=== PATIENT | female | born 1970 | race Caucasian/White ===

== ENCOUNTER 2016-08-30 08:30 | Inpatient (IN) | payer OTHER ==
[~2016-08-30] VITALS: Ht 157.5 cm; Wt 48.4 kg
[~2016-08-30 08:30] MED LIST: PRED10TA PO
[2016-08-30] MEDS ORDERED: SODIUM CHLORIDE 0.9% 1000ML 1,000 ML IV STA (08:51)
[2016-08-30] MEDS ORDERED: KETOROLAC TROMETHAMINE 30 MG/ML VIAL IV STA (08:55)
[2016-08-30] MEDS ORDERED: METOCLOPRAMIDE HCL INJ 5 MG/ML 2 ML VIAL IV STA (08:55)
--- NOTE | 2016-08-30 08:56 | EMERGENCY ROOM VISIT NOTE ---
History Report prepared by Pancho: Brain Rizzo Under the Supervision of: Dr. Wilber Russo M.D. First contact with patient: 08:34 Chief Complaint: SYNCOPE (NEAR SYNCOPE) Stated Complaint: NEAR SYNCOPE History of Present Illness The patient is a 46 year old female who presents to the Emergency Room via ALS with complaints of persistent near syncopal episodes beginning one and a half weeks prior to arrival. She associates weakness, abdominal cramping, and resolved chest tightness with today's symptoms. The patient states she was discharged a week and a half ago after being admitted for three weeks for her Crohn's Disease. She notes she has been experiencing her weakness and near syncopal episodes since she was discharged. The patient states she needs assistance walking around. She denies shortness of breath and does not have any other medical concerns at this time. Source of History: patient Onset: week and a half [employer] Position: other (global) Quality: other (near syncopal) Timing: other (persistent) Associated Symptoms: + chest pain (resolved chest tightness), + weakness, No SOB Note: Associated symptoms: abdominal cramping. Review of Systems See HPI for pertinent positives & negatives. A total of 10 systems reviewed and were otherwise negative. Past Medical & Surgical Medical Problems: (1) Bulging disc (2) Crohn's disease (3) Exacerbation of Crohn's disease (4) Fibromyalgia (5) Neuropathy (6) Pneumonia Surgical Problems: (1) S/P cholecystectomy Family History Patient reports no known family medical history. Social History Smoking Status: Current Every Day Smoker Alcohol Use: none Marital Status: single Housing Status: lives alone Occupation Status: unemployed Current/Historical Medications Scheduled Prednisone Tab (Prednisone), 10 MG PO UD Allergies Coded Allergies: Cephalexin (Unverified Allergy, Intermediate, rash, 08/30/16) Lorazepam (Unverified Allergy, Intermediate, tongue swelling, 08/30/16) Sulfa Antibiotics (Unverified Allergy, Intermediate, rash/hives, 08/30/16) Penicillins (Verified Allergy, Unknown, Unknown, 08/30/16) Reported by PT Physical Exam Vital Signs Date Time Temp Pulse Resp B/P Pulse Ox O2 Delivery O2 Flow Rate FiO2 08/30/16 14:15 116 27 120/80 99 Room Air 08/30/16 12:39 112 08/30/16 12:15 120 16 108/70 97 Room Air 08/30/16 10:22 114 20 107/77 97 Room Air 08/30/16 09:10 137 129/93 144 135/92 161 121/96 08/30/16 08:50 150 08/30/16 08:37 98 Room Air 08/30/16 08:37 37.4 147 20 123/85 96 Room Air 08/30/16 07:30 Room Air Physical Exam GENERAL: Patient is a cachectic in appearance. HEAD: Normocephalic atraumatic EYES: Ocular movements intact pupils equal and react to light OROPHARYNX mucous membranes are moist no exudates present no erythema or edema present NECK: Supple no nuchal rigidity CHEST: Good equal expansion LUNGS: Clear and equal to auscultation CARDIAC: Normal S1 and S2 ABDOMEN: Soft nontender no guarding BACK: No CVA tenderness EXTREMITIES: No pain upon palpation normal muscle strength in all groups no clubbing cyanosis or edema NEURO: Patient is following commands is answering questions appropriately. Alert and oriented x3 Cranial Nerves 2-12 grossly intact Medical Decision & Procedures ER Provider Diagnostic Interpretation: X-ray results as stated below per interpretation by me and the radiologist: ABDOMEN 2VIEW W/PA CHEST RTN CLINICAL HISTORY: Generalized abdominal pain and syncope COMPARISON STUDY: 08/20/2016 FINDINGS: The cardiac and mediastinal contours remain stable. There are left lower lobe airspace opacities. Clinical correlation in regards to a pneumonia is recommended. No free air is visualized. Supine and decubitus views the abdomen reveal surgical clips within the right upper quadrant consistent with a prior cholecystectomy. There are scattered air-fluid levels. There are no transition zones indicate bowel obstruction. Left mid abdominal small bowel loops are at the upper limits of normal diameter measuring 27 mm. IMPRESSION: 1. Nonspecific bowel gas pattern with scattered air-fluid levels. No conventional radiographic evidence of bowel obstruction or free air 2. Left lower lobe airspace opacities. Clinical correlation in regards to a pneumonia is recommended Electronically signed by: Skyler Partida M.D. 08/30/2016 9:47 AM Laboratory Results Test 08/30/16 08:58 08/30/16 09:16 Bedside Glucose 77 mg/dl (70-90) Immature Granulocyte % (Auto) 0.4 % White Blood Count 2.78 K/uL (4.8-10.8) Red Blood Count 3.37 M/uL (4.2-5.4) Hemoglobin 9.0 g/dL (12.0-16.0) Hematocrit 28.2 % (37-47) Mean Corpuscular Volume 83.7 fL (80-100) Mean Corpuscular Hemoglobin 26.7 pg (25-34) Mean Corpuscular Hemoglobin Concent 31.9 g/dl (32-36) Platelet Count 368 K/uL (130-400) Mean Platelet Volume 9.5 fL (7.4-10.4) Neutrophils (%) (Auto) 78.3 % Lymphocytes (%) (Auto) 10.1 % Monocytes (%) (Auto) 7.9 % Eosinophils (%) (Auto) 2.9 % Basophils (%) (Auto) 0.4 % Neutrophils # (Auto) 2.18 K/uL (1.4-6.5) Lymphocytes # (Auto) 0.28 K/uL (1.2-3.4) Monocytes # (Auto) 0.22 K/uL (0.11-0.59) Eosinophils # (Auto) 0.08 K/uL (0-0.5) Basophils # (Auto) 0.01 K/uL (0-0.2) Immature Granulocyte # (Auto) 0.01 K/uL (0.00-0.02) Neutrophils % (Manual) 73.1 % Lymphocytes % (Manual) 10.4 % Monocytes % (Manual) 8.7 % Eosinophils % (Manual) 6.1 % Myelocytes % 1.7 % Neutrophils # (Manual) 2.03 K/uL (1.4-6.5) Total Absolute Neutrophils 2.03 K/uL (1.4-6.5) Lymphocytes # (Manual) 0.29 K/uL (1.2-3.4) Total Absolute Lymphocytes 0.29 K/uL (1.2-3.4) Monocytes # (Manual) 0.24 K/uL (0.11-0.59) Eosinophils # (Manual) 0.17 K/uL (0-0.5) Myelocytes # 0.05 K/uL (0-0) Polychromasia 1+ Hypochromasia PRESENT Est Creatinine Clear Calc Drug Dose 72.7 ml/min Total Bilirubin 0.2 mg/dl (0.2-1) Direct Bilirubin < 0.1 mg/dl (0-0.2) Aspartate Amino Transf (AST/SGOT) 9 U/L (15-37) Alanine Aminotransferase (ALT/SGPT) 21 U/L (12-78) Alkaline Phosphatase 72 U/L (45-117) Total Creatine Kinase 8 U/L (26-192) Creatine Kinase MB 0.5 ng/ml (0.5-3.6) Creatine Kinase MB Ratio 6.3 (0-3.0) Total Protein 6.4 gm/dl (6.4-8.2) Thyroid Stimulating Hormone (TSH) 1.960 uIu/ml (0.300-4.500) Labs reviewed by ED physician. Medications Administered Medications (Trade) Dose Ordered Sig/Rashard Route Start Time Stop Time Status Last Admin Dose Admin Sodium Chloride (Nss 1000ml) 1,000 ml @ 999 mls/hr Q1H1M STAT IV 08/30/16 08:51 08/30/16 09:51 DC 08/30/16 09:15 999 MLS/HR Ketorolac Tromethamine (Toradol Inj) 30 mg NOW STAT IV 08/30/16 08:55 08/30/16 08:57 DC 08/30/16 09:45 30 MG Metoclopramide HCl 10 mg 10 mg NOW STAT IV 08/30/16 08:55 08/30/16 08:57 DC 08/30/16 09:45 10 MG Aztreonam 2000 mg/ Dextrose 110 ml @ 100 mls/hr NOW STAT IV 08/30/16 11:15 08/30/16 12:20 DC 08/30/16 11:45 100 MLS/HR Levofloxacin 750 mg/Prmx 150 ml @ 100 mls/hr NOW ONCE IV 08/30/16 12:00 08/30/16 13:29 DC 08/30/16 11:46 100 MLS/HR Tobramycin Sulfate/Dextrose (Nebcin Inj/D5 100ml) 107.7 ml @ 100 mls/hr TODAY@1200 IV 08/30/16 12:00 08/30/16 14:00 DC 08/30/16 13:08 100 MLS/HR Ondansetron HCl (Zofran Inj) 4 mg Q6H PRN IV 08/30/16 12:30 09/29/16 12:29 08/30/16 23:41 4 MG Zolpidem Tartrate (Ambien Tab) 5 mg HS PRN PO 08/30/16 12:30 09/29/16 12:29 08/30/16 23:41 5 MG Hydromorphone HCl (Dilaudid Inj) 0.5 mg Q4 PRN IV 08/30/16 12:30 09/13/16 12:29 08/30/16 23:41 0.5 MG ECG Indication: syncope Rate (beats per minute): 136 Rhythm: sinus tachycardia Findings: no acute ischemic change, no ectopy ED Course 0847: Past medical records reviewed. The patient was evaluated in room A4B. A complete history and physical examination was performed. 0821: Ordered Sodium Chloride 1,000 ml @ 999 mls/hr IV. 0855: Ordered Reglan Inj 10 mg IV, Toradol Inj 30 mg IV. 1115: Ordered Aztreonam 2,000 mg/Dextrose 110 ml @ 100 mls/hr IV. 1133: I spoke to PETRA Arambula (Hospitalist) about the patient's case, and he will follow the patient for further evaluation. 1200: Ordered Tobramycin Sulfate 308 mg/Dextrose 107.7 ml @ 100 mls/hr IV, Levofloxacin 750 mg/Prmx 150 ml @ 100 mls/hr IV. Medical Decision Differential diagnosis: Etiologies such as vasovagal event, infection, hypoglycemia, electrolyte abnormalities, cardiac sources, intracerebral event, toxicologic, neurologic, as well as others were entertained. This is a 46-year-old female who presents emergency department complaining of syncopal episodes at home. Due to her Crohn's disease. In addition upon arrival to the emergency department she is hypotensive and tachycardic. She does appear to have a pneumonia on her chest x-ray and has a depression in her white blood count. Based on these findings felt prudent to pancultured the patient start antibiotics. Due to her being allergic to penicillin she was started on Levaquin Ольга in am and tobramycin. I did discuss the case with the hospitalist service who agreed to admit the patient. IV was established, the patient given normal saline bolus, Toradol. The patient is on the no narcotics treatment plan. Consults Time Called: 1130 Consulting Physician: PETRA Arambula (Hospitalist) Returned Call: 1133 I spoke to PETRA Arambula (Hospitalist) about the patient's case, and he will follow the patient for further evaluation. Impression Primary Impression: Pneumonia Scribe Attestation The scribe's documentation has been prepared under my direction and personally reviewed by me in its entirety. I confirm that the note above accurately reflects all work, treatment, procedures, and medical decision making performed by me. Departure Information Dispostion Being Evaluated By Hospitalist (PETRA Arambula (Hospitalist)) Sixto Guillermo M.D. (PCP)
[2016-08-30 09:38] LABS: BASO % 0.4 %; BASO ABS # 0.01 K/uL (0-0.2); EOS % 2.9 %; HEMATOCRIT 28.2 % (37-47); IG% 0.4 %; LYMPH % 10.1 %; LYMPH ABS # 0.28 K/uL (1.2-3.4); MEAN CELL VOLUME 83.7 fL (80-100); MEAN CORPUSCULAR HEMOGLOBIN 26.7 pg (25-34); MEAN CORPUSCULAR HGB CONC 31.9 g/dl (32-36); MEAN PLATELET VOLUME 9.5 fL (7.4-10.4); MONO % 7.9 %; NEUT % 78.3 %; PLATELET COUNT 368 K/uL (130-400); RED BLOOD COUNT 3.37 M/uL (4.2-5.4); WHITE BLOOD COUNT 2.78 K/uL (4.8-10.8)
--- NOTE | 2016-08-30 09:48 | DIAGNOSTIC IMAGING REPORT ---
ABDOMEN 2VIEW W/PA CHEST RTN CLINICAL HISTORY: Generalized abdominal pain and syncope COMPARISON STUDY: 08/20/2016 FINDINGS: The cardiac and mediastinal contours remain stable. There are left lower lobe airspace opacities. Clinical correlation in regards to a pneumonia is recommended. No free air is visualized. Supine and decubitus views the abdomen reveal surgical clips within the right upper quadrant consistent with a prior cholecystectomy. There are scattered air-fluid levels. There are no transition zones indicate bowel obstruction. Left mid abdominal small bowel loops are at the upper limits of normal diameter measuring 27 mm. IMPRESSION: 1. Nonspecific bowel gas pattern with scattered air-fluid levels. No conventional radiographic evidence of bowel obstruction or free air 2. Left lower lobe airspace opacities. Clinical correlation in regards to a pneumonia is recommended Electronically signed by: Skyler Partida M.D. 08/30/2016 9:47 AM
[2016-08-30 09:52] LABS: BLOOD UREA NITROGEN 16 mg/dl (7-18); CREATININE 0.65 mg/dl (0.60-1.20); GLUCOSE 73 mg/dl (70-99)
[2016-08-30 09:53] LABS: ALT/SGPT 21 U/L (12-78); BUN/CREATININE RATIO 24.2 (10-20); CALCIUM 8.3 mg/dl (8.5-10.1); CARBON DIOXIDE 22 mmol/L (21-32); CHLORIDE 107 mmol/L (98-107); MAGNESIUM 1.7 mg/dl (1.8-2.4); POTASSIUM 3.4 mmol/L (3.5-5.1); SODIUM 138 mmol/L (136-145)
[2016-08-30 10:03] LABS: ALKALINE PHOSPHATASE 72 U/L (45-117); AST/SGOT 9 U/L (15-37); CKMB/CK RATIO 6.3 (0-3.0)
[2016-08-30 10:12] LABS: COMPLETE YES; HYPOCHROMIA PRESENT; POLYCHROMASIA 1+
[2016-08-30] MEDS ORDERED: AZTREONAM IV 2,000 MG in DEXTROSE 5% 100ML 100 ML IV STA (11:15)
[2016-08-30] MEDS ORDERED: LEVAQUIN 500MG / 100ML D5W IV STA (11:15)
[2016-08-30] MEDS ORDERED: DEXTROSE 5% IV STA (11:20)
[2016-08-30] MEDS ORDERED: TOBRAMYCIN SULF IV STA (11:20)
[2016-08-30] MEDS ORDERED: TOBRAMYCIN SULF IV SCH (12:00)
[2016-08-30] MEDS ORDERED: DEXTROSE 5% IV SCH (12:00)
[2016-08-30] MEDS ORDERED: LEVOFLOXACIN 750MG / D5W IV ONE (12:00)
[2016-08-30] MEDS ORDERED: VANCOMYCIN INJ 1,000 MG in SODIUM CHLORIDE 0.9% 250ML 250 ML IV STA (12:24)
[2016-08-30] MEDS ORDERED: OPTIRAY 320 IV PRN (13:00)
--- NOTE | 2016-08-30 13:04 | HISTORY & PHYSICAL EXAMINATION ---
DATE OF ADMISSION: 08/30/2016 ADDENDUM TO HISTORY AND PHYSICAL Regarding the patient's Crohn's disease flare, we are going to put her on an IV steroid that she was on prednisone taper dose as an outpatient, and also will get a GI consultation, will get stool for C. diff. Next, regarding the neutropenia, a neutrophil count is in a good range. She does not need to be isolated. If it becomes low, we may consider giving a dose of the Neupogen or Granix. Regarding the smoking, Risks of the smoking and explained to her, expressed understanding. She is going to require some nicotine. We are going to put her on a 7 mg nicotine patch. MTDD
[2016-08-30] MEDS ORDERED: VANCOMYCIN CONSULT ACTIVE PRN (13:15)
[2016-08-30] MEDS ORDERED: AZTREONAM CONSULT ACTIVE PRN ×2 (13:15)
--- NOTE | 2016-08-30 14:11 | HISTORY & PHYSICAL EXAMINATION ---
DATE OF ADMISSION: 08/30/2016 ADDENDUM The EKG reviewed with the ER physician, which he says he already seen it. He did not think this was ST elevation, especially patient having no chest pain, no shortness of breath and normal cardiac enzyme. Will repeat the enzymes and will monitor the patient. If anything happens will intervene accordingly and will address it with cardiology.
[2016-08-30] MEDS: HYDROmorphone INJ 1 MG/ML SYR IV PRN ×3 (15:10→23:41)
--- NOTE | 2016-08-30 15:36 | HISTORY & PHYSICAL EXAMINATION ---
DATE OF ADMISSION: 08/30/2016 CHIEF COMPLAINT: Abdominal pain and weakness and coughing with fever, having some episodes of syncope. HISTORY OF PRESENT ILLNESS: This is a pleasant 46-year-old female currently awake, alert, oriented and having some baseline psychiatric issue and chronic Crohn's disease was in the hospital recently discharged with Crohn's flareup while in the hospital for a long period. According to the patient whose case was addressed with the ER physician Dr. Russo the patient had been passing out a few times over the last week and discharged from the hospital having some weaknesses, diarrhea recurrent which is because of the Crohn's disease, some abdominal pain, some coughing producing some whitish phlegm, having some fever and chills but never checked a temperature. Not able to eat or drink anything and looks weak, lethargic, lousy and denies any nausea, any bleeding issues and having some mild chest pain earlier today on the left side. Workup in the Emergency Room showed nonspecific air pattern in the bowel as well as left lower infiltration. She was neutropenic while neutrophil count is in a good range. Awake, alert, able to provide information by herself. PAST MEDICAL HISTORY: 1. Crohn's disease and multiple flareup. 2. Noncompliance. 3. Recent DVT at PICC line site. On discharge they opted not to treat it because of noncompliance issue. 4. Chronic constipation alternating with diarrhea. 5. Excoriation of the perianal skin. 6. Chronic abdominal pain. 7. Chronic back pain. 8. History of osteoporosis and peripheral neuropathy. 9. Status post cholecystectomy. MEDICATIONS ON ADMISSION: Other than the recent taper of the steroid she is not on any medication but she was started on Entyvio by Dr. Mcfarlane. She said she just got a dose last week and she is supposed to get second dose in 2 weeks. ALLERGIES: SHE IS ALLERGIC TO CEPHALEXIN, LORAZEPAM, PENICILLIN AND SULFA DRUGS. SOCIAL HISTORY: Smokes 5-6 cigarettes a day. No alcohol and denies any drugs. FAMILY HISTORY: She does not know much about her family history. REVIEW OF SYSTEMS: From 12 point review in history and physical all the findings appreciated. PHYSICAL EXAMINATION: VITAL SIGNS: Temperature 37.4, pulse 147, improved to 114, now like 116. Blood pressure 123/85. O2 sat as 96% on room air. GENERAL: Awake, alert, oriented. Looks weak, lethargic. HEAD, EYES, EARS, NOSE, AND THROAT: Normocephalic. Dry lips and tongue. No discharge. SKIN: Mucous membranes warm, dry. Skin dry mucous membranes. NECK: Supple. No JVD. No bruits or goiter. CHEST: Symmetrical expansion. Port in the right side of the chest. No skin abnormality. LUNGS: With air entry bilaterally. No rales or rhonchi. No crackles or wheezes. HEART: S1, S2. rapid and regular. No added sounds appreciated. ABDOMEN: Soft, mild generalized tenderness. No guarding, no rigidity. No organomegaly. Bowel sounds positive. EXTREMITIES: No pitting edema. Good peripheral pulses. Good range of motion. Good range of motion of the joint. No tenderness of any joint or muscle. BACK: No costovertebral angle tenderness. No lower back erythema or ulceration. PELVIC: Deferred. RECTAL: Deferred. NEUROLOGICALLY: Awake, alert, oriented. Motor and sensory grossly intact. LABORATORY DATA: White cell count 2.78, hemoglobin 9, hematocrit 28.2, platelet count 368, sodium 138, potassium 3.4, chloride 107, BUN 16, creatinine 0.625, magnesium 1.7. AST 9, ALT 21, CK-MB 6.3, troponin less than 0.015. Albumin 2.4, TSH 1.96. Chest and abdominal x-ray basically showed nonspecific bowel gas pattern, scattered air fluid level, no convincing radiographic evidence of bowel obstruction or free air. Left lower lobe air space opacity could be related to pneumonia. EKG showed sinus tachycardia rate 136, QRS 68, QTC [address] T-wave changes. There are some ST elevations anterolateral leads, could be a related to tachycardia as she has no no chest pain or shortness of breath and cardiac enzymes negative. When compared with prior EKG this finding is new finding. IMPRESSION: A 46-year-old female presented with some dizziness, mild chest pain, worse with coughing and left lower quadrant infiltration, diarrhea with Crohn's disease flareup. 1. Recurrent syncope, possibly secondary to dehydration, pneumonia and doubt cardiac causes but need to rule out pulmonary embolism in light of recent DVT in the PICC line site. 2. Left lower lobe pneumonia. 3. Crohn's disease flareup. 4. Abdominal pain and diarrhea secondary to the Crohn's disease flare up. 5. Neutropenia. 6. Chronic immunosuppression. 7. Need to rule out pulmonary embolism. 8. Chronic anemia, mild possible secondary to chronic disease 9. Mild hypokalemia and hypomagnesia. 9. Doubt sepsis. PLAN: The patient is going to be admitted as an inpatient as she has multiple comorbidities and presentation though otherwise showing risks of progression of the symptoms with high morbidity and mortality and cardiopulmonary compromises. First the patient is going to get some antibiotic, Levaquin and tobramycin and aztreonam. We are going to put the patient on Vanc and Azactam consider this as hospital acquired pneumonia as she is allergic to penicillin and cephalosporins. Give some IV fluids, add some potassium to it and replace magnesium, get blood culture and check C. diff again. Get CTA of the chest to rule out pulmonary embolism and evaluate infiltration. Will address with cardiology if enzymes is becomes positive as doubted STEMI, regarding the EKG change which I doubt it to be ST elevation myocardial infraction as has normal enzyme and no chest pain currently. Put her on some nausea medication, she asked for some sleeping aide and I will put her on some pain medication. Further workup pending any progression or finding during hospitalization. CODE STATUS FULL CODE. DVT prophylaxis. Will put her on heparin twice a day. Prognosis is poor. All discussed with the patient in detail and she expressed understanding. Time spent is 45 minutes. SHERRELLD
[2016-08-30] MEDS ORDERED: VANCOMYCIN 1GM/270ML NSS IV ONE (16:00)
[2016-08-30 16:45] VITALS: BP 111/72; PULSE 116; TEMP 37; O2SAT 97
--- NOTE | 2016-08-30 16:51 | Pharmacy Progress Note ---
Pharmacy Antibiotic Consult Date of Service: Aug 30, 2016. Pharmacy Dosing Scope Pharmacy is consulted to initiate vancomycin and azactam IV dosing therapy, order appropriate labs and adjust drug dose/frequency. Subjective The patient is a 46 year old female admitted on . Objective Height (Feet): 5 Height (Inches): 2.00 Weight (Kilograms): 43.500 Lab Results (24hrs): Laboratory Tests Test 08/30/16 09:16 BUN/Creatinine Ratio 24.2 Blood Urea Nitrogen 16 mg/dl Creatinine 0.65 mg/dl White Blood Count 2.78 K/uL Red Blood Count 3.37 M/uL Hemoglobin 9.0 g/dL Hematocrit 28.2 % Mean Corpuscular Volume 83.7 fL Mean Corpuscular Hemoglobin 26.7 pg Mean Corpuscular Hemoglobin Concent 31.9 g/dl Platelet Count 368 K/uL Mean Platelet Volume 9.5 fL Neutrophils (%) (Auto) 78.3 % Lymphocytes (%) (Auto) 10.1 % Monocytes (%) (Auto) 7.9 % Eosinophils (%) (Auto) 2.9 % Basophils (%) (Auto) 0.4 % Neutrophils # (Auto) 2.18 K/uL Lymphocytes # (Auto) 0.28 K/uL Monocytes # (Auto) 0.22 K/uL Eosinophils # (Auto) 0.08 K/uL Basophils # (Auto) 0.01 K/uL Micro Results: Item Value Date Time Blood Culture Received 08/30/16 1613 Blood Pending Blood Culture Received 08/30/16 1610 Blood Pending Assessment & Plan Patient started on vancomycin and azactam (PCN/cephalosporin allergy noted) for possible hospital acquired pneumonia. Patient received one time dose of tobramycin and levaquin in the ED. BC x 2 are ordered and are pending. Vancomycin: * LD: 1000 mg (~23 mg/kg) iv x 1 given in ED * Will start a MD of 700 mg (~16 mg/kg) iv q 8 hrs to achieve an estimated trough ~15-20 mcg/ml (goal for PNA) * regimen based upon previous PK data from 08/11 (patient had been on 650 mg iv q 8 hrs and it produced trough ~15 mcg/ml) * patient with similar CrCl from previous admission; CrCl ~75 ml/min * Will obtain a trough prior to the 08/31 0000 dose to ensure therapeutic Azactam: * Patient received 2 gm iv x 1 ; will start MD of 2 gm iv q 8 hrs (appropriate for PNA / >30 CrCl - no adjustment necessary) Pharmacy will continue to follow and will adjust dose/frequency as necessary. Thank you
[2016-08-30] MEDS: ONDANSETRON INJ 2 MG/ML 2 ML VIAL IV PRN ×2 (17:27→23:41)
[2016-08-30 17:30] VITALS: O2SAT 97; Ht 157.5 cm; Wt 48.4 kg
[2016-08-30] MEDS ORDERED: VANCOMYCIN INJ 1,000 MG in SODIUM CHLORIDE 0.9% 250ML 250 ML IV SCH (17:30)
[2016-08-30] MEDS: NSS + 20MEQ KCL 1000ML 1,000 ML IV SCH (18:23)
[2016-08-30] MEDS: HYDROCORTISONE IV 50 MG in SYRINGE 0 ML IV SCH ×2 (18:28→23:42)
[2016-08-30 19:29] VITALS: BP 130/84; PULSE 134; TEMP 37.6; O2SAT 97
[2016-08-30] MEDS ORDERED: MAGNESIUM SULFATE 1GM / D5W 1 GM in PREMIXED IN D5W 100 ML IV ONE (20:00)
[2016-08-30] MEDS ORDERED: POTASSIUM CHLORIDE 10 MEQ TABCR PO STA (20:10)
[2016-08-30] MEDS: AZTREONAM IV 2,000 MG in DEXTROSE 5% 100ML 100 ML IV SCH (20:43)
[2016-08-30] MEDS: HEPARIN SOD 5000 UNIT/0.5 ML CARP SQ SCH (20:53)
[2016-08-30] MEDS: VANCOMYCIN INJ 700 MG in SODIUM CHLORIDE 0.9% 250ML 250 ML IV SCH (23:40)
[2016-08-30] MEDS: ZOLPIDEM TARTRATE 5 MG TAB PO PRN (23:41)
[2016-08-30 23:45] VITALS: BP 125/84; PULSE 104; TEMP 36.9; O2SAT 97
[2016-08-31] VITALS (8 sets, daily range): BP systolic 106–128; BP diastolic 67–85; PULSE 100–119; TEMP 36.5–37.6; O2SAT 96–98
[2016-08-31 00:37] LABS: MANUAL MICROSCOPIC REQUIRED? NO; REVIEW REQ? NO; URINE APPEARANCE CLEAR (CLEAR); URINE BILIRUBIN NEG (NEG); URINE COLOR YELLOW; URINE EPITHELIAL CELL AUTO >30 /lpf (0-5); URINE NITRITE NEG (NEG); URINE SPECIFIC GRAVITY 1.002 (1.000-1.030); UROBILINOGEN NEG (NEG)
[2016-08-31] MEDS: NSS + 20MEQ KCL 1000ML 1,000 ML IV SCH ×3 (03:00→16:49)
[2016-08-31] MEDS: AZTREONAM IV 2,000 MG in DEXTROSE 5% 100ML 100 ML IV SCH ×3 (04:23→21:57)
[2016-08-31] MEDS: HYDROCORTISONE IV 50 MG in SYRINGE 0 ML IV SCH ×4 (05:39→23:29)
[2016-08-31 06:53] LABS: HEMATOCRIT 24.6 % (37-47); MEAN CELL VOLUME 82.3 fL (80-100); MEAN CORPUSCULAR HEMOGLOBIN 26.8 pg (25-34); MEAN CORPUSCULAR HGB CONC 32.5 g/dl (32-36); PLATELET COUNT 321 K/uL (130-400); RED BLOOD COUNT 2.99 M/uL (4.2-5.4); WHITE BLOOD COUNT 2.34 K/uL (4.8-10.8)
[2016-08-31 07:13] LABS: ANISOCYTOSIS PRESENT; COMPLETE YES; DOHLE BODIES 1+; EOS % 0.4 %; GIANT PLATELETS 1+; IG% 1.3 %; LYMPH % 15.4 %; LYMPH ABS # 0.36 K/uL (1.2-3.4); MONO % 3.8 %; NEUT % 79.1 %; TOXIC GRANULATION 1+
[2016-08-31 07:21] LABS: BUN/CREATININE RATIO 17.6 (10-20); CALCIUM 8.2 mg/dl (8.5-10.1); CREATININE 0.45 mg/dl (0.60-1.20); PHOSPHORUS 2.7 mg/dl (2.5-4.9); POTASSIUM 3.9 mmol/L (3.5-5.1)
[2016-08-31] MEDS: ONDANSETRON INJ 2 MG/ML 2 ML VIAL IV PRN ×2 (07:42→16:54)
[2016-08-31] MEDS: HYDROmorphone INJ 1 MG/ML SYR IV PRN ×4 (07:42→22:01)
[2016-08-31] MEDS: VANCOMYCIN INJ 700 MG in SODIUM CHLORIDE 0.9% 250ML 250 ML IV SCH ×3 (07:46→23:58)
[2016-08-31] MEDS: HEPARIN SOD 5000 UNIT/0.5 ML CARP SQ SCH (07:51)
[2016-08-31] MEDS: NICOTINE 7 MG/24 HR TDSY TD SCH (10:11)
[2016-08-31] MEDS: CLONAZEPAM 0.5 MG TAB PO PRN ×2 (10:15→23:04)
--- NOTE | 2016-08-31 12:27 | Progress Note ---
Subjective Date of Service: Aug 31, 2016. Subjective Pt evaluation today including: conversation w/ patient Pain: moderate abd pain, imporves w pain meds PO Intake: better Voiding: no voiding problems seen and examined awake and alert a,febrile, no Cp or SOB, still has abd pain pain improves w pain meds, no more nausea and still has loose stool, no fever or chill, CTA chest is not done. still has coughing and phlegm but better than yesterday asks for Clonazepam which she suppose to be on it as O but has no refill and no PMD, Review of Systems Constitutional: No chills, No fatigue, No fever, No problem reported, No see HPI, No sweats, No weakness, No weight loss Eyes: No diplopia, No discharge, No eye pain, No problem reported, No redness, No see HPI, No worsening of vision ENT: No dental problems, No hearing loss, No nasal symptoms, No problem reported, No see HPI, No sore throat, No tinnitus, No trouble swallowing, No unusual epistaxis Respiratory: No cough, No dyspnea at rest, No dyspnea on exertion, No hemoptysis, No problem reported, No see HPI, No shortness of breath, No sputum, No wheezing Cardiac: No PND, No chest pain, No claudication, No edema, No orthopnea, No palpitations, No problem reported, No see HPI Abdomen: + diarrhea, + pain Musculoskeletal: No calf pain, No joint pain, No muscle pain, No problem reported, No see HPI, No swelling Female : No abnormal vaginal bleeding, No dysuria, No hematuria, No incontinence, No problem reported, No see HPI, No urinary frequency, No vaginal discharge Neurologic: No balance problems, No memory loss, No numbness/tingling, No paralysis, No problem reported, No see HPI, No vertigo, No weakness Medications Current Inpatient Medications Medications (Trade) Dose Ordered Sig/Rashard Route Start Time Stop Time Status Last Admin Dose Admin Heparin Sodium (Porcine) 5000 unit 5,000 unit Q12 SQ 08/30/16 21:00 09/29/16 20:59 08/31/16 07:51 5,000 UNIT Potassium Chloride/Sodium Chloride (Nss + 20meq KCl 1000ml) 1,000 ml @ 125 mls/hr Q8H IV 08/30/16 17:30 09/29/16 12:23 08/31/16 07:46 125 MLS/HR Acetaminophen (Tylenol Tab) 650 mg Q4H PRN PO 08/30/16 12:30 09/29/16 12:29 Ondansetron HCl 4 mg 4 mg Q6H PRN IV 08/30/16 12:30 09/29/16 12:29 08/31/16 07:42 4 MG Aztreonam 2000 mg/ Dextrose 110 ml @ 100 mls/hr Q8H IV 08/30/16 20:00 09/09/16 11:59 08/31/16 11:53 100 MLS/HR Hydrocortisone Sodium Succinate/ Syringe (Solu-Cortef IV/ Syringe) 1 ml @ 4 mls/min Q6H IV 08/30/16 18:00 09/29/16 17:59 08/31/16 11:53 4 MLS/MIN Zolpidem Tartrate (Ambien Tab) 5 mg HS PRN PO 08/30/16 12:30 09/29/16 12:29 08/30/16 23:41 5 MG Hydromorphone HCl (Dilaudid Inj) 0.5 mg Q4 PRN IV 08/30/16 12:30 09/13/16 12:29 08/31/16 12:01 0.5 MG Ioversol (Optiray 320) 95 ml UD PRN IV 08/30/16 13:00 09/03/16 12:59 Vancomycin HCl (Consult) 1 ea UD PRN N/A 08/30/16 13:15 09/29/16 13:14 Aztreonam 1 ea 1 ea UD PRN N/A 08/30/16 13:15 09/29/16 13:14 Vancomycin HCl/ Sodium Chloride (Vancomycin Inj/ Nss 250ml) 264 ml @ 125 mls/hr Q8H IV 08/31/16 00:00 09/10/16 00:00 08/31/16 07:46 125 MLS/HR Nicotine (Nicoderm Cq 7 Mg Patch) 1 patch QAM TD 08/31/16 09:00 09/30/16 08:59 08/31/16 10:11 1 PATCH Miscellaneous (Remove Nicoderm Patch) 1 ea HS N/A 08/31/16 21:00 09/30/16 20:59 Clonazepam (Klonopin Tab) 0.5 mg BID PRN PO 08/31/16 09:00 09/30/16 08:59 08/31/16 10:15 0.5 MG Objective Vital Signs Date Time Temp Pulse Resp B/P Pulse Ox O2 Delivery O2 Flow Rate FiO2 08/31/16 08:13 36.8 104 18 128/67 98 08/31/16 04:23 36.9 100 18 122/85 98 Room Air 08/31/16 04:00 Room Air 08/31/16 00:00 Room Air 08/30/16 23:45 36.9 104 18 125/84 97 Room Air 08/30/16 19:30 Room Air 08/30/16 19:29 37.6 134 18 130/84 97 Room Air 08/30/16 17:30 97 Room Air 08/30/16 16:45 37.0 116 16 111/72 97 Room Air 08/30/16 16:15 143 27 111/80 96 08/30/16 14:15 116 27 120/80 99 Room Air 08/30/16 12:39 112 08/30/16 12:15 120 16 108/70 97 Room Air 08/30/16 10:22 114 20 107/77 97 Room Air 08/30/16 09:10 137 129/93 144 135/92 161 121/96 08/30/16 08:50 150 08/30/16 08:37 98 Room Air 08/30/16 08:37 37.4 147 20 123/85 96 Room Air Physical Exam General Appearance: WD/WN Eyes: normal inspection ENT: normal ENT inspection Neck: supple, no adenopathy, thyroid normal Respiratory/Chest: chest non-tender, lungs clear, normal breath sounds, no respiratory distress Cardiovascular: regular rate, rhythm, no edema, no gallop, no JVD Abdomen: normal bowel sounds, non tender, soft, no organomegaly Extremities: normal range of motion, non-tender, normal inspection, no pedal edema Neurologic/Psychiatric: no motor/sensory deficits Laboratory Results Last 24 Hours Test 08/30/16 08:58 08/30/16 09:16 08/30/16 16:10 08/30/16 23:15 Bedside Glucose 77 mg/dl White Blood Count 2.78 K/uL Red Blood Count 3.37 M/uL Hemoglobin 9.0 g/dL Hematocrit 28.2 % Mean Corpuscular Volume 83.7 fL Mean Corpuscular Hemoglobin 26.7 pg Mean Corpuscular Hemoglobin Concent 31.9 g/dl Platelet Count 368 K/uL Mean Platelet Volume 9.5 fL Neutrophils (%) (Auto) 78.3 % Lymphocytes (%) (Auto) 10.1 % Monocytes (%) (Auto) 7.9 % Eosinophils (%) (Auto) 2.9 % Basophils (%) (Auto) 0.4 % Neutrophils # (Auto) 2.18 K/uL Lymphocytes # (Auto) 0.28 K/uL Monocytes # (Auto) 0.22 K/uL Eosinophils # (Auto) 0.08 K/uL Basophils # (Auto) 0.01 K/uL RDW Standard Deviation 78.7 fL RDW Coefficient of Variation 26.4 % Immature Granulocyte % (Auto) 0.4 % Immature Granulocyte # (Auto) 0.01 K/uL Neutrophils % (Manual) 73.1 % Lymphocytes % (Manual) 10.4 % Monocytes % (Manual) 8.7 % Eosinophils % (Manual) 6.1 % Myelocytes % 1.7 % Neutrophils # (Manual) 2.03 K/uL Total Absolute Neutrophils 2.03 K/uL Lymphocytes # (Manual) 0.29 K/uL Total Absolute Lymphocytes 0.29 K/uL Monocytes # (Manual) 0.24 K/uL Eosinophils # (Manual) 0.17 K/uL Myelocytes # 0.05 K/uL Polychromasia 1+ Hypochromasia PRESENT Sodium Level 138 mmol/L Potassium Level 3.4 mmol/L Chloride Level 107 mmol/L Carbon Dioxide Level 22 mmol/L Anion Gap 9.0 mmol/L Blood Urea Nitrogen 16 mg/dl Creatinine 0.65 mg/dl Est Creatinine Clear Calc Drug Dose 72.7 ml/min Estimated GFR () 121.7 Estimated GFR (Non- 105.0 BUN/Creatinine Ratio 24.2 Random Glucose 73 mg/dl Calcium Level 8.3 mg/dl Magnesium Level 1.7 mg/dl Total Bilirubin 0.2 mg/dl Direct Bilirubin < 0.1 mg/dl Aspartate Amino Transf (AST/SGOT) 9 U/L Alanine Aminotransferase (ALT/SGPT) 21 U/L Alkaline Phosphatase 72 U/L Total Creatine Kinase 8 U/L Creatine Kinase MB 0.5 ng/ml Creatine Kinase MB Ratio 6.3 Troponin I < 0.015 ng/ml < 0.015 ng/ml < 0.015 ng/ml Total Protein 6.4 gm/dl Albumin 2.4 gm/dl Thyroid Stimulating Hormone (TSH) 1.960 uIu/ml Test 08/31/16 00:20 08/31/16 06:37 Urine Color YELLOW Urine Appearance CLEAR Urine pH 5.0 Urine Specific Louann 1.002 Urine Protein NEG Urine Glucose (UA) NEG Urine Ketones NEG Urine Occult Blood 2+ Urine Nitrite NEG Urine Bilirubin NEG Urine Urobilinogen NEG Urine Leukocyte Esterase MODERATE Urine WBC (Auto) 5-10 /hpf Urine RBC (Auto) 10-30 /hpf Urine Hyaline Casts (Auto) 1-5 /lpf Urine Epithelial Cells (Auto) >30 /lpf Urine Bacteria (Auto) NEG White Blood Count 2.34 K/uL Red Blood Count 2.99 M/uL Hemoglobin 8.0 g/dL Hematocrit 24.6 % Mean Corpuscular Volume 82.3 fL Mean Corpuscular Hemoglobin 26.8 pg Mean Corpuscular Hemoglobin Concent 32.5 g/dl Platelet Count 321 K/uL Mean Platelet Volume 9.0 fL Neutrophils (%) (Auto) 79.1 % Lymphocytes (%) (Auto) 15.4 % Monocytes (%) (Auto) 3.8 % Eosinophils (%) (Auto) 0.4 % Basophils (%) (Auto) 0.0 % Neutrophils # (Auto) 1.85 K/uL Lymphocytes # (Auto) 0.36 K/uL Monocytes # (Auto) 0.09 K/uL Eosinophils # (Auto) 0.01 K/uL Basophils # (Auto) 0.00 K/uL RDW Standard Deviation 77.6 fL RDW Coefficient of Variation 26.1 % Immature Granulocyte % (Auto) 1.3 % Immature Granulocyte # (Auto) 0.03 K/uL Toxic Granulation 1+ Dohle Bodies 1+ Giant Platelets 1+ Anisocytosis PRESENT Sodium Level 138 mmol/L Potassium Level 3.9 mmol/L Chloride Level 107 mmol/L Carbon Dioxide Level 21 mmol/L Anion Gap 10.0 mmol/L Blood Urea Nitrogen 8 mg/dl Creatinine 0.45 mg/dl Est Creatinine Clear Calc Drug Dose 139.4 ml/min Estimated GFR () 137.3 Estimated GFR (Non- 118.5 BUN/Creatinine Ratio 17.6 Random Glucose 97 mg/dl Calcium Level 8.2 mg/dl Phosphorus Level 2.7 mg/dl Magnesium Level 2.0 mg/dl Albumin 2.0 gm/dl Assessment and Plan #Crohn's disease and multiple flare up. IV steroid GI consult IV fluid pain meds Sepsis: Neutropenia, tachycardia and weakness, from infectious and noninfectious causes #LLL pneumonia w poss been hospital acquires as she was in hospital for long period bet July and August Abx CT chest stil pending Bd culture spending #Neutroprnia poss sec to recently receiving Entyvia monitor CBC , no needs for isolation as neutrophil is 1.8 Anemia , poss chronic and now worse because of Entyvia and hemodilution, monitor Hold of Hep Sq #needs to R/O PE w recent DVt in [facility], been tachycardiac and CP CTA still pending #Recent DVT at PICC line site. On discharge they opted not to be treat because of Compliance issues #Noncompliance. #Questionable H/o substance abuse 3psych disorders ?? #Chronic constipation alternating with diarrhea. # H/O Excoriation of the perianal skin. #Chronic abdominal pain. #Chronic back pain. #History of osteoporosis and peripheral neuropathy. #Status post cholecystectomy. Plan IV Abx CTA chest IVF pain Meds add Clonazepam recheck CBC DC hep and SCD and anam for DVT prophylaxis advised about compliance and follow up need PMD as OP Dw SS and the nurse Continued [facility] stay due to: abnormal vital signs, multiple IV medications needed, other Discharge planning: home
--- NOTE | 2016-08-31 12:36 | GASTROINTESTINAL CONSULTATION ---
DATE OF CONSULTATION: 08/31/2016 REASON FOR EVALUATION: Colonic Crohn disease. HISTORY OF PRESENT ILLNESS: The patient is a 46-year-old with colonic Crohn disease, recently hospitalized with a flare up of her disease. The patient has had difficulty with compliance in the past and was diagnosed by psychiatric evaluation during her last hospitalization with an obsessive compulsive personality disorder, somatization and another personality disorder that made it very difficult for her to comply with medications. The patient was on TPN and IV steroids for her Crohn disease. We finally got vedolizumab approved for her, but before we were able to infuse it, she signed out of the hospital AMA. She was able to get the medication as an outpatient on August 24. She is due for another infusion a week from today. She is taking a tapering course of p.o. steroids as an outpatient, was supposed to taper down to 10 mg a day which would be 2 days from now. When she came back in the hospital with weakness, she was found to have a left lower lobe infiltrate and was placed on IV steroids and Dilaudid as well as antibiotics. PAST MEDICAL HISTORY: Remarkable for Crohn disease. She had a DVT and the PICC line that was in place for TPN. She has osteoporosis. She has had a cholecystectomy. She has personality disorder. ALLERGIES: CEPHALEXIN, LORAZEPAM, PENICILLIN, SULFA. SOCIAL HISTORY: The patient continues to smoke 5-6 cigarettes a day and was placed on nicotine patches during her hospitalization. REVIEW OF SYSTEMS: Positive for weakness and alternating diarrhea and constipation. PHYSICAL EXAMINATION: GENERAL: The patient appears in no acute distress. VITAL SIGNS: Normal. HEENT: She has some facial fullness from the steroids. ABDOMEN: Soft. There is some cholecystectomy scars. No masses appreciated. IMPRESSION: The patient has colonic Crohn disease. At this point, I would put her back on 20 mg of prednisone a day orally and stop the IV steroids and I would probably also avoid giving her any form of opiate pain medication as this was a very big problem during her last hospitalization and the reason for her signing out against medical advice. She will be due for her next vedolizumab infusion in 1 week and this can be given in the hospital if she is still here but also she already has previous arrangements to get it as an outpatient if she is discharged.
[2016-08-31] MEDS ORDERED: OPTIRAY 320 IV PRN (14:00)
--- NOTE | 2016-08-31 14:23 | DIAGNOSTIC IMAGING REPORT ---
CHEST CTA for PULMONARY ARTERIES CT DOSE: 188.97 mGy.cm HISTORY: Atypical chest pain. Tachycardia. TECHNIQUE: Multiaxial CT images of the chest were performed following the intravenous administration of contrast to evaluate the pulmonary arteries. Maximal intensity projection images were also obtained. COMPARISON STUDY: Chest CTA 05/17/2016. FINDINGS: Mild anterior wedging within the T11 vertebral body consistent with old compression deformity. This remains unchanged. No pneumothorax. Small amount of mucoid material within the left lower lobe segmental bronchi. Stable 3 mm nodule within the left lung apex on image 263. There is left lower lobe dense consolidation. Additional patchy airspace opacity seen within the bases of the right lower lobe, right middle lobe, and lingula. Stable 6 nodule within the right lower lobe on image 95. Mild narrowing at the origin of the left subclavian artery, unchanged. Normal caliber thoracic aorta with no evidence for dissection. No pleural or pericardial effusions. No filling defects within the pulmonary arteries to suggest pulmonary embolus. No mediastinal or hilar lymphadenopathy. The visualized liver and spleen are unremarkable. Right subclavian Port-A-Cath terminates in the SVC. IMPRESSION: 1. Bibasilar airspace opacities most pronounced within the left lower lobe. This likely represents a pneumonia. Recommend follow-up to resolution. 2. No evidence for pulmonary embolus. 3. Stable 6 mm nodule within the right lower lobe. Continued follow-up is recommended. Please refer to below summary of Fleischner criteria recommendations for follow-up of incidental CT nodules (Madison Wyatt, Guidelines for management of small pulmonary nodules detected on CT scans: A statement from the Fleischner Society, Radiology 237: [id number].) Low Risk Patient: Minimal or no smoking or other known risk factors for malignancy <=4 mm: No follow-up needed. >4-6 mm: Initial follow-up CT at 12 months; if unchanged, no further follow-up. >6-8 mm: Initial follow-up CT at 6-12 months then at 18-24 months if no change. >8 mm: Follow-up CT at \R\3, 9, 24 months, or PET and/or biopsy. High Risk Patient: History of smoking or other known risk factors <=4 mm: Follow-up at 12 months; if unchanged, no further follow-up. >4-6 mm: Initial follow-up CT at 6-12 months then at 18-24 months if no change. >6-8 mm: Initial follow-up CT at 3-6 months then at 9-12 and 24 months if no change. >8 mm: Same as low risk patient. Note: Nodule size measured as average of length and width. Ground glass or partly solid nodules may require longer follow-up to exclude indolent adenocarcinoma. Electronically signed by: Jared Carlton M.D. 08/31/2016 2:21 PM
[2016-08-31] MEDS: ALUMINUM/MAGNESIUM SUSP 18 ML, LIDOCAINE HCL 2% VISCOUS SOLN 6 ML, BARCODE IDENTIFIER 1 EA PO SCH ×4 (20:00→20:30)
[2016-08-31] MEDS ORDERED: NURSING VERBAL MED ORDER ONE (20:00)
[2016-08-31] MEDS: ZOLPIDEM TARTRATE 5 MG TAB PO PRN (23:29)
[2016-09-01 00:05] VITALS: BP 113/78; PULSE 106; TEMP 36.8; O2SAT 96
[2016-09-01 00:25] VITALS: O2SAT 98
[2016-09-01] MEDS: NSS + 20MEQ KCL 1000ML 1,000 ML IV SCH ×3 (01:38→17:17)
[2016-09-01] MEDS: ONDANSETRON INJ 2 MG/ML 2 ML VIAL IV PRN ×3 (03:34→19:15)
[2016-09-01] MEDS: HYDROmorphone INJ 1 MG/ML SYR IV PRN ×2 (03:34→08:07)
[2016-09-01] MEDS: AZTREONAM IV 2,000 MG in DEXTROSE 5% 100ML 100 ML IV SCH ×3 (03:34→20:15)
[2016-09-01] MEDS: HYDROCORTISONE IV 50 MG in SYRINGE 0 ML IV SCH (06:41)
[2016-09-01] MEDS ORDERED: VANCOMYCIN TROUGH SCH (07:30)
[2016-09-01] MEDS: CLONAZEPAM 0.5 MG TAB PO PRN ×2 (07:49→16:39)
[2016-09-01] MEDS: NICOTINE 7 MG/24 HR TDSY TD SCH (07:50)
[2016-09-01 07:58] VITALS: BP 134/82; PULSE 96; TEMP 36.6; O2SAT 96
[2016-09-01] MEDS ORDERED: ALTEPLASE, RECOMBINANT 1 MG/ML 2 ML VIAL IV ONE (08:00)
[2016-09-01] MEDS ORDERED: KETOROLAC TROMETHAMINE 30 MG/ML VIAL IV STA (10:39)
[2016-09-01] MEDS: VANCOMYCIN INJ 700 MG in SODIUM CHLORIDE 0.9% 250ML 250 ML IV SCH ×2 (11:02→19:15)
[2016-09-01 11:33] LABS: HEMATOCRIT 25.3 % (37-47); IG% 3.7 %; LYMPH % 13.2 %; LYMPH ABS # 0.32 K/uL (1.2-3.4); MEAN CELL VOLUME 82.1 fL (80-100); MEAN CORPUSCULAR HEMOGLOBIN 26.6 pg (25-34); MEAN CORPUSCULAR HGB CONC 32.4 g/dl (32-36); MONO % 10.7 %; NEUT % 72.4 %; PLATELET COUNT 424 K/uL (130-400); RED BLOOD COUNT 3.08 M/uL (4.2-5.4); WHITE BLOOD COUNT 2.42 K/uL (4.8-10.8)
[2016-09-01 12:04] LABS: CREATININE 0.49 mg/dl (0.60-1.20)
[2016-09-01 12:31] LABS: ANISOCYTOSIS PRESENT; COMPLETE YES; LARGE PLATELETS 1+; POLYCHROMASIA 1+
[2016-09-01] MEDS: BOOST VANILLA PO SCH ×4 (13:21→17:16)
--- NOTE | 2016-09-01 14:02 | Pharmacy Progress Note ---
Pharmacy Progress Note Pharmacy is consulted to dose vancomycin and aztreonam IV, Today is day 3 of IV antibiotics here. Patient's A-port was clogged and treated with Cathflo. Vancomycin doses and trough retimed. Trough is now ordered for 09/02/16 before 1100 dose. Thank you for engaging the clinical pharmacy consult service in the care of this patient. Please let us know if we can be of further assistance.
[2016-09-01 14:03] VITALS: BP 121/86; PULSE 124; O2SAT 100
[2016-09-01 16:30] VITALS: O2SAT 100
--- NOTE | 2016-09-01 16:35 | PROGRESS NOTE ---
DATE: 09/01/2016 The patient continues to complain of significant abdominal pain and requesting q. 4 hour pain medications which were stopped. She is currently back on oral prednisone and is getting antibiotics for her left lower lobe pneumonia. She had a CT of the chest today which confirmed infiltration in the lower lobe lung, left greater than right, consistent with pneumonia. She continues to be incontinent of stool. VITAL SIGNS: Blood pressure is 121/86, pulse 124, temperature is 36.6. ABDOMEN: Slightly distended and tender throughout. I was unable to palpate enough to determine if there are any masses. IMPRESSION: The patient has colonic Crohn's disease. She got a dose of vedolizumab on 08/24/2016. Her next dose will be in 2 weeks from that time. In the meantime, she continues on oral prednisone 20 mg a day for her Crohn's disease. her personality continues to interfere with her care. She is continuing to request narcotic pain medication. She is continuing on IV antibiotics for her pneumonia and neonatal social worker is working on finding placement for her in a halfway after discharge for continued care.
[2016-09-01] MEDS: KETOROLAC TROMETHAMINE 15 MG/ML VIAL IV PRN ×2 (16:39→22:45)
[2016-09-01] MEDS: ZOLPIDEM TARTRATE 5 MG TAB PO PRN (22:45)
[2016-09-02] MEDS: NSS + 20MEQ KCL 1000ML 1,000 ML IV SCH ×3 (01:29→17:30)
[2016-09-02] MEDS: ONDANSETRON INJ 2 MG/ML 2 ML VIAL IV PRN ×4 (01:29→22:55)
[2016-09-02] MEDS: AZTREONAM IV 2,000 MG in DEXTROSE 5% 100ML 100 ML IV SCH ×3 (04:00→21:34)
[2016-09-02] MEDS: VANCOMYCIN INJ 700 MG in SODIUM CHLORIDE 0.9% 250ML 250 ML IV SCH ×3 (04:00→19:35)
[2016-09-02] MEDS: ACETAMINOPHEN 325 MG TAB PO PRN ×2 (04:48→10:41)
[2016-09-02] MEDS: CLONAZEPAM 0.5 MG TAB PO PRN ×2 (05:07→18:01)
[2016-09-02] MEDS: KETOROLAC TROMETHAMINE 15 MG/ML VIAL IV PRN ×3 (05:08→18:01)
[2016-09-02 06:19] LABS: HEMATOCRIT 25.5 % (37-47); MEAN CELL VOLUME 84.4 fL (80-100); MEAN CORPUSCULAR HEMOGLOBIN 26.5 pg (25-34); MEAN CORPUSCULAR HGB CONC 31.4 g/dl (32-36); MEAN PLATELET VOLUME 8.9 fL (7.4-10.4); PLATELET COUNT 513 K/uL (130-400); RED BLOOD COUNT 3.02 M/uL (4.2-5.4); WHITE BLOOD COUNT 3.72 K/uL (4.8-10.8)
[2016-09-02 06:53] LABS: BLOOD UREA NITROGEN 7 mg/dl (7-18); BUN/CREATININE RATIO 12.9 (10-20); CALCIUM 7.4 mg/dl (8.5-10.1); CARBON DIOXIDE 24 mmol/L (21-32); CHLORIDE 107 mmol/L (98-107); CREATININE 0.52 mg/dl (0.60-1.20); GLUCOSE 68 mg/dl (70-99); POTASSIUM 4.1 mmol/L (3.5-5.1); SODIUM 140 mmol/L (136-145)
[2016-09-02 06:59] LABS: C-REACTIVE PROTEIN 7.43 mg/dl (0-0.29)
--- NOTE | 2016-09-02 07:13 | Progress Note ---
Subjective Date of Service: Sep 01, 2016. Subjective Pt evaluation today including: conversation w/ patient, chart review, review of studies, review of inpatient medication list Pain: still has abdoinal and generalized bodyache pain ?? Voiding: no voiding problems Review of Systems Constitutional: + weakness Eyes: No diplopia, No discharge, No eye pain, No problem reported, No redness, No see HPI, No worsening of vision ENT: No dental problems, No hearing loss, No nasal symptoms, No problem reported, No see HPI, No sore throat, No tinnitus, No trouble swallowing, No unusual epistaxis Respiratory: + cough, + sputum Cardiac: No PND, No chest pain, No claudication, No edema, No orthopnea, No palpitations, No problem reported, No see HPI Abdomen: + diarrhea, + pain Musculoskeletal: + joint pain, + muscle pain Neurologic: No balance problems, No memory loss, No numbness/tingling, No paralysis, No problem reported, No see HPI, No vertigo, No weakness Medications Current Inpatient Medications Medications (Trade) Dose Ordered Sig/Rashard Route Start Time Stop Time Status Last Admin Dose Admin Potassium Chloride/Sodium Chloride (Nss + 20meq KCl 1000ml) 1,000 ml @ 125 mls/hr Q8H IV 08/30/16 17:30 09/29/16 12:23 09/01/16 07:50 125 MLS/HR Acetaminophen (Tylenol Tab) 650 mg Q4H PRN PO 08/30/16 12:30 09/29/16 12:29 Ondansetron HCl 4 mg 4 mg Q6H PRN IV 08/30/16 12:30 09/29/16 12:29 09/01/16 03:34 4 MG Aztreonam 2000 mg/ Dextrose 110 ml @ 100 mls/hr Q8H IV 08/30/16 20:00 09/09/16 11:59 09/01/16 03:34 100 MLS/HR Hydrocortisone Sodium Succinate/ Syringe (Solu-Cortef IV/ Syringe) 1 ml @ 4 mls/min Q6H IV 08/30/16 18:00 09/29/16 17:59 09/01/16 06:41 4 MLS/MIN Zolpidem Tartrate (Ambien Tab) 5 mg HS PRN PO 08/30/16 12:30 09/29/16 12:29 08/31/16 23:29 5 MG Hydromorphone HCl (Dilaudid Inj) 0.5 mg Q4 PRN IV 08/30/16 12:30 09/13/16 12:29 09/01/16 08:07 0.5 MG Ioversol (Optiray 320) 95 ml UD PRN IV 08/30/16 13:00 09/03/16 12:59 Vancomycin HCl (Consult) 1 ea UD PRN N/A 08/30/16 13:15 09/29/16 13:14 Aztreonam 1 ea 1 ea UD PRN N/A 08/30/16 13:15 09/29/16 13:14 Vancomycin HCl/ Sodium Chloride (Vancomycin Inj/ Nss 250ml) 264 ml @ 125 mls/hr Q8H IV 08/31/16 00:00 09/10/16 00:00 08/31/16 23:58 125 MLS/HR Nicotine (Nicoderm Cq 7 Mg Patch) 1 patch QAM TD 08/31/16 09:00 09/30/16 08:59 09/01/16 07:50 1 PATCH Miscellaneous (Remove Nicoderm Patch) 1 ea HS N/A 08/31/16 21:00 09/30/16 20:59 08/31/16 20:32 1 EA Clonazepam (Klonopin Tab) 0.5 mg BID PRN PO 08/31/16 09:00 09/30/16 08:59 09/01/16 07:49 0.5 MG Ioversol (Optiray 320) 125 ml UD PRN IV 08/31/16 14:00 09/04/16 13:59 Objective Vital Signs Date Time Temp Pulse Resp B/P Pulse Ox O2 Delivery O2 Flow Rate FiO2 09/01/16 07:58 36.6 96 20 134/82 96 Room Air 09/01/16 00:25 98 Room Air 09/01/16 00:05 36.8 106 16 113/78 96 Room Air 08/31/16 20:55 98 Room Air 08/31/16 19:14 37.6 119 18 119/79 97 Room Air 08/31/16 17:26 Nasal Cannula 08/31/16 16:00 96 Room Air 08/31/16 15:30 36.5 115 20 106/75 96 Room Air 08/31/16 12:00 Room Air 08/31/16 11:25 36.6 101 18 123/85 96 Room Air Physical Exam General Appearance: WD/WN, no apparent distress, + obese Comments: did not do the exam as she was not allowing and disruptive and arguing and unpleasant Laboratory Results Last 24 Hours Test 09/01/16 04:44 09/01/16 07:30 Assessment and Plan Very unpleasant and disruptive and argumentative and has plenty of unreasonable excuses #Crohn's disease and multiple flare up. IV steroid change to p as per GI in am GI consult IV fluid pain meds, Dc Dilaudid and start on Toradol and get pain MA Sepsis: Neutropenia, tachycardia and weakness, from infectious and noninfectious causes #LLL pneumonia w poss been hospital acquires as she was in hospital for long period bet July and August Abx, she dsoe not want to be changed to po claiming because of her crohn`s dis may give her more pain and may not absorb it well ?? CT chest showed infiltration Bd culture spending #Neutroprnia poss sec to recently receiving Entyvia monitor CBC , no needs for isolation as neutrophil is 1.8 Anemia , poss chronic and now worse because of Entyvia and hemodilution, monitor Hold of Hep Sq #No pE #6 mm Pulmonary nodule #generalized body ache while sitting comfortably in bed start Toradol and get pain MX #Recent DVT at PICC line site. On discharge they opted not to be treat because of Compliance issues #Noncompliance. #Questionable H/o substance abuse 3psych disorders ?? #Chronic constipation alternating with diarrhea. # H/O Excoriation of the perianal skin. #Chronic abdominal pain. #Chronic back pain. #History of osteoporosis and peripheral neuropathy. #Status post cholecystectomy. Plan Gi input appreciated DC IV hydrocortisone and star on po prednisone IV Abx Dc narcotics as per GI recommendation and start Toradol and get pain MX repeat CT chest in 6-12 month to follow on nodule cathflo to open her port IVF ptot asks for Boost which is added add Clonazepam recheck CBC hep and SCD and anam for DVT prophylaxis she dose not want to be discharged any time soon need PMD as OP Dw the nurse Continued [facility] stay due to: abnormal vital signs, multiple IV medications needed, other Discharge planning: home
[2016-09-02 07:40] LABS: ANISOCYTOSIS PRESENT; BASO % 0.5 %; BASO ABS # 0.02 K/uL (0-0.2); COMPLETE YES; EOS % 2.2 %; IG% 7.3 %; LYMPH % 13.2 %; LYMPH ABS # 0.49 K/uL (1.2-3.4); MONO % 8.3 %; NEUT % 68.5 %; POLYCHROMASIA 1+
[2016-09-02] MEDS: BOOST VANILLA PO SCH ×6 (07:49→18:01)
[2016-09-02] MEDS: NICOTINE 7 MG/24 HR TDSY TD SCH (07:50)
[2016-09-02 08:11] VITALS: BP 125/88; PULSE 121; TEMP 36.7; O2SAT 95
--- NOTE | 2016-09-02 09:20 | PROGRESS NOTE ---
DATE: 09/02/2016 SUBJECTIVE: The patient continues to complain of chest and abdominal pain. Objectively Her vital signs are normal except her pulse, which is 120. She continues to have 5-6 loose stools a day. Laboratory shows a low vitamin D level at 16.4 with normal being between 30 and 100, C-reactive protein is elevated at 7.43. Iron is low at less than 5. Her albumin was 2, last checked. These show very poor nutritional status and the patient has been started on Boost 3 times a day and appears to be eating adequately. I plan on checking a tissue transglutaminase to make sure that she is absorbing nutrients properly and does not have celiac disease. Her small bowel is not affected by the Crohn's disease so she is able to absorb nutrients properly. I will also start her on vitamin D at 2000 units a day. She has gotten 1 dose of vedolizumab on August 24 and the next dose will be due 2 weeks from then. She continues on 20 mg of oral prednisone a day for her colonic Crohn's disease. I told her that Crohn's disease is not treated with pain medications, it is treated with medications or surgery and if she has unrelenting pain and that is not managed with medical therapy, then surgery is the only other option. She is not willing to accept surgery as a treatment option at this point. IMPRESSION: The patient has Crohn's colitis, malnutrition, left lower lobe pneumonia and personality disorders including paranoid, obsessive compulsive somatization, all of these factors make it difficult to take care of the patient. Hopefully she will be able to get better in the next several days so that she can be on oral medications and be transferred to an ongoing care facility.
[2016-09-02 10:00] VITALS: O2SAT 95
[2016-09-02] MEDS ORDERED: NURSING VERBAL MED ORDER ONE (10:15)
[2016-09-02] MEDS: ERGOCALCIFEROL 50,000 INTER.UNIT CAP PO SCH (10:15)
[2016-09-02] MEDS ORDERED: VANCOMYCIN TROUGH SCH (10:30)
[2016-09-02 10:33] VITALS: BP 117/78; PULSE 118
[2016-09-02 10:46] VITALS: BP 104/71; PULSE 108
[2016-09-02] MEDS ORDERED: IRON SUCROSE INJ 100 MG in SODIUM CHLORIDE 0.9% 100ML 100 ML IV SCH (11:00)
--- NOTE | 2016-09-02 12:09 | Pharmacy Progress Note ---
Pharmacy Antibiotic Prog Note Date of Service: Sep 02, 2016. Subjective: The patient is currently receiving Vancomycin 700 mg IV every 8 hours. The patient is currently on day # 4 of IV therapy. Objective: Height (Feet): 5 Height (Inches): 2.00 Weight (Kilograms): 48.400 Levels: Item Value Date Time Vancomycin Level Trough 16.4 mcg/ml 09/02/16 1028 Lab Results (24hrs): Laboratory Tests Test 09/02/16 05:40 BUN/Creatinine Ratio 12.9 Blood Urea Nitrogen 7 mg/dl Creatinine 0.52 mg/dl White Blood Count 3.72 K/uL Red Blood Count 3.02 M/uL Hemoglobin 8.0 g/dL Hematocrit 25.5 % Mean Corpuscular Volume 84.4 fL Mean Corpuscular Hemoglobin 26.5 pg Mean Corpuscular Hemoglobin Concent 31.4 g/dl Platelet Count 513 K/uL Mean Platelet Volume 8.9 fL Neutrophils (%) (Auto) 68.5 % Lymphocytes (%) (Auto) 13.2 % Monocytes (%) (Auto) 8.3 % Eosinophils (%) (Auto) 2.2 % Basophils (%) (Auto) 0.5 % Neutrophils # (Auto) 2.55 K/uL Lymphocytes # (Auto) 0.49 K/uL Monocytes # (Auto) 0.31 K/uL Eosinophils # (Auto) 0.08 K/uL Basophils # (Auto) 0.02 K/uL Micro Results: Item Value Date Time C.difficile Toxin B Gene (PCR) - Final Complete 08/31/16 0122 Stool No C. difficile toxin B gene detected MRSA DNA Surveillance Screen - Final Complete 08/31/16 0000 Nasal Specimen Positive for MRSA by DNA Probe Blood Culture - Preliminary Resulted 08/30/16 1613 Blood NO GROWTH TO DATE. Blood Culture - Preliminary Resulted 08/30/16 1610 Blood NO GROWTH TO DATE. Recent Pertinent Medications: Item Value Date Time Aztreonam 2000 mg/ 110 ml @ 100 mls/hr 08/30/16 2000 Dextrose Q8H/IV 09/02/16 0400 Assessment & Plan: ASSESSMENT: * 46 yo F well-known to pharmacy kinetic service from previous admissions * Pt being treated for healthcare-associated pneumonia with Vancomycin and Azactam IV * Vancomycin was initiated a dose that was proven to be therapeutic last admission and azactam is at target dose due to excellent renal function * Of note, per MD progress note, patient does not want changed to oral antibiotics as she is concerned about her chrons/absorption issues PLAN: * Vancomycin level is therapeutic. * Continue Vancomycin 700 mg IV every 8 hours. * Goal trough level estimate: between 15 - 20 mcg/mL. * A follow up trough level has been ordered for: prior to the 1100 dose. Pharmacy will continue to follow and will adjust dose/frequency as necessary. Thank you
[2016-09-02] MEDS: EUCERIN CR 120 GM JAR EXT SCH ×2 (13:47→20:41)
[2016-09-02 14:58] VITALS: BP 108/75; TEMP 36.3; O2SAT 96
--- NOTE | 2016-09-02 18:43 | Progress Note ---
Subjective Date of Service: Sep 02, 2016. Subjective Pt evaluation today including: conversation w/ patient, physical exam, chart review, lab review, review of inpatient medication list sleeping comfortably on my arrival. arouses to moderately loud voice. appears in no pain and no respiratory distress. breathing improving. notes cough persists and breathing doesn't really feel at baseline yet. asks about increasing clonazepam to TID "that's what they've done at other hospitals" and notes that she would like pain meds and nausea meds interval s tightened. Review of Systems ros otherwise negative except for as above Objective Vital Signs Date Time Temp Pulse Resp B/P Pulse Ox O2 Delivery O2 Flow Rate FiO2 09/02/16 16:45 Room Air 09/02/16 14:58 36.3 18 108/75 96 Room Air 09/02/16 10:46 108 104/71 09/02/16 10:33 118 117/78 09/02/16 10:00 95 Room Air 09/02/16 08:11 36.7 121 16 125/88 95 Room Air 09/02/16 00:00 Room Air Physical Exam General Appearance: no apparent distress Eyes: EOMI ENT: hearing grossly normal Neck: trachea midline Respiratory/Chest: no respiratory distress, no accessory muscle use, + decreased breath sounds (no focal findings) Cardiovascular: regular rate, rhythm (sl tachycardia) Extremities: normal range of motion Neurologic/Psychiatric: cottage master II-XII nml as tested, alert Skin: normal color, warm/dry Laboratory Results Last 24 Hours Test 09/02/16 05:40 09/02/16 05:57 09/02/16 10:28 White Blood Count 3.72 K/uL Red Blood Count 3.02 M/uL Hemoglobin 8.0 g/dL Hematocrit 25.5 % Mean Corpuscular Volume 84.4 fL Mean Corpuscular Hemoglobin 26.5 pg Mean Corpuscular Hemoglobin Concent 31.4 g/dl Platelet Count 513 K/uL Mean Platelet Volume 8.9 fL Neutrophils (%) (Auto) 68.5 % Lymphocytes (%) (Auto) 13.2 % Monocytes (%) (Auto) 8.3 % Eosinophils (%) (Auto) 2.2 % Basophils (%) (Auto) 0.5 % Neutrophils # (Auto) 2.55 K/uL Lymphocytes # (Auto) 0.49 K/uL Monocytes # (Auto) 0.31 K/uL Eosinophils # (Auto) 0.08 K/uL Basophils # (Auto) 0.02 K/uL RDW Standard Deviation 79.6 fL RDW Coefficient of Variation 26.2 % Immature Granulocyte % (Auto) 7.3 % Immature Granulocyte # (Auto) 0.27 K/uL Nucleated RBC Absolute Count (auto) 0.13 K/uL Nucleated Red Blood Cells % 3.6 % Polychromasia 1+ Anisocytosis PRESENT Sodium Level 140 mmol/L Potassium Level 4.1 mmol/L Chloride Level 107 mmol/L Carbon Dioxide Level 24 mmol/L Anion Gap 9.0 mmol/L Blood Urea Nitrogen 7 mg/dl Creatinine 0.52 mg/dl Est Creatinine Clear Calc Drug Dose 101.1 ml/min Estimated GFR () 130.9 Estimated GFR (Non- 113.0 BUN/Creatinine Ratio 12.9 Random Glucose 68 mg/dl Calcium Level 7.4 mg/dl Iron Level < 5 mcg/dl Transferrin 119 mg/dl Transferrin % Saturation % C-Reactive Protein 7.43 mg/dl 25-Hydroxy Vitamin D Total 16.4 ng/ml Ferritin 152.7 ng/ml Vancomycin Level Trough 16.4 mcg/ml Assessment and Plan Sepsis: -due to pneumonia - improving. HR still up some - but otherwise appearing improving. will increase IVFs LLL pneumonia -have to treat as hospital acquired due to recent prolonged stay and immunosuppressed -continue vanco and azactam -clinically appears to be improving crohn's -overall seems stable at this time - ongoing management per GI neutropenia -improved. Anemia -no signs of blood loss - see below under DVT otherwise UE DVT -was not anticoagulated previously due to enormous concern on compliance issues , currently concern on crohn's and risk for GI bleeding (has not had any, however) -- was on heparin SQ proph dosing, this was held when Hgb showed trend down - no overt bleeding, however, so will resume at least DVT proph dosing and then escalate as possible; follow Hgb closely vitamin D deficiency -replace iron deficiency -replace DVT proph -heparin SQ - see above otherwise 6 mm Pulmonary nodule -outpt f/u concern on substance abuse -nearly every provider caring for her has noted issues that have made it more difficult to care for her -currently no clear indications for increasing clonazepam. on toradol and zofran both q6; sx appear overall reasonably controlled
[2016-09-02] MEDS ORDERED: CALCIUM CARBONATE 500 MG CHEWABLE PO SCH (20:00)
[2016-09-02] MEDS: CALCIUM CARBONATE 500 MG CHEWABLE PO SCH (20:40)
[2016-09-02] MEDS: HEPARIN SOD 5000 UNIT/0.5 ML CARP SQ SCH (21:32)
[2016-09-02 22:59] VITALS: BP 130/86; PULSE 96; TEMP 36.8; O2SAT 99
[2016-09-03] MEDS: NSS + 20MEQ KCL 1000ML 1,000 ML IV SCH ×4 (00:52→20:21)
[2016-09-03] MEDS: KETOROLAC TROMETHAMINE 15 MG/ML VIAL IV PRN ×4 (00:53→19:50)
[2016-09-03] MEDS: ZOLPIDEM TARTRATE 5 MG TAB PO PRN ×2 (00:53→23:37)
[2016-09-03] MEDS: VANCOMYCIN INJ 700 MG in SODIUM CHLORIDE 0.9% 250ML 250 ML IV SCH ×3 (03:50→18:15)
[2016-09-03] MEDS: AZTREONAM IV 2,000 MG in DEXTROSE 5% 100ML 100 ML IV SCH ×3 (04:05→20:42)
[2016-09-03 05:29] LABS: HEMATOCRIT 25.5 % (37-47); MEAN CELL VOLUME 84.2 fL (80-100); MEAN CORPUSCULAR HEMOGLOBIN 26.7 pg (25-34); MEAN CORPUSCULAR HGB CONC 31.8 g/dl (32-36); MEAN PLATELET VOLUME 8.8 fL (7.4-10.4); PLATELET COUNT 541 K/uL (130-400); RED BLOOD COUNT 3.03 M/uL (4.2-5.4); WHITE BLOOD COUNT 3.64 K/uL (4.8-10.8)
[2016-09-03 06:03] LABS: BUN/CREATININE RATIO 18.3 (10-20); CALCIUM 7.6 mg/dl (8.5-10.1); CREATININE 0.43 mg/dl (0.60-1.20); POTASSIUM 4.1 mmol/L (3.5-5.1)
[2016-09-03 06:12] LABS: ANISOCYTOSIS PRESENT; COMPLETE YES; DOHLE BODIES 1+; EOSINOPHIL % 2.6 %; LYMPH ABS # 0.35 K/uL (1.2-3.4); LYMPHOCYTE % 9.6 %; META ABS # 0.16 K/uL (0-0); METAMYELOCYTE % 4.3 %; MYELOCYTE % 3.5 %; NEUTROPHILS % 76.5 %; POLYCHROMASIA 1+
[2016-09-03] MEDS: ONDANSETRON INJ 2 MG/ML 2 ML VIAL IV PRN ×3 (06:18→19:50)
[2016-09-03] MEDS: ACETAMINOPHEN 325 MG TAB PO PRN (06:35)
[2016-09-03 07:04] VITALS: BP 130/84; PULSE 100; TEMP 37.3; O2SAT 97
[2016-09-03] MEDS: BOOST VANILLA PO SCH ×6 (07:21→16:02)
[2016-09-03] MEDS: EUCERIN CR 120 GM JAR EXT SCH ×2 (07:24→20:42)
[2016-09-03] MEDS: CALCIUM CARBONATE 500 MG CHEWABLE PO SCH ×2 (07:25→20:47)
[2016-09-03] MEDS: CHOLECALCIFEROL 1000 INTER.UNIT TAB PO SCH (07:26)
[2016-09-03] MEDS: NICOTINE 7 MG/24 HR TDSY TD SCH (07:27)
[2016-09-03] MEDS: CLONAZEPAM 0.5 MG TAB PO PRN ×2 (07:30→21:23)
[2016-09-03] MEDS ORDERED: CHOLECALCIFEROL 1000 INTER.UNIT TAB PO SCH (08:00)
[2016-09-03] MEDS: HEPARIN SOD 5000 UNIT/0.5 ML CARP SQ SCH ×2 (10:51→20:49)
--- NOTE | 2016-09-03 12:12 | PROGRESS NOTE ---
DATE: 09/03/2016 The patient has no overt signs of bleeding and her hemoglobin and hematocrit are stable. Vital signs are stable. She has been restarted on subQ heparin for DVT prophylaxis. I agree with this, as patients with active inflammatory bowel disease are hypercoagulable and more susceptible to clotting. I ordered tests for celiac disease yesterday and they are pending at this time, just to make sure that she is absorbing her oral medications appropriately. She continues on IV antibiotics for her pneumonia. IMPRESSION: The patient has got colonic Crohn's disease, on vedolizumab and oral prednisone at 20 mg a day. Her next vedolizumab dose is due 2 weeks from August 24. She is on deep venous thrombosis prophylaxis and vitamin D replacement. She is also malnourished and is getting Boost supplements. Will continue to follow the patient during her hospital stay.
[2016-09-03 12:41] VITALS: O2SAT 97
[2016-09-03 16:00] VITALS: O2SAT 95
[2016-09-03 16:03] VITALS: BP 112/78; PULSE 100; TEMP 36.6; O2SAT 97
--- NOTE | 2016-09-03 19:56 | Family Medicine Progress Note ---
Progress Note Date of Service Sep 03, 2016. Subjective Pt evaluation today including: conversation w/ patient, physical exam, chart review, lab review, review of studies, review of inpatient medication list Pain: diffuse pain, attributed to fibromyalgia PO Intake: Adequate Patient was extremely agitated, argumentative, and complained about her ongoing care. She barely allowed me to speak without interruption. She demanded increase in pain medication at specific dosing regimens and reported "pain all over" in addition to" fecal incontinence" of which there is no documented history . Patient passed stool in the bedpan. Stool was soft per nurse. 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) Medications Current Inpatient Medications Medications (Trade) Dose Ordered Sig/Rashard Route Start Time Stop Time Status Last Admin Dose Admin Potassium Chloride/Sodium Chloride (Nss + 20meq KCl 1000ml) 1,000 ml @ 150 mls/hr Q6H40M IV 08/30/16 17:30 09/30/16 17:29 09/03/16 16:01 150 MLS/HR Acetaminophen (Tylenol Tab) 650 mg Q4H PRN PO 08/30/16 12:30 09/29/16 12:29 09/03/16 06:35 650 MG Ondansetron HCl 4 mg 4 mg Q6H PRN IV 08/30/16 12:30 09/29/16 12:29 09/03/16 13:30 4 MG Aztreonam/Dextrose (Azactam IV/D5 100ml) 110 ml @ 100 mls/hr Q8H IV 08/30/16 20:00 09/09/16 11:59 09/03/16 13:29 100 MLS/HR Zolpidem Tartrate (Ambien Tab) 5 mg HS PRN PO 08/30/16 12:30 09/29/16 12:29 09/03/16 00:53 5 MG Vancomycin HCl (Consult) 1 ea UD PRN N/A 08/30/16 13:15 09/29/16 13:14 Aztreonam (Consult) 1 ea UD PRN N/A 08/30/16 13:15 09/29/16 13:14 Nicotine (Nicoderm Cq 7 Mg Patch) 1 patch QAM TD 08/31/16 09:00 09/30/16 08:59 09/03/16 07:27 1 PATCH Miscellaneous (Remove Nicoderm Patch) 1 ea HS N/A 08/31/16 21:00 09/30/16 20:59 09/02/16 20:41 1 EA Clonazepam (Klonopin Tab) 0.5 mg BID PRN PO 08/31/16 09:00 09/30/16 08:59 09/03/16 07:30 0.5 MG Ioversol (Optiray 320) 125 ml UD PRN IV 08/31/16 14:00 09/04/16 13:59 Ketorolac Tromethamine (Toradol Inj) 15 mg Q6H PRN IV 09/01/16 10:45 09/06/16 10:44 09/03/16 13:30 15 MG Prednisone (PredniSONE TAB) 20 mg DAILY PO 09/02/16 08:00 10/02/16 07:59 09/03/16 07:26 20 MG Enteral Nutritional Formula 1 can 1 can TIDM PO 09/01/16 12:00 10/01/16 11:59 09/03/16 16:02 1 CAN Vancomycin HCl/ Sodium Chloride (Vancomycin Inj/ Nss 250ml) 264 ml @ 125 mls/hr Q8H IV 09/01/16 19:00 09/10/16 00:00 09/03/16 18:15 125 MLS/HR Cholecalciferol (Vitamin D Tab) 2,000 inter.unit DAILY PO 09/03/16 08:00 10/03/16 07:59 09/03/16 07:26 2,000 INTER.UNIT Ergocalciferol (Vitamin D Cap) 50,000 interunit Sa@0900 PO 09/02/16 10:00 10/02/16 09:59 09/02/16 10:15 50,000 INTERUNIT Calcium Carbonate (Tums Chew Tab) 500 mg BID PO 09/02/16 20:00 10/02/16 19:59 09/03/16 07:25 500 MG Multi-Ingredient Ointment (Eucerin Unscented Cr) 1 appln BID EXT 09/02/16 13:30 10/02/16 13:29 09/03/16 07:24 1 APPLN Heparin Sodium (Porcine) (Heparin Sq 5000 Unit/0.5ml) 5,000 unit Q12 SQ 09/02/16 21:00 10/02/16 20:59 09/03/16 10:51 5,000 UNIT Amitriptyline HCl (Elavil Tab) 40 mg PM PO 09/03/16 20:00 10/03/16 19:59 Objective Physical Exam General Appearance: WD/WN, + mild distress Eyes: normal inspection, PERRL Respiratory/Chest: lungs clear, normal breath sounds, + pertinent finding ( reported tenderness on palpation) Cardiovascular: regular rate, rhythm, no murmur Abdomen: normal bowel sounds, soft, no organomegaly, + tenderness (no rebound, rigidity, sx's of peritonitis ) Extremities: no pedal edema, no calf tenderness Neurologic/Psychiatric: alert, + pertinent finding (agitated, argumenative, tangential ) Skin: normal color, warm/dry Laboratory Results Results Past 24 Hours Test 09/03/16 05:05 Range/Units White Blood Count 3.64 4.8-10.8 K/uL Red Blood Count 3.03 4.2-5.4 M/uL Hemoglobin 8.1 12.0-16.0 g/dL Hematocrit 25.5 37-47 % Mean Corpuscular Volume 84.2 80-100 fL Mean Corpuscular Hemoglobin 26.7 25-34 pg Mean Corpuscular Hemoglobin Concent 31.8 32-36 g/dl Platelet Count 541 130-400 K/uL Mean Platelet Volume 8.8 7.4-10.4 fL RDW Standard Deviation 79.5 36.4-46.3 fL RDW Coefficient of Variation 26.0 11.5-14.5 % Nucleated RBC Absolute Count (auto) 0.13 0-0 K/uL Neutrophils % (Manual) 76.5 % Lymphocytes % (Manual) 9.6 % Monocytes % (Manual) 3.5 % Eosinophils % (Manual) 2.6 % Metamyelocytes % 4.3 % Myelocytes % 3.5 % Nucleated Red Blood Cells % 3.6 % Neutrophils # (Manual) 2.78 1.4-6.5 K/uL Total Absolute Neutrophils 2.78 1.4-6.5 K/uL Lymphocytes # (Manual) 0.35 1.2-3.4 K/uL Total Absolute Lymphocytes 0.35 1.2-3.4 K/uL Monocytes # (Manual) 0.13 0.11-0.59 K/uL Eosinophils # (Manual) 0.09 0-0.5 K/uL Metamyelocytes # 0.16 0-0 K/uL Myelocytes # 0.13 0-0 K/uL Dohle Bodies 1+ Polychromasia 1+ Anisocytosis PRESENT Sodium Level 141 136-145 mmol/L Potassium Level 4.1 3.5-5.1 mmol/L Chloride Level 108 98-107 mmol/L Carbon Dioxide Level 27 21-32 mmol/L Anion Gap 6.0 3-11 mmol/L Blood Urea Nitrogen 8 7-18 mg/dl Creatinine 0.43 0.60-1.20 mg/dl Est Creatinine Clear Calc Drug Dose 122.3 ml/min Estimated GFR () 139.4 Estimated GFR (Non- 120.3 BUN/Creatinine Ratio 18.3 10-20 Random Glucose 67 70-99 mg/dl Calcium Level 7.6 8.5-10.1 mg/dl Assessment and Plan Sepsis: due to LLL penumonia -improved clinically -Continue IVFs -continue vanco and azactam crohn's disease -management per GI - reports fecal incontinence, but no record of this Hypoglycemia -ordered Blood glucose at bedside, F/U Fibromyalgia -reports diffuse pain attributes to fibromyalgia - Started Amitriptyline 40 mg daily neutropenia -improved. Anemia -stable, 8.1 <--8.0 -Continue Iron repletion vitamin D deficiency -replace iron deficiency -replace Hx of UE DVT/ DVT proph -heparin SQ - see above otherwise 6 mm Pulmonary nodule -outpt f/u Resident Physician Supervision Note: I was present with PGY1 Dr. Kwaku Kerr during the history and exam. I discussed the case with the resident and agree with the findings and plan as documented in the note. Any exceptions or clarifications are listed here: none. During my visit with the patient she asked numerous questions regarding her care. She questioned the management of her anemia and wanted to know the "the plan for her." She complained of diffuse body-wide pain. She confirmed the previous dx of fibromyalgia and began to quiz me on the medications available for fibromyalgia. When asked if she has ever taken elavil she stated yes and reports taking 40mg daily in the past. Staff confirm she is continent of stool but it is liquid in nature. VSS, mildly tachy gen - NAD, a/o x 3 mouth - MMM, no thrush neck - no JVD heart - tachy, s1, s2 lungs - CTA b/l chest - reproducible chest wall tenderness with simply placing my stethoscope on her chest abd - soft, she reports diffuse tenderness with minimal palpation, no HSM, no masses, BS+ ext - no edema labs - wbc 3.6 hb 8.1 platelets 541 glucose 67 A/P: 1. sepsis 2nd to LLL pneumonia - improved. day #5/ of vanco/aztreonam. 2. crohn's disease, severe - defer management to Dr. Mcfarlane. She is due for vedolizumab ~ 09/07/16. 3. anemia - due to iron def - agree with intermittent IV iron replacement. received such yesterday. b12/folate in the recent past were normal. no indication for PRBCs at this time. 4. tachycardia - may be due to resolving sepsis. Follow carefully. recent TSH normal 5. leukopenia - 2nd to vedolizumab? repeat CBC in am. ANC is normal fortunately. 6. thrombocytosis - likely reactive from #1 and #2 and even iron def can contribute to this. 7. 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 8. fibromyalgia - replace vitamin D. CPK and TSH most recently normal. Start elavil. Repeat EKG in 1-2 days to ensure QTc is stable. 9. hypoglycemia - BSGs ac/hs. Is on steroids so cortisol testing would not be helpful. Documented By: Anil Newman MD Continued [facility] stay due to: inadequate oral pain control Discharge planning: home Resident Tracking Resident Involvement: Resident Care Provided Care Provided: Adult Hospital Medicine
[2016-09-03] MEDS: AMITRIPTYLINE HCL 10 MG TAB PO SCH (21:23)
[2016-09-03 23:17] VITALS: BP 131/91; PULSE 106; TEMP 36.6; O2SAT 100
[2016-09-04] MEDS: NSS + 20MEQ KCL 1000ML 1,000 ML IV SCH ×4 (01:41→23:34)
[2016-09-04] MEDS: VANCOMYCIN INJ 700 MG in SODIUM CHLORIDE 0.9% 250ML 250 ML IV SCH ×3 (03:06→18:42)
[2016-09-04] MEDS: AZTREONAM IV 2,000 MG in DEXTROSE 5% 100ML 100 ML IV SCH ×3 (05:02→20:11)
[2016-09-04] MEDS: ONDANSETRON INJ 2 MG/ML 2 ML VIAL IV PRN ×3 (05:06→20:11)
[2016-09-04 05:56] LABS: HEMATOCRIT 26.2 % (37-47); MEAN CELL VOLUME 85.1 fL (80-100); MEAN CORPUSCULAR HEMOGLOBIN 26.9 pg (25-34); MEAN CORPUSCULAR HGB CONC 31.7 g/dl (32-36); MEAN PLATELET VOLUME 8.8 fL (7.4-10.4); PLATELET COUNT 649 K/uL (130-400); RED BLOOD COUNT 3.08 M/uL (4.2-5.4); WHITE BLOOD COUNT 4.48 K/uL (4.8-10.8)
[2016-09-04 06:29] LABS: CREATININE 0.51 mg/dl (0.60-1.20)
[2016-09-04] MEDS: KETOROLAC TROMETHAMINE 15 MG/ML VIAL IV PRN ×3 (06:48→20:11)
[2016-09-04 07:04] VITALS: BP 132/88; PULSE 106; TEMP 36.9; O2SAT 97
[2016-09-04] MEDS: BOOST VANILLA PO SCH ×6 (08:20→16:50)
[2016-09-04] MEDS: EUCERIN CR 120 GM JAR EXT SCH ×2 (08:20→20:12)
[2016-09-04] MEDS: CHOLECALCIFEROL 1000 INTER.UNIT TAB PO SCH (08:20)
[2016-09-04] MEDS: CALCIUM CARBONATE 500 MG CHEWABLE PO SCH ×2 (08:20→20:12)
[2016-09-04] MEDS: NICOTINE 7 MG/24 HR TDSY TD SCH (08:20)
[2016-09-04] MEDS: CLONAZEPAM 0.5 MG TAB PO PRN ×2 (08:23→21:42)
[2016-09-04] MEDS: HEPARIN SOD 5000 UNIT/0.5 ML CARP SQ SCH ×2 (08:28→20:14)
[2016-09-04] MEDS: CEROVITE ADV FORMULA TAB PO SCH (08:47)
--- NOTE | 2016-09-04 13:40 | CONSULTATION REPORT ---
DATE OF CONSULTATION: 09/04/2016 CHIEF COMPLAINT: Chronic abdominal pain and diffuse myalgias/arthralgias. HISTORY OF PRESENT ILLNESS: Ms. Palacios is a 46-year-old white female who was recently admitted with complaints of abdominal pain, weakness, syncopal episodes, and diffuse myalgic/arthralgic pain complaints. The patient was seen by pain service during recent admission for abdominal pain complaints. The patient has chronic difficulties with abdominal pain secondary to her Crohn's disease. She also has chronic complaints of arthralgic/myalgic type complaints secondary to fibromyalgia. The patient has a longstanding history of mental health disorder and history of medical noncompliance. She continues to request opiate therapy upon this admission for her generalized pain complaints. The patient is complaining of diffuse arthralgic and myalgic type pain complaints as well as abdominal pain which she reports is generalized, described as aching in characteristic. She feels that her pain levels are inhibiting her from symptomatically improving. She reports prior utilization of opioids with efficacy. She is currently utilizing Toradol 15 mg q. 6 hours, which she feels is moderately efficacious at diminishing her pain for short duration only. The patient denies a localized pain complaint or radicular pattern to her symptomatic pain. The patient continues to request narcotic therapy throughout today's visit. PAST MEDICAL HISTORY: 1. Crohn's disease. 2. Medical noncompliance. 3. Osteoporosis. 4. Peripheral neuropathy. 5. Fibromyalgia. 6. Mental health disorder. 7. Anemia. 8. Malnutrition. 9. Status post cholecystectomy. 10. Recent DVT at PICC line site. PAST SURGICAL HISTORY: 1. Cholecystectomy. 2. Multiple colonoscopies. 3. Upper endoscopy procedures. FAMILY HISTORY: Unremarkable. SOCIAL HISTORY: The patient continues to smoke 5-6 cigarettes per day. She is single, living alone. She has a daughter who lives locally. The patient is unemployed. She denies alcohol or illicit drug use. ALLERGIES: 1. CEPHALEXIN. 2. LORAZEPAM. 3. PENICILLIN. 4. SULFA ANTIBIOTICS. MEDICATIONS AND ALLERGIES: Reviewed in EMR -- refer to current listing. REVIEW OF SYSTEMS: The patient denies complaints related to cardiac, pulmonary, GI, , endocrine, neurologic, hepatic, renal, ENT, dermatologic, musculoskeletal other than described above in the HPI. PHYSICAL EXAMINATION: VITAL SIGNS: Temperature 36.9 degrees Celsius, pulse 106, respirations 18, BP 132/88, pulse of oximetry 97 on room air. GENERAL: Ms. Palacios was sleeping upon entering the room. She was easily arousable. Speech and thought process was appropriate. Cognition appears to be intact without deficits. MUSCULOSKELETAL: Diffuse myofascial tenderness to palpation which is nonfocal. She is tender at greater than 11/18 sites identified by ACR relating to fibromyalgia. No evidence of synovitis affecting the peripheral joints. ABDOMEN: Soft and nondistended. She has generalized tenderness to palpation without rebound or guarding. Bowel sounds are active. LOWER EXTREMITIES: Strength 5/5 and equal. Compression stockings in place. No evidence of dysesthesias or paresthesias present. NEUROLOGIC: Cranial nerves grossly intact. Ambulatory function was not witnessed. ASSESSMENT: 1. Chronic abdominal pain with history of Crohn's colitis. 2. Diffuse myofascial pain syndrome/fibromyalgia. 3. History of medical noncompliance. 4. Mental health disorder. TREATMENT AND RECOMMENDATIONS: 1. Continue with Toradol 15 mg q. 6 hours on a p.r.n. basis for p.r.n. breakthrough pain. 2. Consider addition of tramadol 50 mg q. 6 hours for pain not well controlled with Toradol. We would not recommend further escalation of opioid utilization. There are no current [id number] interactions as she is not currently using psychotropic medications regarding utilization of tramadol which would be appropriate for utilization with her fibromyalgia complaints. 3. Continue with adjuvant medications such as amitriptyline which was initiated 40 mg at bedtime. Thank you for allowing us to participate in the care of Ms. Palacios. JANIS
[2016-09-04 15:40] VITALS: BP 95/65; PULSE 127; TEMP 36.8; O2SAT 97
--- NOTE | 2016-09-04 18:22 | Family Medicine Progress Note ---
Progress Note Date of Service Sep 04, 2016. Subjective Pt evaluation today including: conversation w/ patient, physical exam, chart review, lab review The patient was seen and examined at bedside. No acute overnight events. Patient is resting comfortably in bed. Denies having any energy. Pt has difficulty eating because she feels her stomach is not ready for it. She complains of being very hungry. Constitutional: No chills, No fever Respiratory: No cough, No shortness of breath, No sputum, No wheezing Cardiovascular: No chest pain Abdomen: No diarrhea, No nausea, No pain, No vomiting Objective Physical Exam General Appearance: WD/WN, no apparent distress Neck: supple Respiratory/Chest: chest non-tender, lungs clear, normal breath sounds, no respiratory distress Cardiovascular: regular rate, rhythm, no edema, no gallop, no JVD, no murmur Abdomen: normal bowel sounds, non tender, soft, no organomegaly Extremities: normal range of motion, non-tender, normal inspection, no pedal edema, no calf tenderness Neurologic/Psychiatric: alert, normal mood/affect, oriented x 3 Assessment and Plan 46F with a PMHx of Crohn's disease and Fibromyalgia is presenting with dizziness and chest pain. Imagine (X-Ray and CTA) revealed a left lower lobe pneumonia. She was started on Vancomycin and Azactam for suspicion of hospital acquired pneumonia. GI is on board regarding the patient's Crohn's disease, pt is receiving Prednisone. Labs were significant for iron deficiency anemia. Pt is still complaining of diffuse lethargy. Will continue to keep monitoring hemoglobin. Sepsis 2/2 [facility] - Pt is still complaining of lethargy, no SOB or chest pain. -Continue IVFs -continue vanco and azactam Day #6/7 Crohn's disease - Defer management to Dr. Mcfarlane. - reports fecal incontinence, but no record of this. - c/w Prednisone 20mg. - Vedolizumab on Sep 07 Tachycardia - May be due to resolving sepsis, TSH WNL, monitor closely. - May also be withdrawal induced. Fibromyalgia - Reports diffuse pain attributes to fibromyalgia - Started Amitriptyline 40 mg QPM - Repeat EKG on Sunday. - Toradol 15mg Q6H PRN. Neutropenia - Improving 4.5<--3 Iron deficiency Anemia -stable, 8.3<--8.1 <--8.0 -s/p 100mg Iron sucrose on 09/02/16. - f/u Hemoglobin Vitamin D deficiency - Vitamin D 200IU daily. Sleep Ambien 5mg QHS 6 mm Pulmonary nodule -outpt f/u Dispo - Full Code - Pt accepted into [facility], awaiting placement. - DVT Proph: HepSQ Resident Physician Supervision Note: I interviewed and examined the patient. Discussed with the resident and agree with findings and plan as documented in the note. Any exceptions or clarifications are listed here: Upon my exam, the patient was sitting up in bed and eating liquid diet. She appeared in no acute distress. I reviewed her lab results of the day and reviewed the GI consultation. After several minutes, she began to cry due to "intense pain" she was having. I reviewed with her the recommendations of the pain denial management representative. Discussed increasing her diet as tolerated. PLAN 1) chest x-ray (PA/L); clinically, her pneumonia is improved. 2) Slowly advance diet. Will allow her to pick from tray and keep liquid tray as back up. Documented By: Roderick Heaton Documented By: Roderick Heaton Resident Involvement: Resident Care Provided Care Provided: Adult Hospital Medicine
[2016-09-04] MEDS: AMITRIPTYLINE HCL 10 MG TAB PO SCH (20:12)
[2016-09-04 20:30] VITALS: O2SAT 97
[2016-09-04] MEDS: ZOLPIDEM TARTRATE 5 MG TAB PO PRN (23:35)
[2016-09-05] VITALS: BP 127/85; PULSE 91; TEMP 36.6; O2SAT 99
[2016-09-05 00:46] VITALS: O2SAT 97
[2016-09-05] MEDS: VANCOMYCIN INJ 700 MG in SODIUM CHLORIDE 0.9% 250ML 250 ML IV SCH ×3 (02:48→18:36)
[2016-09-05] MEDS: NSS + 20MEQ KCL 1000ML 1,000 ML IV SCH ×3 (05:09→18:36)
[2016-09-05] MEDS: AZTREONAM IV 2,000 MG in DEXTROSE 5% 100ML 100 ML IV SCH ×3 (05:09→21:39)
[2016-09-05 05:52] LABS: HEMATOCRIT 28.3 % (37-47); MEAN CELL VOLUME 84.7 fL (80-100); MEAN CORPUSCULAR HEMOGLOBIN 26.9 pg (25-34); MEAN CORPUSCULAR HGB CONC 31.8 g/dl (32-36); MEAN PLATELET VOLUME 8.8 fL (7.4-10.4); PLATELET COUNT 709 K/uL (130-400); RED BLOOD COUNT 3.34 M/uL (4.2-5.4); WHITE BLOOD COUNT 5.92 K/uL (4.8-10.8)
[2016-09-05] MEDS: BOOST VANILLA PO SCH ×6 (07:38→16:32)
[2016-09-05] MEDS: EUCERIN CR 120 GM JAR EXT SCH ×2 (07:38→21:39)
[2016-09-05] MEDS: CHOLECALCIFEROL 1000 INTER.UNIT TAB PO SCH (07:39)
[2016-09-05] MEDS: KETOROLAC TROMETHAMINE 15 MG/ML VIAL IV PRN ×3 (07:39→21:40)
[2016-09-05] MEDS: NICOTINE 7 MG/24 HR TDSY TD SCH (07:39)
[2016-09-05] MEDS: ONDANSETRON INJ 2 MG/ML 2 ML VIAL IV PRN ×3 (07:39→21:40)
[2016-09-05] MEDS: CALCIUM CARBONATE 500 MG CHEWABLE PO SCH ×2 (07:39→21:41)
[2016-09-05] MEDS: HEPARIN SOD 5000 UNIT/0.5 ML CARP SQ SCH ×2 (07:41→21:00)
[2016-09-05] MEDS: CEROVITE ADV FORMULA TAB PO SCH (07:48)
[2016-09-05 08:57] VITALS: BP 113/78; PULSE 96; TEMP 36.6; O2SAT 95
[2016-09-05] MEDS: CLONAZEPAM 0.5 MG TAB PO PRN ×2 (10:22→21:40)
--- NOTE | 2016-09-05 14:14 | Family Medicine Progress Note ---
Progress Note Date of Service Sep 05, 2016. Subjective Pt evaluation today including: conversation w/ patient, physical exam, chart review, lab review The patient was seen and examined at bedside. No acute overnight events. Patient is resting comfortably in bed. Pt reports increased energy from previous day. Pt provided hospital records from [place] with the intent of showing a medication regimen that worked for the patient. Pt states that her pain is not well controlled. Pt was not able to localize the pain, stated that the pain was diffuse, and is located more in the abdomen. Pt states that she is incontinent of stool but not urine. Constitutional: No chills, No fever Respiratory: No cough, No sputum Abdomen: + pain Musculoskeletal: + muscle pain Objective Physical Exam General Appearance: WD/WN, + thin Respiratory/Chest: chest non-tender, lungs clear, normal breath sounds, no respiratory distress, no accessory muscle use, + pertinent finding (Pt has a port on her chest. ) Cardiovascular: regular rate, rhythm, no edema, no gallop, no JVD, no murmur Abdomen: normal bowel sounds, soft, + pertinent finding (Pt reports diffuse abdominal tenderness on deep palpation. ) Extremities: non-tender Skin: normal color, warm/dry Assessment and Plan 46F with a PMHx of Crohn's disease and Fibromyalgia is presenting with dizziness and chest pain. [facility] (X-Ray and CTA) revealed a left lower lobe pneumonia. She was started on Vancomycin and Azactam for suspicion of hospital acquired pneumonia. GI is on board regarding the patient's Crohn's disease, pt is receiving Prednisone. Labs were significant for iron deficiency anemia. Pt is still complaining of diffuse lethargy. Will continue to keep monitoring hemoglobin. Pt has multiple BM per day. Sepsis 2/2 LLL penumonia - Pt has improved clinically, no respiratory complaints, pt continued to have a high pulse. Abx course is completed today. - Continue IVF: (potassium chloride in sodium chloride @ 150mls/hr) Tachycardia - May be due to resolving sepsis, TSH WNL, monitor closely. - May also be withdrawal induced. - EKG today showed resolution of ST segment elevation in anterior leads. Crohn's Flare - Pt is having multiple BM per day and c/o abdominal pain. Ranging from 5-10. - Gi (Dr. Mcfarlane is on board) - c/w Prednisone 20mg daily. - Vedolizumab on Sep 07, [facility] (ext [id number]) may want to bump up administration this visit. - Advance to gluten free low lactose diet. Iron deficiency Anemia - Pt is feeling better clinically. -stable, 9.0<--8.3<--8.1 <--8.0 -s/p 100mg Iron sucrose on 09/02/16. - f/u Hemoglobin Fibromyalgia - Reports diffuse pain attributes to fibromyalgia. - Started Amitriptyline 40 mg QPM - Repeat EKG on Sunday. - Toradol 15mg Q6H PRN. Neutropenia - Improving 5.9<--4.5<--3 Vitamin D deficiency - Vitamin D 200IU daily. Sleep - Ambien 5mg QHS 6 mm Pulmonary nodule - Outpatient follow up. Dispo - Full Code - Pt accepted into [facility], awaiting medical clearance. - DVT Proph: HepSQ Resident Physician Supervision Note: I interviewed and examined the patient. Discussed with the resident and agree with findings and plan as documented in the note. Any exceptions or clarifications are listed here: Documented By: Roderick Heaton Resident Involvement: Resident Care Provided Care Provided: Adult Hospital Medicine
[2016-09-05 15:19] VITALS: BP 100/69; PULSE 127; TEMP 36.6; O2SAT 96
--- NOTE | 2016-09-05 17:19 | GASTROENTEROLOGY PROGRESS NOTE ---
DATE: 09/05/2016 The patient was readmitted. The patient is known to me from prior lengthy hospitalization with history of Crohn disease and recent dose of vedolizumab at the end of August. The patient was admitted on August 30 for probable left lower lobe pneumonia and begun on antibiotic therapy. On August 31, C. diff was negative. Nasal swab is positive for MRSA but blood cultures on August 30 x2 were no growth. Imaging suggested bibasilar airspace opacities within the left lower lobe, suggesting pneumonia. A stable 6 mm nodule in the right lobe was also noted. LABORATORY STUDIES: Today show white count 5.9, hemoglobin 9, platelets 709,000, MCV of 79 which is stable. Serum chemistry: Glucose 150, celiac panel is pending. MEDICATIONS AND ALLERGIES: Were reviewed and reconciled, as was her allergy list. THE LATTER INCLUDES CEPHALEXIN, PENICILLIN, SULFA ANTIBIOTICS AND LORAZEPAM. She is currently on IV vanco and IV aztreonam. Other medications include multivitamins, amitriptyline, heparin 5000 q. 12, vitamin D. She is currently on prednisone 20 mg daily, enteral feedings, Toradol, Klonopin, and Ambien. REVIEW OF SYSTEMS: Otherwise noncontributory based on 14-point exam except for mentioned above. Regarding her GI and stool output, she believes that the vedolizumab after the first dose may have diminished her stool output slightly although at times she still remains incontinent. She continues with her lower and mid abdominal pain. PHYSICAL EXAMINATION: VITAL SIGNS: Afebrile at 36.6, pulse 127, blood pressure 100/69, respiration rate 19, room air 96%. GENERAL: The patient is awake, alert and oriented although slightly lethargic. HEART: Normal S1, S2. LUNGS: Clear to auscultation without rales, rhonchi or wheezes. There is poor effort on inspiration. ABDOMEN: Soft, mildly tender in the periumbilical region. There are no abdominal masses, evidence of rebound or guarding or ascites. EXTREMITIES: Without edema. RECTAL: Exam is deferred. The patient is tentatively scheduled to receive her second induction dose of vedolizumab on September 07. She is currently also taking prednisone in a tapering fashion and is on 20 mg daily. The tentative plan at this time is to repeat her second dose of vedolizumab on , September 07 unless there are concerns from an infectious etiology regarding her pneumonia or other source that would delay its use. We will ask the primary care team to discuss any concerns with me regarding the second dose of vedolizumab for this . Hopefully, this can be kept on a reasonable schedule in order to facilitate the induction protocol and subsequent maintenance dosing. All questions answered.
[2016-09-05] MEDS: AMITRIPTYLINE HCL 10 MG TAB PO SCH (21:41)
--- NOTE | 2016-09-05 22:00 | DIAGNOSTIC IMAGING REPORT ---
CHEST 2 VIEWS ROUTINE CLINICAL HISTORY: Pneumonia. COMPARISON STUDY: Chest CT August 31, 2016. FINDINGS: A right subclavian [id number] remains in place. Cardiac size is normal. There is no evidence for pulmonary edema. No pneumothorax or pleural effusion is identified. Left lower lobe consolidation persists. There is mild right lower lung opacity is well. There is no evidence of pulmonary edema. IMPRESSION: Persistent bilateral lower lobe consolidation, left greater than right. This is either stable or slightly improved since exam of August 31, 2016 and is suggestive of bilateral pneumonia. Continued radiographic follow-up to ensure resolution is recommended. Electronically signed by: Mychal Massey M.D. 09/05/2016 9:58 PM
[2016-09-05 23:14] VITALS: O2SAT 97
[2016-09-05] MEDS: ZOLPIDEM TARTRATE 5 MG TAB PO PRN (23:52)
[2016-09-06 00:21] VITALS: BP 100/70; PULSE 112; TEMP 36.4; O2SAT 98
[2016-09-06] MEDS: NSS + 20MEQ KCL 1000ML 1,000 ML IV SCH ×4 (01:26→20:55)
[2016-09-06 06:02] LABS: HEMATOCRIT 28.4 % (37-47); MEAN CELL VOLUME 84.3 fL (80-100); MEAN CORPUSCULAR HEMOGLOBIN 26.7 pg (25-34); MEAN CORPUSCULAR HGB CONC 31.7 g/dl (32-36); MEAN PLATELET VOLUME 8.7 fL (7.4-10.4); PLATELET COUNT 713 K/uL (130-400); RED BLOOD COUNT 3.37 M/uL (4.2-5.4); WHITE BLOOD COUNT 6.28 K/uL (4.8-10.8)
[2016-09-06] MEDS: ONDANSETRON INJ 2 MG/ML 2 ML VIAL IV PRN ×3 (06:02→20:55)
[2016-09-06] MEDS: KETOROLAC TROMETHAMINE 15 MG/ML VIAL IV PRN ×3 (06:02→20:54)
[2016-09-06 06:33] LABS: CREATININE 0.59 mg/dl (0.60-1.20)
[2016-09-06] MEDS: BOOST VANILLA PO SCH ×6 (07:16→18:03)
[2016-09-06] MEDS: EUCERIN CR 120 GM JAR EXT SCH ×2 (07:17→20:44)
[2016-09-06] MEDS: NICOTINE 7 MG/24 HR TDSY TD SCH (07:17)
[2016-09-06] MEDS: CHOLECALCIFEROL 1000 INTER.UNIT TAB PO SCH (07:17)
[2016-09-06] MEDS: CALCIUM CARBONATE 500 MG CHEWABLE PO SCH ×2 (07:17→20:56)
[2016-09-06] MEDS: CEROVITE ADV FORMULA TAB PO SCH (07:18)
[2016-09-06] MEDS: HEPARIN SOD 5000 UNIT/0.5 ML CARP SQ SCH ×2 (07:19→20:46)
[2016-09-06 08:08] VITALS: BP 105/68; PULSE 112; TEMP 36.6; O2SAT 98
--- NOTE | 2016-09-06 09:18 | Family Medicine Progress Note ---
Progress Note Date of Service Sep 06, 2016. Subjective Pt evaluation today including: conversation w/ patient, physical exam, chart review, lab review The patient was seen and examined at bedside. No acute overnight events. Patient is resting comfortably in bed. Diet was progressed to full and patient is very happy about this. Patient was adamant that she not be put on a gluten free diet. Patient reports continued loose stools and diffuse body pain centralized in the abdomen. Patient expressed concern that her clonazepam isn't TID, it's only BID. Patient was also interested in knowing what her electrolytes are because she was on TPN in the past. Pt reports same energy level as yesterday. Pt is also saying that she is getting Restless Leg Syndrome. Pt stated that she forgot to tell her doctors about her oral thrush, but she feels that her throat is improving now. Constitutional: No chills, No fever, No sweats, No weight loss Respiratory: No cough, No shortness of breath, No sputum, No wheezing Cardiovascular: No chest pain Abdomen: + diarrhea, + pain, No nausea, No vomiting Objective Physical Exam General Appearance: WD/WN, no apparent distress Eyes: normal inspection ENT: pharynx normal, + pertinent finding (No evidence of oral thrush. ) Respiratory/Chest: chest non-tender, lungs clear, normal breath sounds, no respiratory distress Cardiovascular: regular rate, rhythm, no edema, no gallop, no JVD, no murmur Abdomen: soft, + pertinent finding (soft abdomen, bowel sounds WNL, tender to light palpation in all quadrants. ) Extremities: normal range of motion, non-tender, normal inspection Neurologic/Psychiatric: alert, normal mood/affect, oriented x 3 Assessment and Plan 46F with a PMHx of Crohn's disease and Fibromyalgia is presenting with dizziness and chest pain. [facility] (X-Ray and CTA) revealed a left lower lobe pneumonia. She completed a 7 day course of Vancomycin and Azactam for suspicion of hospital acquired pneumonia. GI is on board regarding the patient' s Crohn's disease, pt is receiving Prednisone. Labs were significant for iron deficiency anemia, pt received an IV drip of Iron Sucrose on 09/02/16. Will continue to keep monitoring hemoglobin and electrolytes. Pt has multiple loose BM per day. Diet was progressed on 09/06/15 to full regular with low lactose. Patient denies any respiratory complaints, repeat chest X-ray showed a consistent LLL infiltrate. Sepsis 2/2 LLL penumonia - Pt has improved clinically, no respiratory complaints, pt continued to have a high pulse. Abx course is completed 09/05/16.. - Continue IVF: (potassium chloride in sodium chloride @ 150mls/hr). - Chest X-ray 09/05/16 showed: Persistent bilateral lower lobe consolidation, left greater than right. This is either stable or slightly improved since exam of August 31, 2016 and is suggestive of bilateral pneumonia. Continued radiographic follow-up to ensure resolution is recommended. - Will repeat Chest X-ray in a few days. Tachycardia - May be due to resolving sepsis, TSH WNL, monitor closely. - May also be withdrawal induced. - EKG yesterday showed resolution of ST segment elevation in anterior leads. - f/u BMP and Mg today. Crohn's Flare - Pt is having multiple 5-15 loose BM per day and c/o abdominal pain. - GI (Dr. Mcfarlane is on board) - c/w Prednisone 20mg daily. - Vedolizumab on Sep 07, [facility] (ext [id number]) may want to bump up administration this visit. - Advance to regular low lactose diet. PT adamantly declined gluten free trial. - Continue to monitor. Iron deficiency Anemia - Pt is feeling better clinically. -stable, 9.0<--9.0<--8.3<--8.1 <--8.0 -s/p 100mg Iron sucrose on 09/02/16. - f/u Hemoglobin, consider repeat Iron Administration. Fibromyalgia - Reports diffuse pain attributes to fibromyalgia. - c/w Amitriptyline 40 mg QPM - c/w Toradol 15mg Q6H PRN. Neutropenia - Improving 5.9<--4.5<--3 Anxiety: changed clonazepam to 0.5 TID. Vitamin D deficiency - Vitamin D 2000 IU daily. Sleep - Ambien 5mg QHS 6 mm Pulmonary nodule - Outpatient follow up. Dispo - Full Code - Pt accepted into [facility], awaiting medical clearance. - DVT Proph: HepSQ Resident Physician Supervision Note: I was present with the resident during the history and exam. I discussed the case with the resident and agree with the findings and plan as documented in the note. Any exceptions or clarifications are listed here: Clinically, her pneumonia is improved. She is afebrile, her lungs sounds are improved, and she does not have a cough. X-ray results are noted; radiologic clearing often lags behind clinical improvement in pneumonia. With regards to her vedolizumab, it is a risk-benefit discussion. Anything that made improve her colitis will improve her quality of life and improve her overall health. Given that she is clinically improved, afebrile, and has completed 7 days of appropriate antibiotics for her pneumonia, I think it is reasonable to precede tomorrow as planned by GI. Since she will be inpatient, she will be easy to follow and monitor for infection. Her follow up as an outpatient is clearly unpredictable, so I would suggest that administration tomorrow as an inpatient would be safer than delaying and administering as an outpatient at a later date. Documented By: Roderick Heaton Resident Involvement: Resident Care Provided Care Provided: Adult Hospital Medicine
[2016-09-06] MEDS: CLONAZEPAM 0.5 MG TAB PO PRN ×2 (10:00→20:55)
[2016-09-06 11:46] LABS: CALCIUM 8.2 mg/dl (8.5-10.1); CREATININE 0.75 mg/dl (0.60-1.20); POTASSIUM 4.8 mmol/L (3.5-5.1)
[2016-09-06 15:56] VITALS: BP 102/70; PULSE 111; TEMP 36.8; O2SAT 97
--- NOTE | 2016-09-06 18:52 | GASTROENTEROLOGY PROGRESS NOTE ---
DATE: 09/06/2016 The patient continues to do about the same. The patient describes that she had an x-ray today that showed no change in her pneumonia and that a second course of antibiotics were to be started. I did speak with the house staff regarding the patient and the last x-ray was from yesterday, which showed bilateral pneumonias that are no change or perhaps slightly less than earlier x-rays from this admission. In addition, there were no plans to retrial another course of antibiotics. MEDICATIONS AND ALLERGIES: Her medications were reviewed and reconciled, as was the allergy list. PHYSICAL EXAMINATION: Today, VITAL SIGNS: The patient is afebrile at 36.8 and has been so for the last 24 hours. Blood pressure 102/70, room air is 97% and respirations 16. LUNGS: Decreased breath sounds at the bases, likely due to poor effort. HEART: Normal S1, S2. ABDOMEN: Soft, mildly distended without rebound or guarding. There is mild tenderness in a pattern similar to previous abdominal exams. EXTREMITIES: Without edema. 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 LABORATORY DATA: I reviewed her laboratory studies, which included magnesium of 2.0, calcium 8.2. Electrolytes from today: Potassium 4.8. BUN and creatinine are 8 and 0.75. White count is 6.2 today, up from 5.92 yesterday. Hemoglobin is stable at 9.0. The patient reports she received IV iron today. IMPRESSION: 1. Crohn disease with tentative administration of second induction dose for tomorrow. However, in the setting of this acute pneumonia, I believe it is prudent to hold at 1-2 days and reconsider administration on Sunday, September 08. If there is any evidence of worsening pneumonia, fevers, chills, then this may have to be delayed. It is reasonable to reduce the prednisone to 15 mg daily. 2. Regarding nutrition, calorie counts may be helpful and the patient's diet has been advanced to a regular diet today, up from full liquids. Recent magnesium was normal, would consider phosphate level in addition to monitoring magnesium. All questions answered to the patient.
[2016-09-06] MEDS: AMITRIPTYLINE HCL 10 MG TAB PO SCH (20:45)
[2016-09-06 22:37] LABS: GLIADIN DEAMIDATED IgA AB 4 UNITS (<20); GLIADIN DEAMIDATED IgG AB 2 UNITS (<20); RETICULIN IgA AB Negative (Negative)
[2016-09-06] MEDS: ZOLPIDEM TARTRATE 5 MG TAB PO PRN (23:34)
[2016-09-07 00:49] VITALS: BP 121/80; PULSE 110; TEMP 36.7; O2SAT 98
[2016-09-07] MEDS: KETOROLAC TROMETHAMINE 15 MG/ML VIAL IV PRN ×2 (02:46→09:35)
[2016-09-07] MEDS: ONDANSETRON INJ 2 MG/ML 2 ML VIAL IV PRN ×4 (02:46→23:49)
[2016-09-07] MEDS: NSS + 20MEQ KCL 1000ML 1,000 ML IV SCH ×4 (03:10→23:50)
[2016-09-07 07:38] VITALS: BP 131/89; PULSE 114; TEMP 36.7; O2SAT 97
[2016-09-07] MEDS: EUCERIN CR 120 GM JAR EXT SCH ×2 (08:00→21:04)
[2016-09-07 08:33] LABS: MEAN CELL VOLUME 84.6 fL (80-100); MEAN CORPUSCULAR HEMOGLOBIN 26.6 pg (25-34); MEAN CORPUSCULAR HGB CONC 31.4 g/dl (32-36); MEAN PLATELET VOLUME 8.8 fL (7.4-10.4); PLATELET COUNT 718 K/uL (130-400); RED BLOOD COUNT 3.31 M/uL (4.2-5.4); WHITE BLOOD COUNT 10.08 K/uL (4.8-10.8)
[2016-09-07] MEDS: BOOST VANILLA PO SCH ×6 (08:34→17:07)
[2016-09-07] MEDS: HEPARIN SOD 5000 UNIT/0.5 ML CARP SQ SCH ×2 (08:34→21:13)
[2016-09-07] MEDS: CLONAZEPAM 0.5 MG TAB PO PRN ×2 (08:34→17:08)
[2016-09-07] MEDS: CEROVITE ADV FORMULA TAB PO SCH (08:40)
[2016-09-07 09:05] LABS: BUN/CREATININE RATIO 25.1 (10-20); CREATININE 0.65 mg/dl (0.60-1.20); POTASSIUM 5.1 mmol/L (3.5-5.1)
[2016-09-07 09:06] LABS: PHOSPHORUS 3.1 mg/dl (2.5-4.9)
[2016-09-07] MEDS: NICOTINE 7 MG/24 HR TDSY TD SCH (09:34)
[2016-09-07] MEDS: CHOLECALCIFEROL 1000 INTER.UNIT TAB PO SCH (09:34)
[2016-09-07] MEDS: CALCIUM CARBONATE 500 MG CHEWABLE PO SCH ×2 (09:34→21:05)
[2016-09-07] MEDS ORDERED: NON-FORMULARY MEDICATION SCH (13:45)
--- NOTE | 2016-09-07 14:23 | Family Medicine Progress Note ---
Progress Note Date of Service Sep 07, 2016. Subjective Pt evaluation today including: conversation w/ patient, physical exam, chart review, lab review The patient was seen and examined at bedside. No acute overnight events. Patient is still complaining of diffuse body pain, she is upset that her Toradol was changed from Q4 to Q6. Patient is currently not receiving any pain medications today. Patient is unhappy that she is still feeling weakness. When entering the room the patient was eating breakfast. Plan of care was described to the patient and all questions were answered. Constitutional: No chills, No fever Respiratory: No cough, No shortness of breath, No sputum, No wheezing Cardiovascular: No chest pain, No edema Abdomen: No nausea, No pain Musculoskeletal: No joint pain Psychiatric: No depression symptoms Objective Physical Exam General Appearance: WD/WN, no apparent distress, + thin, + pertinent finding ( patient face appears more round than previous, no edema) Respiratory/Chest: chest non-tender, lungs clear, normal breath sounds, no respiratory distress, + pertinent finding (asking patient to sit forward and take a deep breath produced fatigue) Cardiovascular: regular rate, rhythm, no edema, no gallop, no JVD, no murmur Abdomen: normal bowel sounds, non tender, soft, + pertinent finding (tender to slight palpation) Extremities: normal range of motion, non-tender, normal inspection, no pedal edema Neurologic/Psychiatric: alert, normal mood/affect, oriented x 3 Assessment and Plan 46F with a PMHx of Crohn's disease and Fibromyalgia is presenting with dizziness and chest pain. [facility] (X-Ray and CTA) revealed a left lower lobe pneumonia. She completed a 7 day course of Vancomycin and Azactam for suspicion of hospital acquired pneumonia. GI is on board regarding the patient' s Crohn's disease, pt is receiving Prednisone. Patient continues to have >8+ loose stools per day. Labs were significant for iron deficiency anemia, pt received an IV drip of Iron Sucrose on 09/02/16. Diet was progressed on 09/06/15 to full regular with low lactose. Patient denies any respiratory complaints, repeat chest X-ray showed a consistent LLL infiltrate. Pt is complaining of continued weakness and remains tachycardic. On 09/07/15 Hematology/Oncology was consulted regarding patients continue fatigue, iron deficiency anemia and thrombocytosis. Tachycardia 2/2 Iron Deficiency Anemia vs Chronic Pain Syndrome vs Substance Induced Withdrawal - Tachycardia unlikely due to sepsis from pneumonia, TSH WNL, monitor closely. - EKG on Sunday showed resolution of ST segment elevation in anterior leads. - Electrolytes are WNL. - Chest X-ray 09/05/16 showed: Persistent bilateral lower lobe consolidation, left greater than right. This is either stable or slightly improved since exam of August 31, 2016 and is suggestive of bilateral pneumonia. Continued radiographic follow-up to ensure resolution is recommended. - Will repeat Chest X-ray in a few days. - f/u CBC & BMP tomorrow. Crohn's Flare - Pt is having multiple 5-15 loose BM per day and c/o abdominal pain. - GI is on board. (Dr. Garcia) - Prednisone was decreased to 15mg daily due to patient's Cushingoid appearance. - Vedolizumab scheduled for tomorrow September 08. - Advance to regular low lactose diet. PT adamantly declined gluten free trial. - Continue to monitor. Iron deficiency Anemia - Pt is feeling better clinically, still tachycardic. -stable, 8.8<--9.0<--9.0<--8.3<--8.1 <--8.0 -s/p 100mg Iron sucrose on 09/02/16. - Hematology/Onc. was consulted in light of patients thrombocytosis, continued anemia and concurrent Vedolizumab administration. Of note patient also has an incidental 6mm pulmonary nodule. Fibromyalgia - Reports diffuse pain, worst in the abdomen, unable to localize. - c/w Amitriptyline 40 mg QPM - Considering non opioid alternatives. No specific source of infection was identified or specific source of pain. Poor PO Intake - Caloric monitoring with meals. Pt appears to be eating most of her meals. - c/w IVF: (potassium chloride in sodium chloride @ 150mls/hr). Anxiety: c/w clonazepam to 0.5 TID. Vitamin D deficiency - Vitamin D 2000 IU daily. Sleep - Ambien 5mg QHS 6 mm Pulmonary nodule - Outpatient follow up. Dispo - Full Code - Pt accepted into [facility], awaiting medical clearance. - DVT Proph: HepSQ Resident Physician Supervision Note: I was present with the resident physician during the history and exam. I discussed the case with the resident and agree with the findings and plan as documented in the note. Any exceptions or clarifications are listed here: Consistent with previous exams, the patient complain of weakness and has declined PT. She told us that she was too weak to lift her arms, although she quickly grabbed her cell phone when it rang during the exam. Agree with hematology consultation for assistance in addressing her iron-def Anemia and thrombocytosis. Continued Toradol not recommended due to renal concerns; agree with oral tramadol. I do not feel that narcotic medications are indicated, consistent with the opinion of previous providers at this facility. Documented By: Roderick Heaton Resident Involvement: Resident Care Provided Care Provided: Adult Hospital Medicine
--- NOTE | 2016-09-07 15:22 | Oncology Consultation ---
Oncology/Heme Consultation Date of Consultation: Sep 07, 2016. Attending Physician: Roderick Heaton D.O. Reason for Consultation: We are asked to comment about her mild thrombocytosis as well as an anemia History of Present Illness Ms Palacios is a 46-year-old female that has a history of Crohn's. Her comorbid conditions are well outlined in the history and physical. She is admitted now with abdominal pain and further treatment of Crohn's. She doesn't mid to seeing blood in her stool. She also states that she's had some low-grade fevers. She is also being treated for pulmonary infiltrates consistent with a pneumonia. She complains of fatigue. She has rather exquisite abdominal discomfort Past Medical/Surgical History Crohn's disease Thrombocytosis Microcytic anemia Family History Patient reports no known family medical history. History of leukemia in the family Social History Smoking Status: Current Every Day Smoker Marital Status: single Housing Status: lives alone Occupation Status: unemployed Allergies Coded Allergies: Cephalexin (Unverified Allergy, Intermediate, rash, 08/30/16) Lorazepam (Unverified Allergy, Intermediate, tongue swelling, 08/30/16) Sulfa Antibiotics (Unverified Allergy, Intermediate, rash/hives, 08/30/16) Penicillins (Verified Allergy, Unknown, Unknown, 08/30/16) Reported by PT Home Medications Scheduled Prednisone Tab (Prednisone), 10 MG PO UD Current Inpatient Medications Current Inpatient Medications Medications (Trade) Dose Ordered Sig/Rashard Route Start Time Stop Time Status Last Admin Dose Admin Potassium Chloride/Sodium Chloride (Nss + 20meq KCl 1000ml) 1,000 ml @ 150 mls/hr Q6H40M IV 08/30/16 17:30 09/30/16 17:29 09/07/16 10:09 150 MLS/HR Acetaminophen (Tylenol Tab) 650 mg Q4H PRN PO 08/30/16 12:30 09/29/16 12:29 09/03/16 06:35 650 MG Ondansetron HCl (Zofran Inj) 4 mg Q6H PRN IV 08/30/16 12:30 09/29/16 12:29 09/07/16 09:35 4 MG Zolpidem Tartrate (Ambien Tab) 5 mg HS PRN PO 08/30/16 12:30 1/27/17 12:29 09/06/16 23:34 5 MG Nicotine (Nicoderm Cq 7 Mg Patch) 1 patch QAM TD 08/31/16 09:00 09/30/16 08:59 09/07/16 09:34 1 PATCH Miscellaneous (Remove Nicoderm Patch) 1 ea HS N/A 08/31/16 21:00 09/30/16 20:59 09/07/16 00:09 1 EA Enteral Nutritional Formula (Boost) 1 can TIDM PO 09/01/16 12:00 10/01/16 11:59 09/07/16 12:32 1 CAN Cholecalciferol (Vitamin D Tab) 2,000 inter.unit DAILY PO 09/03/16 08:00 10/03/16 07:59 09/07/16 09:34 2,000 INTER.UNIT Ergocalciferol (Vitamin D Cap) 50,000 interunit Sa@0900 PO 09/02/16 10:00 10/02/16 09:59 09/02/16 10:15 50,000 INTERUNIT Calcium Carbonate (Tums Chew Tab) 500 mg BID PO 09/02/16 20:00 10/02/16 19:59 09/07/16 09:34 500 MG Multi-Ingredient Ointment (Eucerin Unscented Cr) 1 appln BID EXT 09/02/16 13:30 10/02/16 13:29 09/07/16 08:00 1 APPLN Heparin Sodium (Porcine) (Heparin Sq 5000 Unit/0.5ml) 5,000 unit Q12 SQ 09/02/16 21:00 10/02/16 20:59 09/07/16 08:34 5,000 UNIT Amitriptyline HCl (Elavil Tab) 40 mg PM PO 09/03/16 20:00 10/03/16 19:59 09/06/16 20:45 40 MG Multivitamins/ Minerals (Multivitamin W/ Minerals Tab) 1 tab QAM PO 09/04/16 08:00 10/04/16 07:59 Clonazepam (Klonopin Tab) 0.5 mg TID PRN PO 09/06/16 14:00 10/06/16 13:59 09/07/16 08:34 0.5 MG Prednisone (PredniSONE TAB) 15 mg DAILY PO 09/07/16 08:00 10/07/16 07:59 09/07/16 08:35 15 MG Non-Formulary Medication 1 ea UD N/A 09/08/16 13:45 10/08/16 13:44 UNV Review of Systems She is a rather difficult historian. He complains primarily of fatigue. Constitutional: Negative for weight loss although apparently there has been some weight loss recently, she comments about having some fevers in the recent past Cardiovascular: Negative for chest pain, palpitations, dizziness, diaphoresis. She does review with me though that she's had some chest pain before causes unclear Respiratory: Negative for new shortness of breath,hemoptysis, or purulent cough Gastrointestinal: Negative for diarrhea, no definite nausea or vomiting. She has seen blood in her stool recently Integumentary (skin): Negative for rash or jaundice discoloration Neurological: Negative for weakness, seizure activity, headache, or dizziness Lymphatic/Hematologic: Negative for petechiae, bleeding or new adenopathy Musculoskeletal: Negative for new joint or back pain Allergic/Immunologic: Negative for unusual rash or pruritis. Physical Exam Date Time Temp Pulse Resp B/P Pulse Ox O2 Delivery O2 Flow Rate FiO2 09/07/16 07:45 Room Air 09/07/16 07:38 36.7 114 18 131/89 97 Room Air 09/07/16 01:22 Room Air 09/07/16 00:49 36.7 110 18 121/80 98 Room Air 09/06/16 15:56 36.8 111 16 102/70 97 Room Air 09/06/16 15:54 Room Air Constitutional: vitals are stable. Thin slightly pale-appearing female Eyes: Eyes are RL EOMI without conjuctival erythema or icterus. ENT: External examination was negative for masses. Neck: Negative for masses or palpable thyromegaly Respiratory: Lung sounds were generally clear bilaterally Cardiovascular: Heart was RRR without significant murmur, gallops aoe rubs Gastrointestinal: No palpable hepatic or splenomegaly. The abdomen was tender to touch. Bowel sounds were normal a slightly increased throughout Lymphatic system: there was no palpable peripheral lymphadenopathy Musculoskeletal System: The musculoskeletal system seemed concordant with age. Skin: The skin was negative for jaundice. No petechiae Neurologic exam: The exam was negative for any focal findings. Deep tendon reflexes were equal and symmetrical. Psychiatric exam: Was essentially negative with normal mood and effect. Breast exam: Not done Extremities: Negative for edema erythema Laboratory Results Last 24 Hours Test 09/06/16 16:25 09/06/16 20:06 09/07/16 07:44 09/07/16 07:51 Bedside Glucose 101 mg/dl 103 mg/dl 79 mg/dl White Blood Count 10.08 K/uL Red Blood Count 3.31 M/uL Hemoglobin 8.8 g/dL Hematocrit 28.0 % Mean Corpuscular Volume 84.6 fL Mean Corpuscular Hemoglobin 26.6 pg Mean Corpuscular Hemoglobin Concent 31.4 g/dl RDW Standard Deviation 77.5 fL RDW Coefficient of Variation 25.5 % Platelet Count 718 K/uL Mean Platelet Volume 8.8 fL Nucleated RBC Absolute Count (auto) 0.06 K/uL Nucleated Red Blood Cells % 0.6 % Sodium Level 138 mmol/L Potassium Level 5.1 mmol/L Chloride Level 105 mmol/L Carbon Dioxide Level 25 mmol/L Anion Gap 8.0 mmol/L Blood Urea Nitrogen 16 mg/dl Creatinine 0.65 mg/dl Est Creatinine Clear Calc Drug Dose 80.9 ml/min Estimated GFR () 121.7 Estimated GFR (Non- 105.0 BUN/Creatinine Ratio 25.1 Random Glucose 65 mg/dl Calcium Level 8.0 mg/dl Phosphorus Level 3.1 mg/dl Test 09/07/16 11:17 Bedside Glucose 99 mg/dl Assessment & Plan The thrombocytosis does appear reactive. It might be related to an underlying mild iron deficient state. We will ask for AZALIA-2 mutation analysis but again I suspect that this is a reactive thrombocytosis and by itself does not need any sort of therapeutic intervention. I should note that a relatively recent CT scan of the abdomen and pelvis was negative for splenomegaly. The anemia has worsened over the past few months. The MCV was low however is now normal. I would like to ask for a total serum iron TIBC and a serum ferritin before beginning IV iron or deeming her to be iron deficient. If in fact the profile is consistent with an iron deficient state rather than anemia chronic disease and we will begin daily iron infusions while she is here and continue those as an outpatient. Thank you
[2016-09-07 16:12] VITALS: BP 122/87; PULSE 127; TEMP 36.8; O2SAT 98
[2016-09-07] MEDS ORDERED: TRAMADOL HCL 50 MG TAB PO PRN (16:30)
[2016-09-07] MEDS ORDERED: NURSING VERBAL MED ORDER ONE (18:15)
[2016-09-07] MEDS: AMITRIPTYLINE HCL 10 MG TAB PO SCH (21:05)
[2016-09-07] MEDS: ZOLPIDEM TARTRATE 5 MG TAB PO PRN (23:49)
[2016-09-08] VITALS (7 sets, daily range): BP systolic 100–131; BP diastolic 70–94; PULSE 82–147; TEMP 36.8–37.2; O2SAT 96–98
[2016-09-08] MEDS: CLONAZEPAM 0.5 MG TAB PO PRN ×4 (01:23→21:27)
[2016-09-08] MEDS ORDERED: DiphenhydrAMINE HCL 50 MG/ML VIAL IV SCH (06:00)
[2016-09-08] MEDS ORDERED: ACETAMINOPHEN 325 MG TAB PO SCH (06:00)
[2016-09-08] MEDS ORDERED: METHYLPREDNISOLONE 20 MG in SYRINGE 0 ML IV SCH (06:00)
[2016-09-08] MEDS ORDERED: NON-FORMULARY MEDICATION SCH (06:00)
[2016-09-08] MEDS ORDERED: VEDOLIZUMAB IV SCH (06:00)
[2016-09-08] MEDS ORDERED: NSS IV SCH (06:00)
[2016-09-08] MEDS: NSS + 20MEQ KCL 1000ML 1,000 ML IV SCH ×2 (06:38→13:46)
--- NOTE | 2016-09-08 07:01 | GASTROENTEROLOGY PROGRESS NOTE ---
DATE: 09/07/2016 SUBJECTIVE: The patient continues to be same clinically. The patient is supine in bed. She is lethargic but answers questions appropriately and is oriented to place, person and time. LABORATORY STUDIES: From today show white count of 10.0, hemoglobin is 8.8 which is slightly lower than yesterday with an MCV of 85, the RDW is elevated. Platelet counts are thrombocytotic at 718. Sed rate remains elevated at 71. The patient did have celiac markers performed on September 02 and all of these were negative. Glucose of 114. Her iron is 21, but her total iron binding capacity is 142 with ferritin of 137 and this may reflect anemia of chronic disease. She has completed her course of antibiotics. OBJECTIVE: VITAL SIGNS: The patient is afebrile at 36.8, blood pressure 122/87, room air 98%, and respirations 18. LUNGS: Diminished breath sounds bilaterally due to poor effort. HEART: Normal S1, S2. ABDOMEN: Tender in the periumbilical region. There is no significant distention or rebound. EXTREMITIES: Without edema. LABORATORY STUDIES: Show phosphorus level today of 3.1. IMPRESSION: Crohn's disease. The patient is scheduled for her second dose of vedolizumab. However, given the recent pneumonia, I believe it is prudent to provide several days in order to help improve her pneumonia clinically with tentative plan to give her the second induction dose of vedolizumab next . Regarding her nutrition, I would consider calorie counts for the next 3 days and see if she is taking an adequate amount of oral nutrition. If she is significantly under calorie, then consideration for total parenteral nutrition. The patient's hematology workup is in progress. Based on the iron panel recently, this appears to be at least a component of chronic disease. Celiac disease does not appear to be a factor in her anemia or symptoms. I would continue on prednisone 15 mg daily and follow magnesium, calcium, and phosphate in addition to standard electrolytes for nutrition purposes. We will continue to follow with you. All questions answered for patient. Consider chest x-ray during the weekend to see if there is an interval resolution would be helpful. All questions answered for the patient. MTDD
[2016-09-08] MEDS: ONDANSETRON INJ 2 MG/ML 2 ML VIAL IV PRN ×3 (08:41→23:10)
[2016-09-08] MEDS: BOOST VANILLA PO SCH ×6 (08:41→16:41)
[2016-09-08] MEDS: CALCIUM CARBONATE 500 MG CHEWABLE PO SCH ×2 (08:43→21:18)
[2016-09-08] MEDS: CHOLECALCIFEROL 1000 INTER.UNIT TAB PO SCH (08:43)
--- NOTE | 2016-09-08 08:43 | Hematology/Oncology Prog Note ---
Hematology/Onc Progress Note Date of Service Sep 08, 2016. Diagnoses Crohn's disease Anemia Thrombocytosis Medications Medications Administered Medications (Trade) Dose Ordered Sig/Rashard Route Start Time Stop Time Status Last Admin Dose Admin Sodium Chloride (Nss 1000ml) 1,000 ml @ 999 mls/hr Q1H1M STAT IV 08/30/16 08:51 08/30/16 09:51 DC 08/30/16 09:15 999 MLS/HR Ketorolac Tromethamine (Toradol Inj) 30 mg NOW STAT IV 08/30/16 08:55 08/30/16 08:57 DC 08/30/16 09:45 30 MG Metoclopramide HCl 10 mg 10 mg NOW STAT IV 08/30/16 08:55 08/30/16 08:57 DC 08/30/16 09:45 10 MG Aztreonam 2000 mg/ Dextrose 110 ml @ 100 mls/hr NOW STAT IV 08/30/16 11:15 08/30/16 12:20 DC 08/30/16 11:45 100 MLS/HR Levofloxacin 750 mg/Prmx 150 ml @ 100 mls/hr NOW ONCE IV 08/30/16 12:00 08/30/16 13:29 DC 08/30/16 11:46 100 MLS/HR Tobramycin Sulfate/Dextrose (Nebcin Inj/D5 100ml) 107.7 ml @ 100 mls/hr TODAY@1200 IV 08/30/16 12:00 08/30/16 14:00 DC 08/30/16 13:08 100 MLS/HR Heparin Sodium (Porcine) 5000 unit 5,000 unit Q12 SQ 08/30/16 21:00 08/31/16 12:15 DC 08/31/16 07:51 5,000 UNIT Potassium Chloride/Sodium Chloride (Nss + 20meq KCl 1000ml) 1,000 ml @ 150 mls/hr Q6H40M IV 08/30/16 17:30 09/30/16 17:29 09/08/16 06:38 150 MLS/HR Acetaminophen (Tylenol Tab) 650 mg Q4H PRN PO 08/30/16 12:30 09/29/16 12:29 09/03/16 06:35 650 MG Ondansetron HCl 4 mg 4 mg Q6H PRN IV 08/30/16 12:30 09/29/16 12:29 1/17 23:49 4 MG Aztreonam 2000 mg/ Dextrose 110 ml @ 100 mls/hr Q8H IV 08/30/16 20:00 09/05/16 23:59 DC 09/05/16 21:39 100 MLS/HR Hydrocortisone Sodium Succinate/ Syringe (Solu-Cortef IV/ Syringe) 1 ml @ 4 mls/min Q6H IV 08/30/16 18:00 09/01/16 10:47 DC 09/01/16 06:41 4 MLS/MIN Zolpidem Tartrate (Ambien Tab) 5 mg HS PRN PO 08/30/16 12:30 09/29/16 12:29 09/07/16 23:49 5 MG Hydromorphone HCl 0.5 mg 0.5 mg Q4 PRN IV 08/30/16 12:30 09/01/16 10:47 DC 09/01/16 08:07 0.5 MG Vancomycin HCl 1000 mg/Sodium Chloride 270 ml @ 125 mls/hr TODAY@1730 IV 08/30/16 17:30 08/30/16 19:40 DC 08/30/16 17:32 125 MLS/HR Vancomycin HCl 700 mg/Sodium Chloride 264 ml @ 125 mls/hr Q8H IV 08/31/16 00:00 09/01/16 13:54 DC 09/01/16 11:02 125 MLS/HR Magnesium Sulfate/ Prmx (Magnesium Sulfate/Premixed D5W) 100 ml @ 100 mls/hr NOW ONCE IV 08/30/16 20:00 08/30/16 20:59 DC 08/30/16 20:43 100 MLS/HR Nicotine (Nicoderm Cq 7 Mg Patch) 1 patch QAM TD 08/31/16 09:00 09/30/16 08:59 09/07/16 09:34 1 PATCH Miscellaneous (Remove Nicoderm Patch) 1 ea HS N/A 08/31/16 21:00 09/30/16 20:59 09/07/16 21:16 1 EA Clonazepam (Klonopin Tab) 0.5 mg BID PRN PO 08/31/16 09:00 09/06/16 11:29 DC 09/06/16 10:00 0.5 MG Alteplase, Recombinant (Activase Cathflo) 2 mg ONE ONCE IV 09/01/16 08:00 09/01/16 08:02 DC 09/01/16 09:15 2 MG Ketorolac Tromethamine (Toradol Inj) 30 mg NOW STAT IV 09/01/16 10:39 09/01/16 11:09 DC 09/01/16 11:27 30 MG Ketorolac Tromethamine (Toradol Inj) 15 mg Q6H PRN IV 09/01/16 10:45 09/06/16 10:44 DC 09/06/16 06:02 15 MG Prednisone (PredniSONE TAB) 20 mg DAILY PO 09/02/16 08:00 09/06/16 17:09 DC 09/06/16 07:17 20 MG Enteral Nutritional Formula 1 can 1 can TIDM PO 09/01/16 12:00 10/01/16 11:59 09/07/16 17:07 1 CAN Vancomycin HCl/ Sodium Chloride (Vancomycin Inj/ Nss 250ml) 264 ml @ 125 mls/hr Q8H IV 09/01/16 19:00 09/05/16 23:59 DC 09/05/16 18:36 125 MLS/HR Cholecalciferol 2000 inter.unit 2,000 inter.unit DAILY PO 09/03/16 08:00 10/03/16 07:59 09/07/16 09:34 2,000 INTER.UNIT Iron Sucrose/ Sodium Chloride (Venofer Inj/Nss 100ml) 105 ml @ 420 mls/hr TODAY@1100 IV 09/02/16 11:00 09/02/16 11:14 DC 09/02/16 10:16 420 MLS/HR Ergocalciferol (Vitamin D Cap) 50,000 interunit Sa@0900 PO 09/02/16 10:00 10/02/16 09:59 09/02/16 10:15 50,000 INTERUNIT Calcium Carbonate (Tums Chew Tab) 500 mg BID PO 09/02/16 20:00 10/02/16 19:59 09/07/16 21:05 500 MG Multi-Ingredient Ointment (Eucerin Unscented Cr) 1 appln BID EXT 09/02/16 13:30 10/02/16 13:29 09/07/16 21:04 1 APPLN Heparin Sodium (Porcine) (Heparin Sq 5000 Unit/0.5ml) 5,000 unit Q12 SQ 09/02/16 21:00 10/02/16 20:59 09/07/16 21:13 5,000 UNIT Amitriptyline HCl (Elavil Tab) 40 mg PM PO 09/03/16 20:00 10/03/16 19:59 09/07/16 21:05 40 MG Clonazepam (Klonopin Tab) 0.5 mg TID PRN PO 09/06/16 14:00 10/06/16 13:59 09/08/16 01:23 0.5 MG Ketorolac Tromethamine (Toradol Inj) 15 mg Q6H PRN IV 09/06/16 12:15 09/07/16 12:14 DC 09/07/16 09:35 15 MG Prednisone (PredniSONE TAB) 15 mg DAILY PO 09/07/16 08:00 10/07/16 07:59 09/07/16 08:35 15 MG Tramadol HCl (Ultram Tab) 25 mg Q4H PRN PO 09/07/16 16:30 10/07/16 16:29 09/07/16 17:52 25 MG Subjective She continues to have abdominal pain. Review of Systems: Constitutional: Negative for night sweats, or fever Eyes: Negative for event change of vision ENT: Negative for epistaxis, nasal discharge, sore throat, or deafness Cardiovascular: Negative for chest pain, palpitations, dizziness, diaphoresis Respiratory: Negative for new shortness of breath,hemoptysis, or purulent cough Gastrointestinal: As before she has rather diffuse abdominal discomfort Integumentary (skin): Negative for rash or jaundice discoloration Genitourinary: Negative for urinary frequency, hematuria, or dysuria Neurological: Negative for weakness, seizure activity, headache, or dizziness Lymphatic/Hematologic: Negative for petechiae, bleeding or new adenopathy Musculoskeletal: Negative for new joint or back pain Allergic/Immunologic: Negative for unusual rash or pruritis. Vital Signs Vital Signs Past 12 Hours Date Time Temp Pulse Resp B/P Pulse Ox O2 Delivery O2 Flow Rate FiO2 09/08/16 08:16 36.9 131 18 114/81 98 Room Air 09/08/16 00:37 37.2 82 20 131/94 97 Room Air 09/08/16 00:00 Room Air Physical Exam Constitutional: vitals are stable. Eyes: Eyes are RL EOMI without conjuctival erythema or icterus. ENT: External examination was negative for masses. Neck: Negative for masses or palpable thyromegaly Respiratory: Lung sounds were generally clear bilaterally Cardiovascular: Heart was RRR without significant murmur, gallops aoe rubs Gastrointestinal: Bowel sounds were intermittently high-pitched. The abdomen demonstrates tenderness with mild palpation Lymphatic system: there was no palpable peripheral lymphadenopathy Musculoskeletal System: The musculoskeletal system seemed concordant with age. Skin: The skin was negative for jaundice. She is pale Neurologic exam: The exam was negative for any focal findings. Deep tendon reflexes were equal and symmetrical. Psychiatric exam: Was essentially negative with normal mood and effect. Breast exam: Not done Extremities: Negative for edema erythema Laboratory Last 24 Hours Test 09/07/16 11:17 09/07/16 15:50 09/07/16 16:25 09/07/16 20:46 Bedside Glucose 99 mg/dl 114 mg/dl 103 mg/dl Erythrocyte Sedimentation Rate 71 mm/hr Iron Level 21 mcg/dl Total Iron Binding Capacity 142 mcg/dl Ferritin 137.0 ng/ml Lactate Dehydrogenase 123 U/L Test 09/08/16 04:44 09/08/16 08:02 Bedside Glucose 86 mg/dl Assessment & Plan Clinical history and exam is the same as last evening. In reviewing her CBC, the current MCV is indeed normal., Ferritin is 135. Total serum iron and TIBC are both low consistent with an iron reutilization defect ( anemia chronic disease). Sedimentation rate is 71. I don't believe that parenteral iron will help her hemoglobin concentration. Short of doing a bone marrow biopsy we will never be exactly sure of her iron stores but I believe again that infusing iron will not stimulate red cell production unless underlying inflammation is able to be treated. The noninvasive numbers would suggest that she has not iron depleted. Along with that the thrombocytosis would be in keeping with being reactive again secondary to underlying inflammation. Would recommend red cell transfusions as needed. For now we will follow at a distance (watching her CBC with you).
[2016-09-08] MEDS: EUCERIN CR 120 GM JAR EXT SCH ×2 (08:44→21:17)
[2016-09-08] MEDS: NICOTINE 7 MG/24 HR TDSY TD SCH (08:44)
[2016-09-08 08:54] LABS: HEMATOCRIT 28.1 % (37-47); MEAN CELL VOLUME 84.1 fL (80-100); MEAN CORPUSCULAR HEMOGLOBIN 26.9 pg (25-34); MEAN PLATELET VOLUME 8.7 fL (7.4-10.4); PLATELET COUNT 695 K/uL (130-400); RED BLOOD COUNT 3.34 M/uL (4.2-5.4); WHITE BLOOD COUNT 14.45 K/uL (4.8-10.8)
[2016-09-08] MEDS: CEROVITE ADV FORMULA TAB PO SCH (09:06)
[2016-09-08] MEDS: HEPARIN SOD 5000 UNIT/0.5 ML CARP SQ SCH ×3 (09:13→21:25)
[2016-09-08 09:18] LABS: BUN/CREATININE RATIO 25.1 (10-20); CALCIUM 8.2 mg/dl (8.5-10.1); CREATININE 0.7 mg/dl (0.60-1.20); POTASSIUM 5.1 mmol/L (3.5-5.1)
--- NOTE | 2016-09-08 09:28 | Family Medicine Progress Note ---
Progress Note Date of Service Sep 08, 2016. Subjective Pt evaluation today including: conversation w/ patient, physical exam, chart review, lab review The patient was seen and examined at bedside. No acute overnight events. Patient is resting comfortably in bed , sitting up. Pt was brought breakfast while I was in the room. Pt's only complaint is that the Tramadol isn't doing anything for her pain and she expressed a concern that other hospitals have treated her with opioid medication. She was not explicit in requesting opioids , however, no matter the topic of conversation the dialogue returned to a reference to increasing her pain medication. Pt's pain was described as from "skin to skin" while patient made a reference of circling her finger. Plan of care was described to the patient and all questions were answered. Constitutional: No chills, No fever Eyes: No worsening of vision Cardiovascular: No chest pain, No edema Female : No dysuria Psychiatric: No depression symptoms Skin: No rash Objective Physical Exam General Appearance: WD/WN, no apparent distress, + thin, + pertinent finding ( Possible cushingoid appearance, slight improvement from yesterday. ) Respiratory/Chest: chest non-tender, lungs clear, normal breath sounds, no respiratory distress Cardiovascular: no edema, no gallop, no JVD, no murmur, + tachycardia Abdomen: soft, + distended, + pertinent finding (No gaurding, no rebound, pt reports pain with auscultation but no gaurding or facial changes when palpating the abdomen. Similar report on deep palpation. Pt has active bowel sounds. ) Extremities: non-tender, normal inspection, + pertinent finding (ROM is unable to assess because patient states she cannot move her extremities due to pain. ) Neurologic/Psychiatric: alert, normal mood/affect, oriented x 3 Assessment and Plan 46F with a PMHx of Crohn's disease and Fibromyalgia is presenting with dizziness and chest pain. Imagine (X-Ray and CTA) revealed a left lower lobe pneumonia. She completed a 7 day course of Vancomycin and Azactam for suspicion of hospital acquired pneumonia. GI is on board regarding the patient' s Crohn's disease, pt is receiving Prednisone. Patient continues to have >8+ loose stools per day. Labs were significant for iron deficiency anemia, pt received an IV drip of Iron Sucrose on 09/02/16. Diet was progressed on 09/06/15 to full regular with low lactose. Patient denies any respiratory complaints, repeat chest X-ray showed a consistent LLL infiltrate. Pt is complaining of continued weakness and remains tachycardic. Hematology/Oncology believe the anemia is due to chronic disease. Pain is now being controlled with Tramadol ( Toradol 6 day course was completed on Sunday), pt is still complaining of diffuse pain incongruent with physical exam. 1. Tachycardia 2/2 Anemia of Chronic Disease vs Chronic Pain Syndrome vs Substance Induced Withdrawal - Pt for the first time during the hospital course had a normal heart rate. - EKG on Sunday showed resolution of ST segment elevation in anterior leads. - Electrolytes are WNL. - Chest X-ray 09/05/16 showed: Persistent bilateral lower lobe consolidation, left greater than right. - WBC spike today, repeat Chest X-ray showed improved in R lobe disease, no change in left lobe disease. Consider repeat X-ray next Sunday. - Heme/ Onc - iron levels WNL, likely anemia of chronic disease, no interventions at this point. - Continue to monitor CBC & BMP tomorrow, MG and Phosphorous. Replete Magnesium as necessary. 2. Crohn's Flare - Pt is having multiple 5-15 loose BM per day and c/o abdominal pain. Physical exam shows no guarding or rebound tenderness to light and deep palpation, no changes in facial expression with any abdominal exam maneuver. Patient's has more of a Cushingoid appearance at present. Will continue Prednisone Taper, 10mg /day over the weekend. - GI is on board. Holding on Vedolizumab until next Sep. - Advance to regular low lactose diet. Calorie count ordered (09/08/16). - Continue to monitor. 3. Anemia of Chronic disease - Hemoglobin is stable, 8.8<--9.0<--9.0<--8.3<--8.1 <--8.0 - Hematology/Onc. thrombocytosis is likely reactive to Crohns, no need for iron transfusion at this point. 4. Fibromyalgia and Diffuse Pain - No evidence of Serotonin Syndrome clinically. - c/w Amitriptyline 40 mg QPM - c/w Tramadol 25mg Q4 - understand the risks of Serotonin Syndrome. - Pain Management on board - do not believe the patient is a candidate for opioids. I concur with this assessment. 5. Poor PO Intake - Caloric count ordered, there is a concern pt isn't eating her meals. - Potassium today was 5.1, halved the IVF (KCL in NaCl) to 75mls/hr from 150mls/ hr today (Sunday). 6. Anxiety: c/w clonazepam to 0.5 TID. 7. Vitamin D deficiency - Vitamin D 2000 IU daily. 8. Sleep - Ambien 5mg QHS 9. Six mm Pulmonary nodule - Outpatient follow up. 10. Dispo - Full Code - Pt accepted into [facility], awaiting medical clearance. - DVT Proph: HepSQ TID (due to prolonged immobility). Resident Physician Supervision Note: I was present with the resident during the history and exam. I discussed the case with the resident and agree with the findings and plan as documented in the note. Any exceptions or clarifications are listed here: Upon my examination today, the patient is lying supine in bed. She continues to complain of constant pain. However, when asked to be more specific with regards to her pain, she just states that it's "all over." She states that she is too weak to participate in physical therapy. She has declined physical therapy. Input from gastroenterology and hematology reviewed and appreciated. Chest x-ray is consistent with a resolving pneumonia. Clinically she is afebrile she's not been coughing. Would not expect full clearing of the chest x -ray for another 2-4 weeks. Agree with calorie counts. The patient was advised the calorie counting which is beginning today. Reviewed with her her lab results from today including the improved iron and ferritin and the recommendation from hematology to hold off on additional iron supplementation at this point. The patient states that she cannot take in oral vitamin (it is too painful); will look to supplement intravenously. Documented By: Roderick Heaton Resident Involvement: Resident Care Provided Care Provided: Adult Hospital Medicine
--- NOTE | 2016-09-08 09:43 | DIAGNOSTIC IMAGING REPORT ---
CHEST ONE VIEW PORTABLE HISTORY: resolution of LLL pneumonia,monitoring, WBC spike COMPARISON: Chest 09/05/2016. FINDINGS: No pleural effusions. No pneumothorax. The heart is normal in size. Prior cholecystectomy. Right subclavian Port-A-Cath terminates in the SVC. The right base airspace opacity has improved. Left retrocardiac/lower lobe airspace opacity remains unchanged. IMPRESSION: 1. No change in the left retrocardiac/lower lobe airspace opacity which likely represents a pneumonia. Recommend follow-up to resolution. 2. Right basilar airspace opacity has improved. Electronically signed by: Jared Carlton M.D. 09/08/2016 9:41 AM Dictated Date/Time: 09/08/2016 9:39 AM
--- NOTE | 2016-09-08 15:40 | PROGRESS NOTE ---
DATE: 09/08/2016 The patient is still feeling weak. P.o. intake is marginal. OBJECTIVE: VITAL SIGNS: Normal except for a little bit of mild tachycardia. LABORATORY: Shows a white count of 14.45, hemoglobin 9, platelets 695,000. Her chest x-ray today shows some persistence in the left lower lobe infiltrate; the right lower lobe infiltrate is resolved. She is going to be getting calorie counts over the weekend to assess her calorie and nutritional intake as her nutritional parameters continue to remain poor. Her prednisone has been decreased to 15 mg a day and her vedolizumab dose that was due on her on 09/07/2016 was postponed until the due to her persistent pneumonia. IMPRESSION: The patient has Crohn's disease. The skin breakdown over her sacrum has healed over. Ensure prednisone is tapered somewhat and her second vedolizumab induction dose has been held for a week due to her pneumonia. She will be getting calorie counts over the weekend determination will be made whether or not she needs to be on TPN based on that. Dr. Barcenas will be covering over the weekend.
[2016-09-08] MEDS: AMITRIPTYLINE HCL 10 MG TAB PO SCH (21:18)
[2016-09-08] MEDS: TRAMADOL HCL 50 MG TAB PO PRN (21:27)
[2016-09-08] MEDS: ZOLPIDEM TARTRATE 5 MG TAB PO PRN (23:50)
[2016-09-09] VITALS: O2SAT 96
[2016-09-09] MEDS: NSS + 20MEQ KCL 1000ML 1,000 ML IV SCH ×3 (03:08→22:24)
[2016-09-09] MEDS: TRAMADOL HCL 50 MG TAB PO PRN ×3 (03:27→16:39)
[2016-09-09 03:43] VITALS: PULSE 118
[2016-09-09 06:04] LABS: HEMATOCRIT 29.4 % (37-47); MEAN CELL VOLUME 84.2 fL (80-100); MEAN CORPUSCULAR HEMOGLOBIN 26.9 pg (25-34); MEAN PLATELET VOLUME 8.9 fL (7.4-10.4); PLATELET COUNT 726 K/uL (130-400); RED BLOOD COUNT 3.49 M/uL (4.2-5.4); WHITE BLOOD COUNT 11.59 K/uL (4.8-10.8)
[2016-09-09 06:37] LABS: CREATININE 0.67 mg/dl (0.60-1.20)
[2016-09-09 06:38] LABS: BUN/CREATININE RATIO 33.1 (10-20); CALCIUM 8.8 mg/dl (8.5-10.1); MAGNESIUM 1.8 mg/dl (1.8-2.4); POTASSIUM 4.8 mmol/L (3.5-5.1)
[2016-09-09 07:24] VITALS: BP 90/63; PULSE 134; TEMP 36.8; O2SAT 95
[2016-09-09 08:00] VITALS: O2SAT 95
[2016-09-09] MEDS: ERGOCALCIFEROL 50,000 INTER.UNIT CAP PO SCH (09:55)
[2016-09-09] MEDS: CEROVITE ADV FORMULA TAB PO SCH (09:56)
[2016-09-09] MEDS: ONDANSETRON INJ 2 MG/ML 2 ML VIAL IV PRN ×2 (10:08→16:54)
[2016-09-09] MEDS: HEPARIN SOD 5000 UNIT/0.5 ML CARP SQ SCH ×3 (10:11→21:01)
[2016-09-09] MEDS: EUCERIN CR 120 GM JAR EXT SCH ×2 (10:12→21:01)
[2016-09-09] MEDS: CHOLECALCIFEROL 1000 INTER.UNIT TAB PO SCH (10:12)
[2016-09-09] MEDS: BOOST VANILLA PO SCH ×8 (10:12→16:24)
[2016-09-09] MEDS: CALCIUM CARBONATE 500 MG CHEWABLE PO SCH ×2 (10:12→21:01)
[2016-09-09] MEDS: NICOTINE 7 MG/24 HR TDSY TD SCH (10:14)
--- NOTE | 2016-09-09 11:55 | Family Medicine Progress Note ---
Progress Note Date of Service Sep 09, 2016. Subjective Pt evaluation today including: conversation w/ patient, physical exam, chart review, lab review, review of inpatient medication list PO Intake: good Patient is lying in bed and appears comfortable. No acute events overnight. Is still incontinent and having several episodes of diarrhea while in bed. Is peeing regularly. Abdominal pain is the same as yesterday. Patient is tachycardic today with HR of 134 and hypotensive at 90/63. Will repeat vitals at lunch and contemplate fluid resuscitation with NSS. Contemplate tapering steroid dose today as patient has cushingoid appearance. Constitutional: No chills, No fever, No sweats Cardiovascular: No chest pain, No edema, No palpitations Abdomen: + diarrhea, + pain, No constipation, No nausea, No vomiting Musculoskeletal: + joint pain, + muscle pain, No swelling Female : No dysuria, No hematuria, No urinary frequency Objective Physical Exam Notes: General Appearance: WD/WN, no apparent distress, + thin, + pertinent finding ( Possible cushingoid appearance) Cardiovascular: no edema, no gallop, no JVD, no murmur, + tachycardia Abdomen: soft, + distended, + pertinent finding (No gaurding, no rebound, pt reports pain with auscultation but no gaurding or facial changes when palpating the abdomen. Similar report on deep palpation. Pt has active bowel sounds. ) Extremities: non-tender, normal inspection, + pertinent finding (ROM is unable to assess because patient states she cannot move her extremities due to pain. ) Neurologic/Psychiatric: alert, normal mood/affect, oriented x 3 Assessment and Plan 46F with a PMHx of Crohn's disease and Fibromyalgia treated for HAP. Patient has continued to have loose bowel movements and had remained tachycardic while in the hospital. Crohns flare - 5-15 loose bm/day - prednisone PO (consider taper today) - Vedolizumab after patient asymptomatic and pneumonia fully resolved - followed by [facility] - calorie count with possible TPN if unable to keep up oral intake Tachycardia - remained tachy at 134 - afebrile and asymptomatic - possible continued pneumonia Anemia - Stable at 9.4 - Anemia of chronic disease Pneumonia - resolved - asymptomatic - no longer on AB - repeat CXR in 10 days Fibromyalgia - amitrytyline - tramadol Anxiety - clonazepam Vit D deficiency - vit D Insomnia - Ambien Six mm pulm nodule - outpatient follow up Dispo - full code - [facility] - DVT Hep SQ Resident Physician Supervision Note: I was present with Dr. Leslie during the history and exam. I discussed the case with the resident and agree with the findings and plan as documented in the note. Any exceptions or clarifications are listed here: The patient is awake alert and oriented. She complains of pain "all over." She remains tachycardic. In review of her vital signs, her heart rate for the most part since admission has been between 100 and 120. Her heart is of regular rate and rhythm. Her mucous membranes do appear a little dry today and her BUN/creatinine ratio is slightly greater than 20-1. Agree with increasing her fluids from 75 mL's per hour to 150 ML's per hour. She had some difficulty with urination. We'll check bladder scan. Check urine culture. Documented By: Roderick Heaton Continued [facility] stay due to: ambulation difficulties, multiple IV medications needed
[2016-09-09 15:07] VITALS: BP 91/60; PULSE 146; TEMP 37.7; O2SAT 93
[2016-09-09] MEDS: [UNRECOGNIZED DRUG - OTHER] IV SCH (15:07)
[2016-09-09] MEDS: MULTI VITAMIN INFUSION IV SCH (15:07)
[2016-09-09] MEDS: POTASSIUM CHLORIDE IV SCH (15:07)
[2016-09-09] MEDS: CLONAZEPAM 0.5 MG TAB PO PRN (16:53)
[2016-09-09] MEDS: AMITRIPTYLINE HCL 10 MG TAB PO SCH (20:00)
[2016-09-09 20:14] VITALS: BP 97/64; PULSE 140; TEMP 37.1; O2SAT 96
[2016-09-10] VITALS: O2SAT 95
[2016-09-10 00:08] VITALS: BP 93/63; PULSE 128; TEMP 36.8; O2SAT 97
[2016-09-10] MEDS: ONDANSETRON INJ 2 MG/ML 2 ML VIAL IV PRN ×4 (00:41→20:46)
[2016-09-10] MEDS: TRAMADOL HCL 50 MG TAB PO PRN ×4 (00:41→20:48)
[2016-09-10] MEDS: ZOLPIDEM TARTRATE 5 MG TAB PO PRN (00:41)
[2016-09-10] MEDS: NSS + 20MEQ KCL 1000ML 1,000 ML IV SCH ×3 (05:07→18:44)
[2016-09-10 06:58] LABS: HEMATOCRIT 25.5 % (37-47); MEAN CELL VOLUME 84.7 fL (80-100); MEAN CORPUSCULAR HEMOGLOBIN 27.2 pg (25-34); MEAN CORPUSCULAR HGB CONC 32.2 g/dl (32-36); MEAN PLATELET VOLUME 8.7 fL (7.4-10.4); PLATELET COUNT 628 K/uL (130-400); RED BLOOD COUNT 3.01 M/uL (4.2-5.4); WHITE BLOOD COUNT 10.31 K/uL (4.8-10.8)
[2016-09-10 07:05] VITALS: BP 99/68; PULSE 110; TEMP 36.7; O2SAT 97
[2016-09-10 07:17] LABS: BUN/CREATININE RATIO 40.8 (10-20); CALCIUM 8.4 mg/dl (8.5-10.1); CREATININE 0.49 mg/dl (0.60-1.20); MAGNESIUM 1.9 mg/dl (1.8-2.4); POTASSIUM 4.5 mmol/L (3.5-5.1)
[2016-09-10] MEDS: CEROVITE ADV FORMULA TAB PO SCH (07:20)
[2016-09-10] MEDS: EUCERIN CR 120 GM JAR EXT SCH ×2 (07:20→20:00)
[2016-09-10] MEDS: CALCIUM CARBONATE 500 MG CHEWABLE PO SCH ×2 (07:21→20:00)
[2016-09-10] MEDS: HEPARIN SOD 5000 UNIT/0.5 ML CARP SQ SCH ×3 (07:36→20:00)
[2016-09-10] MEDS: CLONAZEPAM 0.5 MG TAB PO PRN ×3 (07:37→20:47)
[2016-09-10] MEDS: NICOTINE 7 MG/24 HR TDSY TD SCH (07:38)
[2016-09-10] MEDS: BOOST VANILLA PO SCH ×6 (07:39→17:00)
[2016-09-10] MEDS: CHOLECALCIFEROL 1000 INTER.UNIT TAB PO SCH (07:39)
[2016-09-10] MEDS ORDERED: INFLUENZA VIRUS QUAD VACCINE 0.5 ML SYR IM. ONE (08:15)
[2016-09-10] MEDS ORDERED: INFLUENZA ADMINISTRATION CHARGE ONE (08:15)
--- NOTE | 2016-09-10 09:00 | Family Medicine Progress Note ---
Progress Note Date of Service Sep 10, 2016. Subjective Pt evaluation today including: conversation w/ patient, physical exam, chart review, conversation w/ direct sales consultant, review of inpatient medication list Pain: still complaining of diffuse abdominal pain PO Intake: good Voiding: diana catheter in place Patient lying comfortably in bed and in no acute distress. Denies any events overnight. Still complaining of diffuse abdominal pain. Asking for more pain meds. I told her I can't give her any at the moment as I just met her. She was amenable to this. She had a diana catheter placed yesterday as she was found to be retaining fluid. She has had two bowel movements this am. She is eating well. Blood pressure and HR improved after increasing IV fluids. Patient still has raised BUN/creatinine ratio. Will contemplate increasing IV fluids again now that she has diana catheter in place. Constitutional: + fatigue, No chills, No fever, No sweats Respiratory: No cough, No shortness of breath, No sputum Cardiovascular: No chest pain, No edema, No palpitations Abdomen: + diarrhea, + nausea, + pain, No constipation, No vomiting Objective Physical Exam Notes: General Appearance: WD/WN, no apparent distress, + thin, + pertinent finding ( Possible cushingoid appearance) Cardiovascular: no edema, no gallop, no JVD, no murmur, + tachycardia Abdomen: soft, + distended, + pertinent finding (No gaurding, no rebound, pt reports pain with auscultation but no gaurding or facial changes when palpating the abdomen. Similar report on deep palpation. Pt has active bowel sounds. ) Extremities: non-tender, normal inspection, + pertinent finding (ROM is unable to assess because patient states she cannot move her extremities due to pain. ) Neurologic/Psychiatric: alert, normal mood/affect, oriented x 3 Assessment and Plan 46F with a PMHx of Crohn's disease and Fibromyalgia treated for HAP. Patient has continued to have loose bowel movements and had remained tachycardic while in the hospital. Crohns flare - #of bm decreasing day by day (7 bm yesterday) - prednisone PO, currently 10mg PO - Vedolizumab administration after urine culture returns negative - followed by [facility] - calorie count with possible TPN if unable to keep up oral intake Tachycardia - tachy decreased to 110 and blood pressure improved after starting IV fluids - Increased Iv fluids to 150ml/L with banana bag added - afebrile and asymptomatic Anemia - Stable at 8.2 - Anemia of chronic disease - Followed by Dr. Pickard Pneumonia - resolved - repeat CXR in 6 weeks Fibromyalgia - amitrytyline - tramadol Anxiety - clonazepam Vit D deficiency - vit D Insomnia - Ambien Six mm pulm nodule - outpatient follow up [facility] Resident Physician Supervision Note: I was present with Dr. Leslie during the history and exam. I discussed the case with the resident and agree with the findings and plan as documented in the note. Any exceptions or clarifications are listed here: Upon my visit, the patient is sleeping but awakens to voice. Despite sleeping, she complains of pain "all over." Patient also notes difficulty with tolerating foods and again is interested in TPN. She is currently on a calorie count; she has consumed between 80 and 100% of most items in her breakfast tray and on her lunch tray. Yesterday the patient noted difficulty with urination. A bladder scan return 800 mL. As such a Diana catheter was inserted. A culture was taken after the initial insertion; there is pinpoint growth today awaiting reintubation. Upon examination today, the Diana is draining a clear to light yellow urine. The patient is not coughing. She is not appear short of breath. She is afebrile. Her lung sounds are clear. I would not anticipate complete clearing on her chest x-ray for another 2-4 weeks. She is mildly tachycardic, and I recall her being tachycardic on prior hospitalizations as well. Agree with increased IV fluids, as she may have a deficit despite adequate oral hydration due to her ongoing loose stools. We'll continue to monitor hemoglobin. Hematology input appreciated. Overall, there is slow improvement in her condition. Disposition to the [facility] pending medical appropriateness and bed availability. Documented By: Roderick Heaton Continued [facility] stay due to: voiding difficulties, multiple IV medications needed, home environment unsafe for pt
--- NOTE | 2016-09-10 09:11 | Hematology/Oncology Prog Note ---
Hematology/Onc Progress Note Date of Service Sep 10, 2016. Diagnoses Crohn's disease Anemia Thrombocytosis Medications Medications Administered Medications (Trade) Dose Ordered Sig/Rashard Route Start Time Stop Time Status Last Admin Dose Admin Sodium Chloride (Nss 1000ml) 1,000 ml @ 999 mls/hr Q1H1M STAT IV 08/30/16 08:51 08/30/16 09:51 DC 08/30/16 09:15 999 MLS/HR Ketorolac Tromethamine (Toradol Inj) 30 mg NOW STAT IV 08/30/16 08:55 08/30/16 08:57 DC 08/30/16 09:45 30 MG Metoclopramide HCl 10 mg 10 mg NOW STAT IV 08/30/16 08:55 08/30/16 08:57 DC 08/30/16 09:45 10 MG Aztreonam 2000 mg/ Dextrose 110 ml @ 100 mls/hr NOW STAT IV 08/30/16 11:15 08/30/16 12:20 DC 08/30/16 11:45 100 MLS/HR Levofloxacin 750 mg/Prmx 150 ml @ 100 mls/hr NOW ONCE IV 08/30/16 12:00 08/30/16 13:29 DC 08/30/16 11:46 100 MLS/HR Tobramycin Sulfate/Dextrose (Nebcin Inj/D5 100ml) 107.7 ml @ 100 mls/hr TODAY@1200 IV 08/30/16 12:00 08/30/16 14:00 DC 08/30/16 13:08 100 MLS/HR Heparin Sodium (Porcine) 5000 unit 5,000 unit Q12 SQ 08/30/16 21:00 08/31/16 12:15 DC 08/31/16 07:51 5,000 UNIT Potassium Chloride/Sodium Chloride (Nss + 20meq KCl 1000ml) 1,000 ml @ 150 mls/hr Q6H40M IV 08/30/16 17:30 09/30/16 17:29 09/10/16 05:07 150 MLS/HR Acetaminophen (Tylenol Tab) 650 mg Q4H PRN PO 08/30/16 12:30 09/29/16 12:29 09/03/16 06:35 650 MG Ondansetron HCl 4 mg 4 mg Q6H PRN IV 08/30/16 12:30 09/29/16 12:29 09/10/16 07:37 4 MG Aztreonam 2000 mg/ Dextrose 110 ml @ 100 mls/hr Q8H IV 08/30/16 20:00 09/05/16 23:59 DC 09/05/16 21:39 100 MLS/HR Hydrocortisone Sodium Succinate/ Syringe (Solu-Cortef IV/ Syringe) 1 ml @ 4 mls/min Q6H IV 08/30/16 18:00 09/01/16 10:47 DC 09/01/16 06:41 4 MLS/MIN Zolpidem Tartrate (Ambien Tab) 5 mg HS PRN PO 08/30/16 12:30 09/29/16 12:29 09/10/16 00:41 5 MG Hydromorphone HCl 0.5 mg 0.5 mg Q4 PRN IV 08/30/16 12:30 09/01/16 10:47 DC 09/01/16 08:07 0.5 MG Vancomycin HCl 1000 mg/Sodium Chloride 270 ml @ 125 mls/hr TODAY@1730 IV 08/30/16 17:30 08/30/16 19:40 DC 08/30/16 17:32 125 MLS/HR Vancomycin HCl 700 mg/Sodium Chloride 264 ml @ 125 mls/hr Q8H IV 08/31/16 00:00 09/01/16 13:54 DC 09/01/16 11:02 125 MLS/HR Magnesium Sulfate/ Prmx (Magnesium Sulfate/Premixed D5W) 100 ml @ 100 mls/hr NOW ONCE IV 08/30/16 20:00 08/30/16 20:59 DC 08/30/16 20:43 100 MLS/HR Nicotine (Nicoderm Cq 7 Mg Patch) 1 patch QAM TD 08/31/16 09:00 09/30/16 08:59 09/10/16 07:38 1 PATCH Miscellaneous (Remove Nicoderm Patch) 1 ea HS N/A 08/31/16 21:00 09/30/16 20:59 09/09/16 22:24 1 EA Clonazepam (Klonopin Tab) 0.5 mg BID PRN PO 08/31/16 09:00 09/06/16 11:29 DC 09/06/16 10:00 0.5 MG Alteplase, Recombinant (Activase Cathflo) 2 mg ONE ONCE IV 09/01/16 08:00 09/01/16 08:02 DC 09/01/16 09:15 2 MG Ketorolac Tromethamine (Toradol Inj) 30 mg NOW STAT IV 09/01/16 10:39 09/01/16 11:09 DC 09/01/16 11:27 30 MG Ketorolac Tromethamine (Toradol Inj) 15 mg Q6H PRN IV 09/01/16 10:45 09/06/16 10:44 DC 09/06/16 06:02 15 MG Prednisone (PredniSONE TAB) 20 mg DAILY PO 09/02/16 08:00 09/06/16 17:09 DC 09/06/16 07:17 20 MG Enteral Nutritional Formula 1 can 1 can TIDM PO 09/01/16 12:00 10/01/16 11:59 09/10/16 07:39 1 CAN Vancomycin HCl/ Sodium Chloride (Vancomycin Inj/ Nss 250ml) 264 ml @ 125 mls/hr Q8H IV 09/01/16 19:00 09/05/16 23:59 DC 09/05/16 18:36 125 MLS/HR Cholecalciferol 2000 inter.unit 2,000 inter.unit DAILY PO 09/03/16 08:00 10/03/16 07:59 09/10/16 07:39 2,000 INTER.UNIT Iron Sucrose/ Sodium Chloride (Venofer Inj/Nss 100ml) 105 ml @ 420 mls/hr TODAY@1100 IV 09/02/16 11:00 09/02/16 11:14 DC 09/02/16 10:16 420 MLS/HR Ergocalciferol (Vitamin D Cap) 50,000 interunit Sa@0900 PO 09/02/16 10:00 10/02/16 09:59 09/09/16 09:55 50,000 INTERUNIT Calcium Carbonate (Tums Chew Tab) 500 mg BID PO 09/02/16 20:00 10/02/16 19:59 09/10/16 07:21 500 MG Multi-Ingredient Ointment (Eucerin Unscented Cr) 1 appln BID EXT 09/02/16 13:30 10/02/16 13:29 09/10/16 07:20 1 APPLN Heparin Sodium (Porcine) (Heparin Sq 5000 Unit/0.5ml) 5,000 unit Q12 SQ 09/02/16 21:00 09/08/16 09:24 DC 09/08/16 09:13 5,000 UNIT Amitriptyline HCl (Elavil Tab) 40 mg PM PO 09/03/16 20:00 10/03/16 19:59 09/09/16 20:00 40 MG Multivitamins/ Minerals (Multivitamin W/ Minerals Tab) 1 tab QAM PO 09/04/16 08:00 10/04/16 07:59 09/09/16 09:56 1 TAB Clonazepam (Klonopin Tab) 0.5 mg TID PRN PO 09/06/16 14:00 10/06/16 13:59 09/10/16 07:37 0.5 MG Ketorolac Tromethamine (Toradol Inj) 15 mg Q6H PRN IV 09/06/16 12:15 09/07/16 12:14 DC 09/07/16 09:35 15 MG Prednisone (PredniSONE TAB) 15 mg DAILY PO 09/07/16 08:00 09/08/16 09:19 DC 09/08/16 08:43 15 MG Tramadol HCl (Ultram Tab) 25 mg Q4H PRN PO 09/07/16 16:30 09/09/16 08:30 DC 09/07/16 17:52 25 MG Prednisone (PredniSONE TAB) 10 mg DAILY PO 09/09/16 08:00 10/09/16 07:59 09/10/16 07:20 10 MG Heparin Sodium (Porcine) (Heparin Sq 5000 Unit/0.5ml) 5,000 unit TID SQ 09/08/16 14:00 10/08/16 13:59 09/10/16 07:36 5,000 UNIT Tramadol HCl 50 mg 50 mg Q6 PRN PO 09/09/16 00:00 10/09/16 00:00 09/10/16 07:37 50 MG Potassium Chloride/ Multivitamins/ Sodium Chloride (KCl Inj/Mvi Infusion Inj/Nss 1000ml) 1,020 ml @ 150 mls/hr DAILY@0900 IV 09/09/16 15:00 10/09/16 14:59 09/09/16 15:07 150 MLS/HR Subjective She continues to have abdominal pain. She is not aware of any overt bleeding. Review of Systems: Constitutional: Negative for night sweats, or fever Eyes: Negative for event change of vision ENT: Negative for epistaxis, nasal discharge, sore throat, or deafness Cardiovascular: Negative for chest pain, palpitations, dizziness, diaphoresis Respiratory: Negative for new shortness of breath,hemoptysis, or purulent cough Gastrointestinal: Continues to have abdominal pain as before Integumentary (skin): Negative for rash or jaundice discoloration Neurological: Negative for weakness, seizure activity, headache, or dizziness Lymphatic/Hematologic: Negative for petechiae, bleeding or new adenopathy Musculoskeletal: Negative for new joint or back pain Allergic/Immunologic: Negative for unusual rash or pruritis. Vital Signs Vital Signs Past 12 Hours Date Time Temp Pulse Resp B/P Pulse Ox O2 Delivery O2 Flow Rate FiO2 09/10/16 08:00 Room Air 09/10/16 07:05 36.7 110 22 99/68 97 Room Air 09/10/16 00:08 36.8 128 24 93/63 97 Room Air 09/10/16 00:00 95 Room Air Physical Exam Constitutional: vitals are stable. Eyes: Eyes are RL EOMI without conjuctival erythema or icterus. ENT: External examination was negative for masses. Neck: Negative for masses or palpable thyromegaly Respiratory: Lung sounds were generally clear bilaterally Cardiovascular: Heart was RRR without significant murmur, gallops or rubs Gastrointestinal: No definite organomegaly. Bowel sounds remained normal to slightly high-pitched the abdomen is generally tender as before. Lymphatic system: there was no palpable peripheral lymphadenopathy Musculoskeletal System: The musculoskeletal system seemed concordant with age. Skin: The skin was negative for jaundice. Neurologic exam: The exam was negative for any focal findings. Deep tendon reflexes were equal and symmetrical. Psychiatric exam: Was essentially negative with normal mood and effect. Breast exam: Not done Extremities: Negative for edema erythema Laboratory Last 24 Hours Test 09/09/16 11:29 09/09/16 16:29 09/09/16 18:39 09/09/16 20:04 Bedside Glucose 86 mg/dl 116 mg/dl 123 mg/dl Vitamin B12 Level 588 pg/mL Test 09/10/16 06:00 09/10/16 07:30 White Blood Count 10.31 K/uL Red Blood Count 3.01 M/uL Hemoglobin 8.2 g/dL Hematocrit 25.5 % Mean Corpuscular Volume 84.7 fL Mean Corpuscular Hemoglobin 27.2 pg Mean Corpuscular Hemoglobin Concent 32.2 g/dl RDW Standard Deviation 78.5 fL RDW Coefficient of Variation 26.0 % Platelet Count 628 K/uL Mean Platelet Volume 8.7 fL Nucleated RBC Absolute Count (auto) 0.09 K/uL Nucleated Red Blood Cells % 0.8 % Erythrocyte Sedimentation Rate 57 mm/hr Sodium Level 136 mmol/L Potassium Level 4.5 mmol/L Chloride Level 103 mmol/L Carbon Dioxide Level 24 mmol/L Anion Gap 9.0 mmol/L Blood Urea Nitrogen 20 mg/dl Creatinine 0.49 mg/dl Est Creatinine Clear Calc Drug Dose 107.3 ml/min Estimated GFR () 133.5 Estimated GFR (Non- 115.2 BUN/Creatinine Ratio 40.8 Random Glucose 69 mg/dl Calcium Level 8.4 mg/dl Phosphorus Level 4.0 mg/dl Magnesium Level 1.9 mg/dl Bedside Glucose 89 mg/dl Assessment & Plan Thrombocytosis is reactive more than likely no intervention necessary Anemia appears to be more of anemia chronic disease and would transfuse when necessary. I believe at this juncture we can sign off as a service. Please don't hesitate to reconsult if necessary.
[2016-09-10] MEDS: POTASSIUM CHLORIDE IV SCH (12:00)
[2016-09-10] MEDS: MULTI VITAMIN INFUSION IV SCH (12:00)
[2016-09-10] MEDS: [UNRECOGNIZED DRUG - OTHER] IV SCH (12:00)
[2016-09-10 15:05] VITALS: BP 94/62; PULSE 121; TEMP 36.9; O2SAT 97
--- NOTE | 2016-09-10 15:44 | GASTROENTEROLOGY PROGRESS NOTE ---
DATE: 09/10/2016 Chart reviewed and patient examined in bed. The patient doing about the same with continued abdominal pain that is diffuse and chronic by nature. She did experience some nausea last evening and received Zofran. She is also receiving IV fluids and multivitamins. The patient has not had any vomiting. She continues to be incontinent of stool and urine although denies any bright red blood or melena. She remains essentially in bed most of the time although occasionally will elevate the head of the bed. She has not been ambulating. Her medications were reviewed. The patient is off antibiotics (vancomycin and Azactam). The patient has been off Azactam and vanco since September 05. Last evening, she did have a brief increase in temperature and urine culture was obtained. There is a pinpoint growth present and they are re-incubating the specimen. REVIEW OF SYSTEMS: Otherwise noncontributory. She remains with abdominal pain and incontinence of stools and urine. She is currently undergoing her second day of a 3-day calorie count. She is also receiving IV fluids and multivitamins and potassium. PHYSICAL EXAMINATION: Today, VITAL SIGNS: She is afebrile at 36.8, heart rate 128, respirations 24, blood pressure 93/63. GENERAL: The patient is awake and oriented x3 although is slightly lethargic. HEART: Normal S1, S2. Tachycardic. LUNGS: Overall clear to auscultation. ABDOMEN: Soft, tender in the periumbilical region, unchanged. EXTREMITIES: Without edema. RECTAL: Exam is deferred. IMPRESSION: The patient with Crohn disease with development of pneumonia. Plan is to administer her second induction dose of vedolizumab this , provided that she continues to do well, shows no evidence of occult infection or decompensation of her respiratory status. She is anemic and her blood count did continue to drop. It is unclear if this is partly hydration in nature but if this persists and certainly falls below 8.0, then a transfusion of packed red blood cells would be prudent. If the stools do not show some thickening or reduction, then would obtain a stool for C. diff toxin. Would continue to monitor electrolytes and consider a followup chest x-ray, perhaps Sunday or Sunday to see if there is interval improvement. Incentive spirometry would be helpful and patient should be encouraged to get out of bed into the chair or perhaps ambulate even small distances with assistance if possible. We will continue to follow. The source of the patient's persistent tachycardia is unclear. This does not seem to be on the grounds of a febrile condition and has been in the 140s at times. BUN and creatinine does not suggest a prerenal status. Continue hydration as needed, also would consider EKG if tachycardia persists. MTDD
[2016-09-10] MEDS: AMITRIPTYLINE HCL 10 MG TAB PO SCH (20:00)
[2016-09-11] MEDS: ZOLPIDEM TARTRATE 5 MG TAB PO PRN (00:06)
[2016-09-11 00:23] VITALS: BP 103/71; PULSE 136; TEMP 36.6; O2SAT 96
[2016-09-11] MEDS: NSS + 20MEQ KCL 1000ML 1,000 ML IV SCH ×3 (01:31→15:48)
[2016-09-11] MEDS: ONDANSETRON INJ 2 MG/ML 2 ML VIAL IV PRN ×3 (04:07→15:57)
[2016-09-11] MEDS: TRAMADOL HCL 50 MG TAB PO PRN ×2 (04:08→11:02)
[2016-09-11 06:19] LABS: HEMATOCRIT 25.8 % (37-47); MEAN CELL VOLUME 85.7 fL (80-100); MEAN CORPUSCULAR HEMOGLOBIN 27.6 pg (25-34); MEAN CORPUSCULAR HGB CONC 32.2 g/dl (32-36); MEAN PLATELET VOLUME 8.7 fL (7.4-10.4); PLATELET COUNT 617 K/uL (130-400); RED BLOOD COUNT 3.01 M/uL (4.2-5.4); WHITE BLOOD COUNT 11.62 K/uL (4.8-10.8)
[2016-09-11 06:51] LABS: CALCIUM 8.4 mg/dl (8.5-10.1); CREATININE 0.62 mg/dl (0.60-1.20); MAGNESIUM 1.7 mg/dl (1.8-2.4); POTASSIUM 5.1 mmol/L (3.5-5.1)
[2016-09-11 06:52] LABS: PHOSPHORUS 3.3 mg/dl (2.5-4.9)
[2016-09-11 07:32] VITALS: BP 106/75; PULSE 132; TEMP 36.8; O2SAT 97
[2016-09-11] MEDS: CEROVITE ADV FORMULA TAB PO SCH (07:57)
[2016-09-11] MEDS: BOOST VANILLA PO SCH ×6 (07:57→17:52)
[2016-09-11] MEDS: EUCERIN CR 120 GM JAR EXT SCH ×2 (07:57→23:12)
[2016-09-11] MEDS: CALCIUM CARBONATE 500 MG CHEWABLE PO SCH ×2 (08:02→23:11)
[2016-09-11] MEDS: CHOLECALCIFEROL 1000 INTER.UNIT TAB PO SCH (08:03)
[2016-09-11] MEDS: NICOTINE 7 MG/24 HR TDSY TD SCH (08:05)
[2016-09-11] MEDS: POTASSIUM CHLORIDE IV SCH (08:05)
[2016-09-11] MEDS: [UNRECOGNIZED DRUG - OTHER] IV SCH (08:05)
[2016-09-11] MEDS: MULTI VITAMIN INFUSION IV SCH (08:05)
[2016-09-11] MEDS: HEPARIN SOD 5000 UNIT/0.5 ML CARP SQ SCH ×3 (08:18→23:34)
[2016-09-11] MEDS: CLONAZEPAM 0.5 MG TAB PO PRN ×2 (08:19→15:58)
[2016-09-11] MEDS ORDERED: CIPROFLOXACIN / D5W 400 MG in PREMIXED IN D5W 200 ML IV ONE (10:30)
[2016-09-11] MEDS ORDERED: OPTIRAY 320 IV PRN (12:00)
--- NOTE | 2016-09-11 13:18 | Clinical Documentation Query ---
Dr. SIMS [facility] : CLINICAL DOCUMENTATION QUERIES QUERY 1 OF 2 Patient is a 46 year old female admitted with sepsis secondary to pneumonia. Urine culture positive for E.Coli. Patient was initiated on Ciprofloxacin IV. Patient remains tachycardic with recurrent leukocytosis. In your clinical opinion is this patient being managed for: ( x ) Urinary tract infection ( ) Other explanation of clinical findings (Please Explain) ( ) Unable to determine (Please Define) ( ) Need to Discuss ( ) Not Agree The medical record reflects the following clinical findings, treatment, and risk factors. Clinical Indicators: As above Treatment: Ciprofloxacin IV, UA/C&S Risk Factors: Gender, fecal incontinence QUERY 2 OF 2 WOCN documentation noted bilateral buttock ulcers on 09/02. Patient was admitted 08/30. These ulcerations were never staged nor was the admission status explicitly documented. There is no provider documentation since admission of any buttock ulceration(s). Please clarify as clinically appropriate, to include admission status, ulcer type, and severity. Thank you. In your clinical opinion is this patient being managed for: ( x ) Pressure ulcer of right buttock, stage and pressure ulcer of the left buttock, stage ,POA (or not POA) ( ) Other explanation of clinical findings (Please Explain) ( ) Unable to determine (Please Define) ( ) Need to Discuss ( ) Not Agree The medical record reflects the following clinical findings, treatment, and risk factors. Clinical Indicators: As above Treatment: WOCN consultation, stoma powder, napoleon cream Risk Factors: Immobility, refusal of positioning changes by nursing, fecal and urinary incontinence. Please clarify and document your clinical opinion in the progress notes and discharge summary. Terms such as "probable", "suspected", "likely", "questionable", "possible", or "still to be ruled out" are acceptable. IF IN AGREEMENT, YOU MUST DOCUMENT ABOVE DIAGNOSTIC STATEMENT IN DAILY PROGRESS NOTES AND DISCHARGE SUMMARY. This document is not part of the patient's record. Thank You, Thierno Chavez, RN [phone]
[2016-09-11 15:14] VITALS: BP 93/64; PULSE 125; TEMP 36.9; O2SAT 97
--- NOTE | 2016-09-11 15:31 | DIAGNOSTIC IMAGING REPORT ---
CT ANGIOGRAM OF THE CHEST CLINICAL HISTORY: Tachycardia. COMPARISON STUDY: Chest x-ray dated 05/17/2016. Chest CT scans dated 08/31/2016 and 05/17/2016. TECHNIQUE: Following the IV administration of 81 cc of Optiray 320, CT angiogram of the chest was performed from the upper abdomen to the thoracic inlet utilizing the pulmonary embolus protocol. Images are reviewed in the axial, sagittal, and coronal planes. 3-D MIPS images are created and assessed. IV contrast was administered without complication. CT DOSE: 182.51 mGy.cm FINDINGS: Thyroid: Imaged portions of the thyroid gland are normal in size and attenuation. Thoracic aorta: The thoracic aorta is normal in caliber and demonstrates standard 3-vessel arch anatomy. No dissection is seen. 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 A right subclavian central venous infusion port is unchanged in position. Pulmonary vasculature: The pulmonary trunk is normal in caliber. There is no evidence of central pulmonary embolus within the main or lobar branches. Evaluation of the peripheral vessels is markedly degraded by lack of contrast opacification. Heart: The heart is normal in size and configuration, and without pericardial effusion. The coronary arteries are densely calcified. Lungs and pleural spaces: There is dense airspace consolidation at the left lung base. More patchy airspace consolidation is seen at the right lung base. The upper lobes are clear. A 6 mm right lower lobe pulmonary nodule is seen on image #99. Trace pleural effusions are identified. The trachea and central airways are clear. Mediastinum: There is no mediastinal lymphadenopathy. Shayy: Clear. Axillae: There is no axillary lymphadenopathy. Upper abdomen: Cholecystectomy clips are noted on the laborer vineyard tomogram. Partially visualized upper abdominal viscera is otherwise within normal limits. Skeletal structures: The skeletal structures are osteopenic. No lytic or blastic bony lesions are seen. Mild superior endplate compression deformities are seen involving T3, T4, T11, and T12. IMPRESSION: 1. There is no evidence of central pulmonary embolus in the main or lobar pulmonary arteries. Evaluation of the peripheral vessels is compromised by poor contrast opacification. 2. There is bibasilar airspace consolidation, left greater than right with trace pleural effusions. The appearance is typical for pneumonia. Radiographic follow-up to resolution is recommended. 3. Again seen is an indeterminant 6 mm right lower lobe pulmonary nodule, unchanged from 05/17/2016. This can be followed as per the Fleischner criteria. 4. Additional findings as above. Please refer to below summary of Fleischner criteria recommendations for follow-up of incidental CT nodules (Madison Wyatt, Guidelines for management of small pulmonary nodules detected on CT scans: A statement from the Fleischner Society, Radiology 237: [phone].) Low Risk Patient: Minimal or no smoking or other known risk factors for malignancy <=4 mm: No follow-up needed. >4-6 mm: Initial follow-up CT at 12 months; if unchanged, no further follow-up. >6-8 mm: Initial follow-up CT at 6-12 months then at 18-24 months if no change. >8 mm: Follow-up CT at \R\3, 9, 24 months, or PET and/or biopsy. High Risk Patient: History of smoking or other known risk factors <=4 mm: Follow-up at 12 months; if unchanged, no further follow-up. >4-6 mm: Initial follow-up CT at 6-12 months then at 18-24 months if no change. >6-8 mm: Initial follow-up CT at 3-6 months then at 9-12 and 24 months if no change. >8 mm: Same as low risk patient. Note: Nodule size measured as average of length and width. Ground glass or partly solid nodules may require longer follow-up to exclude indolent adenocarcinoma. Electronically signed by: Skip Akbar M.D. 09/11/2016 3:30 PM Dictated Date/Time: 09/11/2016 3:22 PM
--- NOTE | 2016-09-11 15:36 | PROGRESS NOTE ---
DATE: 09/11/2016 HISTORY OF PRESENT ILLNESS: The patient is opted for currently getting a CAT scan to rule out pulmonary embolism. This was ordered due to her persistent tachycardia and white count elevation and no other obvious source of infection. The patient also had an EKG done today which showed sinus tachycardia. Today is day 3 of her calorie counts. The final report is not in yet, but so far the patient appears to be eating all calories that she needs for her maintenance and repair. These results are found in the EMR under notes and under the registered nurse first assistant's specific section. IMPRESSION: The patient has Crohn's colitis on p.o. steroids. Her vedolizumab initial dose was on August 24. Her second dose which was supposed to be given 2 weeks later was held due to her pneumonia. It is tentatively scheduled to be given on September 14. Full report on her calorie counts should be available tomorrow as well as the results of her CT scan for pulmonary embolism.
[2016-09-11] MEDS ORDERED: NURSING VERBAL MED ORDER ONE (15:45)
--- NOTE | 2016-09-11 17:09 | Family Medicine Progress Note ---
Progress Note Date of Service Sep 11, 2016. Subjective Pt evaluation today including: conversation w/ patient, conversation w/ family , physical exam, chart review, lab review, review of studies, review of inpatient medication list Pain: diffuse body pain(unchanged) PO Intake: adequate continues to complain of diffuse body pain, fecal incontinence, nausea, reports she is has attempted but is unable to use bed pain/ Pt has been tachycardic in the 130's Pt has not been ambulating Constitutional: No chills, No fever Respiratory: + shortness of breath (occasional), No cough Cardiovascular: + chest pain (intermittent), No palpitations Abdomen: + nausea, + pain, + problem reported (reports fecal incontinence), No vomiting Skin: No itch, No rash Medications Current Inpatient Medications Medications (Trade) Dose Ordered Sig/Rashard Route Start Time Stop Time Status Last Admin Dose Admin Acetaminophen (Tylenol Tab) 650 mg Q4H PRN PO 08/30/16 12:30 09/29/16 12:29 09/03/16 06:35 650 MG Ondansetron HCl (Zofran Inj) 4 mg Q6H PRN IV 08/30/16 12:30 09/29/16 12:29 09/11/16 15:57 4 MG Zolpidem Tartrate (Ambien Tab) 5 mg HS PRN PO 08/30/16 12:30 09/29/16 12:29 09/11/16 00:06 5 MG Nicotine (Nicoderm Cq 7 Mg Patch) 1 patch QAM TD 08/31/16 09:00 09/30/16 08:59 09/11/16 08:05 1 PATCH Miscellaneous (Remove Nicoderm Patch) 1 ea HS N/A 08/31/16 21:00 09/30/16 20:59 09/10/16 22:00 1 EA Enteral Nutritional Formula (Boost) 1 can TIDM PO 09/01/16 12:00 10/01/16 11:59 09/11/16 15:54 1 CAN Cholecalciferol (Vitamin D Tab) 2,000 inter.unit DAILY PO 09/03/16 08:00 10/03/16 07:59 09/11/16 08:03 2,000 INTER.UNIT Ergocalciferol (Vitamin D Cap) 50,000 interunit Sa@0900 PO 09/02/16 10:00 1/30/17 09:59 09/09/16 09:55 50,000 INTERUNIT Calcium Carbonate (Tums Chew Tab) 500 mg BID PO 09/02/16 20:00 10/02/16 19:59 09/11/16 08:02 500 MG Multi-Ingredient Ointment (Eucerin Unscented Cr) 1 appln BID EXT 09/02/16 13:30 10/02/16 13:29 09/11/16 07:57 1 APPLN Amitriptyline HCl (Elavil Tab) 40 mg PM PO 09/03/16 20:00 10/03/16 19:59 09/10/16 20:00 40 MG Multivitamins/ Minerals (Multivitamin W/ Minerals Tab) 1 tab QAM PO 09/04/16 08:00 10/04/16 07:59 09/09/16 09:56 1 TAB Clonazepam (Klonopin Tab) 0.5 mg TID PRN PO 09/06/16 14:00 10/06/16 13:59 09/11/16 15:58 0.5 MG Prednisone (PredniSONE TAB) 10 mg DAILY PO 09/09/16 08:00 10/09/16 07:59 09/11/16 07:58 10 MG Heparin Sodium (Porcine) (Heparin Sq 5000 Unit/0.5ml) 5,000 unit TID SQ 09/08/16 14:00 10/08/16 13:59 09/11/16 15:55 5,000 UNIT Tramadol HCl 50 mg 50 mg Q6 PRN PO 09/09/16 00:00 10/09/16 00:00 09/11/16 11:02 50 MG Potassium Chloride 20 meq/ Multivitamins 10 ml/Sodium Chloride 1,020 ml @ 150 mls/hr DAILY@0900 IV 09/09/16 15:00 10/09/16 14:59 09/10/16 12:00 150 MLS/HR Ciprofloxacin/ Dextrose/Prmx (Cipro / D5w/ Premixed D5W) 200 ml @ 100 mls/hr Q12 IV 09/11/16 21:00 09/20/16 23:59 Ioversol (Optiray 320) 125 ml UD PRN IV 09/11/16 12:00 09/15/16 11:59 Objective Physical Exam General Appearance: WD/WN, no apparent distress Eyes: normal inspection, PERRL, EOMI Neck: supple, trachea midline Respiratory/Chest: chest non-tender, lungs clear, normal breath sounds Cardiovascular: regular rate, rhythm, no JVD Abdomen: normal bowel sounds, soft Extremities: no pedal edema, no calf tenderness Neurologic/Psychiatric: alert, oriented x 3 Skin: normal color, warm/dry, no rash Laboratory Results Results Past 24 Hours Test 09/11/16 05:31 Range/Units White Blood Count 11.62 4.8-10.8 K/uL Red Blood Count 3.01 4.2-5.4 M/uL Hemoglobin 8.3 12.0-16.0 g/dL Hematocrit 25.8 37-47 % Mean Corpuscular Volume 85.7 80-100 fL Mean Corpuscular Hemoglobin 27.6 25-34 pg Mean Corpuscular Hemoglobin Concent 32.2 32-36 g/dl RDW Standard Deviation 78.2 36.4-46.3 fL RDW Coefficient of Variation 25.8 11.5-14.5 % Platelet Count 617 130-400 K/uL Mean Platelet Volume 8.7 7.4-10.4 fL Nucleated RBC Absolute Count (auto) 0.05 0-0 K/uL Nucleated Red Blood Cells % 0.5 % Sodium Level 136 136-145 mmol/L Potassium Level 5.1 3.5-5.1 mmol/L Chloride Level 102 98-107 mmol/L Carbon Dioxide Level 25 21-32 mmol/L Anion Gap 9.0 3-11 mmol/L Blood Urea Nitrogen 19 7-18 mg/dl Creatinine 0.62 0.60-1.20 mg/dl Est Creatinine Clear Calc Drug Dose 84.8 ml/min Estimated GFR () 123.6 Estimated GFR (Non- 106.6 BUN/Creatinine Ratio 31.0 10-20 Random Glucose 65 70-99 mg/dl Calcium Level 8.4 8.5-10.1 mg/dl Phosphorus Level 3.3 2.5-4.9 mg/dl Magnesium Level 1.7 1.8-2.4 mg/dl Microbiology Results 09/11/16 C.difficile Toxin B Gene (PCR) - Final, Complete No C. difficile toxin B gene detected Assessment and Plan 46yo F with Hx of Crohn's disease and Fibromyalgia admitted with Hospital acquired Pneumonia. Crohn's disease - # of BM decreasing day by day (7 loose stools today) - Continue Prednisone PO, currently 10mg PO - Vedolizumab scheduled on tentatively per GI - F/U calorie count UTI: -started IV Cipro 400mg q 12 -Preliminary UCx shows E.Coli -F/u sensitivities Tachycardia - tachy in the 120's to 130's , - Stoppled IV NS/KCl, BP decreased to 93/64 subsequently - Central PE ruled out with CT, Visualization of Peripheral vessels compromised by poor contrast opacification per Radiology Pressure ulcer likely present on admission - stage 2, dime size on labia - wound nurse following - continue diana Anemia - Stable at 8.1 <--8.2 - due to Anemia of Chronic Disease per Heme/Onc (Balaban) --F/u CBC in the AM Pneumonia - improving - CT showed bibasilar airspace consolidation, left greater than right with trace pleural effusions consistent w/ pneumonia Fibromyalgia - Continue amitriptyline - Continue tramadol Anxiety -Continue clonazepam Vit D deficiency - Continue vit D Insomnia - Continue Ambien Six mm pulm nodule - outpatient follow up Dispo - full code - [facility] on d/c DVT Prophylaxis - Hep SQ Continued [facility] stay due to: abnormal vital signs, multiple IV medications needed Discharge planning: rehab hospital Resident Tracking Resident Involvement: Resident Care Provided Care Provided: Adult Hospital Medicine Reviewed: Pt Seen/Exam by Me History no new concerns Constitutional: denies: fever Respiratory: negative: short of breath Cardiovascular: denies chest pain Gastrointestinal/Abdominal: positive: abdominal pain (all over. chronic) General Appearance: mild distress Respiratory: lungs clear (anteriorly), no respiratory distress Cardiovascular: regular rate, rhythm Gastrointestinal: normal bowel sounds, soft Neurologic/Psychiatric: alert, oriented x 3 Skin Characteristics: other (decub ulcer +) Assessment/Plan I have reviewed the medical record and performed a history and physical examination of this patient today. I have discussed the case with Dr. Kerr. The above note reflects my findings, conclusions, and recommendations.
[2016-09-11] MEDS: CIPROFLOXACIN / D5W 400 MG in PREMIXED IN D5W 200 ML IV SCH (23:12)
[2016-09-11] MEDS: AMITRIPTYLINE HCL 10 MG TAB PO SCH (23:12)
[2016-09-12] MEDS: ONDANSETRON INJ 2 MG/ML 2 ML VIAL IV PRN ×3 (00:05→15:34)
[2016-09-12] MEDS: CLONAZEPAM 0.5 MG TAB PO PRN ×3 (00:05→15:34)
[2016-09-12] MEDS: TRAMADOL HCL 50 MG TAB PO PRN ×3 (00:05→15:34)
[2016-09-12 00:32] VITALS: BP 104/68; PULSE 115; TEMP 36.8; O2SAT 96
[2016-09-12] MEDS ORDERED: NURSING VERBAL MED ORDER ONE (00:45)
[2016-09-12] MEDS: ZOLPIDEM TARTRATE 5 MG TAB PO PRN (01:19)
[2016-09-12 07:09] LABS: BUN/CREATININE RATIO 29.4 (10-20); CREATININE 0.76 mg/dl (0.60-1.20); MAGNESIUM 1.9 mg/dl (1.8-2.4); PHOSPHORUS 4.8 mg/dl (2.5-4.9); POTASSIUM 4.2 mmol/L (3.5-5.1)
[2016-09-12] MEDS: CEROVITE ADV FORMULA TAB PO SCH (07:38)
[2016-09-12] MEDS: EUCERIN CR 120 GM JAR EXT SCH (07:38)
[2016-09-12] MEDS: BOOST VANILLA PO SCH ×6 (07:38→15:35)
[2016-09-12] MEDS: NICOTINE 7 MG/24 HR TDSY TD SCH (07:40)
[2016-09-12] MEDS: CHOLECALCIFEROL 1000 INTER.UNIT TAB PO SCH (07:43)
[2016-09-12] MEDS: CALCIUM CARBONATE 500 MG CHEWABLE PO SCH (07:43)
[2016-09-12] MEDS: HEPARIN SOD 5000 UNIT/0.5 ML CARP SQ SCH ×2 (07:46→14:39)
[2016-09-12] MEDS: CIPROFLOXACIN / D5W 400 MG in PREMIXED IN D5W 200 ML IV SCH (07:47)
[2016-09-12 08:04] VITALS: BP 112/79; PULSE 120; TEMP 36.7; O2SAT 97
--- NOTE | 2016-09-12 09:23 | Clinical Documentation Query ---
NIKKI Chandler : CLINICAL DOCUMENTATION QUERIES QUERY 1 OF 2 Patient is a 46 year old female admitted with sepsis secondary to pneumonia. Urine culture positive for E.Coli. Patient was initiated on Ciprofloxacin IV. Patient remains tachycardic with recurrent leukocytosis. In your clinical opinion is this patient being managed for: ( x) Urinary tract infection-agreed and documented by Dr. Kerr ( ) Other explanation of clinical findings (Please Explain) ( ) Unable to determine (Please Define) ( ) Need to Discuss ( ) Not Agree The medical record reflects the following clinical findings, treatment, and risk factors. Clinical Indicators: As above Treatment: Ciprofloxacin IV, UA/C&S Risk Factors: Gender, fecal incontinence QUERY 2 OF 2 WOCN documentation noted bilateral buttock ulcers on 09/02. Patient was admitted 08/30. These ulcerations were never staged nor was the admission status explicitly documented. There is no provider documentation since admission of any buttock ulceration(s). Please clarify as clinically appropriate, to include admission status, ulcer type, and severity. Thank you. In your clinical opinion is this patient being managed for: ( x ) Pressure ulcer of right buttock, stage ___2____ and pressure ulcer of the left buttock, stage__2 , present on admission ( ) Other explanation of clinical findings (Please Explain) ( ) Unable to determine (Please Define) ( ) Need to Discuss ( ) Not Agree The medical record reflects the following clinical findings, treatment, and risk factors. Clinical Indicators: As above Treatment: WOCN consultation, stoma powder, napoleon cream Risk Factors: Immobility, refusal of positioning changes by nursing, fecal and urinary incontinence. Please clarify and document your clinical opinion in the progress notes and discharge summary. Terms such as "probable", "suspected", "likely", "questionable", "possible", or "still to be ruled out" are acceptable. Please clarify and document your clinical opinion in the progress notes and discharge summary. Terms such as "probable", "suspected", "likely", "questionable", "possible", or "still to be ruled out" are acceptable. IF IN AGREEMENT, YOU MUST DOCUMENT ABOVE DIAGNOSTIC STATEMENT IN DAILY PROGRESS NOTES AND DISCHARGE SUMMARY. This document is not part of the patient's record. Thank You, Thierno Chavez, RN [phone]
[2016-09-12] MEDS: MULTI VITAMIN INFUSION IV SCH (10:01)
[2016-09-12] MEDS: POTASSIUM CHLORIDE IV SCH (10:01)
[2016-09-12] MEDS: [UNRECOGNIZED DRUG - OTHER] IV SCH (10:01)
[2016-09-12] MEDS ORDERED: ULT50X PO ×2 (14:48)
[2016-09-12] MEDS ORDERED: VTMD1000 PO ×2 (14:48)
[2016-09-12] MEDS ORDERED: CNT PO ×2 (14:48)
[2016-09-12] MEDS ORDERED: AMT10 PO ×2 (14:48)
[2016-09-12] MEDS ORDERED: VTMD PO ×2 (14:48)
[2016-09-12] MEDS ORDERED: CIPR-255 PO ×2 (14:48)
--- NOTE | 2016-09-12 14:48 | Discharge Instructions ---
Discharge Instructions Admission Reason for Admission: Crohn's Disease, Pneumonia Discharge Discharge Diagnosis / Problem: Crohn's diasease, Diarreah, Tachycardia Discharge Goals Goal(s): Decrease discomfort, Improve function, Increase independence, Improve disease control, Improve nutritional status, Learn about illness, Diagnostic testing, Therapeutic intervention, Screening, Prevent Disease Progression, Specific goals Activity Recommendations Activity Level: Assistance Required Therapies: Physical Therapy, Occupational Therapy Lifting Limitations: gradually increase as tolerated Exercise/Sports Limitations: as tolerated Shower/Bathe: no limitations . Additional Information Patient informed of condition: Yes Advance Directives: No DNR: No Level of Care: Skilled Communicable Disease: No Prognosis: Improving Tripp Catheter: No Instructions / Follow-Up Instructions / Follow-Up Please follow up with [facility] Set Up Operator to schedule vedolizumab treatment this (09/14/16). Current Hospital Diet Patient's current hospital diet: Low Lactose Diet Discharge Diet Recommended Diet: Regular Diet Pending Studies Studies pending at discharge: no Laboratory Results Lipid Panel Test 08/03/16 04:55 Range/Units Triglycerides Level 133 0-150 mg/dl Medical Emergencies . Who to Call and When: Medical Emergencies: If at any time you feel your situation is an emergency, please call 911 immediately. . Non-Emergent Contact Non-Emergency issues call your: [facility] Set Up Operator Call Non-Emergent contact if: temperature is above 101, your pain is worsening , your pain is unusual for you, your pain is concerning you . . "Provider Documentation" section prepared by Kwaku Kerr. Core Measure Problem Core Measures: None
[2016-09-12] MEDS ORDERED: Boost PO ×2 (15:08)
[2016-09-12 15:13] VITALS: BP 103/68; PULSE 124; TEMP 36.8; O2SAT 96
[2016-09-12 15:47] VITALS: BP 103/68; PULSE 124; TEMP 36.8; O2SAT 96
--- NOTE | 2016-09-13 00:31 | Discharge Summary ---
Discharge Summary Admission Date: Aug 30, 2016 at 15:38 Discharge Date: Sep 12, 2016 Discharge Disposition: Rehab Principal Diagnosis: Crohn's Disease flare, Pneumonia Problems/Secondary Diagnoses: Diarrhea, UTI. Tachycardia, Anemia, Consultations: Gastroenterology Hematology Pain Management (Kwaku Kerr MD) Medication Reconciliation New Medications: Ciprofloxacin Hcl (Cipro) 500 Mg Tab 500 MG PO BID for 5 Days, #10 TAB Amitriptyline HCl (Amitriptyline HCl) 10 Mg Tab 40 MG PO PM for 30 Days, #30 TAB Cholecalciferol (Vitamin D3) 1,000 Inter.unit Tab 2000 INTER.UNIT PO DAILY for 30 Days, #30 TAB Ergocalciferol (Vitamin D) 50,000 Interunit Cap 72634 INTERUNIT PO Sa@0900 for 30 Days, #4 CAP for total of 8 wks Multivitamins/Minerals (Certavite/Antioxidants) 1 Tab Tab 1 TAB PO QAM for 30 Days, #30 TAB Tramadol HCl (Tramadol HCl) 50 Mg Tab 50 MG PO Q6 PRN for Pain for 30 Days, #120 TAB [Boost] () 1 CAN LIQD 1 CAN PO TIDM for 30 Days Continued Medications: Prednisone Tab (Prednisone) 10 Mg Tab 10 MG PO UD, #42 TAB 4 pills a day for 4 days then 3 pills a day for 4 days then 2 pills a day for 4 days then 1 pill a day Discharge Exam patient reported recurrent diarrhea, fecal incontinence, diffuse body pain Review of Systems: Constitutional: No chills, No fever Respiratory: + shortness of breath (occasional), No cough Cardiovascular: No palpitations Abdomen: + diarrhea, + nausea, No constipation, No vomiting Musculoskeletal: + joint pain, + muscle pain (Kwaku Kerr MD) Review of Systems: Constitutional: No fever Respiratory: No shortness of breath Cardiovascular: No chest pain Abdomen: + diarrhea Physical Exam: General Appearance: no apparent distress Respiratory/Chest: lungs clear, no respiratory distress Cardiovascular: regular rate, rhythm Abdomen / GI: normal bowel sounds, soft Neurologic/Psychiatric: alert, oriented x 3 Skin: + pertinent finding (decub ulcer + on both buttocks stage 2) (Venus Archibald M.D.) Hospital Course This is a 46 yo F w/ hx of Crohn's disease with previous admission for flareup 1 week prior, who presented 08/30 with recurrent diarrhea, weakness, syncopal episodes. Patient was on enytvia and a prednisone taper at home. She was afebrile,tachycardic, but notably neutropenic with anemia of chronic disease. EKG showed sinus tachycardia, CXR showed Left lower lobe pneumonia. Due to PCN allergy, Pt was on IV Levofloxacin and Aztreonam, Tobramycin in the ED prior to being admitted. Upon admission Patient was switched to Vancomycin, Azactam and started on IV Hydrocortisone. Following Gastroenterology consult, she was switched to PO prednisone 20 mg. By 09/02 pt was being managed for presumed sepsis based on tachycardia, neutropenia, with IV fluids. Sepsis clinically improved over the course of the hospital stay but tachycardia remained. Abx were stopped on 09/05. Pt also complained throughout her stay of generalized body pain that she attributed to fibromyalgia. Following pain management consult , She was treated with Toradol and later switched to Tramadol in addition to amitriptyline. Pt also developed UTI for which she was placed on Cipro. By Discharge on 09/12, patient was still tachycardic which was attributed to hypovolemia due to recurrent diarrhea. C Diff was toxin was negative. It was decided that patient would benefit from transfer to [facility] for rehab prior to going home. Total Time Spent: Less than 30 minutes This includes examination of the patient, discharge planning, medication reconciliation, and communication with other providers. (Kwaku Kerr MD) I have reviewed the medical record and performed a history and physical examination of this patient today. I have discussed the case with Dr. Kerr . The above note reflects my findings, conclusions, and recommendations. Total Time Spent: Greater than 30 minutes (40) (Venus Archibald M.D.) Discharge Instructions Please refer to the electronic Patient Visit Report (Discharge Instructions) for additional information. (Kwaku Kerr MD) Follow-Up Gastroenterology PCP (Kwaku Kerr MD) Resident Tracking Resident Involvement: Resident Care Provided Care Provided: Adult [facility] Medicine (Kwaku Kerr MD)
--- NOTE | 2016-09-13 03:00 | GASTROINTESTINAL CONSULTATION ---
DATE OF CONSULTATION: 09/12/2016 GASTROENTEROLOGY INPATIENT PROGRESS NOTE The patient is for discharge today to a care facility. Her diarrhea continues. There was no evidence for pulmonary embolus on CT scan PE protocol yesterday. The patient's symptoms are essentially unchanged. She continues to complain of abdominal pain and has not eaten much. Calorie counts according to the patient were not well kept. The patient's laboratory studies from yesterday show a white count of 11.6, hemoglobin 8.3 and platelets of 617,000. Serum chemistry shows sodium of 134, potassium 4.2, BUN and creatinine 22 and 0.7, phosphorus 4.8, magnesium 1.9. PHYSICAL EXAMINATION: Essentially unchanged. LUNGS: Show diminished breath sounds at both bases, although poor effort is noted. HEART: Normal S1, S2. She is tachycardic. ABDOMEN: Soft, but tender on mild to moderate palpation in a diffuse pattern, mostly periumbilical. EXTREMITIES: Has +1 edema. The patient with active colonic Crohn's disease, for which vedolizumab was delayed by one week for her second induction dose. This is planned for . She should continue upon discharge incentive spirometry and a followup chest x-ray. There was also an evaluation of her lung nodules that has been present since at least her prior admission in July and is followed by Dr. Lerma. Plan for Crohn's disease control is second induction dose of vedolizumab on , September 14 and then four weeks from that point. I will also make arrangements to have the patient return to the clinic between her second and third induction doses to assess her progress. The patient is scheduled to see Dr. Lerma tomorrow at the outpatient clinic and it should be noted to the accepting facility that they should continue to monitor for any changes in respiratory status vital signs particularly after her second dose of vedolizumab is administered. At some point, if her hemoglobin continues to drip down she may require a transfusion. All questions were answered to the patient. [place] 09/14/16 Called by [facility] infusion [facility]tr for pt on 09/14/16 in late morning- tachycardic to 150's , looks poorly, continued and pain. Pt was referred to [facility]. Called by ER attending ~ 3:30 PM; pt responded to fluids. CXRAY shows diminished consolidation of recent pneumonia. I contacted the Infusion ctr and the phone rang many minutes w/o answer or answer machine. I contacted ER attending and said I'd make arrangements for 2nd dose early next week. I contacted my office and spoke with Nelda to make arrangements to reschedule Vedolizumab dose. MTDD
[2016-09-19] MEDS ORDERED: PANT40TA PO (14:12)
[2016-09-19] MEDS ORDERED: CLON0.5T3 PO (14:12)
[2016-09-19] MEDS ORDERED: ZNTT/150 PO (14:12)
[2016-09-19] MEDS ORDERED: ERGO1CAP41 PO (14:12)
[2016-09-19] MEDS ORDERED: IMD2X PO (14:13)
[2016-09-19] MEDS ORDERED: AMT50 PO (14:13)
== END 2016-09-12 17:00 | DRG 871 ==
LOC: ENRESERVTM → ENRESERVDT → EDBD 08:30 → C.EDA 08:31 → C.2T 15:38 → EDBEDREQ 08-31 17:11 → C.MS4W 08-31 19:13
PROVIDERS: ADMIT Hospitalist; ATTEND Family Medicine
DX: A41.9 Sepsis, unspecified organism (principal); J18.9 Pneumonia, unspecified organism; K50.90 Crohn's disease, unspecified, without complications; N39.0 Urinary tract infection, site not specified; E46 Unspecified protein-calorie malnutrition; E83.42 Hypomagnesemia; F17.210 Nicotine dependence, cigarettes, uncomplicated; E87.6 Hypokalemia; D70.9 Neutropenia, unspecified; Z91.14 Patient's other noncompliance with medication regimen; K59.09 Other constipation; Z86.718 Personal history of other venous thrombosis and embolism; M54.9 Dorsalgia, unspecified; D50.9 Iron deficiency anemia, unspecified; E55.9 Vitamin D deficiency, unspecified; R91.1 Solitary pulmonary nodule; D47.3 Essential (hemorrhagic) thrombocythemia; F41.9 Anxiety disorder, unspecified; D63.8 Anemia in other chronic diseases classified elsewhere; M79.7 Fibromyalgia; E86.1 Hypovolemia; G47.00 Insomnia, unspecified

== ENCOUNTER 2016-09-14 11:12 | Emergency (ER) | payer OTHER ==
[~2016-09-14] VITALS: Ht 157.5 cm; Wt 46.0 kg
[~2016-09-14 11:12] MED LIST changes: +AMT10 PO; +Boost PO; +CIPR-255 PO; +CNT PO; +ULT50X PO; +VTMD PO; +VTMD1000 PO
[2016-09-14 11:17] VITALS: TEMP 37; Ht 157.5 cm; Wt 46.0 kg
[2016-09-14] MEDS ORDERED: PROMETHAZINE HCL INJ 12.5 MG in SODIUM CHLORIDE 0.9% 50ML 50 ML IV STA ×2 (12:21→14:57)
--- NOTE | 2016-09-14 12:27 | EMERGENCY ROOM VISIT NOTE ---
History Report prepared by Pancho: Ancelmo Murray Under the Supervision of: Dr. Pelon Church M.D. First contact with patient: 12:12 Chief Complaint: VOMITING Stated Complaint: VOMITING,NAUSEA Nursing Triage Summary: Pt with history of Chrons, has nausea, vomiting and abd pain. Weak. HR of 150s. History of Present Illness The patient is a 46 year old female who presents to the Emergency Room with complaints of persistent vomiting since this morning. The patient was able to keep some food down this morning. The patient also complains of nausea and abdominal pain. The patient has also been tachycardic and has experienced generalized weakness. She has been incontinent for almost three weeks now. The patient has a history of Crohn's disease, for which she takes Entyvio. The patient was recently admitted to the hospital for pneumonia. The patient has been staying at [facility]. 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 Source of History: patient Onset: this morning Position: other (GI) Quality: other (vomiting) Timing: other (persistent) Associated Symptoms: + abdominal pain, + nausea, + weakness Review of Systems All systems have been listed, reviewed, and are negative other than those previously mentioned. Please see Additional Medical History Sheet. Past Medical & Surgical Medical Problems: (1) Bulging disc (2) Crohn's disease (3) Exacerbation of Crohn's disease (4) Fibromyalgia (5) Neuropathy (6) Pneumonia Surgical Problems: (1) S/P cholecystectomy Family History Cancer Diabetes mellitus Heart disease Hypertension Social History Smoking Status: Current Every Day Smoker Alcohol Use: none Marital Status: single Housing Status: assisted living Occupation Status: unemployed Current/Historical Medications Scheduled Multivitamins/Minerals (Certavite/Antioxidants), 1 TAB PO QAM Prednisone Tab (Prednisone), 10 MG PO UD [Boost], 1 CAN PO TIDM Allergies Coded Allergies: Cephalexin (Unverified Allergy, Intermediate, rash, 08/30/16) Lorazepam (Unverified Allergy, Intermediate, tongue swelling, 08/30/16) Sulfa Antibiotics (Unverified Allergy, Intermediate, rash/hives, 08/30/16) Penicillins (Verified Allergy, Unknown, Unknown, 08/30/16) Reported by PT Physical Exam Vital Signs Date Time Temp Pulse Resp B/P Pulse Ox O2 Delivery O2 Flow Rate FiO2 1/12/17 15:34 132 18 106/76 95 Room Air 09/14/16 15:26 135 18 106/77 95 Room Air 09/14/16 14:21 126 18 115/74 96 Room Air 09/14/16 13:45 124 20 109/75 97 Room Air 09/14/16 12:58 141 18 99/76 99 Room Air 09/14/16 11:17 37.0 159 18 91/63 98 Room Air Physical Exam GENERAL: Patient awake, alert, oriented x 3. Patient follows commands. Patient does not appear toxic. Patient is adequately hydrated and well- nourished. SKIN: No erythema, pallor, cyanosis or rash HEENT: Normal head, pupils equal, reactive to light and accommodation. LUNGS: Clear to auscultation. No wheezes, no rales, no rhonchi. HEART: Tachycardic. Regular rhythm. No murmurs. No gallops. No rubs ABDOMEN: No masses, no rebound, no hepatomegaly or splenomegaly. Vague suprapubic tenderness. Urinary catheter in place. Incontinent of stool. EXTREMITIES: No signs of trauma or infection. NEUROLOGIC: Cranial nerves II-XII within normal limits. No gross motor sensory function deficits. Medical Decision & Procedures ER Provider Diagnostic Interpretation: X ray results are stated below per my interpretation and the radiologist's interpretation. CHEST ONE VIEW PORTABLE CLINICAL HISTORY: Recent pneumonia. Nausea. COMPARISON STUDY: Chest CT September 11, 2016. FINDINGS: A right subclavian [id number] is in place. Cardiac size is normal. Mediastinal contours are normal. There is no pneumothorax or pleural effusion. Pulmonary vascularity is normal. Bibasilar opacities have slightly improved since exam of September 11, 2016. IMPRESSION: Mild improvement in bilateral lower lobe pneumonia since exam of September 11, 2016. Electronically signed by: Mychal Massey M.D. 09/14/2016 12:54 PM Dictated Date/Time: 09/14/2016 12:53 PM Laboratory Results 09/14/16 12:49 09/14/16 12:49 Test 09/14/16 12:49 09/14/16 13:50 Red Blood Count 4.04 M/uL (4.2-5.4) Mean Corpuscular Volume 81.9 fL (80-100) Mean Corpuscular Hemoglobin 27.0 pg (25-34) Mean Corpuscular Hemoglobin Concent 32.9 g/dl (32-36) RDW Standard Deviation 72.0 fL (36.4-46.3) RDW Coefficient of Variation 24.4 % (11.5-14.5) Mean Platelet Volume 8.7 fL (7.4-10.4) Nucleated RBC Absolute Count (auto) 0.05 K/uL (0-0) Nucleated Red Blood Cells % 0.3 % Anion Gap 10.0 mmol/L (3-11) Est Creatinine Clear Calc Drug Dose 72.4 ml/min Estimated GFR () 119.3 Estimated GFR (Non- 102.9 BUN/Creatinine Ratio 33.4 (10-20) Calcium Level 9.4 mg/dl (8.5-10.1) Total Bilirubin 0.7 mg/dl (0.2-1) Aspartate Amino Transf (AST/SGOT) 9 U/L (15-37) Alanine Aminotransferase (ALT/SGPT) 18 U/L (12-78) Alkaline Phosphatase 77 U/L (45-117) Total Protein 7.2 gm/dl (6.4-8.2) Albumin 2.7 gm/dl (3.4-5.0) Globulin 4.5 gm/dl (2.5-4.0) Albumin/Globulin Ratio 0.6 (0.9-2) Lipase 110 U/L (73-393) Urine Color YELLOW Urine Appearance CLEAR (CLEAR) Urine pH 7.0 (4.5-7.5) Urine Specific [place] 1.004 (1.000-1.030) Urine Protein NEG (NEG) Urine Glucose (UA) NEG (NEG) Urine Ketones NEG (NEG) Urine Occult Blood 2+ (NEG) Urine Nitrite NEG (NEG) Urine Bilirubin NEG (NEG) Urine Urobilinogen NEG (NEG) Urine Leukocyte Esterase TRACE (NEG) Urine WBC (Auto) 1-5 /hpf (0-5) Urine RBC (Auto) 0-4 /hpf (0-4) Urine Hyaline Casts (Auto) 1-5 /lpf (0-5) Urine Epithelial Cells (Auto) 10-20 /lpf (0-5) Urine Bacteria (Auto) NEG (NEG) Laboratory results as stated above per my review. Medications Administered Medications (Trade) Dose Ordered Sig/Rashard Route Start Time Stop Time Status Last Admin Dose Admin Promethazine HCl 12.5 mg/Sodium Chloride 50.5 ml @ 204 mls/hr NOW STAT IV 09/14/16 12:21 09/14/16 12:35 DC 09/14/16 12:53 204 MLS/HR Sodium Chloride 1,000 ml @ 1,000 mls/hr Q1H ONCE IV 09/14/16 12:30 09/14/16 13:29 DC 09/14/16 12:52 1,000 MLS/HR Promethazine HCl/ Sodium Chloride (Phenergan Inj/ Nss 50ml) 50.5 ml @ 204 mls/hr NOW STAT IV 09/14/16 14:57 09/14/16 15:11 DC 09/14/16 15:26 204 MLS/HR ED Course 1214: Past medical records reviewed. The patient was evaluated in room B3b. A complete history and physical examination was performed. 1221: Promethazine HCl 12.5 mg / NSS 50.5 ml @ 204 mls/hr. 1230: NSS 1000 ml @ 1000 ml/hr. 1455: The patient is feeling a little better. Her heart rate is down to 124. She requested something more for nausea. 1457: Promethazine HCl 12.5 mg / NSS 50.5 ml @ 204 mls/hr. Medical Decision I considered multiple diagnoses including Crohn's with exacerbation, diverticulitis, UTI, pneumonia, dehydration, tachycardia. The patient was sent from the infusion center due to her significant tachycardia. She was scheduled to have Entyvio. today for her Crohn's disease. The patient has chronic pain. Multiple labs and imaging were obtained. The patient's white count is slightly elevated. She is on steroids. Chest x-ray appears to be improved from her last chest x-ray when she had pneumonia. Sodium is slightly low. The patient was given multiple doses of Phenergan and saline to correct her nausea and subsequent hypovolemia. Patient was reevaluated multiple times. The patient fell asleep while here. The patient has chronic tachycardia. I discussed care with Dr. Garcia. He will schedule her for infusion of the Entyvio.as soon as possible. In the meantime I believe the patient may safely be discharged back to [facility]. She should continue getting fluids to help correct the hypovolemia. The patient was signed off to Dr. Lamb at change of shift. The patient is awaiting completion of her IV fluids. The patient remains somewhat tachycardic but I believe that that is related to her ongoing Crohn's disease. Consults Time Called: [phone] Consulting Physician: Jose Returned Call: [phone] Will see when she can be scheduled for Entyvio. Impression Primary Impression: Exacerbation of Crohn's disease Additional Impressions: Tachycardia Hypovolemia Hyponatremia Chronic pain Leukocytosis Scribe Attestation The scribe's documentation has been prepared under my direction and personally reviewed by me in its entirety. I confirm that the note above accurately reflects all work, treatment, procedures, and medical decision making performed by me. Departure Information Referrals Sixto Garcia M.D. (PCP) Patient Instructions My [facility] Problem Qualifiers
[2016-09-14] MEDS ORDERED: SODIUM CHLORIDE 0.9% 1000ML 1,000 ML IV ONE ×2 (12:30→16:15)
--- NOTE | 2016-09-14 12:56 | DIAGNOSTIC IMAGING REPORT ---
CHEST ONE VIEW PORTABLE CLINICAL HISTORY: Recent pneumonia. Nausea. COMPARISON STUDY: Chest CT September 11, 2016. FINDINGS: A right subclavian [id number]-i-Otzq is in place. Cardiac size is normal. Mediastinal contours are normal. There is no pneumothorax or pleural effusion. Pulmonary vascularity is normal. Bibasilar opacities have slightly improved since exam of September 11, 2016. IMPRESSION: Mild improvement in bilateral lower lobe pneumonia since exam of September 11, 2016. Electronically signed by: Mychal Massey M.D. 09/14/2016 12:54 PM Dictated Date/Time: 09/14/2016 12:53 PM
[2016-09-14 12:59] LABS: HEMATOCRIT 33.1 % (37-47); MEAN CELL VOLUME 81.9 fL (80-100); MEAN CORPUSCULAR HGB CONC 32.9 g/dl (32-36); MEAN PLATELET VOLUME 8.7 fL (7.4-10.4); PLATELET COUNT 696 K/uL (130-400); RED BLOOD COUNT 4.04 M/uL (4.2-5.4); WHITE BLOOD COUNT 17.71 K/uL (4.8-10.8)
[2016-09-14 13:31] LABS: ALB/GLOB RATIO 0.6 (0.9-2); BUN/CREATININE RATIO 33.4 (10-20); CALCIUM 9.4 mg/dl (8.5-10.1); CREATININE 0.69 mg/dl (0.60-1.20); POTASSIUM 4.2 mmol/L (3.5-5.1)
[2016-09-14 14:21] LABS: URINE APPEARANCE CLEAR (CLEAR); URINE BILIRUBIN NEG (NEG); URINE COLOR YELLOW; URINE NITRITE NEG (NEG); URINE SPECIFIC GRAVITY 1.004 (1.000-1.030); UROBILINOGEN NEG (NEG); ZZURINE CULT IF INDIC CATH NO
[2016-09-14 14:30] LABS: MANUAL MICROSCOPIC REQUIRED? NO; REVIEW REQ? NO
[2016-09-14] MEDS ORDERED: PROM25TA9 PO (16:10)
--- NOTE | 2016-09-14 17:25 | EMERGENCY ROOM VISIT NOTE ---
ED Visit Note Patient was seen by Dr. Church. He was hydrating her up with IV fluids with the game plan if her heart rate was in the 120,s she could go home. He has written discharge instructions for anticipated discharge. I went in and saw the patient she says she feels remarkably better. Heart rate is in the low 120s and her blood pressure is normotensive. She has a long history of this. He has talked to GI specialist already and arranged outpatient treatment, she feels good and she can go back to [facility].
[2016-09-14 18:52] VITALS: BP 109/73; PULSE 129; O2SAT 95
[2016-09-19] MEDS ORDERED: CLON0.5T3 PO (14:12)
[2016-09-19] MEDS ORDERED: ZNTT/150 PO (14:12)
[2016-09-19] MEDS ORDERED: ERGO1CAP41 PO (14:12)
[2016-09-19] MEDS ORDERED: PANT40TA PO (14:12)
[2016-09-19] MEDS ORDERED: IMD2X PO (14:13)
[2016-09-19] MEDS ORDERED: AMT50 PO (14:13)
== END 2016-09-14 19:03 | disposition home or self-care (01) ==
LOC: C.EDB 11:14
DX: G89.29 Other chronic pain (principal); K50.90 Crohn's disease, unspecified, without complications; R00.0 Tachycardia, unspecified; E86.1 Hypovolemia; E87.1 Hypo-osmolality and hyponatremia; D72.829 Elevated white blood cell count, unspecified; Z79.52 Long term (current) use of systemic steroids; F17.200 Nicotine dependence, unspecified, uncomplicated

== ENCOUNTER 2016-10-25 11:48 | Emergency (ER) | payer OTHER ==
[~2016-10-25] VITALS: Ht 157.5 cm; Wt 49.0 kg
[~2016-10-25 11:48] MED LIST changes: -AMT10 PO; +AMT50 PO; -CIPR-255 PO; +CLON0.5T3 PO; +ERGO1CAP41 PO; +IMD2X PO; +PANT40TA PO; +PROM25TA9 PO; -ULT50X PO; -VTMD PO; -VTMD1000 PO; +ZNTT/150 PO
[2016-10-25 12:04] VITALS: TEMP 36.9; Ht 157.5 cm; Wt 49.0 kg
[2016-10-25] MEDS ORDERED: ONDANSETRON INJ 2 MG/ML 2 ML VIAL IV STA (12:54)
[2016-10-25] MEDS ORDERED: SODIUM CHLORIDE 0.9% 1000ML 1,000 ML IV STA ×2 (12:54)
--- NOTE | 2016-10-25 13:10 | EMERGENCY ROOM VISIT NOTE ---
History Report prepared by Pancho: Mitch Wooten Under the Supervision of: Dr. Sandor Baeza D.O. First contact with patient: 12:47 Chief Complaint: ABDOMINAL PAIN Stated Complaint: CROHN'S DISEASE FLARE-UP Nursing Triage Summary: pt reports she has been having flare up of chrones. sx originally started in last year. has f/u with pcp. had appt with gastro on sunday was resceduled for today History of Present Illness The patient is a 46 year old female who presents to the Emergency Room with complaints of constant abdominal pain for the past year. The patient states that she has Crohn's disease, and she is currently having a flare up. The patient states that she has been admitted twice in the past few months, and she has had pneumonia, blood transfusions, and she was malnourished and unable to make blood. The patient states that she has taken three doses of Entyvio. The patient states that recently she has been nauseous, having diarrhea 3-7 times per day, she cannot eat, she has lenora weak, and she has been passing out. The patient denies any hematochezia. The patient states that she was recently on antibiotics. Source of History: patient Onset: a year ago Position: abdomen Associated Symptoms: + diarrhea, + nausea, + weakness Review of Systems See HPI for pertinent positives & negatives. A total of 10 systems reviewed and were otherwise negative. Past Medical & Surgical Medical Problems: (1) Bulging disc (2) Crohn's disease (3) Exacerbation of Crohn's disease (4) Fibromyalgia (5) Neuropathy (6) Pneumonia Surgical Problems: (1) S/P cholecystectomy Family History Cancer Diabetes mellitus Heart disease Hypertension Social History Smoking Status: Current Every Day Smoker Alcohol Use: none Marital Status: single Housing Status: assisted living Occupation Status: unemployed Current/Historical Medications Scheduled Clonazepam (Klonopin), 0.5 MG PO DAILY Ergocalciferol (Vitamin D 72702 Unit), Unknown Dose PO MONTHLY Multivitamins/Minerals (Certavite/Antioxidants), 1 TAB PO QAM Pantoprazole (Protonix), 40 MG PO DAILY Prednisone Tab (Prednisone), 10 MG PO UD [Boost], 1 CAN PO TIDM Scheduled PRN Loperamide Hcl (Imodium), 2 MG PO Q6 PRN for Diarrhea Promethazine Hcl (Phenergan), 25 MG PO Q6H PRN for Nausea Ranitidine (Zantac), 150 MG PO BID PRN for Heartburn Allergies Coded Allergies: Cephalexin (Unverified Allergy, Intermediate, rash, 10/25/16) Lorazepam (Unverified Allergy, Intermediate, tongue swelling, 10/25/16) Sulfa Antibiotics (Unverified Allergy, Intermediate, rash/hives, 10/25/16) Penicillins (Verified Allergy, Unknown, Unknown, 10/25/16) Reported by PT Physical Exam Vital Signs Date Time Temp Pulse Resp B/P Pulse Ox O2 Delivery O2 Flow Rate FiO2 10/25/16 17:23 97 20 112/81 97 10/25/16 15:10 101 10/25/16 15:00 95 20 113/76 97 Room Air 10/25/16 13:49 99 20 113/77 96 Room Air 10/25/16 12:04 36.9 137 20 119/80 98 Room Air Physical Exam GENERAL: Patient is awake, alert, and in no acute distress. Patient is resting comfortably and showing no signs of anxiety EYES: The conjunctivae are clear. The pupils are round and reactive. EARS, NOSE, MOUTH AND THROAT: The nose is without any evidence of any deformity. Mucous membranes are moist tongue is midline NECK: The neck is nontender and supple. RESPIRATORY: Normal respiratory effort is noted there is no evidence of wheezing rhonchi or rales CARDIOVASCULAR: Regular rate and rhythm noted there no murmurs rubs or gallops normal S1 normal S2 GASTROINTESTINAL: The abdomen is soft with diffuse tenderness to palpation. No guarding or rigidity noted. MUSCULOSKELETAL/EXTREMITIES: There is no evidence of gross deformity full range of motion is noted in the hips and shoulders SKIN: There is no obvious evidence of any rash. There are no petechiae, pallor or cyanosis noted. NEUROLOGIC: Patient is awake alert and oriented x3 strength is symmetric patellar reflexes are 2+ bilaterally Medical Decision & Procedures ER Provider Diagnostic Interpretation: Radiology results as stated below per my review and radiologist interpretation: ABDOMEN 2VIEW W/PA CHEST RTN CLINICAL HISTORY: Abdominal pain COMPARISON STUDY: 09/14/2016 FINDINGS: There is a right subclavian A-Port catheter present. There is improving aeration the left lung base. No free intraperitoneal air is visualized.] Supine views the abdomen reveal no abnormally dilated loops of large or small bowel. There are no transition zones indicate bowel obstruction. There are surgical clips within the right upper quadrant suggestive of a prior cholecystectomy. IMPRESSION: No conventional radiographic evidence of bowel obstruction. No evidence of free air. Electronically signed by: Skyler Partida M.D. 10/25/2016 2:24 PM Dictated Date/Time: 10/25/2016 2:21 PM Laboratory Results 10/25/16 13:30 Red Blood Count 4.21, Mean Corpuscular Volume 82.4, Mean Corpuscular Hemoglobin 26.1, Mean Corpuscular Hemoglobin Concent 31.7, Mean Platelet Volume 8.8, Neutrophils (%) (Auto) 72.5, Lymphocytes (%) (Auto) 15.7, Monocytes (%) (Auto) 10.0, Eosinophils (%) (Auto) 1.1, Basophils (%) (Auto) 0.4, Neutrophils # (Auto ) 5.49, Lymphocytes # (Auto) 1.19, Monocytes # (Auto) 0.76, Eosinophils # (Auto ) 0.08, Basophils # (Auto) 0.03 10/25/16 13:30 Test 10/25/16 13:30 10/25/16 16:00 White Blood Count 7.57 K/uL (4.8-10.8) Red Blood Count 4.21 M/uL (4.2-5.4) Hemoglobin 11.0 g/dL (12.0-16.0) Hematocrit 34.7 % (37-47) Mean Corpuscular Volume 82.4 fL (80-100) Mean Corpuscular Hemoglobin 26.1 pg (25-34) Mean Corpuscular Hemoglobin Concent 31.7 g/dl (32-36) Platelet Count 532 K/uL (130-400) Mean Platelet Volume 8.8 fL (7.4-10.4) Neutrophils (%) (Auto) 72.5 % Lymphocytes (%) (Auto) 15.7 % Monocytes (%) (Auto) 10.0 % Eosinophils (%) (Auto) 1.1 % Basophils (%) (Auto) 0.4 % Neutrophils # (Auto) 5.49 K/uL (1.4-6.5) Lymphocytes # (Auto) 1.19 K/uL (1.2-3.4) Monocytes # (Auto) 0.76 K/uL (0.11-0.59) Eosinophils # (Auto) 0.08 K/uL (0-0.5) Basophils # (Auto) 0.03 K/uL (0-0.2) RDW Standard Deviation 50.7 fL (36.4-46.3) RDW Coefficient of Variation 16.7 % (11.5-14.5) Immature Granulocyte % (Auto) 0.3 % Immature Granulocyte # (Auto) 0.02 K/uL (0.00-0.02) Erythrocyte Sedimentation Rate 69 mm/hr (0-21) Anion Gap 8.0 mmol/L (3-11) Est Creatinine Clear Calc Drug Dose 71.9 ml/min Estimated GFR () 111.0 Estimated GFR (Non- 95.8 BUN/Creatinine Ratio 13.1 (10-20) Calcium Level 8.9 mg/dl (8.5-10.1) Magnesium Level 2.0 mg/dl (1.8-2.4) Iron Level 16 mcg/dl (35-150) Total Bilirubin 0.3 mg/dl (0.2-1) Direct Bilirubin < 0.1 mg/dl (0-0.2) Aspartate Amino Transf (AST/SGOT) 5 U/L (15-37) Alanine Aminotransferase (ALT/SGPT) 9 U/L (12-78) Alkaline Phosphatase 76 U/L (45-117) C-Reactive Protein 3.66 mg/dl (0-0.29) Total Protein 7.1 gm/dl (6.4-8.2) Albumin 3.1 gm/dl (3.4-5.0) Lipase 141 U/L (73-393) Urine Color DK YELLOW Urine Appearance CLEAR (CLEAR) Urine pH 6.0 (4.5-7.5) Urine Specific [place] 1.024 (1.000-1.030) Urine Protein NEG (NEG) Urine Glucose (UA) NEG (NEG) Urine Ketones TRACE (NEG) Urine Occult Blood NEG (NEG) Urine Nitrite NEG (NEG) Urine Bilirubin NEG (NEG) Urine Urobilinogen NEG (NEG) Urine Leukocyte Esterase SMALL (NEG) Urine WBC (Auto) 1-5 /hpf (0-5) Urine RBC (Auto) 0-4 /hpf (0-4) Urine Hyaline Casts (Auto) 5-10 /lpf (0-5) Urine Epithelial Cells (Auto) >30 /lpf (0-5) Urine Bacteria (Auto) NEG (NEG) Laboratory results per my review. Medications Administered Medications (Trade) Dose Ordered Sig/Rashard Route Start Time Stop Time Status Last Admin Dose Admin Sodium Chloride 1,000 ml @ 999 mls/hr Q1H1M STAT IV 10/25/16 12:54 10/25/16 13:54 DC 10/25/16 13:39 999 MLS/HR Sodium Chloride (Nss 1000ml) 1,000 ml @ 250 mls/hr Q4H STAT IV 10/25/16 12:54 10/25/16 16:53 DC 10/25/16 13:39 250 MLS/HR Ondansetron HCl (Zofran Inj) 4 mg NOW STAT IV 10/25/16 12:54 10/25/16 12:56 DC 10/25/16 13:39 4 MG Morphine Sulfate (MoRPHine SULFATE INJ) 4 mg Q15M PRN IV 10/25/16 15:00 11/08/16 14:59 10/25/16 15:06 4 MG Heparin Sodium (Porcine) (Heparin 100 Unit/ml 5ml Flush) 5 ml STK-MED ONCE .ROUTE 10/25/16 17:12 10/25/16 17:14 DC 10/25/16 17:21 5 ML ED Course 1247: The patient was evaluated in room C3. A complete history and physical examination were performed. 1254: Zofran Inj 4mg IV, NSS 1,000 ml @ 250 mls/hr IV, NSS 1,000 ml @ 999 mls/ hr IV 1500: Morphine Sulfate 4mg IV 1514: I reevaluated the patient, and she was resting. 1703: Upon reevaluation, the patient is feeling better. I discussed the results and treatment plan with her. She verbalized agreement of the treatment plan. She was discharged home. Medical Decision Differential diagnosis: Etiologies such as appendicitis, diverticulitis, PUD, biliary pathology, UTI, pancreatitis, obstruction, mesenteric ischemia, aortic pathology, infections, inflammatory bowel disease, renal colic, as well as others were entertained. Nursing notes reviewed. The patient is a 46-year-old female who presented to the emergency department for an evaluation of diffuse abdominal pain. The patient felt she was having an exacerbation of her Crohn's disease. The patient was seen by her GI doctor today and was sent to the hospital for laboratory studies but instead came to the emergency department. She was treated with IV fluids IV pain medicine and IV antiemetics. I discussed the patient's laboratory radiographic studies with her. I also discussed her case with the covering GI physician. At this time I feel the patient can follow-up with her primary care physician as well as her primary GI doctor as an outpatient. I encouraged her to rest and avoid any strenuous activity. She was also encouraged to continue all medications as prescribed but return to the emergency department immediately if symptoms change worsen or the need arises. Consults Time Called: [phone] Consulting Physician: Dr. Mcfarlane, Gastroenterology Returned Call: [phone] I discussed the patient's case with Dr. Mcfarlane, Gastroenterology. He is going to evaluate the patient for further treatment Impression Primary Impression: Abdominal pain Additional Impression: Exacerbation of Crohn's disease Scribe Attestation The scribe's documentation has been prepared under my direction and personally reviewed by me in its entirety. I confirm that the note above accurately reflects all work, treatment, procedures, and medical decision making performed by me. Departure Information Dispostion Home / Self-Care Referrals Damari Vann M.D. (PCP) Forms Call Back Authorization, HOME CARE DOCUMENTATION FORM, IMPORTANT VISIT INFORMATION, Work Instructions Patient Instructions Crohn Disease, My [facility] Additional Instructions Call your primary care physician to schedule a follow-up appointment. Rest and avoid any strenuous activity. Drink plenty clear liquids and continue all medications as prescribed. Problem Qualifiers Primary Impression: Abdominal pain Abdominal location: generalized Qualified Codes: R10.84 - Generalized abdominal pain Additional Impression: Exacerbation of Crohn's disease Digestive disease complication type: unspecified complication Qualified Codes : K50.919 - Crohn's disease, unspecified, with unspecified complications
[2016-10-25 13:38] LABS: BASO % 0.4 %; BASO ABS # 0.03 K/uL (0-0.2); COMPLETE YES; EOS % 1.1 %; HEMATOCRIT 34.7 % (37-47); IG% 0.3 %; LYMPH % 15.7 %; LYMPH ABS # 1.19 K/uL (1.2-3.4); MEAN CELL VOLUME 82.4 fL (80-100); MEAN CORPUSCULAR HEMOGLOBIN 26.1 pg (25-34); MEAN CORPUSCULAR HGB CONC 31.7 g/dl (32-36); MEAN PLATELET VOLUME 8.8 fL (7.4-10.4); NEUT % 72.5 %; PLATELET COUNT 532 K/uL (130-400); RED BLOOD COUNT 4.21 M/uL (4.2-5.4); WHITE BLOOD COUNT 7.57 K/uL (4.8-10.8)
[2016-10-25 13:55] LABS: AST/SGOT 5 U/L (15-37); BLOOD UREA NITROGEN 10 mg/dl (7-18); BUN/CREATININE RATIO 13.1 (10-20); CALCIUM 8.9 mg/dl (8.5-10.1); CARBON DIOXIDE 27 mmol/L (21-32); CHLORIDE 103 mmol/L (98-107); CREATININE 0.74 mg/dl (0.60-1.20); GLUCOSE 75 mg/dl (70-99); POTASSIUM 3.5 mmol/L (3.5-5.1); SODIUM 138 mmol/L (136-145)
[2016-10-25 14:00] LABS: ALKALINE PHOSPHATASE 76 U/L (45-117); ALT/SGPT 9 U/L (12-78); C-REACTIVE PROTEIN 3.66 mg/dl (0-0.29)
--- NOTE | 2016-10-25 14:26 | DIAGNOSTIC IMAGING REPORT ---
ABDOMEN 2VIEW W/PA CHEST RTN CLINICAL HISTORY: Abdominal pain COMPARISON STUDY: 09/14/2016 FINDINGS: There is a right subclavian A-Port catheter present. There is improving aeration the left lung base. No free intraperitoneal air is visualized.] Supine views the abdomen reveal no abnormally dilated loops of large or small bowel. There are no transition zones indicate bowel obstruction. There are surgical clips within the right upper quadrant suggestive of a prior cholecystectomy. IMPRESSION: No conventional radiographic evidence of bowel obstruction. No evidence of free air. Electronically signed by: Skyler Partida M.D. 10/25/2016 2:24 PM Dictated Date/Time: 10/25/2016 2:21 PM
[2016-10-25] MEDS ORDERED: MoRPHine SULFATE 4 MG/ML 1 ML CARP\\VIAL IV PRN (15:00)
[2016-10-25 16:30] LABS: URINE APPEARANCE CLEAR (CLEAR); URINE BILIRUBIN NEG (NEG); URINE COLOR DK YELLOW; URINE EPITHELIAL CELL AUTO >30 /lpf (0-5); URINE NITRITE NEG (NEG); URINE SPECIFIC GRAVITY 1.024 (1.000-1.030); UROBILINOGEN NEG (NEG)
[2016-10-25 16:40] LABS: MANUAL MICROSCOPIC REQUIRED? NO; REVIEW REQ? NO
[2016-10-25 17:23] VITALS: BP 112/81; PULSE 97; O2SAT 97
== END 2016-10-25 17:23 | disposition home or self-care (01) ==
LOC: C.EDB 11:50 → C.EDC 17:23
DX: R10.84 Generalized abdominal pain (principal); K50.919 Crohn's disease, unspecified, with unspecified complications; Z87.01 Personal history of pneumonia (recurrent); Z90.49 Acquired absence of other specified parts of digestive tract; Z83.3 Family history of diabetes mellitus; Z82.49 Family history of ischemic heart disease and other diseases of the circulatory system; F17.210 Nicotine dependence, cigarettes, uncomplicated; Z88.1 Allergy status to other antibiotic agents; Z88.8 Allergy status to other drugs, medicaments and biological substances; Z88.2 Allergy status to sulfonamides; Z88.0 Allergy status to penicillin

== ENCOUNTER 2016-11-06 15:56 | Observation (INO) | payer OTHER ==
[~2016-11-06] VITALS: Ht 157.5 cm; Wt 50.6 kg
[2016-11-06] MEDS: NSS + 20MEQ KCL 1000ML 1,000 ML IV SCH
[~2016-11-06 15:56] MED LIST changes: -AMT50 PO
[2016-11-06] MEDS ORDERED: MoRPHine SULFATE 10 MG/ML CARP/VIAL IV STA (16:11)
[2016-11-06] MEDS ORDERED: SODIUM CHLORIDE 0.9% 1000ML 1,000 ML IV STA ×2 (16:11→16:14)
[2016-11-06] MEDS ORDERED: ONDANSETRON INJ 2 MG/ML 2 ML VIAL IV STA (16:11)
[2016-11-06] MEDS ORDERED: CHOL2000 PO (16:14)
[2016-11-06] MEDS ORDERED: PRED10TA PO (16:14)
[2016-11-06 16:33] LABS: BASO % 0.1 %; BASO ABS # 0.02 K/uL (0-0.2); COMPLETE YES; EOS % 0.4 %; HEMATOCRIT 36.5 % (37-47); IG% 0.1 %; LYMPH % 7.8 %; LYMPH ABS # 1.04 K/uL (1.2-3.4); MEAN CELL VOLUME 80.6 fL (80-100); MEAN CORPUSCULAR HEMOGLOBIN 26.7 pg (25-34); MEAN CORPUSCULAR HGB CONC 33.2 g/dl (32-36); MONO % 8.5 %; NEUT % 83.1 %; PLATELET COUNT 511 K/uL (130-400); RED BLOOD COUNT 4.53 M/uL (4.2-5.4); WHITE BLOOD COUNT 13.35 K/uL (4.8-10.8)
[2016-11-06] MEDS ORDERED: PROCHLORPERAZINE 5 MG/ML 2 ML VIAL IV STA (16:34)
[2016-11-06] MEDS ORDERED: PROCHLORPERAZINE INJ 10 MG in SYRINGE 8 ML IV SCH (17:00)
[2016-11-06 17:02] LABS: ALT/SGPT 10 U/L (12-78); BLOOD UREA NITROGEN 11 mg/dl (7-18); BUN/CREATININE RATIO 12.9 (10-20); C-REACTIVE PROTEIN 6.65 mg/dl (0-0.29); CALCIUM 9.1 mg/dl (8.5-10.1); CARBON DIOXIDE 22 mmol/L (21-32); CHLORIDE 101 mmol/L (98-107); CREATININE 0.85 mg/dl (0.60-1.20); GLUCOSE 85 mg/dl (70-99); POTASSIUM 3.6 mmol/L (3.5-5.1); SODIUM 137 mmol/L (136-145)
[2016-11-06 17:03] LABS: ALKALINE PHOSPHATASE 89 U/L (45-117); AST/SGOT 9 U/L (15-37)
[2016-11-06] MEDS ORDERED: OPTIRAY 320 IV PRN (17:30)
--- NOTE | 2016-11-06 17:30 | DIAGNOSTIC IMAGING REPORT ---
PA CHEST WITH ABDOMINAL SERIES CLINICAL HISTORY: Generalized abdominal pain. FINDINGS: A PA chest radiograph is compared to study dated 10/25/2016 and correlated with chest CT dated 09/11/2016. A right subclavian central venous infusion port is unchanged in position. The cardiomediastinal silhouette is unremarkable. Linear atelectasis/scarring is seen at the left lung base. No airspace consolidation or pleural effusion is seen. No pneumothorax is seen. The skeletal structures are osteopenic. The bony thorax is grossly intact. Supine and erect abdominal radiographs are compared to study dated 10/25/2016 and correlated with abdominal CT dated 07/26/2016. There is a nonobstructed abdominal bowel gas pattern. No evidence of intraperitoneal free air is seen. Scattered air-fluid levels are seen on the upright view. Cholecystectomy clips are identified in the right upper quadrant. No abnormal abdominal calcifications are identified. The lumbosacral spine and bony pelvis appear intact. IMPRESSION: 1. No acute cardiopulmonary abnormality. 2. Nonobstructed abdominal bowel gas pattern. 3. Scattered air-fluid levels are noted on the upright view suggesting a nonspecific enteritis. Clinical correlation will be required. Electronically signed by: Skip Akbar M.D. 11/06/2016 5:28 PM Dictated Date/Time: 11/06/2016 5:25 PM
--- NOTE | 2016-11-06 17:47 | DIAGNOSTIC IMAGING REPORT ---
CT SCAN OF THE ABDOMEN AND PELVIS WITH IV CONTRAST CLINICAL HISTORY: Generalized abdominal pain. History of Crohn's disease. COMPARISON STUDY: Prior abdominal CT scans, most recently dated 07/26/2016. Abdominal radiographs dated 11/06/2016. TECHNIQUE: Following the IV administration of 93 cc of Optiray 320, CT scan of the abdomen and pelvis is performed from the lung bases to the proximal femora. Images are reviewed in the axial, sagittal, and coronal planes. IV contrast was administered without complication. Automated dose control exposure was utilized. CT DOSE: 250.94 mGy.cm FINDINGS: Lung bases: The heart is normal in size and without pericardial effusion. A 2 mm pulmonary nodule in the right middle lobe seen on image #24 is unchanged from multiple prior studies. This is of doubtful significance. Residual airspace opacities at both lung bases likely represent scarring/atelectasis. No pleural effusion is seen. Liver: The contrast-enhanced liver is normal in size, contour, and attenuation. There is mild central intrahepatic biliary ductal dilatation. The hepatic veins and portal veins are patent. Gallbladder: Surgically absent noting clips in the gallbladder fossa. Spleen: Normal in size and attenuation. Pancreas: Unremarkable. Adrenal glands: Unremarkable. Kidneys: The contrast enhanced kidneys are normal in size and without hydronephrosis. The kidneys enhance symmetrically. A subcentimeter cortical hypodensity in the left kidney likely represents a cyst but is too small for definitive characterization. Abdominal vasculature: The abdominal aorta is normal in course and caliber noting mild to moderate atherosclerotic calcification. Bowel: There is no bowel obstruction. There is marked wall thickening, mucosal edema and hyperemia, as is significant productive change with mild inflammation in the surrounding pericolonic fat. The appearance is consistent with a nonspecific pancolitis, greatest involving the descending colon and sigmoid. The distal/terminal ileum are not involved. The appendix is normal as visualized. Peritoneum: There is no intraperitoneal free air or abdominal ascites. Lymphadenopathy: None. Pelvic viscera: The bladder and uterus are normal as visualized. A 3.0 cm dominant follicle is noted in the right ovary. Additional follicles are noted bilaterally. Skeletal structures: The skeletal structures appear osteopenic. Scattered bone islands are identified. No lytic or blastic lesions are seen. IMPRESSION: 1. Findings are consistent with a nonspecific pancolitis, likely on an infectious or inflammatory basis in this age group. The appearance is similar to the 07/26/2016 examination. 2. No intraperitoneal free air is identified. No abscess is seen. 3. Additional findings as above. Electronically signed by: Skip Akbar M.D. 11/06/2016 5:46 PM Dictated Date/Time: 11/06/2016 5:38 PM
[2016-11-06] MEDS ORDERED: SODIUM CHLORIDE 0.9% 500ML 500 ML IV STA (18:07)
[2016-11-06 18:45] LABS: URINE APPEARANCE CLEAR (CLEAR); URINE BILIRUBIN NEG (NEG); URINE COLOR YELLOW; URINE EPITHELIAL CELL AUTO >30 /lpf (0-5); URINE NITRITE NEG (NEG); URINE PH 6.5 (4.5-7.5); URINE SPECIFIC GRAVITY > 1.045 (1.000-1.030); UROBILINOGEN NEG (NEG); ZZUR CULT IF INDIC CLEAN CATCH NO
[2016-11-06 18:50] LABS: MANUAL MICROSCOPIC REQUIRED? NO; REVIEW REQ? NO
--- NOTE | 2016-11-06 20:15 | History and Physical ---
History & Physical Date & Time of Service: Nov 06, 2016 at 19:47 Chief Complaint: Abd Pain Primary Care Physician: Damari Vann M.D. History of Present Illness Source: patient, clinic records, hospital records Indy Humphreys is a 46 year old female with longstanding history of Crohn' s colitis currently managed by Dr Garcia and she is well known to this service. She reports have increasing abdominal pain, nausea and vomiting and she feels like she is a having a Crohn's flare up. The nausea and vomiting has been going on for weeks although she isn't completely aware of timelines. At home she manages her nausea with promethazine but that has not been helping the last few days. For the past 2 days she has only kept down minimal amount of water and has been unable to eat anything. No problems with food sticking but she feels nauseous as soon as she eats anything. She also notes blood in her stool last week which has now resolved however she is having mucus like diarrhea. Last BM was in the ER small amount of liquid stool. She usually has incontinence with her flare ups and notes incontinence for the last several months. She has been mostly bed bound for the last few months with weakness as her nutrition and weight have declined. Her chronic abdominal pain is reportedly worse than usual, although she notes she has not been without pain for the last three months and at best has been severity 2/10. On arrival at the ER is was 8/10, currently 2/10. 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 She has poorly controlled Crohn's disease and previously treated with TPN, infliximab, chronic steroids and currently she is on vedolizumab. She has a right sided port for administration of the Vedolizumab. She frequently declines care, advice, psych evaluations, medication and left AMA in August after a month long admission right before her first dose of vedolizumab could be given (PICC line with DVT, pain management, colonic retention) - well summarized in Dr Maldonado's discharge summary. She was again hospitalized in late August for pneumonia and UTI. She started on vedolizumab in late August and received the induction dosing schedule in mid Sep and Oct 17. On review of [facility] notes she was in the GI office today. It appears from the nursing note that she wished to see Dr Garcia again after her appointment and also was requesting a note for her treatment plan and there appears to have been some problem with that. Plan from Dr Garcia in the notes was to increase prednisone to 15mg daily for 3 weeks, then down by 5mg daily each week. Boost/ Ensure 2-3 caps daily as nutritional supplement. 1st dose of maintenance vedolizumab for November 20. She continues to smoke and knows this is bad for her Crohn's disease but she feels it helps with her anxiety. We discussed Wellbutrin and she appears open to taking this medication but given apparent acute flare up will hold off starting new medications that could potentiate GI discomfort at this stage. Past Medical/Surgical History Medical Problems: (1) Bulging disc Status: Chronic (2) Crohn's disease Status: Chronic (3) Exacerbation of Crohn's disease Status: Chronic (4) Fibromyalgia Status: Chronic (5) Neuropathy Status: Chronic Surgical Problems: (1) S/P cholecystectomy Status: Resolved Family History Cancer Diabetes mellitus Heart disease Hypertension Social History Smoking Status: Current Every Day Smoker (5-6/day) Smokeless Tobacco Use: No Alcohol Use: none Drug Use: none Marital Status: single Housing status: lives alone Occupational Status: disabled (crohn's) Multi-Drug Resistant Organisms History of MDRO: Yes Type of MDRO: MRSA Allergies Coded Allergies: Lorazepam (Verified Allergy, Severe, tongue swelling, 11/06/16) Sulfa Antibiotics (Verified Allergy, Intermediate, rash/hives, 11/06/16) Cephalexin (Verified Allergy, Mild, rash, 11/06/16) Penicillins (Verified Allergy, Unknown, Unknown, 11/06/16) Reported by PT Home Medications Scheduled Cholecalciferol (Vitamin D3), 2,000 UNIT PO DAILY Ergocalciferol (Vitamin D 59408 Unit), 50,000 UNIT PO SUNDAY Pantoprazole (Protonix), 40 MG PO DAILY Prednisone (Prednisone), 15 MG PO DAILY [Boost], 1 CAN PO TIDM Scheduled PRN Clonazepam (Klonopin), 0.5 MG PO Q8 PRN for Anxiety Loperamide Hcl (Imodium), 2 MG PO Q6 PRN for Diarrhea Promethazine Hcl (Phenergan), 25 MG PO Q6H PRN for Nausea Ranitidine (Zantac), 150 MG PO BID PRN for Heartburn Review of Systems Constitutional: + fever (last night), No chills Eyes: No worsening of vision ENT: No hearing loss Respiratory: No cough, No dyspnea at rest, No dyspnea on exertion, No shortness of breath Cardiovascular: No PND, No chest pain, No claudication, No edema, No orthopnea , No palpitations Abdomen: + GI bleeding, + diarrhea, + nausea, + pain, + vomiting, No constipation Genitourinary - Female: No dysuria, No urinary frequency, No urinary incontinence, No urinary retention, No urinary urgency Neurologic: No weakness Endocrine: + fatigue Hematologic / Lymphatic: No abnormal bleeding/bruising, No clotting problems Integumentary: No itch, No rash Physical Exam Vital Signs Date Time Temp Pulse Resp B/P Pulse Ox O2 Delivery O2 Flow Rate FiO2 11/06/16 19:38 89 16 111/77 97 Room Air 11/06/16 17:19 102 20 116/90 97 11/06/16 16:11 121 11/06/16 16:03 36.9 130 21 114/87 96 Room Air General Appearance: WD/WN, + thin Head: normocephalic, atraumatic Eyes: normal inspection, PERRL, EOMI ENT: normal ENT inspection, pharynx normal Neck: supple, no JVD, trachea midline Respiratory/Chest: chest non-tender, lungs clear, normal breath sounds, no respiratory distress, no accessory muscle use Cardiovascular: regular rate, rhythm, no murmur, normal peripheral pulses Abdomen/GI: normal bowel sounds, soft, no organomegaly, + tenderness (mainly suprapubic, no rebound or guarding) Back: no CVA tenderness Extremities/Musculoskelatal: no calf tenderness, normal capillary refill, no pedal edema 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, no motor/sensory deficits, alert, oriented x 3, + depressed affect Skin: normal color, warm/dry, no rash Diagnostics Laboratory Results Results Past 24 Hours Test 11/06/16 16:25 11/06/16 18:30 Range/Units White Blood Count 13.35 4.8-10.8 K/uL Red Blood Count 4.53 4.2-5.4 M/uL Hemoglobin 12.1 12.0-16.0 g/dL Hematocrit 36.5 37-47 % Mean Corpuscular Volume 80.6 80-100 fL Mean Corpuscular Hemoglobin 26.7 25-34 pg Mean Corpuscular Hemoglobin Concent 33.2 32-36 g/dl Platelet Count 511 130-400 K/uL Mean Platelet Volume 9.0 7.4-10.4 fL Neutrophils (%) (Auto) 83.1 % Lymphocytes (%) (Auto) 7.8 % Monocytes (%) (Auto) 8.5 % Eosinophils (%) (Auto) 0.4 % Basophils (%) (Auto) 0.1 % Neutrophils # (Auto) 11.09 1.4-6.5 K/uL Lymphocytes # (Auto) 1.04 1.2-3.4 K/uL Monocytes # (Auto) 1.13 0.11-0.59 K/uL Eosinophils # (Auto) 0.05 0-0.5 K/uL Basophils # (Auto) 0.02 0-0.2 K/uL RDW Standard Deviation 48.7 36.4-46.3 fL RDW Coefficient of Variation 16.4 11.5-14.5 % Immature Granulocyte % (Auto) 0.1 % Immature Granulocyte # (Auto) 0.02 0.00-0.02 K/uL Erythrocyte Sedimentation Rate 69 0-21 mm/hr Urine Color YELLOW Urine Appearance CLEAR CLEAR Urine pH 6.5 4.5-7.5 Urine Specific [place] > 1.045 1.000-1.030 Urine Protein NEG NEG Urine Glucose (UA) NEG NEG Urine Ketones NEG NEG Urine Occult Blood NEG NEG Urine Nitrite NEG NEG Urine Bilirubin NEG NEG Urine Urobilinogen NEG NEG Urine Leukocyte Esterase SMALL NEG Urine WBC (Auto) 1-5 0-5 /hpf Urine RBC (Auto) 0-4 0-4 /hpf Urine Hyaline Casts (Auto) 1-5 0-5 /lpf Urine Epithelial Cells (Auto) >30 0-5 /lpf Urine Bacteria (Auto) NEG NEG Urine Test NEG NEG Sodium Level 137 136-145 mmol/L Potassium Level 3.6 3.5-5.1 mmol/L Chloride Level 101 98-107 mmol/L Carbon Dioxide Level 22 21-32 mmol/L Anion Gap 14.0 3-11 mmol/L Blood Urea Nitrogen 11 7-18 mg/dl Creatinine 0.85 0.60-1.20 mg/dl Est Creatinine Clear Calc Drug Dose 64.0 ml/min Estimated GFR () 93.9 Estimated GFR (Non- 81.0 BUN/Creatinine Ratio 12.9 10-20 Random Glucose 85 70-99 mg/dl Calcium Level 9.1 8.5-10.1 mg/dl Total Bilirubin 0.4 0.2-1 mg/dl Direct Bilirubin < 0.1 0-0.2 mg/dl Aspartate Amino Transf (AST/SGOT) 9 15-37 U/L Alanine Aminotransferase (ALT/SGPT) 10 12-78 U/L Alkaline Phosphatase 89 45-117 U/L C-Reactive Protein 6.65 0-0.29 mg/dl Total Protein 7.5 6.4-8.2 gm/dl Albumin 3.2 3.4-5.0 gm/dl Lipase 125 73-393 U/L Lactic Acid Level 3.2 0.4-2.0 mmol/L Microbiology Results 11/06/16 C.difficile Toxin B Gene (PCR) - Final, Complete No C. difficile toxin B gene detected Diagnostic Radiology PA CHEST WITH ABDOMINAL SERIES CLINICAL HISTORY: Generalized abdominal pain. FINDINGS: A PA chest radiograph is compared to study dated 10/25/2016 and correlated with chest CT dated 09/11/2016. A right subclavian central venous infusion port is unchanged in position. The cardiomediastinal silhouette is unremarkable. Linear atelectasis/scarring is seen at the left lung base. No airspace consolidation or pleural effusion is seen. No pneumothorax is seen. The skeletal structures are osteopenic. The bony thorax is grossly intact. Supine and erect abdominal radiographs are compared to study dated 10/25/2016 and correlated with abdominal CT dated 07/26/2016. There is a nonobstructed abdominal bowel gas pattern. No evidence of intraperitoneal free air is seen. Scattered air-fluid levels are seen on the upright view. Cholecystectomy clips are identified in the right upper quadrant. No abnormal abdominal calcifications are identified. The lumbosacral spine and bony pelvis appear intact. IMPRESSION: 1. No acute cardiopulmonary abnormality. 2. Nonobstructed abdominal bowel gas pattern. 3. Scattered air-fluid levels are noted on the upright view suggesting a nonspecific enteritis. Clinical correlation will be required. Electronically signed by: Skip Akbar M.D. 11/06/2016 5:28 PM Dictated Date/Time: 11/06/2016 5:[address] SCAN OF THE ABDOMEN AND PELVIS WITH IV CONTRAST CLINICAL HISTORY: Generalized abdominal pain. History of Crohn's disease. COMPARISON STUDY: Prior abdominal CT scans, most recently dated 07/26/2016. Abdominal radiographs dated 11/06/2016. TECHNIQUE: Following the IV administration of 93 cc of Optiray 320, CT scan of the abdomen and pelvis is performed from the lung bases to the proximal femora. Images are reviewed in the axial, sagittal, and coronal planes. IV contrast was administered without complication. Automated dose control exposure was utilized. CT DOSE: 250.94 mGy.cm FINDINGS: Lung bases: The heart is normal in size and without pericardial effusion. A 2 mm pulmonary nodule in the right middle lobe seen on image #24 is unchanged from multiple prior studies. This is of doubtful significance. Residual airspace opacities at both lung bases likely represent scarring/atelectasis. No pleural effusion is seen. Liver: The contrast-enhanced liver is normal in size, contour, and attenuation. There is mild central intrahepatic biliary ductal dilatation. The hepatic veins and portal veins are patent. Gallbladder: Surgically absent noting clips in the gallbladder fossa. Spleen: Normal in size and attenuation. Pancreas: Unremarkable. Adrenal glands: Unremarkable. Kidneys: The contrast enhanced kidneys are normal in size and without hydronephrosis. The kidneys enhance symmetrically. A subcentimeter cortical hypodensity in the left kidney likely represents a cyst but is too small for definitive characterization. Abdominal vasculature: The abdominal aorta is normal in course and caliber noting mild to moderate atherosclerotic calcification. Bowel: There is no bowel obstruction. There is marked wall thickening, mucosal edema and hyperemia, as is significant productive change with mild inflammation in the surrounding pericolonic fat. The appearance is consistent with a nonspecific pancolitis, greatest involving the descending colon and sigmoid. The distal/terminal ileum are not involved. The appendix is normal as visualized. Peritoneum: There is no intraperitoneal free air or abdominal ascites. Lymphadenopathy: None. Pelvic viscera: The bladder and uterus are normal as visualized. A 3.0 cm dominant follicle is noted in the right ovary. Additional follicles are noted bilaterally. Skeletal structures: The skeletal structures appear osteopenic. Scattered bone islands are identified. No lytic or blastic lesions are seen. IMPRESSION: 1. Findings are consistent with a nonspecific pancolitis, likely on an infectious or inflammatory basis in this age group. The appearance is similar to the 07/26/2016 examination. 2. No intraperitoneal free air is identified. No abscess is seen. 3. Additional findings as above. Electronically signed by: Skip Akbar M.D. 11/06/2016 5:46 PM Dictated Date/Time: 11/06/2016 5:38 PM Impression Assessment and Plan 46 year old female with complicated Crohn's disease history came to the ER for nausea, vomiting and abdominal pain. Given she was in the GI office earlier today and wasn't forth coming about this I am concerned she is mainly here to see her GI doctor. However given her raised lactic acid and initial tachycardia we will bring her in under observation to rehydrate and switch over to IV medications for GI consult in the morning. I suspect not much has changed however since her visit to the GI office and that after switching her back to oral medications tomorrow she could go home. She does have a mildly elevated white blood cell count but no signs of infection at present, CXR no consolidation, UA small leukocyte esterase, no symptoms, nitrites negative and > 30 epithelial cells. Given concern of secondary gain of narcotic use while in hospital previously we will avoid further opiates. Crohn's disease - will switch her planned prednisone 15 mg over to methylprednisone 12 mg daily - clear liquid diet. - IVF overnight. - GI consult with Dr Garcia. Elevated WBC, lactic acid, tachycardia - will trend lactic acid, no sign of ischemia on CT with IV contrast - no current sign of infection from Hx (subjective fever last night), UA or CXR. If feverish will take BC, UC. - Trend WBC - Rx IVF already helped with tachycardia Gastritis - switch pantoprazole PO to IV Smoking cessation - nicotine patch 14 mcg VTE Prophylaxis - heparin 5000 units Q8H Code - Full Disposition - observation status in med/surg. Level of Care Med/Surg Resuscitation Status FULL RESUSCITATION VTE Prophylaxis VTE Risk Assessment Done? Y/N: Yes Risk Level: Moderate Given or contraindicated: Unfractionated heparin SQ, T.E.D. Stockings, SCD's Additional Copies To Damari Vann M.D. Resident Tracking Resident Involvement: Resident Care Provided Care Provided: [facility] Assessment and Plan Attending Addendum: I have physically seen and examined this patient, have directed their medical care, have supervised the medical residents activities, and agree with the H&P as noted above, with the following changes: NONE The patient is awake, alert and oriented 3, normocephalic and atraumatic, looks fatigued, lying in bed and in no acute distress. HEENT--PERRL, EOMI, mucous membranes and oropharynx dry. Neck--supple, no JVD or bruits, thyroid normal, trachea midline, no adenopathy. Heart--normal S1 and S2, no extra beats, no murmurs, rubs or gallops. Lungs--clear bilaterally with good air movement, no respiratory distress, no accessory muscle use. Abdomen--normal bowel sounds and soft, mild generalized tenderness, nondistended , no hernias or masses, no organomegaly. Extremities--no cyanosis, clubbing or edema. There are good distal pulses b/l. Dermatologic--normal skin turgor, normal color, warm and dry, no abnormal lymph nodes, no rash. Neurologic--cranial nerves II through XII grossly intact, motor and sensory examination normal. Rheumatologic--normal range of motion, nontender, muscles and joints. Psychiatric--normal affect. Assessment and Plan: Crohn's disease/nonspecific pancolitis on imaging similar to that of 07/26/2016- -patient's symptoms have worsened recently she was to have her prednisone increased in the outpatient setting today. She'll be admitted to medical floor with nothing by mouth status to advance to full liquids as tolerated. Hydrated with IV fluids, placed on IV Solu-Medrol, and consult her GI specialist Dr. medrano. Will not place her on antibiotics at this time. Place on pantoprazole 40 mg IV daily.
--- NOTE | 2016-11-06 20:45 | EMERGENCY ROOM VISIT NOTE ---
History Report prepared by Pancho: Michaelle Lamb Under the Supervision of: Dr. Mike Herrera D.O. First contact with patient: 16:00 Stated Complaint: ABD PAIN History of Present Illness The patient is a 46 year old female who presents to the Emergency Room with complaints of persistent weakness that began prior to arrival. The patient states that she has a history of Crohn's Disease, noting that she was at her doctor's office today. She states that after her doctor's visit, she became too weak to go home. The patient states that she has been experiencing nausea, vomiting, and a decrease in appetite. She notes diffuse abdominal pain today, but states that it is the same pain she experiences with her Crohn's Disease. The patient states that she had blood in her stool last week, but denies any current blood in her stool. She notes a history of a cholecystectomy, but denies any history of an appendectomy. Pt denies headache, change in vision, productive cough, fevers, chest pain, shortness of breath, pain with urination, and melena. Source of History: patient Onset: prior to arrival Position: other (global) Quality: other (weakness) Timing: other (persistent) Associated Symptoms: + abdominal pain, + nausea, + vomiting Note: Associated Symptoms: decrease in appetite Review of Systems See HPI for pertinent positives & negatives. A total of 10 systems reviewed and were otherwise negative. Past Medical & Surgical Medical Problems: (1) Bulging disc (2) Crohn's disease (3) Exacerbation of Crohn's disease (4) Fibromyalgia (5) Neuropathy (6) Pneumonia Surgical Problems: (1) S/P cholecystectomy Family History Cancer Diabetes mellitus Heart disease Hypertension Social History Smoking Status: Current Every Day Smoker Alcohol Use: none Marital Status: single Housing Status: assisted living Occupation Status: unemployed Current/Historical Medications Scheduled Cholecalciferol (Vitamin D3), 2,000 UNIT PO DAILY Ergocalciferol (Vitamin D 58320 Unit), 50,000 UNIT PO SUNDAY Pantoprazole (Protonix), 40 MG PO DAILY Prednisone (Prednisone), 15 MG PO DAILY [Boost], 1 CAN PO TIDM Scheduled PRN Clonazepam (Klonopin), 0.5 MG PO Q8 PRN for Anxiety Loperamide Hcl (Imodium), 2 MG PO Q6 PRN for Diarrhea Promethazine Hcl (Phenergan), 25 MG PO Q6H PRN for Nausea Ranitidine (Zantac), 150 MG PO BID PRN for Heartburn Allergies Coded Allergies: Lorazepam (Verified Allergy, Severe, tongue swelling, 11/06/16) Sulfa Antibiotics (Verified Allergy, Intermediate, rash/hives, 11/06/16) Cephalexin (Verified Allergy, Mild, rash, 11/06/16) Penicillins (Verified Allergy, Unknown, Unknown, 11/06/16) Reported by PT Physical Exam Vital Signs Date Time Temp Pulse Resp B/P Pulse Ox O2 Delivery O2 Flow Rate FiO2 11/06/16 19:50 97 11/06/16 19:38 89 16 111/77 97 Room Air 11/06/16 17:19 102 20 116/90 97 11/06/16 16:11 121 11/06/16 16:03 36.9 130 21 114/87 96 Room Air Physical Exam GENERAL: Sitting up in bed, tearful, alert, well appearing, well nourished, no distress, non-toxic EYE EXAM: normal conjunctiva. OROPHARYNX: no exudate, no erythema, lips, buccal mucosa, and tongue normal and mucous membranes are moist NECK: supple, no nuchal rigidity, no adenopathy, non-tender LUNGS: Clear to auscultation. Normal chest wall mechanics HEART: no murmurs, S1 normal and S2 normal ABDOMEN: Mild tenderness in the lower abdomen. abdomen sof, normo-active bowel sounds, no masses, no rebound or guarding. BACK: Back is symmetrical on inspection and there is no deformity, no midline tenderness, no CVA tenderness. SKIN: no rashes and no bruising RECTAL: hem + stool UPPER EXTREMITIES: upper extremities are grossly normal. LOWER EXTREMITIES: No pitting edema. NEURO EXAM: Normal sensorium, cranial nerves II-XII grossly intact, normal speech, no gross weakness of arms, no gross weakness of legs. Medical Decision & Procedures ER Provider Diagnostic Interpretation: Xray results per the radiologist and my interpretation. Other results have been interpreted by the radiologist and reviewed by me. PA CHEST WITH ABDOMINAL SERIES CLINICAL HISTORY: Generalized abdominal pain. FINDINGS: A PA chest radiograph is compared to study dated 10/25/2016 and correlated with chest CT dated 09/11/2016. A right subclavian central venous infusion port is unchanged in position. The cardiomediastinal silhouette is unremarkable. Linear atelectasis/scarring is seen at the left lung base. No airspace consolidation or pleural effusion is seen. No pneumothorax is seen. The skeletal structures are osteopenic. The bony thorax is grossly intact. Supine and erect abdominal radiographs are compared to study dated 10/25/2016 and correlated with abdominal CT dated 07/26/2016. There is a nonobstructed abdominal bowel gas pattern. No evidence of intraperitoneal free air is seen. Scattered air-fluid levels are seen on the upright view. Cholecystectomy clips are identified in the right upper quadrant. No abnormal abdominal calcifications are identified. The lumbosacral spine and bony pelvis appear intact. IMPRESSION: 1. No acute cardiopulmonary abnormality. 2. Nonobstructed abdominal bowel gas pattern. 3. Scattered air-fluid levels are noted on the upright view suggesting a nonspecific enteritis. Clinical correlation will be required. Electronically signed by: Skip Akbar M.D. 11/06/2016 5:28 PM Dictated Date/Time: 11/06/2016 5:[address] SCAN OF THE ABDOMEN AND PELVIS WITH IV CONTRAST CLINICAL HISTORY: Generalized abdominal pain. History of Crohn's disease. COMPARISON STUDY: Prior abdominal CT scans, most recently dated 07/26/2016. Abdominal radiographs dated 11/06/2016. TECHNIQUE: Following the IV administration of 93 cc of Optiray 320, CT scan of the abdomen and pelvis is performed from the lung bases to the proximal femora. Images are reviewed in the axial, sagittal, and coronal planes. IV contrast was administered without complication. Automated dose control exposure was utilized. CT DOSE: 250.94 mGy.cm FINDINGS: Lung bases: The heart is normal in size and without pericardial effusion. A 2 mm pulmonary nodule in the right middle lobe seen on image #24 is unchanged from multiple prior studies. This is of doubtful significance. Residual airspace opacities at both lung bases likely represent scarring/atelectasis. No pleural effusion is seen. Liver: The contrast-enhanced liver is normal in size, contour, and attenuation. There is mild central intrahepatic biliary ductal dilatation. The hepatic veins and portal veins are patent. Gallbladder: Surgically absent noting clips in the gallbladder fossa. Spleen: Normal in size and attenuation. Pancreas: Unremarkable. Adrenal glands: Unremarkable. Kidneys: The contrast enhanced kidneys are normal in size and without hydronephrosis. The kidneys enhance symmetrically. A subcentimeter cortical hypodensity in the left kidney likely represents a cyst but is too small for definitive characterization. Abdominal vasculature: The abdominal aorta is normal in course and caliber noting mild to moderate atherosclerotic calcification. Bowel: There is no bowel obstruction. There is marked wall thickening, mucosal edema and hyperemia, as is significant productive change with mild inflammation in the surrounding pericolonic fat. The appearance is consistent with a nonspecific pancolitis, greatest involving the descending colon and sigmoid. The distal/terminal ileum are not involved. The appendix is normal as visualized. Peritoneum: There is no intraperitoneal free air or abdominal ascites. Lymphadenopathy: None. Pelvic viscera: The bladder and uterus are normal as visualized. A 3.0 cm dominant follicle is noted in the right ovary. Additional follicles are noted bilaterally. Skeletal structures: The skeletal structures appear osteopenic. Scattered bone islands are identified. No lytic or blastic lesions are seen. IMPRESSION: 1. Findings are consistent with a nonspecific pancolitis, likely on an infectious or inflammatory basis in this age group. The appearance is similar to the 07/26/2016 examination. 2. No intraperitoneal free air is identified. No abscess is seen. 3. Additional findings as above. Electronically signed by: Skip Akbar M.D. 11/06/2016 5:46 PM Dictated Date/Time: 11/06/2016 5:38 PM Laboratory Results 11/06/16 16:25 Red Blood Count 4.53, Mean Corpuscular Volume 80.6, Mean Corpuscular Hemoglobin 26.7, Mean Corpuscular Hemoglobin Concent 33.2, Mean Platelet Volume 9.0, Neutrophils (%) (Auto) 83.1, Lymphocytes (%) (Auto) 7.8, Monocytes (%) (Auto) 8.5, Eosinophils (%) (Auto) 0.4, Basophils (%) (Auto) 0.1, Neutrophils # (Auto) 11.09, Lymphocytes # (Auto) 1.04, Monocytes # (Auto) 1.13, Eosinophils # (Auto) 0.05, Basophils # (Auto) 0.02 11/06/16 16:25 Test 11/06/16 16:25 11/06/16 18:30 White Blood Count 13.35 K/uL (4.8-10.8) Red Blood Count 4.53 M/uL (4.2-5.4) Hemoglobin 12.1 g/dL (12.0-16.0) Hematocrit 36.5 % (37-47) Mean Corpuscular Volume 80.6 fL (80-100) Mean Corpuscular Hemoglobin 26.7 pg (25-34) Mean Corpuscular Hemoglobin Concent 33.2 g/dl (32-36) Platelet Count 511 K/uL (130-400) Mean Platelet Volume 9.0 fL (7.4-10.4) Neutrophils (%) (Auto) 83.1 % Lymphocytes (%) (Auto) 7.8 % Monocytes (%) (Auto) 8.5 % Eosinophils (%) (Auto) 0.4 % Basophils (%) (Auto) 0.1 % Neutrophils # (Auto) 11.09 K/uL (1.4-6.5) Lymphocytes # (Auto) 1.04 K/uL (1.2-3.4) Monocytes # (Auto) 1.13 K/uL (0.11-0.59) Eosinophils # (Auto) 0.05 K/uL (0-0.5) Basophils # (Auto) 0.02 K/uL (0-0.2) RDW Standard Deviation 48.7 fL (36.4-46.3) RDW Coefficient of Variation 16.4 % (11.5-14.5) Immature Granulocyte % (Auto) 0.1 % Immature Granulocyte # (Auto) 0.02 K/uL (0.00-0.02) Erythrocyte Sedimentation Rate 69 mm/hr (0-21) Urine Color YELLOW Urine Appearance CLEAR (CLEAR) Urine pH 6.5 (4.5-7.5) Urine Specific [place] > 1.045 (1.000-1.030) Urine Protein NEG (NEG) Urine Glucose (UA) NEG (NEG) Urine Ketones NEG (NEG) Urine Occult Blood NEG (NEG) Urine Nitrite NEG (NEG) Urine Bilirubin NEG (NEG) Urine Urobilinogen NEG (NEG) Urine Leukocyte Esterase SMALL (NEG) Urine WBC (Auto) 1-5 /hpf (0-5) Urine RBC (Auto) 0-4 /hpf (0-4) Urine Hyaline Casts (Auto) 1-5 /lpf (0-5) Urine Epithelial Cells (Auto) >30 /lpf (0-5) Urine Bacteria (Auto) NEG (NEG) Urine Test NEG (NEG) Anion Gap 14.0 mmol/L (3-11) Est Creatinine Clear Calc Drug Dose 64.0 ml/min Estimated GFR () 93.9 Estimated GFR (Non- 81.0 BUN/Creatinine Ratio 12.9 (10-20) Calcium Level 9.1 mg/dl (8.5-10.1) Total Bilirubin 0.4 mg/dl (0.2-1) Direct Bilirubin < 0.1 mg/dl (0-0.2) Aspartate Amino Transf (AST/SGOT) 9 U/L (15-37) Alanine Aminotransferase (ALT/SGPT) 10 U/L (12-78) Alkaline Phosphatase 89 U/L (45-117) C-Reactive Protein 6.65 mg/dl (0-0.29) Total Protein 7.5 gm/dl (6.4-8.2) Albumin 3.2 gm/dl (3.4-5.0) Lipase 125 U/L (73-393) Lactic Acid Level 3.2 mmol/L (0.4-2.0) Date/Time Source Procedure Growth Status 11/06/16 16:25 Stool C.difficile Toxin B Gene (PCR) - Final No C. difficile toxin B gene detected Complete Laboratory results per my review. Medications Administered Medications (Trade) Dose Ordered Sig/Rashard Route Start Time Stop Time Status Last Admin Dose Admin Sodium Chloride (Nss 1000ml) 1,000 ml @ 999 mls/hr Q1H1M STAT IV 11/06/16 16:11 11/06/16 17:11 DC 11/06/16 16:27 999 MLS/HR Morphine Sulfate 6 mg 6 mg NOW STAT IV 11/06/16 16:11 11/06/16 16:14 DC 11/06/16 16:31 6 MG Sodium Chloride 1,000 ml @ 999 mls/hr Q1H1M STAT IV 11/06/16 16:14 11/06/16 17:14 DC 11/06/16 17:21 999 MLS/HR Prochlorperazine Edisylate 10 mg/ Syringe 10 ml @ 5 mls/min TODAY@1700 IV 11/06/16 17:00 11/06/16 17:15 DC 11/06/16 17:20 5 MLS/MIN Sodium Chloride (Nss 500ml) 500 ml @ 999 mls/hr Q31M STAT IV 11/06/16 18:07 11/06/16 18:37 DC 11/06/16 18:30 999 MLS/HR ED Course ED COURSE: Vital signs were reviewed and showed tachycardic The patients medical record was reviewed The above diagnostic studies were performed and reviewed. ED treatments and interventions as stated above. 1601: The patient was evaluated in room C9. A complete history and physical examination was performed. 1611: Ordered Morphine Sulfate 6 mg IV, Sodium Chloride 1000 ml @ 999 mls/hr IV. 1614: Ordered Sodium Chloride 1000 ml @ 999 mls/hr IV. 1634: Ordered Compazine Inj 10 mg IV. 1700: Ordered Prochlorperazine Edisylate 10 mg/Syringe 10 ml @ 5 mls/min IV. 1800: I discussed the patients case with Dr. Peoples, Gastroenterology. He is going to call back. 1807: Ordered Sodium Chloride 500 ml @ 999 mls/hr IV. 1813: I discussed the patients case with Dr. Peoples, Gastroenterology. He recommends obtaining a stool culture to test for c-diff. He states that if it is positive, increase steroids to 20 mg, if unable to obtain, she can give the sample as an outpatient. 1820: I reevaluated the patient and she is going to attempt to give a stool sample. 1915: Upon reevaluation, the patient is resting comfortably.I discussed my findings with the patient and she understands and agrees with the treatment plan. Based on the patients age, coexisting illnesses, exam and lab findings the decision to treat as an inpatient was made. The patient remained stable while under my care. The patient will be evaluated for further management. 1950: I discussed the patient's case with Dr. Zambrano, [facility]. He is going to evaluate the patient for further treatment. Medical Decision Differential diagnoses includes but is not limited to gastritis, peptic ulcer disease, GERD, gallbladder disease, pancreatitis, small bowel obstruction, acute coronary syndrome, pericarditis, ischemic bowel, irritable bowel disease, irritable bowel syndrome, appendicitis, diverticulitis, malignancy, hernia, urinary tract infection, torsion, /ectopic (if female), perforation, trauma, infectious. Patient is a 38-year-old female with a past medical history of Crohn's that presents from GI clinic. She is complaining of diffuse lower abdominal pain and blood in her stool previously which has resolved. Labs show a leukocytosis of 13,000. BMP along with LFTs and lipase is unremarkable. CRP and sedimentation rate were elevated consequently CT was performed which showed pancolitis. Lactic acid was elevated at 3.2 following 2 L normal saline. Stool culture was pending awaiting C. difficile. We will hold on antibiotics at this time. She was given an extra dose of steroids along with fluids and Compazine. She is admitted to internal medicine for further workup. I do favor this is old lady to her Crohn's disease. She has no risk factors for ischemic colitis and there is no obvious arterial obstruction on CT. Consults Time Called: 1809 Consulting Physician: Dr. Peoples, Gastroenterology Returned Call: 1812 I discussed the patients case with Dr. Peoples, Gastroenterology. He recommends obtaining a stool culture to test for c-diff. He states that if it is positive, increase steroids to 20 mg, if unable to obtain, she can give the sample as an outpatient. Additional Consults: Time Called: 1912 Consulted Physician: PETRA Garza Returned Call: 1949 Additional Comments: I discussed the patient's case with PETRA Garza. He is going to evaluate the patient for further treatment. Impression Primary Impression: Pancolitis Additional Impressions: Lactic acidosis Leukocytosis Exacerbation of Crohn's disease Scribe Attestation The scribe's documentation has been prepared under my direction and personally reviewed by me in its entirety. I confirm that the note above accurately reflects all work, treatment, procedures, and medical decision making performed by me. Departure Information Dispostion Being Evaluated By Hospitalist Referrals Damari Vann M.D. (PCP) Problem Qualifiers Additional Impressions: Leukocytosis Leukocytosis type: unspecified Qualified Codes: D72.829 - Elevated white blood cell count, unspecified Exacerbation of Crohn's disease Digestive disease complication type: with rectal bleeding Qualified Codes: K50.911 - Crohn's disease, unspecified, with rectal bleeding
[2016-11-06] MEDS ORDERED: LOPERAMIDE HCL 2 MG CAP PO PRN (21:00)
[2016-11-06] MEDS ORDERED: CLONAZEPAM 0.5 MG TAB PO PRN (21:00)
[2016-11-06] MEDS ORDERED: NICOTINE 14 MG/24 HR TDSY TD ONE (21:05)
[2016-11-06] MEDS ORDERED: IV FLUIDS COMPLETED PRN (21:30)
[2016-11-06 22:22] LABS: MAGNESIUM 1.8 mg/dl (1.8-2.4); PHOSPHORUS 4.5 mg/dl (2.5-4.9)
[2016-11-06 22:29] VITALS: BP 100/68; PULSE 95; TEMP 36.9; O2SAT 95; Ht 157.5 cm; Wt 50.6 kg
[2016-11-06 22:29] LABS: PROTHROMBIN TIME (PATIENT) 10.7 SECONDS (9.0-12.0)
[2016-11-06] MEDS ORDERED: METHYLPREDNISOLONE IV 15 MG in SYRINGE 0 ML IV ONE (22:30)
[2016-11-06] MEDS: HEPARIN SOD 5000 UNIT/0.5 ML CARP SQ SCH (23:54)
[2016-11-07] MEDS ORDERED: SUCRALFATE 1 GM TAB PO ONE (02:45)
[2016-11-07] MEDS ORDERED: ACETAMINOPHEN 325 MG TAB PO PRN (02:45)
[2016-11-07] MEDS ORDERED: KETOROLAC TROMETHAMINE 15 MG/ML VIAL IV PRN (03:00)
[2016-11-07] MEDS: PROMETHAZINE HCL INJ 25 MG in SODIUM CHLORIDE 0.9% 50ML 50 ML IV PRN ×3 (03:11→15:47)
[2016-11-07] MEDS: HEPARIN SOD 5000 UNIT/0.5 ML CARP SQ SCH ×2 (05:57→14:19)
[2016-11-07 06:15] LABS: BASO % 0.2 %; BASO ABS # 0.01 K/uL (0-0.2); COMPLETE YES; HEMATOCRIT 32.6 % (37-47); IG% 0.2 %; LYMPH % 9.4 %; LYMPH ABS # 0.42 K/uL (1.2-3.4); MEAN CELL VOLUME 81.9 fL (80-100); MEAN CORPUSCULAR HEMOGLOBIN 25.4 pg (25-34); MEAN PLATELET VOLUME 9.1 fL (7.4-10.4); MONO % 0.7 %; NEUT % 89.5 %; PLATELET COUNT 437 K/uL (130-400); RED BLOOD COUNT 3.98 M/uL (4.2-5.4); WHITE BLOOD COUNT 4.47 K/uL (4.8-10.8)
[2016-11-07] MEDS: SUCRALFATE 1 GM TAB PO SCH ×4 (06:38→15:58)
[2016-11-07 06:48] LABS: ALB/GLOB RATIO 0.7 (0.9-2); CALCIUM 8.1 mg/dl (8.5-10.1); CREATININE 0.7 mg/dl (0.60-1.20); FERRITIN 40.6 ng/ml (8.0-388.0); POTASSIUM 4.3 mmol/L (3.5-5.1)
[2016-11-07 06:58] VITALS: BP 96/60; PULSE 79; TEMP 36.4; O2SAT 96
[2016-11-07 08:00] VITALS: O2SAT 96
[2016-11-07] MEDS ORDERED: METHYLPREDNISOLONE IV 15 MG in SYRINGE 0 ML IV SCH (08:00)
[2016-11-07] MEDS ORDERED: RANITIDINE HCL SYRUP 150 MG/10 ML UDC PO SCH (08:00)
[2016-11-07] MEDS ORDERED: NICOTINE 14 MG/24 HR TDSY TD SCH (08:00)
[2016-11-07] MEDS: NSS + 20MEQ KCL 1000ML 1,000 ML IV SCH ×2 (08:18→11:09)
[2016-11-07] MEDS: BOOST VANILLA PO SCH ×4 (08:18→11:36)
[2016-11-07] MEDS ORDERED: PANTOprazole INJ 40 MG in SYRINGE 0 ML IV SCH ×2 (09:00→11:00)
[2016-11-07] MEDS ORDERED: FAMOTIDINE 20 MG TAB PO STA (16:56)
--- NOTE | 2016-11-07 16:59 | Family Medicine Progress Note ---
Progress Note Date of Service Nov 07, 2016. Subjective Pt evaluation today including: conversation w/ patient, physical exam, chart review, lab review Pain: 0/10 PO Intake: WNL Voiding: no voiding problems Patient states she has occasional nausea but pain is controlled questions and concerns were discussed Constitutional: No fever Eyes: No worsening of vision Respiratory: No cough, No dyspnea on exertion, No shortness of breath, No sputum, No wheezing Cardiovascular: No chest pain Abdomen: + nausea, No constipation, No diarrhea, No pain, No vomiting Musculoskeletal: No joint pain, No muscle pain Female : No dysuria Neurologic: No balance problems, No paralysis, No weakness Endo: No fatigue Skin: No rash Medications Medications Administered Medications (Trade) Dose Ordered Sig/Rashard Route Start Time Stop Time Status Last Admin Dose Admin Sodium Chloride (Nss 1000ml) 1,000 ml @ 999 mls/hr Q1H1M STAT IV 11/06/16 16:11 11/06/16 17:11 DC 11/06/16 16:27 999 MLS/HR Morphine Sulfate 6 mg 6 mg NOW STAT IV 11/06/16 16:11 11/06/16 16:14 DC 11/06/16 16:31 6 MG Sodium Chloride 1,000 ml @ 999 mls/hr Q1H1M STAT IV 11/06/16 16:14 11/06/16 17:14 DC 11/06/16 17:21 999 MLS/HR Prochlorperazine Edisylate 10 mg/ Syringe 10 ml @ 5 mls/min TODAY@1700 IV 11/06/16 17:00 11/06/16 17:15 DC 11/06/16 17:20 5 MLS/MIN Sodium Chloride (Nss 500ml) 500 ml @ 999 mls/hr Q31M STAT IV 11/06/16 18:07 11/06/16 18:37 DC 11/06/16 18:30 999 MLS/HR Prednisone (PredniSONE TAB) 20 mg NOW STAT PO 11/06/16 20:54 11/06/16 20:55 DC 11/06/16 21:05 20 MG Clonazepam (Klonopin Tab) 0.5 mg Q8 PRN PO 11/06/16 21:00 11/07/16 15:52 DC 11/07/16 11:07 0.5 MG Loperamide HCl (Imodium Cap) 2 mg Q6 PRN PO 11/06/16 21:00 12/06/16 20:59 11/07/16 15:58 2 MG Enteral Nutritional Formula 1 can 1 can TIDM PO 11/07/16 08:00 12/07/16 07:59 11/07/16 11:36 1 CAN Promethazine HCl/ Sodium Chloride (Phenergan Inj/ Nss 50ml) 51 ml @ 204 mls/hr Q6H PRN IV 11/06/16 21:00 12/06/16 20:59 11/07/16 15:47 204 MLS/HR Ranitidine HCl (zANTac SYRUP) 150 mg BID PO 11/07/16 08:00 12/07/16 08:59 11/07/16 08:08 150 MG Nicotine 1 patch 1 patch QAM TD 11/07/16 08:00 12/07/16 08:59 11/07/16 08:09 1 PATCH Potassium Chloride/Sodium Chloride (Nss + 20meq KCl 1000ml) 1,000 ml @ 160 mls/hr Q6H15M IV 11/06/16 22:30 11/17/16 22:29 11/07/16 11:09 160 MLS/HR Heparin Sodium (Porcine) 5000 unit 5,000 unit Q8 SQ 11/06/16 22:47 12/06/16 22:46 11/07/16 14:19 5,000 UNIT Methylprednisolone Sodium Succinate 15 mg/Syringe 0.375 ml @ 1.5 mls/min Q24H IV 11/07/16 08:00 11/07/16 16:48 DC 11/07/16 08:17 1.5 MLS/MIN Methylprednisolone Sodium Succinate/ Syringe (Solu-Medrol IV/ Syringe) 0.375 ml @ 1.5 mls/min TODAY@2230 ONCE IV 11/06/16 22:30 11/06/16 22:31 DC 11/06/16 23:52 1.5 MLS/MIN Sucralfate (Carafate Tab) 1 gm ACHS PO 11/07/16 06:30 12/07/16 06:29 11/07/16 15:58 1 GM Sucralfate 1 gm 1 gm NOW ONCE PO 11/07/16 02:45 11/07/16 02:55 DC 11/07/16 04:40 1 GM Pantoprazole Sodium/Syringe (Protonix Inj/ Syringe) 10 ml @ 5 mls/min BID@0900,2100 IV 11/07/16 09:00 12/07/16 08:59 11/07/16 09:23 5 MLS/MIN Ketorolac Tromethamine (Toradol Inj) 15 mg Q6H PRN IV 11/07/16 03:00 11/12/16 02:59 11/07/16 03:31 15 MG Objective Vital Signs Date Time Temp Pulse Resp B/P Pulse Ox O2 Delivery O2 Flow Rate FiO2 11/07/16 08:00 96 Room Air 11/07/16 06:58 36.4 79 16 96/60 96 Room Air 11/07/16 00:00 Room Air 11/06/16 22:29 36.9 95 18 100/68 95 Room Air 11/06/16 21:56 96 18 101/71 97 Room Air 11/06/16 19:50 97 11/06/16 19:38 89 16 111/77 97 Room Air 11/06/16 17:19 102 20 116/90 97 Physical Exam General Appearance: WD/WN, no apparent distress Eyes: normal inspection ENT: normal ENT inspection Neck: supple Respiratory/Chest: lungs clear, normal breath sounds, no respiratory distress, no accessory muscle use Cardiovascular: regular rate, rhythm, no murmur Abdomen: normal bowel sounds, non tender, soft Extremities: normal inspection, no pedal edema Neurologic/Psychiatric: alert, oriented x 3 Skin: normal color, warm/dry, no rash Lymphatic: no adenopathy Laboratory Results Results Past 24 Hours Test 11/06/16 18:30 11/06/16 23:00 11/07/16 05:45 Range/Units Lactic Acid Level 3.2 0.5 0.4-2.0 mmol/L White Blood Count 4.47 4.8-10.8 K/uL Red Blood Count 3.98 4.2-5.4 M/uL Hemoglobin 10.1 12.0-16.0 g/dL Hematocrit 32.6 37-47 % Mean Corpuscular Volume 81.9 80-100 fL Mean Corpuscular Hemoglobin 25.4 25-34 pg Mean Corpuscular Hemoglobin Concent 31.0 32-36 g/dl Platelet Count 437 130-400 K/uL Mean Platelet Volume 9.1 7.4-10.4 fL Neutrophils (%) (Auto) 89.5 % Lymphocytes (%) (Auto) 9.4 % Monocytes (%) (Auto) 0.7 % Eosinophils (%) (Auto) 0.0 % Basophils (%) (Auto) 0.2 % Neutrophils # (Auto) 4.00 1.4-6.5 K/uL Lymphocytes # (Auto) 0.42 1.2-3.4 K/uL Monocytes # (Auto) 0.03 0.11-0.59 K/uL Eosinophils # (Auto) 0.00 0-0.5 K/uL Basophils # (Auto) 0.01 0-0.2 K/uL RDW Standard Deviation 49.3 36.4-46.3 fL RDW Coefficient of Variation 16.2 11.5-14.5 % Immature Granulocyte % (Auto) 0.2 % Immature Granulocyte # (Auto) 0.01 0.00-0.02 K/uL Sodium Level 143 136-145 mmol/L Potassium Level 4.3 3.5-5.1 mmol/L Chloride Level 109 98-107 mmol/L Carbon Dioxide Level 21 21-32 mmol/L Anion Gap 13.0 3-11 mmol/L Blood Urea Nitrogen 6 7-18 mg/dl Creatinine 0.70 0.60-1.20 mg/dl Est Creatinine Clear Calc Drug Dose 77.8 ml/min Estimated GFR () 118.7 Estimated GFR (Non- 102.5 BUN/Creatinine Ratio 9.0 10-20 Random Glucose 133 70-99 mg/dl Calcium Level 8.1 8.5-10.1 mg/dl Iron Level 15 35-150 mcg/dl Total Iron Binding Capacity 213 250-450 mcg/dl Ferritin 40.6 8.0-388.0 ng/ml Total Bilirubin 0.3 0.2-1 mg/dl Aspartate Amino Transf (AST/SGOT) 7 15-37 U/L Alanine Aminotransferase (ALT/SGPT) 11 12-78 U/L Alkaline Phosphatase 76 45-117 U/L Total Protein 6.4 6.4-8.2 gm/dl Albumin 2.7 3.4-5.0 gm/dl Globulin 3.7 2.5-4.0 gm/dl Albumin/Globulin Ratio 0.7 0.9-2 Microbiology Results 11/06/16 MRSA DNA Surveillance Screen - Final, Complete Specimen Positive for MRSA by DNA Probe Assessment and Plan 46 yo f with a h/o Crohn's disease, has been changed to her recommended oral dose of prednisone per outpt note. She does have a history of multiple admissions and leaving AMA. No opiates because of secondary gain concern. Based on GI rec will d/c home. Abdominal pain/nausea/vomiting and dehydration - symptoms improved. tolerating oral intake Crohn's disease - w15 mg Prednisone PO - advance diet as tolerated - GI consult with Dr Garcia. - on vedolizumab as outpatient Elevated WBC, lactic acid, tachycardia- resolved - lactate - resolved - trend WBC Anemia - chronic. h/h stable. follow Gastritis - switch pantoprazole PO to IV Smoking cessation - nicotine patch 14 mcg VTE Prophylaxis - heparin 5000 units Q8H Code - Full Disposition - observation status in med/surg., d/c tomorrow Continued [facility] stay due to: other Discharge planning: uncertain Reviewed: Pt Seen/Exam by Me History no new concerns Constitutional: denies: fever Respiratory: negative: short of breath Cardiovascular: denies chest pain General Appearance: no apparent distress Respiratory: lungs clear, no respiratory distress Cardiovascular: regular rate, rhythm Gastrointestinal: normal bowel sounds, non tender, soft Neurologic/Psychiatric: alert, oriented x 3 Assessment/Plan I have reviewed the medical record and performed a history and physical examination of this patient today. I have discussed the case with Jordan. The above note reflects my findings, conclusions, and recommendations Anticipate d/c home in am.
[2016-11-07] MEDS ORDERED: NURSING VERBAL MED ORDER ONE (17:00)
[2016-11-07] MEDS ORDERED: CALCIUM CARBONATE 500 MG CHEWABLE PO PRN (17:15)
--- NOTE | 2016-11-07 17:29 | Discharge Instructions ---
Discharge Instructions Date of Service Nov 07, 2016. Admission Reason for Admission: Abdominal Pain, Exacerbation Of Chrons Disease Discharge Discharge Diagnosis / Problem: colitis Discharge Goals Goal(s): Therapeutic intervention Activity Recommendations Activity Limitations: resume your previous activity Lifting Limitations: none Exercise/Sports Limitations: none May Resume Sexual Activity: when tolerated Shower/Bathe: no limitations . Instructions / Follow-Up Instructions / Follow-Up You were admitted for your epigastric pain We discussed your care with Dr Garcia you will be increasing your prednisone 1. Take Prednisone 30 mg daily x 1 week 2. After week decrease to 20 mg x 1 week 3. Decrease to 10 mg daily Please follow up with your GI Current Hospital Diet Patient's current hospital diet: Clear Liquid Diet Discharge Diet Recommended Diet: Regular Diet Pending Studies Studies pending at discharge: no Medical Emergencies . Who to Call and When: Medical Emergencies: If at any time you feel your situation is an emergency, please call 911 immediately. . Non-Emergent Contact Non-Emergency issues call your: Primary Care Provider Call Non-Emergent contact if: you have a fever, your pain is unusual for you . . "Provider Documentation" section prepared by Jaycee Ortega. VTE Core Measure Inpt VTE Proph given/why not?: Unfractionated heparin SQ, TNehaENavid. [place], SCD 's
--- NOTE | 2016-11-07 17:34 | Discharge Summary ---
Discharge Summary Date of Service Nov 07, 2016. (Jaycee Ortega MD) Discharge Summary Admission Date: Nov 06, 2016 at 20:46 Discharge Date: Nov 07, 2016 Discharge Disposition: Home Principal Diagnosis: colitis Problems/Secondary Diagnoses: (1) Exacerbation of Crohn's disease Status: Chronic (Jaycee Ortega MD) Discharge Exam Symptoms resolved on d/c will change prednisone dose and patient reflected understanding Review of Systems: Constitutional: No fever Eyes: No worsening of vision ENT: No hearing loss Respiratory: No cough, No dyspnea at rest, No dyspnea on exertion, No shortness of breath, No sputum, No wheezing Cardiovascular: No chest pain Abdomen: + nausea, No constipation, No diarrhea, No pain, No vomiting Musculoskeletal: No joint pain, No muscle pain Genitourinary - Female: No dysuria Neurologic: No balance problems, No weakness Endocrine: No fatigue Physical Exam: General Appearance: WD/WN, no apparent distress Eyes: normal inspection ENT: normal ENT inspection Neck: supple Respiratory/Chest: lungs clear, normal breath sounds, no respiratory distress, no accessory muscle use Cardiovascular: regular rate, rhythm, no murmur Abdomen / GI: normal bowel sounds, non tender, soft Extremities: no calf tenderness Neurologic/Psychiatric: alert, oriented x 3 Skin: normal color, warm/dry, no rash Lymphatic: no adenopathy (Jaycee Ortega MD) Review of Systems: Constitutional: No fever Respiratory: No shortness of breath Cardiovascular: No chest pain Abdomen: No nausea, No pain (controlled), No vomiting Physical Exam: General Appearance: no apparent distress Respiratory/Chest: lungs clear, no respiratory distress Cardiovascular: regular rate, rhythm Abdomen / GI: normal bowel sounds, non tender, soft Neurologic/Psychiatric: alert, oriented x 3 Skin: warm/dry (Venus Archibald M.D.) Hospital Course 46 yo f with a h/o Crohn's disease. 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 She is currently being treated with vedolizumab and her next dose is supposedly end of november/ december. She tolerated PO very well and after discussing with GI plan is to d/c home with higher prednisone dose. Crohn's disease - 30 mg prednisone x 1 wk 20 mg x 1 wk 10 mg daily - follow up with GI - on vedolizumab as outpatient Elevated WBC, lactic acid, tachycardia- resolved - lactate - resolved most likely stress/ dehydration Anemia - chronic. h/h stable. follow Gastritis - pantoprazole Smoking cessation - nicotine patch 14 mcg VTE Prophylaxis - heparin 5000 units Q8H Code - Full Total Time Spent: Less than 30 minutes This includes examination of the patient, discharge planning, medication reconciliation, and communication with other providers. (Jaycee Ortega MD) I have reviewed the medical record and performed a history and physical examination of this patient today. I have discussed the case with Dr. Ortega. The above note reflects my findings, conclusions, and recommendations. Total Time Spent: Greater than 30 minutes (35) (Venus Archibald M.D.) Discharge Instructions Please refer to the electronic Patient Visit Report (Discharge Instructions) for additional information. (Jaycee Ortega MD) Additional Copies To Damari Vann M.D.
[2016-11-07] MEDS ORDERED: PRED10TA PO (17:50)
[2016-11-07 18:13] VITALS: BP 96/60; PULSE 79; TEMP 36.4; O2SAT 96
[2016-11-07] MEDS ORDERED: CLONAZEPAM 1 MG TAB PO PRN (22:00)
[2016-11-08] MEDS ORDERED: FAMOTIDINE 20 MG TAB PO SCH (08:00)
--- NOTE | 2016-11-10 11:27 | GASTROINTESTINAL CONSULTATION ---
DATE OF CONSULTATION: 11/07/2016 REASON FOR CONSULTATION: Diarrhea, abdominal pain, reduced oral intake. REQUESTING PROVIDER: Anil Zambrano. HISTORY OF PRESENT ILLNESS: Ms. Palacios is a 46-year-old white female well known to me since July for refractory Crohn colitis. The patient has had several hospitalizations in this short period of time as well as office visits. The patient had undergone a trial of vedolizumab and completed her 3 induction doses with an upcoming dose sometime in early December. The patient was seen on November 06 in the GI clinic, at which time she described continuance of her symptoms that includes diarrhea with incontinence, occasional small amounts of blood were described, inability to handle oral intake and reported compliance with all of her medications that are prescribed. I had recommended increasing the prednisone, discharged her from the clinic and upon discharge the patient contacted the rescue squad because of her incontinence and was transported to the Emergency Room where she was ultimately admitted. Here, she was C. diff negative and did receive IV fluids. PAST MEDICAL HISTORY: Includes Crohn disease, bulging disk, fibromyalgia, and neuropathy. There is also a behavioral disorder, seen by our mental health specialist here at [facility]. FAMILY HISTORY: Significant for cancer, diabetes and heart disease. SOCIAL HISTORY: The patient continues to use tobacco products at least a quarter to a half pack a day. She denies alcohol use. Single, lives alone and is disabled due to her Crohn disease. Historically, she has been on several agents off and on including several of the biologics which have been intermittently effective. ALLERGIES: SHE IS ALLERGIC TO SULFA ANTIBIOTICS, KEFLEX, PENICILLINS AND ATIVAN. HOME MEDICATIONS: Include pantoprazole, vitamin D, vitamin D3, prednisone 15 mg daily as well as the vedolizumab for which she completed her 3 induction doses. She also uses p.r.n. Phenergan, loperamide and ranitidine. REVIEW OF SYSTEMS: Otherwise noncontributory based on 14-point exam. The patient denies odynophagia, dysphagia, nausea or vomiting, but does not like to eat because she reports abdominal discomfort. PHYSICAL EXAMINATION: VITAL SIGNS: Today - 114/87 in the Emergency Room, afebrile 36.9, heart rate 130, respirations 21 (she does run a chronic heart rate, based on multiple prior admissions). GENERAL: Today, the patient is awake, alert and oriented x3. HEENT: The oral mucosa is moist. HEART: Normal S1, S2. LUNGS: Clear to auscultation. ABDOMEN: Soft, minimally tender in the epigastrium and around the periumbilical region without rebound or guarding. There are positive bowel sounds. There is no evidence of ascites or shifting dullness. EXTREMITIES: Without edema. RECTAL: Deferred. EMERGENCY ROOM LABORATORY STUDIES AND IMAGING DATA: Showed a white count that was slightly elevated at 13.3, hemoglobin 12.1, MCV 80.6, platelets 511,000. UA was unremarkable except for small amount of leukocyte esterase. There were multiply epithelial cells but no significant white blood cells or red blood cells on microanalysis. Her potassium level was 3.6, sodium 137, BUN and creatinine are 11 and 0.8. Transaminases were AST 9, ALT 10, total and direct bilirubin 0.4 and less than 0.1, alkaline phosphatase 89, total protein is 7.5, albumin 3.2, lipase 125 and her lactate level on admission was slightly elevated at 3.2. Flat plate showed no acute cardiopulmonary process. There was a nonspecific gas pattern, no evidence of obstruction. There were scattered air fluid levels suggesting a nonspecific enteritis. CT scan also in the ER obtained a nonspecific pancolitis, likely of infectious or inflammatory which is similar in appearance to the 07/26/2016 CT. There was no free air or abscesses identified. Ms. Palacios has a longstanding Crohn disease. The patient has been several places throughout the country at various times receiving care for this Crohn disease including [facility]. The patient in the office yesterday had suggested that perhaps there was a slight improvement at best in her symptoms while on vedolizumab. We had a lengthy discussion in her room today. C. diff was negative in the Emergency Room collection. IMPRESSION AND PLAN: Longstanding Crohn disease with interruptions in biologic therapies over the years with recent trial of vedolizumab having completed her 3 induction doses. The patient was somewhat combative and insistent that she needs her biologic therapy more often than others and that this should be considered given her past responses. I did explain to the patient that these medications need to used as first indicated by the recommendations and guidelines and that it is important that it is necessary for the patient to generally failed standard therapy before any changes away from protocol or away from standard practices and dosing schedules are made. This is also important as her insurance may not cover a more frequent or higher dosing interval, than that recommended. With this, the patient continued to be agitated with the response. I also discussed with the patient that in the setting where she continues to fail biologics and control of her therapy that an option includes colectomy. The patient absolutely is insistent about not having a surgical evaluation and this process has been discussed before both in the inpatient and outpatient setting. Unfortunately, medical therapy is limited for this patient in the absence of any specific treatable cause like C. diff. I did speak with Dr. Reyes in the early evening after this consultation and after a lengthy discussion, the patient met criteria for discharge, had eaten all of the meals provided for her without difficulty and therefore plans for discharge to home were in progress. We did discuss the therapeutic options which are to plan for her vedolizumab at the next scheduled dosing interval as well as to further increase her home prednisone to 30 mg daily with a slow taper every 2 weeks by 5 mg daily. The patient will return to the office as previously scheduled. At this point, given the challenges in the control this patient's Crohn's, I believe it is prudent for her to strongly consider referral to a tertiary center that treat IBD. She is reluctant to do this; however, I believe that at the present time medical therapies have been exhausted and her adamant refusal for any surgical consideration will likely create a persistent and active scenario for her Crohn disease. All questions answered. JANIS
== END 2016-11-07 19:10 | disposition home or self-care (01) ==
LOC: ENRESERVDT → ENRESERVTM → EDBD 15:56 → C.EDC 15:58 → UNDOADMOB 20:46 → C.MS4W 20:46
PROVIDERS: ADMIT Hospitalist; ATTEND Family Medicine
DX: K50.90 Crohn's disease, unspecified, without complications (principal); D72.829 Elevated white blood cell count, unspecified; R00.0 Tachycardia, unspecified; D64.9 Anemia, unspecified; K29.70 Gastritis, unspecified, without bleeding; E87.2 Acidosis; E86.0 Dehydration; M79.7 Fibromyalgia; G62.9 Polyneuropathy, unspecified; F17.200 Nicotine dependence, unspecified, uncomplicated; Z79.52 Long term (current) use of systemic steroids; Z87.01 Personal history of pneumonia (recurrent); Z90.49 Acquired absence of other specified parts of digestive tract; Z83.3 Family history of diabetes mellitus; Z82.49 Family history of ischemic heart disease and other diseases of the circulatory system

== ENCOUNTER → 2017-10-01 | Outpatient (CLI) | payer OTHER ==
[~2017-10-01] MED LIST changes: +CHOL2000 PO; -CNT PO; -ERGO1CAP41 PO; +ERGO500011 PO; -PROM25TA9 PO
--- NOTE | 2017-10-01 11:34 | DIAGNOSTIC IMAGING REPORT ---
CT OF THE CHEST WITHOUT IV CONTRAST CLINICAL HISTORY: Pulmonary nodule follow-up. COMPARISON STUDY: Chest CT T May 17, 2016 and September 11, 2016. CT DOSE: 240.08 mGycm TECHNIQUE: Axial images of the chest were obtained without IV contrast. Images were reviewed in the axial, sagittal, and coronal planes. IV contrast was not administered for this examination. A dose lowering technique was utilized adhering to the principles of ALARA. FINDINGS: No enlarged axillary, mediastinal or hilar lymph nodes are present. Size of the heart is normal. There is no pericardial effusion. A right subclavian [id number] is in place. The central airways are patent. Bilateral lower lobe linear opacities suggest scarring or atelectasis. There is no consolidation to suggest pneumonia. Consolidation shown on exam of September 11, 2016 has resolved. A 6 mm right lower lobe nodule shown image 175 of [address] of May 17, 2016. No pneumothorax or pleural effusion is noted. No suspicious osseous lesions are present. Upper abdomen is unremarkable on this unenhanced study. IMPRESSION: 1. No change in a 6 mm right lower lobe pulmonary nodule since CT of May 17, 2016. This is likely benign. A follow-up chest CT in one year could be performed to ensure stability. 2. No acute intrathoracic findings. Electronically signed by: Mychal Massey M.D. 10/01/2017 11:33 AM Dictated Date/Time: 10/01/2017 11:19 AM
== END | disposition home or self-care (01) ==
LOC: C.CTS 11:03
PROVIDERS: ATTEND Physician Assistant
DX: R91.1 Solitary pulmonary nodule (principal)

== ENCOUNTER → 2017-10-01 | Day surgery (SDC) | payer OTHER ==
[~2017-10-01] VITALS: Ht 152.4 cm; Wt 45.5 kg
[~2017-10-01] MED LIST changes: +ACETAMINOPHEN 325 MG TAB PO SCH; +ACETAMINOPHEN 500 MG TAB PO ONE; +ACETAMINOPHEN 500 MG TAB PO SCH; +DiphenhydrAMINE HCL 50 MG/ML VIAL IV SCH; +NSS IV SCH; +VEDOLIZUMAB IV SCH; +ZOLEDRONIC ACID INJ 5 MG in EMPTY BAG 0 ML IV SCH
[2017-10-01 11:42] VITALS: BP 93/65; PULSE 106; TEMP 36.8; O2SAT 96; Ht 152.4 cm; Wt 45.5 kg
== END | disposition home or self-care (01) ==
LOC: C.MTU 11:28
PROVIDERS: ATTEND Internal Medicine
DX: M81.0 Age-related osteoporosis without current pathological fracture (principal)

== ENCOUNTER 2017-10-16 16:04 | Emergency (ER) | payer OTHER ==
[~2017-10-16] VITALS: Ht 154.9 cm; Wt 43.0 kg
[~2017-10-16 16:04] MED LIST changes: -ACETAMINOPHEN 325 MG TAB PO SCH; -ACETAMINOPHEN 500 MG TAB PO ONE; -ACETAMINOPHEN 500 MG TAB PO SCH; -DiphenhydrAMINE HCL 50 MG/ML VIAL IV SCH; -NSS IV SCH; +RANI150T85 PO; -VEDOLIZUMAB IV SCH; -ZNTT/150 PO; -ZOLEDRONIC ACID INJ 5 MG in EMPTY BAG 0 ML IV SCH
[2017-10-16] MEDS ORDERED: SODIUM CHLORIDE 0.9% 1000ML 1,000 ML IV STA (16:15)
[2017-10-16] MEDS ORDERED: MoRPHine SULFATE 4 MG/ML 1 ML CARP\\VIAL IV STA ×2 (16:15→17:52)
[2017-10-16] MEDS ORDERED: ONDANSETRON INJ 2 MG/ML 2 ML VIAL IV STA ×2 (16:15→18:15)
[2017-10-16] MEDS ORDERED: OPTIRAY 320 IV PRN (16:30)
[2017-10-16 16:31] VITALS: Ht 154.9 cm; Wt 43.0 kg
[2017-10-16] MEDS ORDERED: KETOROLAC TROMETHAMINE 30 MG/ML VIAL IV STA (16:33)
--- NOTE | 2017-10-16 16:51 | DIAGNOSTIC IMAGING REPORT ---
CHEST ONE VIEW PORTABLE HISTORY: 47 years-old Female vomiting acute vomiting COMPARISON: Acute abdominal series radiographs 11/06/2016 TECHNIQUE: Portable AP view of the chest FINDINGS: Cardiomediastinal and hilar silhouettes are within normal limits. Atherosclerosis of the aorta. Right subclavian [id number] catheter is unchanged. No pneumothorax, pleural effusion, focal airspace consolidation or overt pulmonary edema. Bones of the chest appear grossly intact. IMPRESSION: No acute process. The above report was generated using voice recognition software. It may contain grammatical, syntax or spelling errors. Electronically signed by: [place] Roland M.D. 10/16/2017 4:50 PM Dictated Date/Time: 10/16/2017 4:47 PM
[2017-10-16] MEDS ORDERED: NUTR-706 PO (17:08)
[2017-10-16] MEDS ORDERED: SODIUM CHLORIDE 0.9% 500ML 500 ML IV STA (17:13)
[2017-10-16 17:34] LABS: BASO % 0.2 %; BASO ABS # 0.01 K/uL (0-0.2); EOS % 0.7 %; EOS ABS # 0.04 K/uL (0-0.5); HEMATOCRIT 30.7 % (37-47); HEMOGLOBIN 9.4 g/dL (12.0-16.0); IG# 0.02 K/uL (0.00-0.02); LYMPH % 11.4 %; LYMPH ABS # 0.63 K/uL (1.2-3.4); MEAN CORPUSCULAR HEMOGLOBIN 20.2 pg (25-34); MEAN CORPUSCULAR HGB CONC 30.6 g/dl (32-36); MEAN PLATELET VOLUME 8.3 fL (7.4-10.4); MONO % 11.2 %; MONO ABS # 0.62 K/uL (0.11-0.59); NEUT % 76.1 %; NEUT ABS # 4.22 K/uL (1.4-6.5); PLATELET COUNT 571 K/uL (130-400); RED CELL DISTRIBUTION WIDTH CV 19.4 % (11.5-14.5); RED CELL DISTRIBUTION WIDTH SD 44.9 fL (36.4-46.3); WHITE BLOOD COUNT 5.54 K/uL (4.8-10.8)
[2017-10-16 17:51] LABS: ALBUMIN 2.5 gm/dl (3.4-5.0); CALCIUM 7.7 mg/dl (8.5-10.1); CREATININE 0.85 mg/dl (0.60-1.20); POTASSIUM 3.8 mmol/L (3.5-5.1)
[2017-10-16 17:53] LABS: TOTAL PROTEIN 7.1 gm/dl (6.4-8.2)
--- NOTE | 2017-10-16 19:14 | DIAGNOSTIC IMAGING REPORT ---
ABD/PELVIS IV CONTRAST ONLY CLINICAL HISTORY: 47 years-old Female presenting with abd pain . TECHNIQUE: Multidetector CT of the abdomen and pelvis was performed after the administration of intravenous contrast. IV contrast: 93 mL of Optiray 320. A dose lowering technique was used consistent with the principles of ALARA (as low as reasonably achievable). COMPARISON: 11/06/2016. CT DOSE (mGy.cm): The estimated cumulative dose is 243.43 mGy.cm. FINDINGS: [employer] topogram: Unremarkable. Lung bases: Minimal basilar opacities, likely atelectasis. Normal heart size. Small pericardial effusion. No pleural effusion. Liver: Normal morphology though enlarged. No focal lesion. Patent hepatic vasculature. Biliary: Mild biliary ductal prominence likely a reservoir effect in the post cholecystectomy state. Gallbladder surgically absent. Pancreas: Normal. Spleen: Normal. Adrenal glands: Normal. Kidneys and ureters: Normal. No hydronephrosis. Bladder: Incompletely evaluated secondary to underdistention. Pelvic organs: Uterus and ovaries normal. Bowel: Hypertrophy of the mesorectal fat and a mesenteric fat of the sigmoid colon. Comments of the vasa recta diffusely in the colon and rectum with chronic wall thickening and mucosal hyperenhancement. This involves nearly the entire colon sparing only the cecum. No gross abnormality of the terminal ileum or small bowel. No bowel obstruction. Peritoneal cavity: No free fluid or intraperitoneal gas. Lymph nodes: No enlarged lymph nodes in the abdomen or pelvis. Vasculature: Atherosclerosis of the normal caliber abdominal aorta. IVC patent. Abdominal wall: Normal. Musculoskeletal: Normal. IMPRESSION: 1. Findings consistent with chronic colitis with contiguous involvement from the rectum to the ascending colon. An acute component of inflammation is likely present. The appearance is most consistent with inflammatory bowel disease, namely ulcerative colitis. No bowel obstruction. 2. Small pericardial effusion new from prior. Electronically signed by: Nando Romano M.D. 10/16/2017 7:12 PM Dictated Date/Time: 10/16/2017 7:06 PM
[2017-10-16] MEDS ORDERED: PRED20TA PO (19:50)
[2017-10-16] MEDS ORDERED: ONDA4TAB46 PO (20:30)
[2017-10-16] MEDS ORDERED: ONDANSETRON HOME PACK 4MG OD TAB PO ONE (20:30)
[2017-10-16 20:55] VITALS: BP 106/65; PULSE 100; TEMP 36.9; O2SAT 100
--- NOTE | 2017-10-16 23:18 | EMERGENCY ROOM VISIT NOTE ---
History Report prepared by Pancho: Saw Posada Under the Supervision of: Dr. Mike Herrera D.O. First contact with patient: 16:06 Stated Complaint: VOMITING, NAUSEA, DIARRHEA History of Present Illness The patient is a 47 year old female who presents to the Emergency Room with complaints of worsening abdominal pain that started last week. She rates her discomfort as a 10/10 in severity and describes her pain as a cramping sensation. The patient states that she has a history of Chron's disease, which she has been dealing with for a while. She states that she has been experiencing waxing/waning abdominal pain that started a year ago. She reports that she has been experiencing worsened abdominal pain for a week. The patient states that she has been experiencing nausea that has been causing her not to eat. She states that she has been vomiting whenever she tries to eat. The patient states that when she does not eat, she has been vomiting mucous. She states that she has also been experiencing persistent diarrhea. She reports that at times she has not been able to make it to the bathroom before having a bowel movement. The patient denies headache, cough, sore throat, rhinorrhea, hematemesis, blood stool, change in vision, fevers, chest pain, shortness of breath, pain with urination, and melena. The patient states that she last saw her blanket maker in August, but denies seeing him after that. The patient states that she has been taking Vitamin D, Protonix, and Zantac. She reports a history of a cholecystectomy. Source of History: patient Onset: last week Position: abdomen Symptom Intensity: 10/10 Quality: cramping Timing: worsening Associated Symptoms: + nausea, + vomiting, + diarrhea, No fevers, No headache, No sorethroat, No chest pain, No SOB, No melena, No urinary symptoms Review of Systems See HPI for pertinent positives & negatives. A total of 10 systems reviewed and were otherwise negative. Past Medical & Surgical Medical Problems: (1) Bulging disc (2) Crohn's disease (3) Exacerbation of Crohn's disease (4) Fibromyalgia (5) Neuropathy (6) Pneumonia Surgical Problems: (1) S/P cholecystectomy Family History Cancer Diabetes mellitus Heart disease Hypertension Social History Smoking Status: Former Smoker Alcohol Use: none Drug Use: none Marital Status: single Housing Status: assisted living Occupation Status: unemployed Current/Historical Medications Scheduled Cholecalciferol (Vitamin D3), 2,000 UNIT PO DAILY Enteral Nutrition Formula (Ensure), 1 CAN PO TID Ergocalciferol (Vitamin D 32239 Unit), 50,000 UNIT PO SUNDAY Pantoprazole (Protonix), 40 MG PO DAILY Prednisone (Prednisone), 2 TAB PO DAILY Scheduled PRN Clonazepam (Klonopin), 0.5 MG PO Q8 PRN for Anxiety Loperamide Hcl (Imodium), 2 MG PO Q6 PRN for Diarrhea Ondansetron Hcl (Zofran), 4 MG PO TID PRN for Nausea Ranitidine (Zantac), 150 MG PO BID PRN for Heartburn Allergies Coded Allergies: Lorazepam (Verified Allergy, Severe, tongue swelling, 10/16/17) Sulfa Antibiotics (Verified Allergy, Intermediate, rash/hives, 10/16/17) Cephalexin (Verified Allergy, Mild, rash, 10/16/17) Penicillins (Verified Allergy, Unknown, Unknown, 10/16/17) Reported by PT Physical Exam Vital Signs Date Time Temp Pulse Resp B/P (MAP) Pulse Ox O2 Delivery O2 Flow Rate FiO2 10/16/17 20:55 36.9 100 20 106/65 100 10/16/17 20:30 100 20 106/65 100 Room Air 10/16/17 19:59 102 22 84/60 98 10/16/17 19:13 108 81/65 97 10/16/17 18:13 115 20 101/71 98 Room Air 10/16/17 17:53 120 20 99/72 97 Room Air 10/16/17 17:44 118 10/16/17 17:25 126 22 93/73 99 Room Air 10/16/17 16:31 36.9 129 22 108/81 98 Room Air Physical Exam GENERAL: Sitting up in bed, no distress, non-toxic EYE EXAM: normal conjunctiva. OROPHARYNX: no exudate, no erythema, lips, buccal mucosa, and tongue normal and mucous membranes are moist NECK: supple, no nuchal rigidity, no adenopathy, non-tender, LUNGS: Clear to auscultation. Normal chest wall mechanics HEART: no murmurs, S1 normal and S2 normal ABDOMEN: abdomen soft, faint tenderness in lower abdomen. normo-active bowel sounds, no masses, no rebound or guarding. BACK: Back is symmetrical on inspection and there is no deformity, no midline tenderness, no CVA tenderness. SKIN: no rashes and no bruising UPPER EXTREMITIES: upper extremities are grossly normal. LOWER EXTREMITIES: No pitting edema. NEURO EXAM: Normal sensorium, cranial nerves II-XII grossly intact, normal speech, no gross weakness of arms, no gross weakness of legs. Gross sensation intact. Medical Decision & Procedures ER Provider Diagnostic Interpretation: Radiology results as stated below per my review and the radiologist's interpretation: CHEST ONE VIEW PORTABLE HISTORY: 47 years-old Female vomiting acute vomiting COMPARISON: Acute abdominal series radiographs 11/06/2016 TECHNIQUE: Portable AP view of the chest FINDINGS: Cardiomediastinal and hilar silhouettes are within normal limits. Atherosclerosis of the aorta. Right subclavian [id number] catheter is unchanged. No pneumothorax, pleural effusion, focal airspace consolidation or overt pulmonary edema. Bones of the chest appear grossly intact. IMPRESSION: No acute process. The above report was generated using voice recognition software. It may contain grammatical, syntax or spelling errors. Electronically signed by: [place] Roland M.D. 10/16/2017 4:50 PM Dictated Date/Time: 10/16/2017 4:47 PM ABD/PELVIS IV CONTRAST ONLY CLINICAL HISTORY: 47 years-old Female presenting with abd pain . TECHNIQUE: Multidetector CT of the abdomen and pelvis was performed after the administration of intravenous contrast. IV contrast: 93 mL of Optiray 320. A dose lowering technique was used consistent with the principles of ALARA (as low as reasonably achievable). COMPARISON: 11/06/2016. CT DOSE (mGy.cm): The estimated cumulative dose is 243.43 mGy.cm. FINDINGS: [employer] topogram: Unremarkable. Lung bases: Minimal basilar opacities, likely atelectasis. Normal heart size. Small pericardial effusion. No pleural effusion. Liver: Normal morphology though enlarged. No focal lesion. Patent hepatic vasculature. Biliary: Mild biliary ductal prominence likely a reservoir effect in the post cholecystectomy state. Gallbladder surgically absent. Pancreas: Normal. Spleen: Normal. Adrenal glands: Normal. Kidneys and ureters: Normal. No hydronephrosis. Bladder: Incompletely evaluated secondary to underdistention. Pelvic organs: Uterus and ovaries normal. Bowel: Hypertrophy of the mesorectal fat and a mesenteric fat of the sigmoid colon. Comments of the vasa recta diffusely in the colon and rectum with chronic wall thickening and mucosal hyperenhancement. This involves nearly the entire colon sparing only the cecum. No gross abnormality of the terminal ileum or small bowel. No bowel obstruction. Peritoneal cavity: No free fluid or intraperitoneal gas. Lymph nodes: No enlarged lymph nodes in the abdomen or pelvis. Vasculature: Atherosclerosis of the normal caliber abdominal aorta. IVC patent. Abdominal wall: Normal. Musculoskeletal: Normal. IMPRESSION: 1. Findings consistent with chronic colitis with contiguous involvement from the rectum to the ascending colon. An acute component of inflammation is likely present. The appearance is most consistent with inflammatory bowel disease, namely ulcerative colitis. No bowel obstruction. 2. Small pericardial effusion new from prior. Electronically signed by: Nando Romano M.D. 10/16/2017 7:12 PM Dictated Date/Time: 10/16/2017 7:06 PM Laboratory Results 10/16/17 17:00 Red Blood Count 4.65, Mean Corpuscular Volume 66.0, Mean Corpuscular Hemoglobin 20.2, Mean Corpuscular Hemoglobin Concent 30.6, Mean Platelet Volume 8.3, Neutrophils (%) (Auto) 76.1, Lymphocytes (%) (Auto) 11.4, Monocytes (%) (Auto) 11.2, Eosinophils (%) (Auto) 0.7, Basophils (%) (Auto) 0.2, Neutrophils # (Auto ) 4.22, Lymphocytes # (Auto) 0.63, Monocytes # (Auto) 0.62, Eosinophils # (Auto ) 0.04, Basophils # (Auto) 0.01 10/16/17 17:00 Test 10/16/17 17:00 10/16/17 18:32 10/16/17 19:00 White Blood Count 5.54 K/uL (4.8-10.8) Red Blood Count 4.65 M/uL (4.2-5.4) Hemoglobin 9.4 g/dL (12.0-16.0) Hematocrit 30.7 % (37-47) Mean Corpuscular Volume 66.0 fL (80-100) Mean Corpuscular Hemoglobin 20.2 pg (25-34) Mean Corpuscular Hemoglobin Concent 30.6 g/dl (32-36) Platelet Count 571 K/uL (130-400) Mean Platelet Volume 8.3 fL (7.4-10.4) Neutrophils (%) (Auto) 76.1 % Lymphocytes (%) (Auto) 11.4 % Monocytes (%) (Auto) 11.2 % Eosinophils (%) (Auto) 0.7 % Basophils (%) (Auto) 0.2 % Neutrophils # (Auto) 4.22 K/uL (1.4-6.5) Lymphocytes # (Auto) 0.63 K/uL (1.2-3.4) Monocytes # (Auto) 0.62 K/uL (0.11-0.59) Eosinophils # (Auto) 0.04 K/uL (0-0.5) Basophils # (Auto) 0.01 K/uL (0-0.2) RDW Standard Deviation 44.9 fL (36.4-46.3) RDW Coefficient of Variation 19.4 % (11.5-14.5) Immature Granulocyte % (Auto) 0.4 % Immature Granulocyte # (Auto) 0.02 K/uL (0.00-0.02) Hypochromasia PRESENT Microcytosis PRESENT Erythrocyte Sedimentation Rate > 90 mm/hr (0-21) Anion Gap 8.0 mmol/L (3-11) Est Creatinine Clear Calc Drug Dose 54.3 ml/min Estimated GFR () 93.3 Estimated GFR (Non- 80.5 BUN/Creatinine Ratio 13.0 (10-20) Calcium Level 7.7 mg/dl (8.5-10.1) Total Bilirubin 0.7 mg/dl (0.2-1) Direct Bilirubin 0.2 mg/dl (0-0.2) Aspartate Amino Transf (AST/SGOT) 9 U/L (15-37) Alanine Aminotransferase (ALT/SGPT) 12 U/L (12-78) Alkaline Phosphatase 103 U/L (45-117) C-Reactive Protein 13.40 mg/dl (0-0.29) Total Protein 7.1 gm/dl (6.4-8.2) Albumin 2.5 gm/dl (3.4-5.0) Lipase 126 U/L (73-393) Lactic Acid Level 0.5 mmol/L (0.4-2.0) Urine Color DK YELLOW Urine Appearance CLEAR (CLEAR) Urine pH 5.5 (4.5-7.5) Urine Specific [place] 1.035 (1.000-1.030) Urine Protein 1+ (NEG) Urine Glucose (UA) NEG (NEG) Urine Ketones TRACE (NEG) Urine Occult Blood NEG (NEG) Urine Nitrite NEG (NEG) Urine Bilirubin NEG (NEG) Urine Urobilinogen NEG (NEG) Urine Leukocyte Esterase NEG (NEG) Urine WBC (Auto) 1-5 /hpf (0-5) Urine RBC (Auto) 0-4 /hpf (0-4) Urine Hyaline Casts (Auto) /lpf (0-5) Urine Epithelial Cells (Auto) >30 /lpf (0-5) Urine Bacteria (Auto) NEG (NEG) Urine Pathogenic Casts /lpf (0) Urine Test NEG (NEG) Laboratory results per my review. Medications Administered Medications (Trade) Dose Ordered Sig/Rashard Route Start Time Stop Time Status Last Admin Dose Admin Sodium Chloride 1,000 ml @ 999 mls/hr Q1H1M STAT IV 10/16/17 16:15 10/16/17 17:15 DC 10/16/17 16:15 999 MLS/HR Ondansetron HCl (Zofran Inj) 4 mg NOW STAT IV 10/16/17 16:15 10/16/17 16:17 DC 10/16/17 16:15 4 MG Ketorolac Tromethamine (Toradol Inj) 30 mg NOW STAT IV 10/16/17 16:33 10/16/17 16:34 DC 10/16/17 16:33 30 MG Sodium Chloride 500 ml @ 999 mls/hr Q31M STAT IV 10/16/17 17:13 10/16/17 17:43 DC 10/16/17 19:57 999 MLS/HR Morphine Sulfate (MoRPHine SULFATE INJ) 4 mg NOW STAT IV 10/16/17 17:52 10/16/17 17:53 DC 10/16/17 18:18 4 MG Ondansetron HCl (Zofran Inj) 4 mg NOW STAT IV 10/16/17 18:15 10/16/17 18:16 DC 10/16/17 19:56 4 MG Prednisone (PredniSONE TAB) 40 mg NOW STAT PO 10/16/17 19:35 10/16/17 19:36 DC 10/16/17 19:56 40 MG Ondansetron HCl (ZOFRAN ODT 4MG Home Pack) 1 homepack UD ONCE PO 10/16/17 20:30 10/16/17 20:32 DC 10/16/17 20:38 1 HOMEPACK ECG Indication: abdominal pain Rate (beats per minute): 127 Rhythm: sinus tachycardia Findings: no ectopy, other (Normal axis) Change: Patient's electrocardiogram interpreted by me. ED Course ED COURSE: Vital signs were reviewed and showed tachycardia. The patients medical record was reviewed The above diagnostic studies were performed and reviewed. ED treatments and interventions as stated above. 1609: The patient was evaluated in room C01. A complete history and physical examination was performed. 1615: Ordered Zofran Injection 4 mg IV, Sodium Chloride 1000 ml @ 999 mls/hr IV. 1628: I discussed the patients case with Dr. Garcia, [facility]. He reports to continue with the blood work and imaging. 1633: Ordered Toradol Injection 30 mg IV. 1713: Ordered Sodium Chloride 500 ml @ 999 mls/hr IV. 1752: Ordered Morphine Sulfate 4 mg IV. 0: I reevaluated the patient and she is resting comfortably. I updated her on her results. 1814: Ordered Zofran Injection 4 mg IV. 1931: I discussed the patient's case with Dr. Peoples, [facility]. He reports that the patient is able to go home. 1934: Ordered Prednisone 40 mg PO. 1941: Upon reevaluation, the patient is texting on her phone. I discussed my findings with the patient and she understands and agrees with the treatment plan. Based on the patients age, coexisting illnesses, exam and lab findings the decision to treat as an outpatient was made. The patient remained stable while under my care. The patient appeared well at the time of discharge. 1947: I reviewed the patient's vitals from previous visits. Her normal systolic is in the 90s. Medical Decision Differential diagnoses includes but is not limited to gastritis, peptic ulcer disease, GERD, gallbladder disease, pancreatitis, small bowel obstruction, acute coronary syndrome, pericarditis, ischemic bowel, irritable bowel disease, irritable bowel syndrome, appendicitis, diverticulitis, malignancy, hernia, urinary tract infection, torsion, [/ectopic (if female)], perforation, trauma, infectious. Patient is a 47-year-old female who presents to the ER for lower abdominal pain. She notes she has been having constant abdominal pain for the past year. Worsened over the past several months. Recently over the past week to 2 weeks it has worsened significantly. She does admit to intermittent vomiting. Has been having worsening diarrhea. No blood in her stool or blood in her vomit. CBC shows a persistent anemia. BMP along with LFTs, bilirubin was unremarkable. Sed and CRP were elevated consequently CT was performed which was unremarkable. Lipase was normal. was negative. UA was unremarkable. Patient was given fluids and a small dose of morphine in combination with Toradol. She was able to tolerate steroids orally. On reevaluation she was texting appeared comfortable. She was slightly tachycardic. Upon review of previous vitals this appears to be consistent with where she has been. Low-pressure systolically was 80s-90s. Previous blood pressures do appear to be consistently at this point especially since she is only 43 kg. I do not believe this is secondary to sepsis. Discuss with GI on 2 separate occasions. They will follow her up as an outpatient. They recommended steroids. I do believe that this is secondary to a Crohn's exacerbation. Discussed with Pt concerning signs and symptoms to watch out for. Pt was instructed to follow up with their PCP and discussed with the patient their option to return to the ED at anytime for persistent or worsening symptoms. The appropriate anticipatory guidance and out-patient management, including indications for return to the emergency department, were explained at length to the patient and understood. Medication Reconcilliation Current Medication List: was personally reviewed by me Blood Pressure Screening Patient's blood pressure: Normal blood pressure Consults Time Called: 161 Consulting Physician: Dr. Garcia, [facility] Returned Call: [phone] I discussed the patients case with Dr. Garcia, [facility]. He reports to continue with the blood work and imaging. Additional Consults: Time Called: 1931 Consulted Physician: Dr. Peoples, [facility] Returned Call: 1931 Additional Comments: I discussed the patient's case with Dr. Peoples, [facility]. He reports that the patient is able to go home. Impression Primary Impression: Exacerbation of Crohn's disease Additional Impressions: Hypokalemia Abdominal pain Scribe Attestation The scribe's documentation has been prepared under my direction and personally reviewed by me in its entirety. I confirm that the note above accurately reflects all work, treatment, procedures, and medical decision making performed by me. Departure Information Dispostion Home / Self-Care Prescriptions Ondansetron Hcl (ZOFRAN) 4 Mg Tab 4 MG PO TID Y for Nausea, #30 TAB Prov: Mike Herrera, DO 10/16/17 Prednisone (Prednisone) 20 Mg Tab 2 TAB PO DAILY for 5 Days, TAB Prov: Mike Herrera, DO 10/16/17 Referrals Damari Vann M.D. (PCP) Forms HOME CARE DOCUMENTATION FORM, IMPORTANT VISIT INFORMATION Patient Instructions ED Inflam Bowel Disease [facility] Additional Instructions Please follow up with your primary care doctor with in the next 24 hours. Any worsening of your symptoms, please return to the ED immediately. This includes any fevers greater than 100.4, worsening pain, chest pain, shortness breath, persistent nausea, vomiting, unable to eat or drink, or any other concerning signs or symptoms from your standpoint. Please take steroids as prescribed. Please call your GI doctor tomorrow for follow-up appointment. Problem Qualifiers Primary Impression: Exacerbation of Crohn's disease Digestive disease complication type: unspecified complication Qualified Codes : K50.919 - Crohn's disease, unspecified, with unspecified complications Additional Impressions: Abdominal pain Abdominal location: unspecified location Qualified Codes: R10.9 - Unspecified abdominal pain
[2017-10-19] MEDS ORDERED: CHOL1CAP85 PO (13:55)
== END 2017-10-16 20:56 | disposition home or self-care (01) ==
LOC: EDBD 16:04 → C.EDC 16:05
DX: K50.919 Crohn's disease, unspecified, with unspecified complications (principal); E87.6 Hypokalemia; R10.9 Unspecified abdominal pain; M79.7 Fibromyalgia; G62.9 Polyneuropathy, unspecified; Z87.01 Personal history of pneumonia (recurrent); Z80.9 Family history of malignant neoplasm, unspecified; Z83.3 Family history of diabetes mellitus; Z82.49 Family history of ischemic heart disease and other diseases of the circulatory system; Z87.891 Personal history of nicotine dependence; Z79.899 Other long term (current) drug therapy; Z88.0 Allergy status to penicillin; Z88.2 Allergy status to sulfonamides; Z88.1 Allergy status to other antibiotic agents; Z88.8 Allergy status to other drugs, medicaments and biological substances

== ENCOUNTER 2017-12-19 18:48 | Inpatient (IN) | payer OTHER ==
[~2017-12-19] VITALS: Ht 157.5 cm; Wt 49.8 kg
[~2017-12-19 18:48] MED LIST changes: +AMB5 PO; -Boost PO; -CHOL2000 PO; -CLON0.5T3 PO; +CLS1 PO; +CYNI1000 IM; +FRRS300 PO; +HLD1 PO; +HLD5 PO; +HYDR1OIN EXT; +KLN1 PO; +LMTHP PO; +NCY50 PO; +NUTR-706 PO; +ONDA4TAB46 PO; +PRD10 PO; -PRED10TA PO
[2017-12-19] MEDS ORDERED: SODIUM CHLORIDE 0.9% 1000ML 1,000 ML IV STA ×2 (19:03)
[2017-12-19] MEDS ORDERED: OPTIRAY 320 IV PRN (19:15)
--- NOTE | 2017-12-19 19:21 | DIAGNOSTIC IMAGING REPORT ---
CHEST ONE VIEW PORTABLE CLINICAL HISTORY: 47 years-old Female presenting with CHEST PAIN. TECHNIQUE: Portable upright AP view of the chest was obtained. COMPARISON: 10/26/2017. FINDINGS: Right upper extremity PICC now in place, terminating in the mid SVC. The prior left upper terminate PICC and prior right subclavian Mediport had been removed. Atherosclerosis of the aortic arch. Cardiac silhouette normal in size. Previously suggested right paramediastinal basilar opacity is no longer present. No focal opacity. No large effusion or pneumothorax. Osseous structures normal. Cholecystectomy clips noted. IMPRESSION: 1. No acute cardiopulmonary disease. Electronically signed by: Nando Romano M.D. 12/19/2017 7:19 PM Dictated Date/Time: 12/19/2017 7:18 PM
[2017-12-19 20:18] LABS: BASO % 0.1 %; BASO ABS # 0.01 K/uL (0-0.2); EOS % 0.6 %; EOS ABS # 0.06 K/uL (0-0.5); HEMATOCRIT 35.9 % (37-47); HEMOGLOBIN 11.5 g/dL (12.0-16.0); IG# 0.05 K/uL (0.00-0.02); LYMPH % 8.6 %; LYMPH ABS # 0.88 K/uL (1.2-3.4); MEAN CELL VOLUME 85.9 fL (80-100); MEAN CORPUSCULAR HEMOGLOBIN 27.5 pg (25-34); MEAN PLATELET VOLUME 8.4 fL (7.4-10.4); MONO ABS # 0.51 K/uL (0.11-0.59); NEUT % 85.2 %; NEUT ABS # 8.78 K/uL (1.4-6.5); PLATELET COUNT 373 K/uL (130-400); RED CELL DISTRIBUTION WIDTH CV 23.3 % (11.5-14.5); RED CELL DISTRIBUTION WIDTH SD 72.3 fL (36.4-46.3); WHITE BLOOD COUNT 10.29 K/uL (4.8-10.8)
[2017-12-19] MEDS: PROMETHAZINE HCL INJ 25 MG in SODIUM CHLORIDE 0.9% 50ML 50 ML IV STA ×2 (20:24→20:26)
[2017-12-19 20:33] LABS: INR 0.9 (0.9-1.1); PTT PATIENT 26.8 SECONDS (21.0-31.0)
[2017-12-19] MEDS ORDERED: ONDANSETRON INJ 2 MG/ML 2 ML VIAL IV STA (20:42)
[2017-12-19 20:48] LABS: ALBUMIN 2.9 gm/dl (3.4-5.0); ALT/SGPT 14 U/L (12-78); AST/SGOT < 3 U/L (15-37); BLOOD UREA NITROGEN 10 mg/dl (7-18); CALCIUM 8.2 mg/dl (8.5-10.1); CARBON DIOXIDE 27 mmol/L (21-32); CREATININE 0.71 mg/dl (0.60-1.20); GLUCOSE 92 mg/dl (70-99); LIPASE 127 U/L (73-393); POTASSIUM 3.6 mmol/L (3.5-5.1); SODIUM 140 mmol/L (136-145)
[2017-12-19 20:54] LABS: ALKALINE PHOSPHATASE 68 U/L (45-117); CKMB < 0.5 ng/ml (0.5-3.6); TOTAL PROTEIN 6.1 gm/dl (6.4-8.2)
--- NOTE | 2017-12-19 21:28 | EMERGENCY ROOM VISIT NOTE ---
History Report prepared by Pancho: Saw Posada Under the Supervision of: Dr. Jerrod Hernandez M.D. First contact with patient: 18:56 Stated Complaint: CHEST PAIN History of Present Illness The patient is a 47 year old female who presents to the Emergency Room with complaints of constant mid chest tightness that began this morning. She rates her pain as a 7/10 in severity. The patient states she saw her PCP this morning because she was experiencing palpitations, chest pain, and generalized shakiness. She reports she was found to be tachycardic and was sent home. The patient states she was told to come to the ED if her symptoms worsened. The patient states her chest pain has been continuous and she developed shortness of breath an hour ago. She reports she has also still been intermittently experiencing shakiness. The patient states she called EMS to take her to the ED. She reports she was given 324 mg of Aspirin and Nitroglycerin by EMS. The patient states that after administration of the medication she did not feel relieved of symptoms. She reports she is currently experiencing numbness in her right leg. The patient denies previous similar symptoms, LOC, headache, fevers, chills, diaphoresis, visual changes, neck pain, nausea, vomiting, back pain, melena, hematochezia, urinary symptoms, weakness, lymphadenopathy, rash, or other complaints. The patient reports a family history of myocardial infarction and stroke. She reports she has a personal history of Chron's disease which she has a PICC line for. The patient states she normally experiences abdominal pain and diarrhea due to her Chron's. She reports she was recently hospitalized for two months due to a blood infection. The patient states she was receiving antibiotics during that time and had her PICC line replaced. She states she was recently discharged home from a alf a week ago. She reports she has a smoking history. Source of History: patient Onset: this morning Position: chest Symptom Intensity: 7/10 Quality: other (tightness) Timing: constant Modifying Factors (Relieving): other (Aspirin, Nitro) Associated Symptoms: + SOB, + numbness Note: Associated symptoms: palpitations, shaking. Review of Systems See HPI for pertinent positives and negatives. A total of ten systems were reviewed and were otherwise negative. Past Medical & Surgical Medical Problems: (1) Bulging disc (2) Crohn's disease (3) Exacerbation of Crohn's disease (4) Fibromyalgia (5) Hand eczema (6) Multiple pigmented nevi (7) Neuropathy (8) Pneumonia (9) Tachycardia (10) Unspecified psychosis (11) Xerosis of skin Surgical Problems: (1) S/P cholecystectomy Family History Cancer Diabetes mellitus Heart disease Hypertension Social History Smoking Status: Current Every Day Smoker Alcohol Use: none Drug Use: none Marital Status: single Housing Status: assisted living Occupation Status: unemployed Current/Historical Medications Scheduled Colestipol Hcl (Colestid), 1 GM PO BID Cyanocobalamin (Cyanocobalamin), 1,000 MCG IM WK Enteral Nutrition Formula (Ensure), 1 CAN PO TID Ergocalciferol (Vitamin D 05365 Unit), 50,000 UNIT PO SUNDAY Ferrous Sulfate (Kp Ferrous Sulfate), 325 MG PO BID Haloperidol (Haldol), 5 MG PO TID Pantoprazole (Protonix), 40 MG PO DAILY Prednisone (Prednisone), 30 MG PO DAILY Tapentadol Hcl (Nucynta), 100 MG PO Q6H [Hydrocortisone 1%], 1 APPLN TD BID Scheduled PRN Clonazepam (Klonopin), 1 MG PO Q8 PRN for Anxiety Diphenoxylate/Atropine (Lomotil), 2 TABS PO Q6H PRN for Diarrhea Haloperidol (Haloperidol), 1 MG PO Q6H PRN for Anxiety/Agitation Ondansetron Hcl (Zofran), 4 MG PO TID PRN for Nausea Ranitidine (Zantac), 150 MG PO BID PRN for Heartburn Zolpidem Tartrate (Zolpidem Tartrate), 5 MG PO HS PRN for Sleep Allergies Coded Allergies: Lorazepam (Verified Allergy, Severe, tongue swelling, 10/19/17) Promethazine (Verified Allergy, Intermediate, restless leg, 12/19/17) Sulfa Antibiotics (Verified Allergy, Intermediate, rash/hives, 10/19/17) Cephalexin (Verified Allergy, Mild, rash, 10/19/17) Penicillins (Verified Allergy, Unknown, Unknown, 10/19/17) Reported by PT Physical Exam Vital Signs Date Time Temp Pulse Resp B/P (MAP) Pulse Ox O2 Delivery O2 Flow Rate FiO2 12/20/17 00:05 87 18 97 Room Air 12/20/17 00:01 93/72 12/19/17 23:35 85 18 95 Room Air 12/19/17 23:30 101/74 12/19/17 23:05 84 20 95 Room Air 12/19/17 23:04 100/70 12/19/17 23:00 100/70 12/19/17 22:35 88 20 95 Room Air 12/19/17 22:31 93/54 12/19/17 22:05 87 20 94 Room Air 12/19/17 22:01 88 20 95/69 95 Room Air 12/19/17 20:27 88 20 92/69 97 Room Air 12/19/17 19:14 Room Air 12/19/17 19:14 94 Room Air 12/19/17 19:09 Room Air 12/19/17 19:07 37.0 128 20 98/75 94 Room Air 12/19/17 18:57 128 Physical Exam GENERAL: Awake, alert, uncomfortable appearing, in no distress HENT: Normocephalic, atraumatic. Oropharynx unremarkable. EYES: Normal conjunctiva. Sclera non-icteric. NECK: Supple. No nuchal rigidity. FROM. No masses. RESPIRATORY: Clear to auscultation. No wheezes. No rales. Normal respiratory effort. CARDIAC: Tachycardic. Normal rhythm. No murmurs. No rubs. Extremities warm and well perfused. Pulses equal. No JVD. GI: Soft, non-distended. Mild diffuse abdominal tenderness. No rebound or guarding. No masses. RECTAL: Deferred. MUSCULOSKELETAL: Atraumatic. Chest examination reveals no tenderness. There is no CVA tenderness to palpation. No joint edema. PICC line right upper extremity. LOWER EXTREMITIES: Calves are equal size bilaterally and non-tender. No edema. No discoloration. NEURO: Normal sensorium. No sensory or motor deficits noted. SKIN: No rash or jaundice noted. Medical Decision & Procedures ER Provider Diagnostic Interpretation: Radiology results as stated below per my review and radiologist interpretation: CHEST ONE VIEW PORTABLE CLINICAL HISTORY: 47 years-old Female presenting with CHEST PAIN. TECHNIQUE: Portable upright AP view of the chest was obtained. COMPARISON: 10/26/2017. FINDINGS: Right upper extremity PICC now in place, terminating in the mid SVC. The prior left upper terminate PICC and prior right subclavian Mediport had been removed. Atherosclerosis of the aortic arch. Cardiac silhouette normal in size. Previously suggested right paramediastinal basilar opacity is no longer present. No focal opacity. No large effusion or pneumothorax. Osseous structures normal. Cholecystectomy clips noted. IMPRESSION: 1. No acute cardiopulmonary disease. Electronically signed by: Nando Romano M.D. 12/19/2017 7:19 PM Dictated Date/Time: 12/19/2017 7:18 PM (CHEST FOR PE) ANGIO WITH CLINICAL HISTORY: 47 years-old Female presenting with ^left chest pain, tachycardia, ?PE. TECHNIQUE: Multidetector CT angiography of the chest was performed after administration of intravenous contrast. 3-D volumetric and/or maximum intensity projection (MIP) images were subsequently reconstructed for review. IV contrast: 73 mL of Optiray 320. A dose lowering technique was used consistent with the principles of ALARA (as low as reasonably achievable). COMPARISON: 10/01/2017. CT DOSE (mGy.cm): The estimated cumulative dose is 262.98 mGy.cm. FINDINGS: Fire Technician topogram: Right subclavian Mediport terminates in the mid SVC. Pulmonary vasculature: The study is adequate for assessment of the pulmonary vascular tree. No filling defect within the pulmonary arteries to suggest embolus. Main pulmonary artery is not enlarged. No flattening of the interventricular septum. No intracardiac filling defect. No reflux of contrast into the hepatic veins. Remaining chest: On soft tissue windows, normal thyroid and thoracic inlet. Suggestion of prominent right hilar and subcarinal lymph nodes though these could in part represent prominent pericardial recesses. This appearance is different than the prior CTA from 08/31/2016. Direct comparison to the most recent examination is difficult given the absence of contrast on the prior study. Less than 50% narrowing of the origin of the left subclavian artery secondary to calcified and noncalcified atherosclerotic plaque. No other evidence of significant atherosclerosis in the aorta. Normal heart size. Coronary artery calcification. Trace pericardial effusion. Trace bilateral pleural effusions. Cholecystectomy clips. On lung windows, interval increase in bibasilar dependent bandlike consolidation and lower lobe volume loss greater on the left. Redemonstration of the solid right lower lobe nodule (series 4 image 131), unchanged since 2016. No new nodule or infiltrate. Central airways patent. On bone windows, normal osseous structures. Bone island noted in several of the vertebral bodies. IMPRESSION: 1. No evidence of pulmonary embolus. 2. Extensive bibasilar atelectasis. 3. Trace pleural effusions. 4. Stable right lower lobe nodule, unchanged since 2016 consistent with benign etiology. 5. Questionable right hilar and subcarinal lymphadenopathy versus prominent pericardial recesses. Electronically signed by: Nando Romano M.D. 12/19/2017 9:36 PM Dictated Date/Time: 12/19/2017 9:27 PM Laboratory Results 12/19/17 19:48 Red Blood Count 4.18, Mean Corpuscular Volume 85.9, Mean Corpuscular Hemoglobin 27.5, Mean Corpuscular Hemoglobin Concent 32.0, Mean Platelet Volume 8.4, Neutrophils (%) (Auto) 85.2, Lymphocytes (%) (Auto) 8.6, Monocytes (%) (Auto) 5.0, Eosinophils (%) (Auto) 0.6, Basophils (%) (Auto) 0.1, Neutrophils # (Auto) 8.78, Lymphocytes # (Auto) 0.88, Monocytes # (Auto) 0.51, Eosinophils # (Auto) 0.06, Basophils # (Auto) 0.01 12/19/17 19:48 Test 12/19/17 19:48 White Blood Count 10.29 K/uL (4.8-10.8) Red Blood Count 4.18 M/uL (4.2-5.4) Hemoglobin 11.5 g/dL (12.0-16.0) Hematocrit 35.9 % (37-47) Mean Corpuscular Volume 85.9 fL (80-100) Mean Corpuscular Hemoglobin 27.5 pg (25-34) Mean Corpuscular Hemoglobin Concent 32.0 g/dl (32-36) Platelet Count 373 K/uL (130-400) Mean Platelet Volume 8.4 fL (7.4-10.4) Neutrophils (%) (Auto) 85.2 % Lymphocytes (%) (Auto) 8.6 % Monocytes (%) (Auto) 5.0 % Eosinophils (%) (Auto) 0.6 % Basophils (%) (Auto) 0.1 % Neutrophils # (Auto) 8.78 K/uL (1.4-6.5) Lymphocytes # (Auto) 0.88 K/uL (1.2-3.4) Monocytes # (Auto) 0.51 K/uL (0.11-0.59) Eosinophils # (Auto) 0.06 K/uL (0-0.5) Basophils # (Auto) 0.01 K/uL (0-0.2) RDW Standard Deviation 72.3 fL (36.4-46.3) RDW Coefficient of Variation 23.3 % (11.5-14.5) Immature Granulocyte % (Auto) 0.5 % Immature Granulocyte # (Auto) 0.05 K/uL (0.00-0.02) Toxic Vacuolation 1+ Anisocytosis PRESENT Prothrombin Time 9.9 SECONDS (9.0-12.0) Prothromb Time International Ratio 0.9 (0.9-1.1) Activated Partial Thromboplast Time 26.8 SECONDS (21.0-31.0) Partial Thromboplastin Ratio 1.0 Anion Gap 7.0 mmol/L (3-11) Est Creatinine Clear Calc Drug Dose 72.3 ml/min Estimated GFR () 115.9 Estimated GFR (Non- 100.0 BUN/Creatinine Ratio 13.4 (10-20) Calcium Level 8.2 mg/dl (8.5-10.1) Total Bilirubin 0.3 mg/dl (0.2-1) Direct Bilirubin < 0.1 mg/dl (0-0.2) Aspartate Amino Transf (AST/SGOT) < 3 U/L (15-37) Alanine Aminotransferase (ALT/SGPT) 14 U/L (12-78) Alkaline Phosphatase 68 U/L (45-117) Total Creatine Kinase 14 U/L (26-192) Creatine Kinase MB < 0.5 ng/ml (0.5-3.6) Creatine Kinase MB Ratio (0-3.0) Troponin I < 0.015 ng/ml (0-0.045) Total Protein 6.1 gm/dl (6.4-8.2) Albumin 2.9 gm/dl (3.4-5.0) Lipase 127 U/L (73-393) Laboratory results reviewed by me Medications Administered Medications (Trade) Dose Ordered Sig/Rashard Route Start Time Stop Time Status Last Admin Dose Admin Sodium Chloride 1,000 ml @ 999 mls/hr Q1H1M STAT IV 12/19/17 19:03 12/19/17 20:03 DC 12/19/17 19:23 999 MLS/HR Sodium Chloride 1,000 ml @ 125 mls/hr Q8H STAT IV 12/19/17 19:03 12/20/17 02:23 DC 12/19/17 19:23 125 MLS/HR Ondansetron HCl (Zofran Inj) 4 mg NOW STAT IV 12/19/17 20:42 12/19/17 20:44 DC 12/19/17 20:47 4 MG ECG Per My Interpretation Indication: chest pain Rate (beats per minute): 120 Rhythm: sinus tachycardia Findings: no acute ischemic change, no ectopy, other (Normal intervals) ED Course 1901: The patient was evaluated in room C07. A complete history and physical exam was performed. 1902: Ordered Sodium Chloride 1000 ml @ 125 mls/hr IV, Sodium Chloride 1000 ml @ 999 mls/hr IV. 2006: I reevaluated the patient and updated her on her results. I discussed the possibility of needing to be further evaluated by the hospitalist. 2041: Ordered Zofran Injection 4 mg IV. 2338: I discussed the patients case with Dr. Singer [facility] Hospitalist. He understands the patients case and agrees to accept the patient. The patient will be further evaluated. Medical Decision Prior records/ancillary studies reviewed. Triage Nursing notes reviewed and agree them. The patient's history was concerning for chest pain. Differential diagnosis: Etiologies such as cardiac ischemia, aortic dissection, pulmonary embolism, pneumonia, pneumothorax, musculoskeletal, infections, pericarditis, myocarditis , esophageal rupture, gastrointestinal, as well as others were entertained. Physical examination: As above. ER treatment provided: Normal saline hydration IV Zofran On reassessment the patient felt better. Diagnostic interpretation by me: The electrocardiogram was negative for pathologic change. The labs revealed an unremarkable CBC and chemistry panel. Cardiac markers negative. Imaging studies: Chest x-ray and CT scan as above Consultation: A consultation was placed with the hospitalist. The case was discussed and diagnostics were reviewed. The patient was evaluated in the ER for further treatment. Medication Reconcilliation Current Medication List: was personally reviewed by me Blood Pressure Screening Patient's blood pressure: Normal blood pressure Consults Time Called: 2338 Consulting Physician: Dr. Singer [facility] Hospitalist Returned Call: [phone] I discussed the patients case with Dr. Singer, [facility] Hospitalist. He understands the patients case and agrees to accept the patient. The patient will be further evaluated. Impression Primary Impression: Substernal precordial chest pain Scribe Attestation The scribe's documentation has been prepared under my direction and personally reviewed by me in its entirety. I confirm that the note above accurately reflects all work, treatment, procedures, and medical decision making performed by me. Departure Information Dispostion Being Evaluated By Hospitalist Referrals Damari Vann M.D. (PCP)
--- NOTE | 2017-12-19 21:37 | DIAGNOSTIC IMAGING REPORT ---
(CHEST FOR PE) ANGIO WITH CLINICAL HISTORY: 47 years-old Female presenting with ^left chest pain, tachycardia, ?PE. TECHNIQUE: Multidetector CT angiography of the chest was performed after administration of intravenous contrast. 3-D volumetric and/or maximum intensity projection (MIP) images were subsequently reconstructed for review. IV contrast: 73 mL of Optiray 320. A dose lowering technique was used consistent with the principles of ALARA (as low as reasonably achievable). COMPARISON: 10/01/2017. CT DOSE (mGy.cm): The estimated cumulative dose is 262.98 mGy.cm. FINDINGS: Intake Counselor topogram: Right subclavian Mediport terminates in the mid SVC. Pulmonary vasculature: The study is adequate for assessment of the pulmonary vascular tree. No filling defect within the pulmonary arteries to suggest embolus. Main pulmonary artery is not enlarged. No flattening of the interventricular septum. No intracardiac filling defect. No reflux of contrast into the hepatic veins. Remaining chest: On soft tissue windows, normal thyroid and thoracic inlet. Suggestion of prominent right hilar and subcarinal lymph nodes though these could in part represent prominent pericardial recesses. This appearance is different than the prior CTA from 08/31/2016. Direct comparison to the most recent examination is difficult given the absence of contrast on the prior study. Less than 50% narrowing of the origin of the left subclavian artery secondary to calcified and noncalcified atherosclerotic plaque. No other evidence of significant atherosclerosis in the aorta. Normal heart size. Coronary artery calcification. Trace pericardial effusion. Trace bilateral pleural effusions. Cholecystectomy clips. On lung windows, interval increase in bibasilar dependent bandlike consolidation and lower lobe volume loss greater on the left. Redemonstration of the solid right lower lobe nodule (series 4 image 131), unchanged since 2016. No new nodule or infiltrate. Central airways patent. On bone windows, normal osseous structures. Bone island noted in several of the vertebral bodies. IMPRESSION: 1. No evidence of pulmonary embolus. 2. Extensive bibasilar atelectasis. 3. Trace pleural effusions. 4. Stable right lower lobe nodule, unchanged since 2016 consistent with benign etiology. 5. Questionable right hilar and subcarinal lymphadenopathy versus prominent pericardial recesses. Electronically signed by: Nando Romano M.D. 12/19/2017 9:36 PM Dictated Date/Time: 12/19/2017 9:27 PM
[2017-12-19] MEDS ORDERED: CLON1TAB3 PO (22:52)
[2017-12-19] MEDS ORDERED: COLE1TAB PO (22:55)
[2017-12-19] MEDS ORDERED: CYNI1000 IM (22:58)
[2017-12-19] MEDS ORDERED: DIPH-416 PO (23:00)
[2017-12-19] MEDS ORDERED: FERR1TAB13 PO (23:02)
[2017-12-19] MEDS ORDERED: HALO5TAB PO ×3 (23:04→23:07)
[2017-12-19] MEDS ORDERED: HALO2TAB PO (23:06)
[2017-12-19] MEDS ORDERED: HYDROCORTISONE 1% TD (23:13)
[2017-12-19] MEDS ORDERED: ONDA4TAB46 PO (23:14)
[2017-12-19] MEDS ORDERED: PRD10 PO (23:16)
[2017-12-19] MEDS ORDERED: TAPE100T2 PO (23:18)
[2017-12-19] MEDS ORDERED: ZOLP5TAB6 PO (23:20)
[2017-12-20] VITALS (8 sets, daily range): BP systolic 99–125; BP diastolic 66–85; PULSE 65–93; TEMP 36.4–36.9; O2SAT 96–97; Ht 157.5 cm; Wt 49.8 kg
[2017-12-20] MEDS ORDERED: ACETAMINOPHEN 325 MG TAB PO PRN (01:30)
[2017-12-20] MEDS ORDERED: MAGNESIUM HYDROXIDE SUSP 30 ML UDC PO PRN (01:30)
[2017-12-20] MEDS ORDERED: ALUMINUM/MAGNESIUM/SIMETH (MAALOX MAX) 30 ML UDC PO PRN (01:30)
[2017-12-20] MEDS ORDERED: POLYETHYLENE (MIRALAX) 17 GM PACK PO PRN (01:30)
[2017-12-20] MEDS: CLONAZEPAM 0.5 MG TAB PO PRN (01:55)
[2017-12-20] MEDS: NSS + 20MEQ KCL 1000ML 1,000 ML IV SCH ×4 (03:06→22:37)
[2017-12-20] MEDS: RANITIDINE HCL 150 MG TAB PO SCH ×3 (03:06→21:24)
[2017-12-20] MEDS: HYDROCORTISONE IV 100 MG in SYRINGE 0 ML IV SCH ×2 (03:07→10:39)
[2017-12-20] MEDS ORDERED: IV FLUIDS COMPLETED PRN (04:45)
--- NOTE | 2017-12-20 05:59 | History and Physical ---
History & Physical Date & Time of Service: Dec 20, 2017 at 05:45 Chief Complaint: Substernal Precordial Chest Pain, Tachycardia Primary Care Physician: Damari Vann M.D. History of Present Illness Source: patient, hospital records The patient is a 47-year-old female who presents to the emergency department with variable complaint of sensation of feeling shaky inside, and heart squeezing sensation that began in the morning prior to arrival. She saw her PCP in the morning, was found to be tachycardic and was sent home, and was told to come to the emergency department if her symptoms worsened. Her symptoms have persisted throughout the day, and approximately 1 hour prior to arrival, she became short of breath. She reports family history of myocardial infarction and stroke. During her most recent hospitalization at [facility] from October 19 - December 03, she was treated for a persistent staph infection, and ultimately had her port removed which also grew the staph organism. She was transferred to rehab, where she was released approximately 1 week ago. She reports that her oral intake had been acceptable up until one day ago, when she started to not feel well. 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 (19) Neuropathy (20) Pancolitis (21) Pleuritic chest pain (22) Pneumonia (23) Polypharmacy (24) Sepsis (25) Tachycardia (26) Tachycardia (27) Unspecified psychosis (28) UTI (urinary tract infection) (29) Vasovagal near-syncope (30) Xerosis of skin Surgical Problems: (1) S/P cholecystectomy Family History Cancer Diabetes mellitus Heart disease Hypertension Social History Smoking Status: Light Tobacco Smoker Smokeless Tobacco Use: No Alcohol Use: none Drug Use: none Marital Status: single Housing status: lives alone Occupational Status: unemployed Immunizations History of Influenza Vaccine: Unknown History of Tetanus Vaccine?: Unknown History of Pneumococcal: Unknown History of Hepatitis B Vaccine: Unknown Allergies Coded Allergies: Lorazepam (Verified Allergy, Severe, tongue swelling, 10/19/17) Promethazine (Verified Allergy, Intermediate, restless leg, 12/19/17) Sulfa Antibiotics (Verified Allergy, Intermediate, rash/hives, 10/19/17) Cephalexin (Verified Allergy, Mild, rash, 10/19/17) Penicillins (Verified Allergy, Unknown, Unknown, 10/19/17) Reported by PT Home Medications Scheduled Colestipol Hcl (Colestid), 1 GM PO BID Cyanocobalamin (Cyanocobalamin), 1,000 MCG IM WK Enteral Nutrition Formula (Ensure), 1 CAN PO TID Ergocalciferol (Vitamin D 95314 Unit), 50,000 UNIT PO SUNDAY Ferrous Sulfate (Kp Ferrous Sulfate), 325 MG PO BID Haloperidol (Haldol), 5 MG PO TID Pantoprazole (Protonix), 40 MG PO DAILY Prednisone (Prednisone), 30 MG PO DAILY Tapentadol Hcl (Nucynta), 100 MG PO Q6H [Hydrocortisone 1%], 1 APPLN TD BID Scheduled PRN Clonazepam (Klonopin), 1 MG PO Q8 PRN for Anxiety Diphenoxylate/Atropine (Lomotil), 2 TABS PO Q6H PRN for Diarrhea Haloperidol (Haloperidol), 1 MG PO Q6H PRN for Anxiety/Agitation Ondansetron Hcl (Zofran), 4 MG PO TID PRN for Nausea Ranitidine (Zantac), 150 MG PO BID PRN for Heartburn Zolpidem Tartrate (Zolpidem Tartrate), 5 MG PO HS PRN for Sleep Review of Systems The patient denies cough, lower extremity swelling, sore throat, fevers, chills , sweats, nausea, vomiting, diarrhea , constipation, abdominal pain, pelvic pain, blood in urine or stool, dysuria, urinary frequency or urgency, lightheadedness, dizziness, headache, memory loss, loss of consciousness, rash, abnormal bruising or bleeding, imbalance, focal weakness, numbness or tingling in arms or legs, back or neck pain, or night sweats. The review of systems is otherwise negative other than for that already noted above, and at least 10 systems have been reviewed. Physical Exam Vital Signs Date Time Temp Pulse Resp B/P (MAP) Pulse Ox O2 Delivery O2 Flow Rate FiO2 12/20/17 04:36 36.4 85 18 100/66 (77) 96 12/20/17 04:00 Room Air 12/20/17 02:10 36.4 86 16 125/85 97 Room Air 12/20/17 01:57 90 20 98/73 96 Room Air 12/20/17 00:05 87 18 97 Room Air 12/20/17 00:01 93/72 12/19/17 23:35 85 18 95 Room Air 12/19/17 23:30 101/74 12/19/17 23:05 84 20 95 Room Air 12/19/17 23:04 100/70 12/19/17 23:00 100/70 12/19/17 22:35 88 20 95 Room Air 12/19/17 22:31 93/54 12/19/17 22:05 87 20 94 Room Air 12/19/17 22:01 88 20 95/69 95 Room Air 12/19/17 20:27 88 20 92/69 97 Room Air 12/19/17 19:14 Room Air 12/19/17 19:14 94 Room Air 12/19/17 19:09 Room Air 12/19/17 19:07 37.0 128 20 98/75 94 Room Air 12/19/17 18:57 128 The patient is awake, alert and oriented 3, appears fatigued, normocephalic and atraumatic, lying in bed and in no acute distress. HEENT--PERRL, EOMI, mucous membranes and oropharynx dry, mild to moderate thrush. Neck--supple. No JVD. No bruits. Thyroid normal, trachea midline, no adenopathy. Heart--normal S1 and S2. No murmurs, rubs or gallops. Lungs--clear bilaterally, no respiratory distress, no accessory muscle use. Abdomen--normal bowel sounds and soft. Nontender. Nondistended, no hernias or masses, no organomegaly. Extremities--no cyanosis or clubbing. No edema. There are good distal pulses b/ l. Dermatologic--normal skin turgor, normal color, no abnormal lymph nodes, no rash. Neurologic--cranial nerves II through XII grossly intact. Rheumatologic--normal range of motion. Psychiatric--flat affect. Diagnostics Laboratory Results Results Past 24 Hours Test 4/18/18 19:48 Range/Units White Blood Count 10.29 4.8-10.8 K/uL Red Blood Count 4.18 4.2-5.4 M/uL Hemoglobin 11.5 12.0-16.0 g/dL Hematocrit 35.9 37-47 % Mean Corpuscular Volume 85.9 80-100 fL Mean Corpuscular Hemoglobin 27.5 25-34 pg Mean Corpuscular Hemoglobin Concent 32.0 32-36 g/dl Platelet Count 373 130-400 K/uL Mean Platelet Volume 8.4 7.4-10.4 fL Neutrophils (%) (Auto) 85.2 % Lymphocytes (%) (Auto) 8.6 % Monocytes (%) (Auto) 5.0 % Eosinophils (%) (Auto) 0.6 % Basophils (%) (Auto) 0.1 % Neutrophils # (Auto) 8.78 1.4-6.5 K/uL Lymphocytes # (Auto) 0.88 1.2-3.4 K/uL Monocytes # (Auto) 0.51 0.11-0.59 K/uL Eosinophils # (Auto) 0.06 0-0.5 K/uL Basophils # (Auto) 0.01 0-0.2 K/uL RDW Standard Deviation 72.3 36.4-46.3 fL RDW Coefficient of Variation 23.3 11.5-14.5 % Immature Granulocyte % (Auto) 0.5 % Immature Granulocyte # (Auto) 0.05 0.00-0.02 K/uL Toxic Vacuolation 1+ Anisocytosis PRESENT Prothrombin Time 9.9 9.0-12.0 SECONDS Prothromb Time International Ratio 0.9 0.9-1.1 Activated Partial Thromboplast Time 26.8 21.0-31.0 SECONDS Partial Thromboplastin Ratio 1.0 Sodium Level 140 136-145 mmol/L Potassium Level 3.6 3.5-5.1 mmol/L Chloride Level 106 98-107 mmol/L Carbon Dioxide Level 27 21-32 mmol/L Anion Gap 7.0 3-11 mmol/L Blood Urea Nitrogen 10 7-18 mg/dl Creatinine 0.71 0.60-1.20 mg/dl Est Creatinine Clear Calc Drug Dose 72.3 ml/min Estimated GFR () 115.9 Estimated GFR (Non- 100.0 BUN/Creatinine Ratio 13.4 10-20 Random Glucose 92 70-99 mg/dl Calcium Level 8.2 8.5-10.1 mg/dl Total Bilirubin 0.3 0.2-1 mg/dl Direct Bilirubin < 0.1 0-0.2 mg/dl Aspartate Amino Transf (AST/SGOT) < 3 15-37 U/L Alanine Aminotransferase (ALT/SGPT) 14 12-78 U/L Alkaline Phosphatase 68 45-117 U/L Total Creatine Kinase 14 26-192 U/L Creatine Kinase MB < 0.5 0.5-3.6 ng/ml Creatine Kinase MB Ratio 0-3.0 Troponin I < 0.015 0-0.045 ng/ml Total Protein 6.1 6.4-8.2 gm/dl Albumin 2.9 3.4-5.0 gm/dl Lipase 127 73-393 U/L Diagnostic Radiology Patient Name: LUKAS CHAPA Unit Number: [id number] Dictated: 12/19/171917 Transcribed: 12/19/171917 PBS Printed Date/Time: [~ rep prt dt]/[~ rep prt tm] [~ rep ct labl] - [~ rep ct ivnm] [facility] Radiology Department [place] [id number] Dictated: 12/19/171917 Transcribed: 12/19/171917 PBS Printed Date/Time: [~ rep prt dt]/[~ rep prt tm] [~ rep ct labl] - [~ rep ct ivnm] [~ rep ct add3]] CHEST ONE VIEW PORTABLE CLINICAL HISTORY: 47 years-old Female presenting with CHEST PAIN. TECHNIQUE: Portable upright AP view of the chest was obtained. COMPARISON: 10/26/2017. FINDINGS: Right upper extremity PICC now in place, terminating in the mid SVC. The prior left upper terminate PICC and prior right subclavian Mediport had been removed. Atherosclerosis of the aortic arch. Cardiac silhouette normal in size. Previously suggested right paramediastinal basilar opacity is no longer present. No focal opacity. No large effusion or pneumothorax. Osseous structures normal. Cholecystectomy clips noted. IMPRESSION: 1. No acute cardiopulmonary disease. Electronically signed by: Nando Romano M.D. 12/19/2017 7:19 PM Dictated Date/Time: 12/19/2017 7:18 PM The status of this report is Signed. Draft = Not yet reviewed or approved by Radiologist. Signed = Reviewed and approved by Radiologist. <AttendingPhy></AttendingPhy> <FamilyPhy>Damari Vann M.D.</FamilyPhy> < PrimaryPhy>Damari Vann M.D.</PrimaryPhy> <UnitNumber>[id number]</UnitNumber> < VisitNumber>[id number]</VisitNumber> <PatientName>LUKAS CHAPA</ PatientName> <DateOfBirth>1970</DateOfBirth> <Location>[facility]</Location> < ServiceDate>12/19/17</ServiceDate> <MNE>ESINDI</MNE> <OrderingPhy>Jerrod Hernandez MD</OrderingPhy> <OrderingPhyMNE>f rep ord dr moralez</OrderingPhyMNE> < DictatingPhyMNE>f rep dict dr moralez</DictatingPhyMNE> <CCListMNE>f rep ct mne</ CCListMNE> <AdmittingPhyMNE>f pt admit dr moralez</AdmittingPhyMNE> <AttendingPhyMNE >f pt attend dr moralez</AttendingPhyMNE> <ConsultingPhyMNE>f pt consult dr moralez</ConsultingPhyMNE> <FamilyPhyMNE>f pt fam dr moralez</FamilyPhyMNE> <OtherPhyMNE>f pt other dr moralez</OtherPhyMNE> < PrimaryPhyMNE>f pt prim care dr moralez</PrimaryPhyMNE> <ReferringPhyMNE>f pt referring dr moralez</ReferringPhyMNE> Patient Name: POPLUKAS WHITLOCK Unit Number: [id number] Dictated: 12/19/172126 Transcribed: 12/19/172126 PBS Printed Date/Time: [~ rep prt dt]/[~ rep prt tm] [~ rep ct labl] - [~ rep ct ivnm] [facility] [place] [place] [address] Dictated: 12/19/172126 Transcribed: 12/19/172126 PBS Printed Date/Time: [~ rep prt dt]/[~ rep prt tm] [~ rep ct labl] - [~ rep ct ivnm] [~ rep ct add3]] (CHEST FOR PE) ANGIO WITH CLINICAL HISTORY: 47 years-old Female presenting with ^left chest pain, tachycardia, ?PE. TECHNIQUE: Multidetector CT angiography of the chest was performed after administration of intravenous contrast. 3-D volumetric and/or maximum intensity projection (MIP) images were subsequently reconstructed for review. IV contrast: 73 mL of Optiray 320. A dose lowering technique was used consistent with the principles of ALARA (as low as reasonably achievable). COMPARISON: 10/01/2017. CT DOSE (mGy.cm): The estimated cumulative dose is 262.98 mGy.cm. FINDINGS: Mdm Sr topogram: Right subclavian Mediport terminates in the mid SVC. Pulmonary vasculature: The study is adequate for assessment of the pulmonary vascular tree. No filling defect within the pulmonary arteries to suggest embolus. Main pulmonary artery is not enlarged. No flattening of the interventricular septum. No intracardiac filling defect. No reflux of contrast into the hepatic veins. Remaining chest: On soft tissue windows, normal thyroid and thoracic inlet. Suggestion of prominent right hilar and subcarinal lymph nodes though these could in part represent prominent pericardial recesses. This appearance is different than the prior CTA from 08/31/2016. Direct comparison to the most recent examination is difficult given the absence of contrast on the prior study. Less than 50% narrowing of the origin of the left subclavian artery secondary to calcified and noncalcified atherosclerotic plaque. No other evidence of significant atherosclerosis in the aorta. Normal heart size. Coronary artery calcification. Trace pericardial effusion. Trace bilateral pleural effusions. Cholecystectomy clips. On lung windows, interval increase in bibasilar dependent bandlike consolidation and lower lobe volume loss greater on the left. Redemonstration of the solid right lower lobe nodule (series 4 image 131), unchanged since 2016. No new nodule or infiltrate. Central airways patent. On bone windows, normal osseous structures. Bone island noted in several of the vertebral bodies. IMPRESSION: 1. No evidence of pulmonary embolus. 2. Extensive bibasilar atelectasis. 3. Trace pleural effusions. 4. Stable right lower lobe nodule, unchanged since 2016 consistent with benign etiology. 5. Questionable right hilar and subcarinal lymphadenopathy versus prominent pericardial recesses. Electronically signed by: Nando Romano M.D. 12/19/2017 9:36 PM Dictated Date/Time: 12/19/2017 9:27 PM The status of this report is Signed. Draft = Not yet reviewed or approved by Radiologist. Signed = Reviewed and approved by Radiologist. <AttendingPhy></AttendingPhy> <FamilyPhy>Damari Vann M.D.</FamilyPhy> < PrimaryPhy>Damari Vann M.D.</PrimaryPhy> <UnitNumber>[id number]</UnitNumber> < VisitNumber>[id number]</VisitNumber> <PatientName>LUKAS CHAPA Katie</ PatientName> <DateOfBirth>1970</DateOfBirth> <Location>[facility]</Location> < ServiceDate>12/19/17</ServiceDate> <MNE>ESINDI</MNE> <OrderingPhy>Jerrod Hernandez MD</OrderingPhy> <OrderingPhyMNE>f rep ord dr moralez</OrderingPhyMNE> < DictatingPhyMNE>f rep dict dr moralez</DictatingPhyMNE> <CCListMNE>f rep ct naomy</ CCListMNE> <AdmittingPhyMNE>f pt admit dr moralez</AdmittingPhyMNE> <AttendingPhyMNE >f pt attend dr moralez</AttendingPhyMNE> <ConsultingPhyMNE>f pt consult dr moralez</ConsultingPhyMNE> <FamilyPhyMNE>f pt fam dr moralez</FamilyPhyMNE> <OtherPhyMNE>f pt other dr moralez</OtherPhyMNE> < PrimaryPhyMNE>f pt prim care dr moralez</PrimaryPhyMNE> <ReferringPhyMNE>f pt referring dr moralez</ReferringPhyMNE> EKG EKG shows sinus tachycardia 120 bpm, there are no acute ST-T changes. Impression Assessment and Plan Sinus tachycardia/dehydration/progressive weakness-- Symptoms of patient are likely due to viral process causing dehydration, resolved tachycardia and symptoms upon presentation. After having received 2 L of IV fluid in the ED, her heart rate was back in the upper 80s. Patient continued to have other symptoms of fatigue and shaking inside, but were improved. She is brought into the hospital in observation mode, with plans for continued rehydration with IV fluids. Crohn's disease-- she continues in the outpatient setting on Remicade. Do not see any signs of active exacerbation. Continue colestipol, ensure, ferrous sulfate, and pantoprazole. Hold prednisone in lieu of stress dose steroids, hydrocortisone 100 mg IV every 8 hours. Continue Zantac 150 mg p.o. twice daily, Zofran 4 mg IV every 6 hours as needed. Chronic pain syndrome-- Continue Nucynta. Anxiety/agitation-- Continue Haldol 5 mg p.o. 3 times daily, clonazepam 1 mg p.o. every 8 hours as needed, and zolpidem tartrate 5 mg p.o. at bedtime as needed. Advanced Directives Existing Advance Directive: No Existing Living Will: No Existing Power of Media Reconciliation Specialist: No Resuscitation Status VTE Prophylaxis Will order VTE Prophylaxis: Yes
[2017-12-20] MEDS: TAPENTADOL HCL 50 MG TAB PO SCH ×3 (06:36→18:16)
[2017-12-20] MEDS: FERROUS SULFATE 325 MG TAB PO SCH ×3 (07:30→17:00)
[2017-12-20] MEDS: HALOPERIDOL 5 MG TAB PO SCH ×3 (08:01→21:23)
[2017-12-20] MEDS: ENOXAPARIN 40 MG/0.4 ML SYR SC SCH (08:01)
[2017-12-20] MEDS: PANTOprazole SOD 40 MG TAB PO SCH (08:01)
[2017-12-20] MEDS: BOOST VANILLA PO SCH ×3 (10:39→21:23)
[2017-12-20] MEDS: COLESTIPOL HCL 1 GM TAB PO SCH ×2 (10:39→22:36)
[2017-12-20 12:20] LABS: CKMB < 0.5 ng/ml (0.5-3.6)
--- NOTE | 2017-12-20 13:54 | Psychiatric Consultation ---
Psychiatric Consultation Date of Service: Dec 20, 2017. 47 yo female known to our service from recent consults, who is readmitted due to weakness and dehydration. She reports to the liaison nurse that she was discharged from [facility] a week or so ago, did well initially, but then began to feel unwell, weak, with shaking inside. She told him that she was not suicidal, nor homicidal and not hallucinations. she ended her conversation with him prematurely, not wanting to answer further questions. At this time she is refusing to see any psychiatric providers, but says that she wants to speak with Brent, the liaison today. PLAN: Will continue to make ourselves available to her if she wants to talk. Agree with continuing her haldol as she found this helpful during her last hospitalization and appeared to lessen her suspiciousness. I would still comment, that I would avoid controlled substances where able due to her history of med seeking behaviors [place] multiple [place].
[2017-12-20] MEDS ORDERED: NURSING VERBAL MED ORDER ONE (15:00)
--- NOTE | 2017-12-20 15:59 | Progress Note ---
Subjective Date of Service: Dec 20, 2017. Subjective This pt states she still feels shakey inside and unsteady, is having foul smelling diarrhea this am, no abdominal pain. Problem List Medical Problems: (1) Abdominal pain Status: Acute (2) Chronic pain Status: Acute (3) Exacerbation of Crohn's disease Status: Chronic (4) Fibromyalgia Status: Chronic (5) Hyponatremia Status: Acute (6) Hypovolemia Status: Acute (7) Intractable pain Status: Acute (8) Lactic acidosis Status: Acute (9) Leukocytosis Status: Acute (10) Leukocytosis Status: Acute (11) Pancolitis Status: Acute (12) Sepsis Status: Acute (13) Substernal precordial chest pain Status: Acute (14) Tachycardia Status: Acute (15) UTI (urinary tract infection) Status: Acute Review of Systems Constitutional: No fever, No chills, No weakness, No fatigue Respiratory: No cough, No shortness of breath, No dyspnea on exertion Cardiac: No chest pain, No edema, No claudication Abdomen: + diarrhea, No pain, No nausea, No vomiting, No constipation Musculoskeletal: No joint pain, No muscle pain Female : No dysuria, No urinary frequency Psychiatric: No depression symptoms, No anhedonism Objective Vital Signs Date Time Temp Pulse Resp B/P (MAP) Pulse Ox O2 Delivery O2 Flow Rate FiO2 12/20/17 13:10 36.5 86 18 99/67 (78) 96 Room Air 12/20/17 13:01 36.5 65 18 96 12/20/17 12:02 36.5 65 18 124/68 (86) 96 12/20/17 12:00 Room Air 12/20/17 08:00 Room Air 12/20/17 07:41 36.8 86 20 125/84 (98) 96 Room Air 12/20/17 04:36 36.4 85 18 100/66 (77) 96 12/20/17 04:00 Room Air 12/20/17 02:10 36.4 86 16 125/85 97 Room Air 12/20/17 01:57 90 20 98/73 96 Room Air 12/20/17 00:05 87 18 97 Room Air 12/20/17 00:01 93/72 12/19/17 23:35 85 18 95 Room Air 12/19/17 23:30 101/74 12/19/17 23:05 84 20 95 Room Air 12/19/17 23:04 100/70 12/19/17 23:00 100/70 12/19/17 22:35 88 20 95 Room Air 12/19/17 22:31 93/54 12/19/17 22:05 87 20 94 Room Air 12/19/17 22:01 88 20 95/69 95 Room Air 12/19/17 20:27 88 20 92/69 97 Room Air 12/19/17 19:14 Room Air 12/19/17 19:14 94 Room Air 12/19/17 19:09 Room Air 12/19/17 19:07 37.0 128 20 98/75 94 Room Air 12/19/17 18:57 128 Physical Exam General Appearance: WD/WN, + mild distress Eyes: normal inspection, sclerae normal Neck: supple, no JVD Respiratory/Chest: chest non-tender, lungs clear, normal breath sounds Cardiovascular: regular rate, rhythm, no murmur Abdomen: normal bowel sounds, soft, + tenderness Neurologic/Psychiatric: alert, oriented x 3 Skin: normal color, warm/dry, no rash Laboratory Results Last 24 Hours Test 12/19/17 19:48 12/20/17 10:52 White Blood Count 10.29 K/uL Red Blood Count 4.18 M/uL Hemoglobin 11.5 g/dL Hematocrit 35.9 % Mean Corpuscular Volume 85.9 fL Mean Corpuscular Hemoglobin 27.5 pg Mean Corpuscular Hemoglobin Concent 32.0 g/dl Platelet Count 373 K/uL Mean Platelet Volume 8.4 fL Neutrophils (%) (Auto) 85.2 % Lymphocytes (%) (Auto) 8.6 % Monocytes (%) (Auto) 5.0 % Eosinophils (%) (Auto) 0.6 % Basophils (%) (Auto) 0.1 % Neutrophils # (Auto) 8.78 K/uL Lymphocytes # (Auto) 0.88 K/uL Monocytes # (Auto) 0.51 K/uL Eosinophils # (Auto) 0.06 K/uL Basophils # (Auto) 0.01 K/uL RDW Standard Deviation 72.3 fL RDW Coefficient of Variation 23.3 % Immature Granulocyte % (Auto) 0.5 % Immature Granulocyte # (Auto) 0.05 K/uL Toxic Vacuolation 1+ Anisocytosis PRESENT Prothrombin Time 9.9 SECONDS Prothromb Time International Ratio 0.9 Activated Partial Thromboplast Time 26.8 SECONDS Partial Thromboplastin Ratio 1.0 Sodium Level 140 mmol/L Potassium Level 3.6 mmol/L Chloride Level 106 mmol/L Carbon Dioxide Level 27 mmol/L Anion Gap 7.0 mmol/L Blood Urea Nitrogen 10 mg/dl Creatinine 0.71 mg/dl Est Creatinine Clear Calc Drug Dose 72.3 ml/min Estimated GFR () 115.9 Estimated GFR (Non- 100.0 BUN/Creatinine Ratio 13.4 Random Glucose 92 mg/dl Calcium Level 8.2 mg/dl Total Bilirubin 0.3 mg/dl Direct Bilirubin < 0.1 mg/dl Aspartate Amino Transf (AST/SGOT) < 3 U/L Alanine Aminotransferase (ALT/SGPT) 14 U/L Alkaline Phosphatase 68 U/L Total Creatine Kinase 14 U/L 14 U/L Creatine Kinase MB < 0.5 ng/ml < 0.5 ng/ml Creatine Kinase MB Ratio Troponin I < 0.015 ng/ml < 0.015 ng/ml Total Protein 6.1 gm/dl Albumin 2.9 gm/dl Lipase 127 U/L Assessment and Plan 47 F with c/o subjective shakeyness and found to have C diff diarrhea present on admission, C Diff, will start po vancomycin, and consider cholestyramine Sinus tachycardia/dehydration/progressive weakness-- rehydration with IV fluids. Crohn's disease--no signs of active exacerbation. Continue Remicade Continue colestipol, ensure, ferrous sulfate, and pantoprazole. stress dose steroids, hydrocortisone 50 mg IV every 8 hours. return to po prednisone 12/21 Continue Zantac 150 mg p.o. twice daily, Zofran 4 mg IV every 6 hours as needed. Chronic pain syndrome--Continue Nucynta. Anxiety/agitation--Psychiatry consult , Haldol 5 mg p.o. 3 times daily, clonazepam 1 mg p.o. every 8 hours as needed, and zolpidem tartrate 5 mg p.o. at bedtime as needed.
[2017-12-20] MEDS ORDERED: RASPBERRY SYRUP 5 ML UDP PO SCH (16:00)
[2017-12-20] MEDS ORDERED: VANCOMYCIN HCL 125 MG/2.5ML SOLN PO SCH (16:00)
[2017-12-20] MEDS: NICOTINE 21 MG/24 HR TDSY TD SCH (17:27)
[2017-12-20] MEDS: HYDROCORTISONE IV 50 MG in SYRINGE 0 ML IV SCH (17:28)
[2017-12-20 18:42] LABS: CKMB 0.6 ng/ml (0.5-3.6)
[2017-12-20] MEDS: FIDAXOMICIN TAB 200 MG TAB PO SCH (21:23)
[2017-12-21] MEDS: TAPENTADOL HCL 50 MG TAB PO SCH ×4 (00:14→18:16)
[2017-12-21] MEDS: ZOLPIDEM TARTRATE 5 MG TAB PO PRN (00:14)
[2017-12-21] MEDS: HYDROCORTISONE IV 50 MG in SYRINGE 0 ML IV SCH (02:09)
[2017-12-21 05:58] LABS: BASO % 0.1 %; BASO ABS # 0.01 K/uL (0-0.2); EOS % 0.9 %; EOS ABS # 0.07 K/uL (0-0.5); HEMATOCRIT 32.4 % (37-47); HEMOGLOBIN 10.4 g/dL (12.0-16.0); IG# 0.03 K/uL (0.00-0.02); LYMPH % 8.7 %; LYMPH ABS # 0.67 K/uL (1.2-3.4); MEAN CELL VOLUME 87.6 fL (80-100); MEAN CORPUSCULAR HEMOGLOBIN 28.1 pg (25-34); MEAN CORPUSCULAR HGB CONC 32.1 g/dl (32-36); MEAN PLATELET VOLUME 8.6 fL (7.4-10.4); MONO % 3.5 %; MONO ABS # 0.27 K/uL (0.11-0.59); NEUT % 86.4 %; NEUT ABS # 6.63 K/uL (1.4-6.5); PLATELET COUNT 308 K/uL (130-400); RED CELL DISTRIBUTION WIDTH SD 73.2 fL (36.4-46.3); WHITE BLOOD COUNT 7.68 K/uL (4.8-10.8)
[2017-12-21 06:01] LABS: INR 0.9 (0.9-1.1); PTT PATIENT 26.1 SECONDS (21.0-31.0)
[2017-12-21 06:28] LABS: CALCIUM 7.9 mg/dl (8.5-10.1); CREATININE 0.82 mg/dl (0.60-1.20); POTASSIUM 4.3 mmol/L (3.5-5.1)
[2017-12-21] MEDS: NSS + 20MEQ KCL 1000ML 1,000 ML IV SCH ×3 (07:16→16:14)
[2017-12-21] MEDS: ENOXAPARIN 40 MG/0.4 ML SYR SC SCH (07:17)
[2017-12-21] MEDS: RANITIDINE HCL 150 MG TAB PO SCH ×2 (07:18→21:20)
[2017-12-21] MEDS: PANTOprazole SOD 40 MG TAB PO SCH (07:18)
[2017-12-21 07:19] VITALS: BP 160/94; PULSE 74; TEMP 36.8; O2SAT 94
[2017-12-21] MEDS: HALOPERIDOL 5 MG TAB PO SCH ×3 (08:54→21:20)
[2017-12-21] MEDS: NICOTINE 21 MG/24 HR TDSY TD SCH (08:55)
--- NOTE | 2017-12-21 08:56 | Progress Note ---
Subjective Date of Service: Dec 21, 2017. Subjective pt is much more easier to work with, she has no issues with taking dificid, she has no other issues Problem List Medical Problems: (1) Abdominal pain Status: Acute (2) Chronic pain Status: Acute (3) Exacerbation of Crohn's disease Status: Chronic (4) Fibromyalgia Status: Chronic (5) Hyponatremia Status: Acute (6) Hypovolemia Status: Acute (7) Intractable pain Status: Acute (8) Lactic acidosis Status: Acute (9) Leukocytosis Status: Acute (10) Leukocytosis Status: Acute (11) Pancolitis Status: Acute (12) Sepsis Status: Acute (13) Substernal precordial chest pain Status: Acute (14) Tachycardia Status: Acute (15) UTI (urinary tract infection) Status: Acute Review of Systems Constitutional: No fever, No chills, No sweats Respiratory: No cough, No sputum, No wheezing Cardiac: No chest pain, No PND Abdomen: + diarrhea, No pain, No nausea Musculoskeletal: No joint pain, No muscle pain Objective Vital Signs Date Time Temp Pulse Resp B/P (MAP) Pulse Ox O2 Delivery O2 Flow Rate FiO2 12/21/17 07:19 36.8 74 20 160/94 (116) 94 Room Air 12/21/17 00:00 Room Air 12/20/17 23:17 36.9 74 20 119/82 (94) 96 Room Air 12/20/17 20:32 93 107/75 (86) 12/20/17 16:00 Room Air 12/20/17 13:10 36.5 86 18 99/67 (78) 96 Room Air 12/20/17 13:01 36.5 65 18 96 12/20/17 12:02 36.5 65 18 124/68 (86) 96 12/20/17 12:00 Room Air Physical Exam General Appearance: WD/WN, + mild distress Eyes: normal inspection, sclerae normal Respiratory/Chest: chest non-tender, lungs clear, normal breath sounds Cardiovascular: regular rate, rhythm, no murmur Abdomen: normal bowel sounds, non tender, soft Extremities: non-tender, no pedal edema Neurologic/Psychiatric: alert, oriented x 3 Laboratory Results Last 24 Hours Test 12/20/17 10:52 12/20/17 17:46 12/21/17 05:40 Total Creatine Kinase 14 U/L 11 U/L Creatine Kinase MB < 0.5 ng/ml 0.6 ng/ml Creatine Kinase MB Ratio 5.5 Troponin I < 0.015 ng/ml < 0.015 ng/ml White Blood Count 7.68 K/uL Red Blood Count 3.70 M/uL Hemoglobin 10.4 g/dL Hematocrit 32.4 % Mean Corpuscular Volume 87.6 fL Mean Corpuscular Hemoglobin 28.1 pg Mean Corpuscular Hemoglobin Concent 32.1 g/dl Platelet Count 308 K/uL Mean Platelet Volume 8.6 fL Neutrophils (%) (Auto) 86.4 % Lymphocytes (%) (Auto) 8.7 % Monocytes (%) (Auto) 3.5 % Eosinophils (%) (Auto) 0.9 % Basophils (%) (Auto) 0.1 % Neutrophils # (Auto) 6.63 K/uL Lymphocytes # (Auto) 0.67 K/uL Monocytes # (Auto) 0.27 K/uL Eosinophils # (Auto) 0.07 K/uL Basophils # (Auto) 0.01 K/uL RDW Standard Deviation 73.2 fL RDW Coefficient of Variation 23.0 % Immature Granulocyte % (Auto) 0.4 % Immature Granulocyte # (Auto) 0.03 K/uL Anisocytosis PRESENT Prothrombin Time 9.7 SECONDS Prothromb Time International Ratio 0.9 Activated Partial Thromboplast Time 26.1 SECONDS Partial Thromboplastin Ratio 1.0 Sodium Level 140 mmol/L Potassium Level 4.3 mmol/L Chloride Level 109 mmol/L Carbon Dioxide Level 27 mmol/L Anion Gap 4.0 mmol/L Blood Urea Nitrogen 8 mg/dl Creatinine 0.82 mg/dl Est Creatinine Clear Calc Drug Dose 65.7 ml/min Estimated GFR () 97.4 Estimated GFR (Non- 84.0 BUN/Creatinine Ratio 10.3 Random Glucose 76 mg/dl Calcium Level 7.9 mg/dl Magnesium Level 1.7 mg/dl C-Reactive Protein 1.31 mg/dl Prealbumin 22.2 mg/dl Vitamin B12 Level 382 pg/mL 25-Hydroxy Vitamin D Total 40.8 ng/ml Assessment and Plan 47 F with c/o subjective shakiness and found to have C diff diarrhea present on admission, C Diff, pt refused po vancomycin as states she cannot take syrup and in the past did not tolerate flagyl, is tolerating Dificid and diarrhea is controlled will not need cholestyramine at this time Sinus tachycardia/dehydration/progressive weakness-- improved will stop ivf Crohn's disease--no signs of active exacerbation.on Remicade Continue colestipol, ensure, pt states she cannot tolerate oralferrous sulfate she requests that if iron is low to use iv iron, and continue pantoprazole. stress dose steroids for 24 hours now return to po prednisone 12/21 Continue Zantac 150 mg p.o. twice daily, Zofran 4 mg IV every 6 hours as needed. Chronic pain syndrome--controlled Nucynta. Anxiety/agitation--Psychiatry consult pt limits who she sees prefers to see Brent , Haldol 5 mg p.o. 3 times daily, clonazepam 1 mg p.o. every 8 hours as needed, and zolpidem tartrate 5 mg p.o. at bedtime as needed. Pt moved to full admission status
[2017-12-21] MEDS ORDERED: MAGNESIUM SULFATE 1GM / D5W 1 GM in PREMIXED IN D5W 100 ML IV SCH (09:00)
[2017-12-21] MEDS: BOOST VANILLA PO SCH ×3 (09:07→21:21)
[2017-12-21] MEDS: FIDAXOMICIN TAB 200 MG TAB PO SCH ×2 (09:43→21:39)
[2017-12-21] MEDS: COLESTIPOL HCL 1 GM TAB PO SCH ×2 (09:43→23:22)
[2017-12-21] MEDS: CLONAZEPAM 0.5 MG TAB PO PRN ×2 (11:25→19:50)
--- NOTE | 2017-12-21 15:03 | Medical Consult ---
Consultation Date of Consultation: Dec 21, 2017. Attending Physician: Abimael Maldonado M.D. Reason for Consultation: Restricted medication (Dificid) History of Present Illness 47-year-old female well known to the Infectious Disease service, recently hospitalized with coagulase negative Staph sepsis likely from infected a port, now status post removal and treatment with IV antibiotics, who was admitted with 1 day history of severe chest pain, shortness of breath, dizziness, and leg weakness. Has had several days of diarrhea, and C difficile PCR now positive. Patient has been started on Dificid. No report of fever. No blood in bowel movements. Past Medical/Surgical History Medical Problems: (1) Abdominal pain Status: Acute (2) Chronic pain Status: Acute (3) Exacerbation of Crohn's disease Status: Chronic (4) Fibromyalgia Status: Chronic (5) Hyponatremia Status: Acute (6) Hypovolemia Status: Acute (7) Intractable pain Status: Acute (8) Lactic acidosis Status: Acute (9) Leukocytosis Status: Acute (10) Leukocytosis Status: Acute (11) Pancolitis Status: Acute (12) Sepsis Status: Acute (13) Substernal precordial chest pain Status: Acute (14) Tachycardia Status: Acute (15) UTI (urinary tract infection) Status: Acute Medical Problems: (1) Bulging disc (2) Crohn's disease (3) Exacerbation of Crohn's disease (4) Fibromyalgia (5) Hand eczema (6) Multiple pigmented nevi (7) Neuropathy (8) Pneumonia (9) Tachycardia (10) Unspecified psychosis (11) Xerosis of skin Surgical Problems: (1) S/P cholecystectomy Family History Cancer Diabetes mellitus Heart disease Hypertension Social History Smoking Status: Light Tobacco Smoker Smokeless Tobacco Use: No Alcohol Use: none Drug Use: none Marital Status: single Housing Status: assisted living Occupation Status: unemployed Allergies Coded Allergies: Lorazepam (Verified Allergy, Severe, tongue swelling, 10/19/17) Promethazine (Verified Allergy, Intermediate, restless leg, 12/19/17) Sulfa Antibiotics (Verified Allergy, Intermediate, rash/hives, 10/19/17) Cephalexin (Verified Allergy, Mild, rash, 10/19/17) Penicillins (Verified Allergy, Unknown, Unknown, 10/19/17) Reported by PT Current Inpatient Medications Current Inpatient Medications Medications (Trade) Dose Ordered Sig/Rashard Route Start Time Stop Time Status Last Admin Dose Admin Ioversol (Optiray 320) 100 ml UD PRN IV 12/19/17 19:15 12/23/17 19:14 Enoxaparin Sodium (Lovenox Inj) 40 mg Q24H SC 12/20/17 09:00 01/19/18 08:59 12/21/17 07:17 40 MG Potassium Chloride/Sodium Chloride 1,000 ml @ 125 mls/hr Q8H IV 12/20/17 03:00 01/19/18 02:59 12/21/17 07:25 125 MLS/HR Acetaminophen (Tylenol Tab) 650 mg Q4H PRN PO 12/20/17 01:30 01/19/18 01:29 Al Hydrox/Mg Hydrox/Simethicone (Maalox Max Susp) 15 ml Q4H PRN PO 12/20/17 01:30 01/19/18 01:29 Magnesium Hydroxide (Milk Of Magnesia Susp) 30 ml Q12H PRN PO 12/20/17 01:30 01/19/18 01:29 Polyethylene (Miralax Powder Packet) 17 gm DAILY PRN PO 12/20/17 01:30 01/19/18 01:29 Clonazepam (Klonopin Tab) 1 mg Q8 PRN PO 12/20/17 01:30 01/19/18 01:29 12/21/17 11:25 1 MG Colestipol HCl (Colestid Tab) 1 gm BID@1000,2200 PO 12/20/17 10:00 01/19/18 09:59 12/21/17 09:43 1 GM Diphenoxylate HCl/ Atropine (Lomotil Tab) 2 tab Q6H PRN PO 12/20/17 01:30 01/19/18 01:29 Enteral Nutritional Formula (Boost) 1 can TID PO 12/20/17 10:00 01/19/18 09:59 12/21/17 09:07 1 CAN Haloperidol (Haldol Tab) 5 mg TID PO 12/20/17 09:00 01/19/18 08:59 12/21/17 14:21 5 MG Pantoprazole Sodium (Protonix Tab) 40 mg DAILY PO 12/20/17 09:00 01/19/18 08:59 12/21/17 07:18 40 MG Zolpidem Tartrate (Ambien Tab) 5 mg HS PRN PO 12/20/17 01:30 01/19/18 01:29 12/21/17 00:14 5 MG Tapentadol (Nucynta Tab) 100 mg Q6H PO 12/20/17 06:00 01/19/18 05:59 12/21/17 11:27 100 MG Ondansetron HCl (Zofran Odt) 8 mg Q6H PRN PO 12/20/17 01:45 01/19/18 01:44 Ranitidine HCl (zANTac TAB) 150 mg BID PO 12/20/17 03:00 01/19/18 02:59 12/21/17 07:18 150 MG Miscellaneous (Iv Fluids Completed) 1 ea PRN PRN N/A 12/20/17 04:45 12/20/18 04:44 Heparin Sodium (Porcine) (Heparin 10 Unit/ ml 5 ml Flush) 5 ml PRN PRN FLUSH 12/20/17 15:15 01/19/18 15:14 12/21/17 05:52 5 ML Nicotine (Nicoderm Cq 21MG Patch) 1 patch QAM TD 12/20/17 16:45 01/19/18 16:44 12/21/17 08:55 1 PATCH Miscellaneous (Remove Nicoderm Patch) 1 ea HS N/A 12/20/17 21:00 01/19/18 20:59 Fidaxomicin (Dificid Tab) 200 mg BID PO 12/20/17 21:00 01/03/18 20:59 12/21/17 09:43 200 MG Prednisone (PredniSONE TAB) 30 mg DAILY PO 12/21/17 09:00 01/20/18 08:59 12/21/17 09:46 30 MG Review of Systems Constitutional: + weakness, No fever Eyes: No problem reported ENT: No problem reported Respiratory: + shortness of breath, + dyspnea on exertion Cardiovascular: + chest pain Abdomen: No pain, No nausea, No vomiting Genitourinary - Female: No problem reported Neurologic: + weakness Psychiatric: No problem reported Endocrine: No problem reported Hematologic / Lymphatic: No problem reported Integumentary: No problem reported Allergic / Immunologic: No problem reported Physical Exam Date Time Temp Pulse Resp B/P (MAP) Pulse Ox O2 Delivery O2 Flow Rate FiO2 12/21/17 10:01 Room Air 12/21/17 07:19 36.8 74 20 160/94 (116) 94 Room Air 12/21/17 00:00 Room Air 12/20/17 23:17 36.9 74 20 119/82 (94) 96 Room Air 12/20/17 20:32 93 107/75 (86) 12/20/17 16:00 Room Air General Appearance: WD/WN, no apparent distress Head: normocephalic, atraumatic Eyes: normal inspection, EOMI, sclerae normal ENT: normal ENT inspection, hearing grossly normal, pharynx normal Neck: supple, no adenopathy, thyroid normal, trachea midline Respiratory/Chest: chest non-tender, lungs clear, normal breath sounds, no respiratory distress Cardiovascular: regular rate, rhythm, no gallop, no murmur Abdomen/GI: normal bowel sounds, non tender, soft, no organomegaly Back: normal inspection, no CVA tenderness Extremities/Musculoskelatal: no calf tenderness, normal capillary refill, non- tender Neurologic/Psych: alert, oriented x 3 Skin: normal color, warm/dry, no rash Lymphatic: no adenopathy Laboratory Results RUN DATE: 12/20/17 [facility] PAGE 1 RUN TIME: 9873 Specimen Inquiry [id number] LOC: [place] U # : [id number] AGE/SX: 47/F ROOM: 59 REG : 12/20/[address]: Abimael Maldonado M : 1970 BED: 1 DIS : STATUS: ADM Rachel TLOC: SPEC #: [id number] DEMARIO: 12/20/17-UNK STATUS: COMP REQ #: [id number] RECD: 12/20/17-[address]: Abimael Maldonado M.D. SOURCE: STOOL ENTR: 12/20/17-[address] [facility] [address]: Damari Vann M.D. [facility] Cleve Singer M.D., Melissa C., MD ORDERED: CDIFF TOXIN B COMMENTS: Has Specimen Been Obtained/Collected? Y I have reviewed the C. diff order recommendations Y Procedure Result Verified Site CDIFF TOXIN B GENE*(2 YR OR >) Final 12/20/17-1444 Positive for C. difficile toxin B gene RESULTS WERE ALSO CALLED TO [facility] INFECTION CONTROL ANSWERING MACHINE ON 12/20/17 BY PRISCILLA.Phoned results to DAMARI SAHA on 12/20/17 at 1441 by Lavern Hung. Results were verbalized back to PRISCILLA. Last 24 Hours Test 12/20/17 17:46 12/21/17 05:40 Total Creatine Kinase 11 U/L Creatine Kinase MB 0.6 ng/ml Creatine Kinase MB Ratio 5.5 Troponin I < 0.015 ng/ml White Blood Count 7.68 K/uL Red Blood Count 3.70 M/uL Hemoglobin 10.4 g/dL Hematocrit 32.4 % Mean Corpuscular Volume 87.6 fL Mean Corpuscular Hemoglobin 28.1 pg Mean Corpuscular Hemoglobin Concent 32.1 g/dl Platelet Count 308 K/uL Mean Platelet Volume 8.6 fL Neutrophils (%) (Auto) 86.4 % Lymphocytes (%) (Auto) 8.7 % Monocytes (%) (Auto) 3.5 % Eosinophils (%) (Auto) 0.9 % Basophils (%) (Auto) 0.1 % Neutrophils # (Auto) 6.63 K/uL Lymphocytes # (Auto) 0.67 K/uL Monocytes # (Auto) 0.27 K/uL Eosinophils # (Auto) 0.07 K/uL Basophils # (Auto) 0.01 K/uL RDW Standard Deviation 73.2 fL RDW Coefficient of Variation 23.0 % Immature Granulocyte % (Auto) 0.4 % Immature Granulocyte # (Auto) 0.03 K/uL Anisocytosis PRESENT Prothrombin Time 9.7 SECONDS Prothromb Time International Ratio 0.9 Activated Partial Thromboplast Time 26.1 SECONDS Partial Thromboplastin Ratio 1.0 Sodium Level 140 mmol/L Potassium Level 4.3 mmol/L Chloride Level 109 mmol/L Carbon Dioxide Level 27 mmol/L Anion Gap 4.0 mmol/L Blood Urea Nitrogen 8 mg/dl Creatinine 0.82 mg/dl Est Creatinine Clear Calc Drug Dose 65.7 ml/min Estimated GFR () 97.4 Estimated GFR (Non- 84.0 BUN/Creatinine Ratio 10.3 Random Glucose 76 mg/dl Calcium Level 7.9 mg/dl Magnesium Level 1.7 mg/dl C-Reactive Protein 1.31 mg/dl Prealbumin 22.2 mg/dl Vitamin B12 Level 382 pg/mL 25-Hydroxy Vitamin D Total 40.8 ng/ml Patient Name: LUKAS CHAPA Unit Number: [id number] Dictated: 12/19/172126 Transcribed: 12/19/172126 PBS Printed Date/Time: [~ rep prt dt]/[~ rep prt tm] [~ rep ct labl] - [~ rep ct ivnm] [facility] Radiology Department [place] [id number] Dictated: 12/19/172126 Transcribed: 12/19/172126 PBS Printed Date/Time: [~ rep prt dt]/[~ rep prt tm] [~ rep ct labl] - [~ rep ct ivnm] (CHEST FOR PE) ANGIO WITH CLINICAL HISTORY: 47 years-old Female presenting with ^left chest pain, tachycardia, ?PE. TECHNIQUE: Multidetector CT angiography of the chest was performed after administration of intravenous contrast. 3-D volumetric and/or maximum intensity projection (MIP) images were subsequently reconstructed for review. IV contrast: 73 mL of Optiray 320. A dose lowering technique was used consistent with the principles of ALARA (as low as reasonably achievable). COMPARISON: 10/01/2017. CT DOSE (mGy.cm): The estimated cumulative dose is 262.98 mGy.cm. FINDINGS: [employer] topogram: Right subclavian Mediport terminates in the mid SVC. Pulmonary vasculature: The study is adequate for assessment of the pulmonary vascular tree. No filling defect within the pulmonary arteries to suggest embolus. Main pulmonary artery is not enlarged. No flattening of the interventricular septum. No intracardiac filling defect. No reflux of contrast into the hepatic veins. Remaining chest: On soft tissue windows, normal thyroid and thoracic inlet. Suggestion of prominent right hilar and subcarinal lymph nodes though these could in part represent prominent pericardial recesses. This appearance is different than the prior CTA from 08/31/2016. Direct comparison to the most recent examination is difficult given the absence of contrast on the prior study. Less than 50% narrowing of the origin of the left subclavian artery secondary to calcified and noncalcified atherosclerotic plaque. No other evidence of significant atherosclerosis in the aorta. Normal heart size. Coronary artery calcification. Trace pericardial effusion. Trace bilateral pleural effusions. Cholecystectomy clips. On lung windows, interval increase in bibasilar dependent bandlike consolidation and lower lobe volume loss greater on the left. Redemonstration of the solid right lower lobe nodule (series 4 image 131), unchanged since 2016. No new nodule or infiltrate. Central airways patent. On bone windows, normal osseous structures. Bone island noted in several of the vertebral bodies. IMPRESSION: 1. No evidence of pulmonary embolus. 2. Extensive bibasilar atelectasis. 3. Trace pleural effusions. 4. Stable right lower lobe nodule, unchanged since 2016 consistent with benign etiology. 5. Questionable right hilar and subcarinal lymphadenopathy versus prominent pericardial recesses. Electronically signed by: Nando Romano M.D. 12/19/2017 9:36 PM Dictated Date/Time: 12/19/2017 9:27 PM The status of this report is Signed. Draft = Not yet reviewed or approved by Radiologist. Signed = Reviewed and approved by Radiologist. <AttendingPhy></AttendingPhy> <FamilyPhy>Damari Vann M.D.</FamilyPhy> < PrimaryPhy>Damari Vann M.D.</PrimaryPhy> <UnitNumber>[id number]</UnitNumber> < VisitNumber>[id number]</VisitNumber> <PatientName>LUKAS CHAPA</ PatientName> <DateOfBirth>1970</DateOfBirth> <Location>[facility]</Location> < ServiceDate>12/19/17</ServiceDate> <MNE>ESINDI</MNE> <OrderingPhy>Jerrod Hernandez MD</OrderingPhy> <OrderingPhyMNE>f rep ord dr moralez</OrderingPhyMNE> < DictatingPhyMNE>f rep dict dr moralez</DictatingPhyMNE> <CCListMNE>f rep ct mne</ CCListMNE> <AdmittingPhyMNE>f pt admit dr moralez</AdmittingPhyMNE> <AttendingPhyMNE >f pt attend dr moralez</AttendingPhyMNE> <ConsultingPhyMNE>f pt consult dr moralez</ConsultingPhyMNE> <FamilyPhyMNE>f pt fam dr moralez</FamilyPhyMNE> <OtherPhyMNE>f pt other dr moralez</OtherPhyMNE> < PrimaryPhyMNE>f pt prim care dr moralez</PrimaryPhyMNE> <ReferringPhyMNE>f pt referring dr moralez</ReferringPhyMNE> Assessment & Plan 47-year-old female with inflammatory bowel disease on immunosuppressive therapy now with C difficile colitis. Given high possibility of recurrence after appropriate treatment, agree with the use of Dificid 200 milligrams b.i.d. for 10 days. Will follow.
[2017-12-21 15:44] VITALS: BP 118/80; PULSE 83; TEMP 36.9; O2SAT 95
[2017-12-21 16:00] VITALS: O2SAT 95
[2017-12-21] MEDS: ONDANSETRON 8MG OD TAB PO PRN (19:51)
[2017-12-22] MEDS: NSS + 20MEQ KCL 1000ML 1,000 ML IV SCH ×2 (00:05→08:14)
[2017-12-22 00:08] VITALS: BP 146/86; PULSE 65; TEMP 36.7; O2SAT 95
[2017-12-22] MEDS: ZOLPIDEM TARTRATE 5 MG TAB PO PRN ×2 (00:20→23:20)
[2017-12-22] MEDS: TAPENTADOL HCL 50 MG TAB PO SCH ×5 (00:20→23:20)
[2017-12-22 06:03] LABS: EOS % 0.6 %; EOS ABS # 0.05 K/uL (0-0.5); HEMATOCRIT 31.8 % (37-47); IG# 0.05 K/uL (0.00-0.02); LYMPH % 13.5 %; LYMPH ABS # 1.21 K/uL (1.2-3.4); MEAN CELL VOLUME 87.4 fL (80-100); MEAN CORPUSCULAR HEMOGLOBIN 27.5 pg (25-34); MEAN CORPUSCULAR HGB CONC 31.4 g/dl (32-36); MEAN PLATELET VOLUME 8.3 fL (7.4-10.4); MONO % 10.5 %; MONO ABS # 0.94 K/uL (0.11-0.59); NEUT % 74.8 %; PLATELET COUNT 273 K/uL (130-400); RED CELL DISTRIBUTION WIDTH CV 22.2 % (11.5-14.5); RED CELL DISTRIBUTION WIDTH SD 70.6 fL (36.4-46.3); WHITE BLOOD COUNT 8.95 K/uL (4.8-10.8)
[2017-12-22 06:14] LABS: INR 0.9 (0.9-1.1); PTT PATIENT 25.4 SECONDS (21.0-31.0)
[2017-12-22 06:33] LABS: CALCIUM 7.8 mg/dl (8.5-10.1); CREATININE 0.73 mg/dl (0.60-1.20); POTASSIUM 4.1 mmol/L (3.5-5.1)
[2017-12-22 07:37] VITALS: BP 142/90; PULSE 60; TEMP 36.7; O2SAT 96
[2017-12-22] MEDS: ONDANSETRON 8MG OD TAB PO PRN (08:09)
[2017-12-22] MEDS: RANITIDINE HCL 150 MG TAB PO SCH ×2 (08:10→20:28)
[2017-12-22] MEDS: HALOPERIDOL 5 MG TAB PO SCH ×4 (08:11→20:28)
[2017-12-22] MEDS: ENOXAPARIN 40 MG/0.4 ML SYR SC SCH (08:12)
[2017-12-22] MEDS: PANTOprazole SOD 40 MG TAB PO SCH (08:12)
[2017-12-22] MEDS: NICOTINE 21 MG/24 HR TDSY TD SCH (08:13)
[2017-12-22] MEDS: FIDAXOMICIN TAB 200 MG TAB PO SCH ×2 (08:13→20:49)
[2017-12-22] MEDS: BOOST VANILLA PO SCH ×3 (09:07→20:27)
[2017-12-22] MEDS: COLESTIPOL HCL 1 GM TAB PO SCH ×2 (10:08→21:52)
[2017-12-22] MEDS: CLONAZEPAM 0.5 MG TAB PO PRN (10:33)
--- NOTE | 2017-12-22 14:57 | Progress Note ---
Subjective Date of Service: Dec 22, 2017. Subjective pt remains hyperfocused on the shaking feeling inside that she feels is incapacitating, she has had control of diarrhea and otherwise no significant issues, she is not exhibiting external tremor or other withdrawal symptoms. Problem List Medical Problems: (1) Abdominal pain Status: Acute (2) Chronic pain Status: Acute (3) Exacerbation of Crohn's disease Status: Chronic (4) Fibromyalgia Status: Chronic (5) Hyponatremia Status: Acute (6) Hypovolemia Status: Acute (7) Intractable pain Status: Acute (8) Lactic acidosis Status: Acute (9) Leukocytosis Status: Acute (10) Leukocytosis Status: Acute (11) Pancolitis Status: Acute (12) Sepsis Status: Acute (13) Substernal precordial chest pain Status: Acute (14) Tachycardia Status: Acute (15) UTI (urinary tract infection) Status: Acute Review of Systems Constitutional: No fever, No chills, No weakness Respiratory: No cough, No shortness of breath Cardiac: No chest pain, No edema Abdomen: No pain, No nausea, No vomiting, No diarrhea Psychiatric: + depression symptoms, + anxiety Objective Vital Signs Date Time Temp Pulse Resp B/P (MAP) Pulse Ox O2 Delivery O2 Flow Rate FiO2 12/22/17 09:54 Room Air 12/22/17 07:37 36.7 60 16 142/90 (107) 96 Room Air 12/22/17 00:08 36.7 65 18 146/86 (106) 95 Room Air 12/22/17 00:00 Room Air 12/21/17 16:00 95 Room Air 12/21/17 15:44 36.9 83 16 118/80 (93) 95 Room Air Physical Exam General Appearance: WD/WN, + mild distress Eyes: normal inspection, sclerae normal Neck: supple, no JVD Respiratory/Chest: chest non-tender, lungs clear, normal breath sounds Cardiovascular: regular rate, rhythm, no murmur Abdomen: normal bowel sounds, non tender, soft Extremities: no pedal edema, no calf tenderness Neurologic/Psychiatric: alert, oriented x 3 Laboratory Results Last 24 Hours Test 12/22/17 05:54 White Blood Count 8.95 K/uL Red Blood Count 3.64 M/uL Hemoglobin 10.0 g/dL Hematocrit 31.8 % Mean Corpuscular Volume 87.4 fL Mean Corpuscular Hemoglobin 27.5 pg Mean Corpuscular Hemoglobin Concent 31.4 g/dl Platelet Count 273 K/uL Mean Platelet Volume 8.3 fL Neutrophils (%) (Auto) 74.8 % Lymphocytes (%) (Auto) 13.5 % Monocytes (%) (Auto) 10.5 % Eosinophils (%) (Auto) 0.6 % Basophils (%) (Auto) 0.0 % Neutrophils # (Auto) 6.70 K/uL Lymphocytes # (Auto) 1.21 K/uL Monocytes # (Auto) 0.94 K/uL Eosinophils # (Auto) 0.05 K/uL Basophils # (Auto) 0.00 K/uL RDW Standard Deviation 70.6 fL RDW Coefficient of Variation 22.2 % Immature Granulocyte % (Auto) 0.6 % Immature Granulocyte # (Auto) 0.05 K/uL Anisocytosis PRESENT Prothrombin Time 9.7 SECONDS Prothromb Time International Ratio 0.9 Activated Partial Thromboplast Time 25.4 SECONDS Partial Thromboplastin Ratio 1.0 Sodium Level 140 mmol/L Potassium Level 4.1 mmol/L Chloride Level 108 mmol/L Carbon Dioxide Level 29 mmol/L Anion Gap 3.0 mmol/L Blood Urea Nitrogen 9 mg/dl Creatinine 0.73 mg/dl Est Creatinine Clear Calc Drug Dose 73.8 ml/min Estimated GFR () 112.1 Estimated GFR (Non- 96.7 BUN/Creatinine Ratio 12.8 Random Glucose 71 mg/dl Calcium Level 7.8 mg/dl Magnesium Level 1.9 mg/dl Assessment and Plan 47 F with c/o subjective shakiness and found to have C diff diarrhea present on admission she is not somatically focused on c/o internal shakiness. I think that this is anxiety related and will increase haldol and add buspar on 12/22 C Diff, pt refused po vancomycin as states she cannot take syrup and in the past did not tolerate flagyl, is tolerating Dificid and diarrhea remains controlled Sinus tachycardia/dehydration/progressive weakness--resolved Crohn's disease--no exacerbation.on Remicade Continue colestipol, ensure, pt states she cannot tolerate oralferrous sulfate she requests that if iron is low to use iv iron, and continue pantoprazole. stress dose steroids for 24 hours now return to po prednisone 12/21, since c/o shakiness will reduce prednisone to 20 on 12/22 Continue Zantac 150 mg p.o. twice daily, Zofran 4 mg IV every 6 hours as needed. Chronic pain syndrome--controlled Nucynta. Anxiety/agitation--Psychiatry consult pt limits who she sees prefers to see Brent , Haldol 5 mg p.o. 4 times daily, clonazepam 1 mg p.o. every 8 hours as needed, and zolpidem tartrate 5 mg p.o. at bedtime as needed. Pt moved to full admission status
[2017-12-22] MEDS: BusPIRone 15 MG TAB PO SCH (15:37)
[2017-12-22] MEDS: DIPHENOXYLATE/ATROPINE 2.5/0.025MG TAB PO PRN (16:06)
[2017-12-22 16:14] VITALS: BP 104/72; PULSE 87; TEMP 36.9; O2SAT 96
[2017-12-22 23:36] VITALS: BP 127/82; PULSE 65; TEMP 36.4; O2SAT 95
[2017-12-23] MEDS: TAPENTADOL HCL 50 MG TAB PO SCH ×3 (05:36→18:20)
[2017-12-23 07:14] VITALS: BP 110/76; PULSE 74; TEMP 36.7; O2SAT 97
[2017-12-23] MEDS: NICOTINE 21 MG/24 HR TDSY TD SCH (08:52)
[2017-12-23] MEDS: RANITIDINE HCL 150 MG TAB PO SCH ×2 (08:52→22:13)
[2017-12-23] MEDS: PANTOprazole SOD 40 MG TAB PO SCH (08:53)
[2017-12-23] MEDS: HALOPERIDOL 5 MG TAB PO SCH ×4 (08:53→22:12)
[2017-12-23] MEDS: ENOXAPARIN 40 MG/0.4 ML SYR SC SCH (08:53)
[2017-12-23] MEDS: FIDAXOMICIN TAB 200 MG TAB PO SCH ×2 (08:55→22:12)
[2017-12-23] MEDS: BusPIRone 15 MG TAB PO SCH (08:55)
[2017-12-23] MEDS: BOOST VANILLA PO SCH ×3 (08:55→22:12)
[2017-12-23 09:16] VITALS: O2SAT 97
[2017-12-23] MEDS: COLESTIPOL HCL 1 GM TAB PO SCH ×2 (09:57→22:13)
[2017-12-23] MEDS: DIPHENOXYLATE/ATROPINE 2.5/0.025MG TAB PO PRN (12:43)
--- NOTE | 2017-12-23 15:04 | Progress Note ---
Subjective Date of Service: Dec 23, 2017. Subjective pt still feels shakey inside, now alerts me to fact that she feels she is having increased stool coming out of her vagina, she has a known colonic vaginal fistulae that was attempted to be temporized by treating her Crohns with Remicade, as surgery without it would be difficult to the presumed significant inflammatory changes in bowel present when the fistulae was discovered. She has been in consult with [place] [facility] [place] will discuss with Gastroenterology here to determine if we need re test this fistulae Problem List Medical Problems: (1) Abdominal pain Status: Acute (2) Chronic pain Status: Acute (3) Exacerbation of Crohn's disease Status: Chronic (4) Fibromyalgia Status: Chronic (5) Hyponatremia Status: Acute (6) Hypovolemia Status: Acute (7) Intractable pain Status: Acute (8) Lactic acidosis Status: Acute (9) Leukocytosis Status: Acute (10) Leukocytosis Status: Acute (11) Pancolitis Status: Acute (12) Sepsis Status: Acute (13) Substernal precordial chest pain Status: Acute (14) Tachycardia Status: Acute (15) UTI (urinary tract infection) Status: Acute Review of Systems Constitutional: + problem reported (she states she feels shakey inside and becomes tearful as she states she cannot live like this), No fever, No chills Respiratory: No cough, No shortness of breath Cardiac: No chest pain, No edema Abdomen: + diarrhea, No pain, No nausea, No vomiting Musculoskeletal: No joint pain, No muscle pain Neurologic: No memory loss, No paralysis Psychiatric: + anxiety, No depression symptoms Objective Vital Signs Date Time Temp Pulse Resp B/P (MAP) Pulse Ox O2 Delivery O2 Flow Rate FiO2 12/23/17 09:16 97 Room Air 12/23/17 07:14 36.7 74 18 110/76 (87) 97 Room Air 12/22/17 23:36 36.4 65 18 127/82 (97) 95 Room Air 12/22/17 23:15 Room Air 12/22/17 16:14 36.9 87 16 104/72 (83) 96 Room Air 12/22/17 16:00 Room Air Physical Exam General Appearance: WD/WN, + moderate distress Eyes: normal inspection, sclerae normal Respiratory/Chest: chest non-tender, lungs clear, normal breath sounds Cardiovascular: regular rate, rhythm, no murmur Abdomen: normal bowel sounds, non tender, soft Extremities: no pedal edema, no calf tenderness Neurologic/Psychiatric: alert, oriented x 3 Assessment and Plan 47 F with c/o subjective shakiness and found to have C diff diarrhea present on admission she is not somatically focused on c/o internal shakiness. she becomes tearful when discussing this shakiness, despite increase haldol and adding buspar on C Diff, pt refused po vancomycin as states she cannot take syrup and in the past did not tolerate flagyl, is tolerating Dificid and diarrhea remains controlled Now complains of increased vaginal stool, despite this she has no issue with leukocytosis or worsened abdominal exam, I did discuss Barium enema, but she states " that will kill me", I will ask GI medicine to see pt to determine if we need to have additional diagnostic work up as they have helped with this in the past Sinus tachycardia/dehydration/progressive weakness--resolved Crohn's disease--no exacerbation.on Remicade, stools are reasonable not frequent or overtly loose Continue colestipol, ensure, pt states she cannot tolerate oral ferrous sulfate she requests that if iron is low to use iv iron, and continue pantoprazole. stress dose steroids for 24 hours now return to po prednisone 12/21, since c/o shakiness will reduce prednisone to 20 on 12/22 Continue Zantac 150 mg p.o. twice daily, Zofran 4 mg IV every 6 hours as needed. Chronic pain syndrome--controlled Nucynta pain has not been her issue this stay Anxiety/agitation--Psychiatry consult pt limits who she sees prefers to see Brent , Haldol 5 mg p.o. 4 times daily, clonazepam 1 mg p.o. every 8 hours as needed, and zolpidem tartrate 5 mg p.o. at bedtime as needed. Pt moved to full admission status
[2017-12-23 16:00] VITALS: O2SAT 97
[2017-12-23 16:10] VITALS: BP 89/60; PULSE 84; TEMP 36.7; O2SAT 95
[2017-12-23 23:35] VITALS: BP 93/58; PULSE 79; TEMP 36.4; O2SAT 96
[2017-12-24] MEDS: ZOLPIDEM TARTRATE 5 MG TAB PO PRN (00:03)
[2017-12-24] MEDS: TAPENTADOL HCL 50 MG TAB PO SCH ×4 (00:03→18:07)
[2017-12-24 06:19] LABS: HEMATOCRIT 35.2 % (37-47); HEMOGLOBIN 11.1 g/dL (12.0-16.0); MEAN CELL VOLUME 87.1 fL (80-100); MEAN CORPUSCULAR HEMOGLOBIN 27.5 pg (25-34); MEAN CORPUSCULAR HGB CONC 31.5 g/dl (32-36); PLATELET COUNT 289 K/uL (130-400); RED CELL DISTRIBUTION WIDTH CV 21.9 % (11.5-14.5); RED CELL DISTRIBUTION WIDTH SD 69.6 fL (36.4-46.3); WHITE BLOOD COUNT 10.21 K/uL (4.8-10.8)
[2017-12-24 06:56] LABS: CALCIUM 8.5 mg/dl (8.5-10.1); CREATININE 0.78 mg/dl (0.60-1.20); POTASSIUM 4.3 mmol/L (3.5-5.1)
[2017-12-24 07:20] VITALS: BP 129/83; PULSE 64; TEMP 36.6; O2SAT 97
[2017-12-24] MEDS: RANITIDINE HCL 150 MG TAB PO SCH ×2 (07:37→21:14)
[2017-12-24] MEDS: NICOTINE 21 MG/24 HR TDSY TD SCH (07:37)
[2017-12-24] MEDS: HALOPERIDOL 5 MG TAB PO SCH ×4 (07:38→21:13)
[2017-12-24] MEDS: BOOST VANILLA PO SCH ×3 (07:38→21:12)
[2017-12-24] MEDS: ONDANSETRON 8MG OD TAB PO PRN (07:38)
[2017-12-24] MEDS: ENOXAPARIN 40 MG/0.4 ML SYR SC SCH ×2 (07:38→07:41)
[2017-12-24] MEDS: PANTOprazole SOD 40 MG TAB PO SCH (07:38)
[2017-12-24] MEDS: BusPIRone 15 MG TAB PO SCH (07:38)
[2017-12-24 08:00] VITALS: O2SAT 97
[2017-12-24] MEDS: FIDAXOMICIN TAB 200 MG TAB PO SCH ×2 (08:24→21:13)
[2017-12-24] MEDS: COLESTIPOL HCL 1 GM TAB PO SCH ×2 (10:20→22:41)
[2017-12-24] MEDS: DIPHENOXYLATE/ATROPINE 2.5/0.025MG TAB PO PRN (12:36)
[2017-12-24] MEDS: CLONAZEPAM 0.5 MG TAB PO PRN (12:40)
[2017-12-24 15:34] VITALS: BP 106/72; PULSE 99; TEMP 37; O2SAT 95
--- NOTE | 2017-12-24 18:35 | GASTROINTESTINAL CONSULTATION ---
DATE OF CONSULTATION: 12/24/2017 GI consult note. REASON FOR EVALUATION: Rectovaginal fistula. HISTORY OF PRESENT ILLNESS: The patient is a 47-year-old with a known history of Crohn's, colitis. She was recently hospitalized for about a month with a flare up of her disease. She had a documented rectovaginal fistula which is very distal in the rectum and large enough that a fingertip could be passed through it. She had a colonoscopy that showed active Crohn's disease in the left side of the colon along with a lot of scarring. She was started on Remicade after her [id number]-Ayga was removed that was infected with a staph organism that was not MRSA. Once the [id number]-f-Fqmo was removed, her infection was able to be cleared and she was able to tolerate Remicade. She was also placed on Haldol during that hospitalization to help with her mood disorder and paranoid psychosis and she is much more cooperative now. She has been on a large dose of prednisone before she started Remicade and is starting to be tapered down now to 20 mg a day. She has an appointment in a week to see the colorectal surgeon to establish with him concerning the fistula. PAST MEDICAL HISTORY: Remarkable for paranoid psychosis, colonic Crohn's disease, chronic pain, recurrent urinary tract infections and cholecystectomy. MEDICATIONS: Colestid, vitamin D, Haldol, Protonix, prednisone and Nucynta. She is also on p.r.n. Klonopin, Zofran, Zantac, and zolpidem. ALLERGIES: LORAZEPAM, PROMETHAZINE, SULFA, CEPHALEXIN AND PENICILLIN. FAMILY HISTORY: Positive for cancer, diabetes, heart disease, hypertension. SOCIAL HISTORY: The patient is single, lives alone. She is unemployed. She does smoke cigarettes. REVIEW OF SYSTEMS: Positive for laws face. Remainder is negative. PHYSICAL EXAMINATION: GENERAL: Patient has signs of chronic steroid use with a laws face and central weight gain. VITAL SIGNS: Blood pressure is 100/66, pulse 85, temperature is 36.4, respirations 18. ABDOMEN: Shows normal bowel sounds. No mass or tenderness. IMPRESSION AND PLAN: The patient's Crohn's disease is currently being treated with Remicade. Her next dose is in about a week. She is also on a tapering dose of prednisone. I would like to try to get her off the steroids altogether as she is developing some chronic side effects. Her rectovaginal fistula is unlikely to heal given the size. I would probably give the biologic several months to see if it heals and if not, then she will probably require surgery, although she has been adamantly opposed having any kind in the past. She does have an appointment with colorectal surgeons on January 01. We will continue to follow the patient during her hospital stay. JANIS
--- NOTE | 2017-12-24 22:28 | Progress Note ---
Subjective Date of Service: Dec 24, 2017. Subjective Pt evaluation today including: conversation w/ patient, physical exam 47 YO female reports having diarrhea. She reports also having tremors but these have improved and decreased. She states that her bowel movement are around 8 BM today. Patient however does not report any vaginal BM today. Problem List Medical Problems: (1) Abdominal pain Status: Acute (2) Chronic pain Status: Acute (3) Exacerbation of Crohn's disease Status: Chronic (4) Fibromyalgia Status: Chronic (5) Hyponatremia Status: Acute (6) Hypovolemia Status: Acute (7) Intractable pain Status: Acute (8) Lactic acidosis Status: Acute (9) Leukocytosis Status: Acute (10) Leukocytosis Status: Acute (11) Pancolitis Status: Acute (12) Sepsis Status: Acute (13) Substernal precordial chest pain Status: Acute (14) Tachycardia Status: Acute (15) UTI (urinary tract infection) Status: Acute Review of Systems Constitutional: + problem reported (she states she feels shakey inside and becomes tearful as she states she cannot live like this), No fever, No chills Respiratory: No cough, No shortness of breath Cardiac: No chest pain, No edema Abdomen: + diarrhea, No pain, No nausea, No vomiting Musculoskeletal: No joint pain, No muscle pain Neurologic: No memory loss, No paralysis Psychiatric: + anxiety, No depression symptoms Objective Vital Signs Date Time Temp Pulse Resp B/P (MAP) Pulse Ox O2 Delivery O2 Flow Rate FiO2 12/24/17 15:35 Room Air 12/24/17 15:34 37.0 99 20 106/72 (83) 95 Room Air 12/24/17 08:00 97 Room Air 12/24/17 07:20 36.6 64 18 129/83 (98) 97 Room Air 12/24/17 00:00 Room Air 12/23/17 23:35 36.4 79 16 93/58 (70) 96 Room Air Physical Exam Comments: General Appearance: WD/WN, in no acute distress Eyes: normal inspection, sclerae normal Respiratory/Chest: chest non-tender, lungs clear, normal breath sounds Cardiovascular: regular rate, rhythm, no murmur Abdomen: normal bowel sounds, non tender, soft Extremities: no pedal edema, no calf tenderness Neurologic/Psychiatric: alert, oriented x 3 Laboratory Results Last 24 Hours Test 12/24/17 06:05 White Blood Count 10.21 K/uL Red Blood Count 4.04 M/uL Hemoglobin 11.1 g/dL Hematocrit 35.2 % Mean Corpuscular Volume 87.1 fL Mean Corpuscular Hemoglobin 27.5 pg Mean Corpuscular Hemoglobin Concent 31.5 g/dl RDW Standard Deviation 69.6 fL RDW Coefficient of Variation 21.9 % Platelet Count 289 K/uL Mean Platelet Volume 9.0 fL Sodium Level 136 mmol/L Potassium Level 4.3 mmol/L Chloride Level 103 mmol/L Carbon Dioxide Level 29 mmol/L Anion Gap 4.0 mmol/L Blood Urea Nitrogen 16 mg/dl Creatinine 0.78 mg/dl Est Creatinine Clear Calc Drug Dose 69.0 ml/min Estimated GFR () 103.5 Estimated GFR (Non- 89.3 BUN/Creatinine Ratio 21.1 Random Glucose 70 mg/dl Calcium Level 8.5 mg/dl Magnesium Level 2.0 mg/dl Iron Level 36 mcg/dl Assessment and Plan 47 F with c/o subjective shakiness and found to have C diff diarrhea present on admission she is not somatically focused on c/o internal shakiness. Shakiness has improved today Likely due to increased haldol and adding buspar on 12/22 C Diff, pt refused po vancomycin as states she cannot take syrup and in the past did not tolerate flagyl, is tolerating Dificid and diarrhea remains controlled. As per nursing staff it appears better controlled. Now complains of increased vaginal stool, despite this she has no issue with leukocytosis or worsened abdominal exam, I did discuss Barium enema, but she states " that will kill me", I will ask GI medicine to see pt to determine if we need to have additional diagnostic work up as they have helped with this in the past Patient has appointment with colorectal surgery on JANUARY 01. Will try to have patient f/u with them next week. Sinus tachycardia/dehydration/progressive weakness--resolved Crohn's disease--no exacerbation.on Remicade, stools are reasonable not frequent or overtly loose Continue colestipol, ensure, pt states she cannot tolerate oral ferrous sulfate she requests that if iron is low to use iv iron, and continue pantoprazole. stress dose steroids for 24 hours now return to po prednisone 12/21, since c/o shakiness will reduce prednisone to 20 on 12/22 Continue Zantac 150 mg p.o. twice daily, Zofran 4 mg IV every 6 hours as needed. Chronic pain syndrome--controlled Nucynta pain has not been her issue this stay Anxiety/agitation--Psychiatry consult pt limits who she sees prefers to see Brent , Haldol 5 mg p.o. 4 times daily, clonazepam 1 mg p.o. every 8 hours as needed, and zolpidem tartrate 5 mg p.o. at bedtime as needed. Pt moved to full admission status
[2017-12-24 23:45] VITALS: BP 97/66; PULSE 84; TEMP 36.4; O2SAT 96
[2017-12-25] MEDS: ZOLPIDEM TARTRATE 5 MG TAB PO PRN (01:09)
[2017-12-25] MEDS: TAPENTADOL HCL 50 MG TAB PO SCH ×5 (06:12→23:31)
[2017-12-25 07:23] VITALS: BP 99/69; PULSE 78; TEMP 36.7; O2SAT 96
[2017-12-25] MEDS: BOOST VANILLA PO SCH ×4 (07:43→21:45)
[2017-12-25] MEDS: PANTOprazole SOD 40 MG TAB PO SCH (07:44)
[2017-12-25] MEDS: BusPIRone 15 MG TAB PO SCH (07:44)
[2017-12-25] MEDS: HALOPERIDOL 5 MG TAB PO SCH ×4 (07:44→21:45)
[2017-12-25] MEDS: ENOXAPARIN 40 MG/0.4 ML SYR SC SCH (07:44)
[2017-12-25] MEDS: NICOTINE 21 MG/24 HR TDSY TD SCH (07:44)
[2017-12-25] MEDS: RANITIDINE HCL 150 MG TAB PO SCH ×2 (07:44→21:45)
[2017-12-25] MEDS: FIDAXOMICIN TAB 200 MG TAB PO SCH ×2 (08:44→21:00)
[2017-12-25] MEDS: COLESTIPOL HCL 1 GM TAB PO SCH ×2 (08:44→21:45)
[2017-12-25] MEDS: CLONAZEPAM 0.5 MG TAB PO PRN (12:24)
[2017-12-25 15:08] VITALS: BP 92/61; PULSE 89; TEMP 36.7; O2SAT 97
--- NOTE | 2017-12-25 17:39 | Progress Note ---
Subjective Date of Service: Dec 25, 2017. Subjective Pt evaluation today including: conversation w/ patient, physical exam Patient reports her BM have improved. She inquires about her A line as well. This was removed due to having having septicemia. Patient requests to have this put back in. Patient reports not having tremors during my interrogation. Problem List Medical Problems: (1) Abdominal pain Status: Acute (2) Chronic pain Status: Acute (3) Exacerbation of Crohn's disease Status: Chronic (4) Fibromyalgia Status: Chronic (5) Hyponatremia Status: Acute (6) Hypovolemia Status: Acute (7) Intractable pain Status: Acute (8) Lactic acidosis Status: Acute (9) Leukocytosis Status: Acute (10) Leukocytosis Status: Acute (11) Pancolitis Status: Acute (12) Sepsis Status: Acute (13) Substernal precordial chest pain Status: Acute (14) Tachycardia Status: Acute (15) UTI (urinary tract infection) Status: Acute Review of Systems Constitutional: + problem reported (she states she feels shakey inside and becomes tearful as she states she cannot live like this), No fever, No chills Respiratory: No cough, No shortness of breath Cardiac: No chest pain, No edema Abdomen: + diarrhea, No pain, No nausea, No vomiting Musculoskeletal: No joint pain, No muscle pain Neurologic: No memory loss, No paralysis Psychiatric: + anxiety, No depression symptoms All Other Systems: Reviewed and Negative Objective Vital Signs Date Time Temp Pulse Resp B/P (MAP) Pulse Ox O2 Delivery O2 Flow Rate FiO2 12/25/17 15:08 36.7 89 18 92/61 (71) 97 Room Air 12/25/17 08:45 Room Air 12/25/17 07:23 36.7 78 18 99/69 (79) 96 Room Air 12/25/17 00:00 Room Air 12/24/17 23:45 36.4 84 18 97/66 (76) 96 Room Air Physical Exam Comments: General Appearance: WD/WN, + no distress Eyes: normal inspection, sclerae normal Respiratory/Chest: chest non-tender, lungs clear, normal breath sounds Cardiovascular: regular rate, rhythm, no murmur Abdomen: normal bowel sounds, non tender, soft Extremities: no pedal edema, no calf tenderness Neurologic/Psychiatric: alert, oriented x 3 Assessment and Plan 47 F with c/o subjective shakiness and found to have C diff diarrhea present on admission She is not somatically focused on c/o internal shakiness. Shakiness has improved today Likely due to increased haldol and adding buspar on 12/22 C Diff, pt refused po vancomycin as states she cannot take syrup and in the past did not tolerate flagyl, is tolerating Dificid and diarrhea remains controlled. As per nursing staff it appears better controlled. Difficult to quantify due to incontinence per patient, however nursing staff does not report this. Over weekend had increased vaginal stool, despite this she has no issue with leukocytosis or worsened abdominal exam, I will ask GI medicine to see pt to determine if we need to have additional diagnostic work up as they have helped with this in the past Patient has appointment with colorectal surgery on JANUARY 01. Will try to have patient f/u with them next week. Her vaginal stool has improved. Sinus tachycardia/dehydration/progressive weakness--resolved Crohn's disease--no exacerbation.on Remicade, stools are reasonable not frequent or overtly loose Continue colestipol, ensure, pt states she cannot tolerate oral ferrous sulfate she requests that if iron is low to use iv iron, and continue pantoprazole. stress dose steroids for 24 hours now return to po prednisone 12/21, since c/o shakiness will reduce prednisone to 20 on 12/22 Continue Zantac 150 mg p.o. twice daily, Zofran 4 mg IV every 6 hours as needed. Chronic pain syndrome--controlled Nucynta pain has not been her issue this stay Anxiety/agitation--Psychiatry consult pt limits who she sees prefers to see Brent , Haldol 5 mg p.o. 4 times daily, clonazepam 1 mg p.o. every 8 hours as needed, and zolpidem tartrate 5 mg p.o. at bedtime as needed. This appears better controlled. Pt moved to full admission status
[2017-12-25 20:00] VITALS: O2SAT 97
[2017-12-25 23:38] VITALS: BP 94/63; PULSE 81; TEMP 36.4; O2SAT 96
[2017-12-26] MEDS: ZOLPIDEM TARTRATE 5 MG TAB PO PRN ×2 (00:48→21:45)
[2017-12-26] MEDS: TAPENTADOL HCL 50 MG TAB PO SCH ×4 (05:44→23:47)
[2017-12-26 06:31] LABS: HEMATOCRIT 36.4 % (37-47); HEMOGLOBIN 11.7 g/dL (12.0-16.0); MEAN CELL VOLUME 86.5 fL (80-100); MEAN CORPUSCULAR HEMOGLOBIN 27.8 pg (25-34); MEAN CORPUSCULAR HGB CONC 32.1 g/dl (32-36); MEAN PLATELET VOLUME 8.7 fL (7.4-10.4); PLATELET COUNT 319 K/uL (130-400); RED CELL DISTRIBUTION WIDTH CV 21.9 % (11.5-14.5); RED CELL DISTRIBUTION WIDTH SD 69.5 fL (36.4-46.3); WHITE BLOOD COUNT 10.13 K/uL (4.8-10.8)
[2017-12-26 07:04] LABS: CALCIUM 8.8 mg/dl (8.5-10.1); CREATININE 0.87 mg/dl (0.60-1.20); POTASSIUM 4.2 mmol/L (3.5-5.1)
[2017-12-26 07:44] VITALS: BP 97/64; PULSE 85; TEMP 36.7; O2SAT 20
[2017-12-26 07:57] VITALS: BP 145/73; PULSE 78; TEMP 36.5; O2SAT 95
[2017-12-26] MEDS: HALOPERIDOL 5 MG TAB PO SCH ×4 (08:19→20:56)
[2017-12-26] MEDS: BOOST VANILLA PO SCH ×3 (08:19→20:55)
[2017-12-26] MEDS: RANITIDINE HCL 150 MG TAB PO SCH ×2 (08:19→20:56)
[2017-12-26] MEDS: BusPIRone 15 MG TAB PO SCH (08:19)
[2017-12-26] MEDS: FIDAXOMICIN TAB 200 MG TAB PO SCH ×2 (08:19→20:55)
[2017-12-26] MEDS: NICOTINE 21 MG/24 HR TDSY TD SCH (08:19)
[2017-12-26] MEDS: PANTOprazole SOD 40 MG TAB PO SCH (08:19)
[2017-12-26] MEDS: ENOXAPARIN 40 MG/0.4 ML SYR SC SCH (08:22)
[2017-12-26] MEDS: DIPHENOXYLATE/ATROPINE 2.5/0.025MG TAB PO PRN (08:28)
[2017-12-26] MEDS: COLESTIPOL HCL 1 GM TAB PO SCH ×2 (09:42→21:45)
[2017-12-26 14:41] VITALS: BP 99/70; PULSE 102; TEMP 36.7; O2SAT 94
[2017-12-26] MEDS: CLONAZEPAM 0.5 MG TAB PO PRN (18:48)
--- NOTE | 2017-12-26 20:00 | GASTROENTEROLOGY PROGRESS NOTE ---
DATE: 12/26/2017 Gastroenterology inpatient progress note. SUBJECTIVE: Chart reviewed, patient examined. Patient admitted approximately 1 week ago and found to have C. diff infection with diarrhea. Patient currently on Dificid, in addition, on prednisone, BuSpar, haloperidol, nicotine, colestipol, pantoprazole, ranitidine, Zofran and p.r.n. meds. Patient is tolerating oral intake well. There is no significant abdominal pain. Stools have been varied between somewhat formed and loose as well as intermittent rectovaginal stool output. REVIEW OF SYSTEMS: Otherwise noncontributory based on 13-point exam except for mentioned above. VITAL SIGNS: This afternoon, blood pressure 99/70, respirations 20, heart rate 102, temperature 36.7, 94% on room air. Blood work today, hemoglobin is 11.7, MCV is 86, platelets 319,000. Serum chemistry today, sodium 134, potassium 4.2, BUN and creatinine are 21 and 0.87. During the hospitalization, magnesium is now in the normal range at 2, iron level 36. C-reactive protein on December 21 was 1.31. No recent imaging since the . PHYSICAL EXAMINATION: GENERAL: Today, patient is awake, alert and oriented x3. HEENT: Sclerae are anicteric, conjunctiva moist. Oral mucosa moist. Patient has slight laws facies. ABDOMEN: Soft, nontender, nondistended with positive bowel sounds. EXTREMITIES: Without edema. RECTAL: Deferred. IMPRESSION AND PLAN: Patient is receiving Dificid for Clostridium difficile infection. Next third induction dose of Remicade is planned for January 04 with subsequent office visits with Dr. Moore and myself afterwards. We would favor completing induction and at least 1 or 2 maintenance doses. Immediately prior to her first maintenance dose, I will obtain an infliximab level 1 antibody to determine if this is adequate and if antibodies are formed given her remote exposure many years ago. Patient should ambulate as tolerated, advance diet as tolerated. All questions answered. MTDD
--- NOTE | 2017-12-26 22:50 | Progress Note ---
Subjective Date of Service: Dec 26, 2017. Subjective Pt evaluation today including: conversation w/ patient Patient reports feeling well. No tremors. Only complaint today is her bowel movements. She reports it is about 5 small BM today. But she notes that it is improving. Problem List Medical Problems: (1) Abdominal pain Status: Acute (2) Chronic pain Status: Acute (3) Exacerbation of Crohn's disease Status: Chronic (4) Fibromyalgia Status: Chronic (5) Hyponatremia Status: Acute (6) Hypovolemia Status: Acute (7) Intractable pain Status: Acute (8) Lactic acidosis Status: Acute (9) Leukocytosis Status: Acute (10) Leukocytosis Status: Acute (11) Pancolitis Status: Acute (12) Sepsis Status: Acute (13) Substernal precordial chest pain Status: Acute (14) Tachycardia Status: Acute (15) UTI (urinary tract infection) Status: Acute Review of Systems Constitutional: + problem reported (she states she feels shakey inside and becomes tearful as she states she cannot live like this), No fever, No chills Respiratory: No cough, No shortness of breath Cardiac: No chest pain, No edema Abdomen: + diarrhea, No pain, No nausea, No vomiting Musculoskeletal: No joint pain, No muscle pain Neurologic: No memory loss, No paralysis Psychiatric: + anxiety, No depression symptoms All Other Systems: Reviewed and Negative Objective Vital Signs Date Time Temp Pulse Resp B/P (MAP) Pulse Ox O2 Delivery O2 Flow Rate FiO2 12/26/17 19:30 Room Air 12/26/17 16:00 Room Air 12/26/17 14:41 36.7 102 20 99/70 (80) 94 Room Air 12/26/17 08:00 Room Air 12/26/17 07:57 36.5 78 20 145/73 (97) 95 Room Air 12/25/17 23:38 36.4 81 18 94/63 (73) 96 Room Air 12/25/17 23:20 Room Air Physical Exam Comments: General Appearance: WD/WN, + no distress Eyes: normal inspection, sclerae normal Respiratory/Chest: chest non-tender, lungs clear, normal breath sounds Cardiovascular: regular rate, rhythm, no murmur Abdomen: normal bowel sounds, non tender, soft Extremities: no pedal edema, no calf tenderness Neurologic/Psychiatric: alert, oriented x 3 Laboratory Results Last 24 Hours Test 12/26/17 06:00 White Blood Count 10.13 K/uL Red Blood Count 4.21 M/uL Hemoglobin 11.7 g/dL Hematocrit 36.4 % Mean Corpuscular Volume 86.5 fL Mean Corpuscular Hemoglobin 27.8 pg Mean Corpuscular Hemoglobin Concent 32.1 g/dl RDW Standard Deviation 69.5 fL RDW Coefficient of Variation 21.9 % Platelet Count 319 K/uL Mean Platelet Volume 8.7 fL Sodium Level 134 mmol/L Potassium Level 4.2 mmol/L Chloride Level 101 mmol/L Carbon Dioxide Level 28 mmol/L Anion Gap 5.0 mmol/L Blood Urea Nitrogen 21 mg/dl Creatinine 0.87 mg/dl Est Creatinine Clear Calc Drug Dose 61.9 ml/min Estimated GFR () 90.7 Estimated GFR (Non- 78.2 BUN/Creatinine Ratio 24.0 Random Glucose 76 mg/dl Calcium Level 8.8 mg/dl Magnesium Level 2.0 mg/dl Assessment and Plan 47 F with c/o subjective shakiness and found to have C diff diarrhea present on admission C Diff, pt refused po vancomycin as states she cannot take syrup and in the past did not tolerate flagyl, is tolerating Dificid and diarrhea remains controlled. As per nursing staff it appears better controlled. Today though patient also reports improvement. Appears to be recovering. However will need to complete 10 days of treatment. Plan will be to discharge on Sunday. She is not somatically focused on c/o internal shakiness. Shakiness appears to have resolved. Likely due to increased haldol and adding buspar on 12/22 will monitor. Over weekend had increased vaginal stool, (resolved) despite this she has no issue with leukocytosis or worsened abdominal exam, I will ask GI medicine to see pt to determine if we need to have additional diagnostic work up as they have helped with this in the past Patient has appointment with colorectal surgery on JANUARY 01. Will try to have patient f/u with them next week. Her vaginal stool has improved, and patient is no longer complaining of this at the moment. Sinus tachycardia/dehydration/progressive weakness--resolved Crohn's disease--no exacerbation.on Remicade, stools are reasonable not frequent or overtly loose Continue colestipol, ensure, pt states she cannot tolerate oral ferrous sulfate she requests that if iron is low to use iv iron, and continue pantoprazole. stress dose steroids for 24 hours now return to po prednisone 12/21, since c/o shakiness will reduce prednisone to 20 on 12/22 Continue Zantac 150 mg p.o. twice daily, Zofran 4 mg IV every 6 hours as needed. Will need to refer to surgery for a port placement Chronic pain syndrome--controlled Nucynta pain has not been her issue this stay Anxiety/agitation--Psychiatry consult pt limits who she sees prefers to see Brent , Haldol 5 mg p.o. 4 times daily, clonazepam 1 mg p.o. every 8 hours as needed, and zolpidem tartrate 5 mg p.o. at bedtime as needed. This appears better controlled.
[2017-12-26 23:04] VITALS: BP 92/65; PULSE 94; TEMP 36.7; O2SAT 95
[2017-12-27] VITALS: O2SAT 95
[2017-12-27] MEDS: TAPENTADOL HCL 50 MG TAB PO SCH ×4 (06:05→23:30)
[2017-12-27] MEDS: ONDANSETRON 8MG OD TAB PO PRN (06:08)
[2017-12-27 07:40] VITALS: BP 104/74; PULSE 92; TEMP 36.3; O2SAT 96
[2017-12-27] MEDS: PANTOprazole SOD 40 MG TAB PO SCH (07:51)
[2017-12-27] MEDS: BusPIRone 15 MG TAB PO SCH (07:52)
[2017-12-27] MEDS: RANITIDINE HCL 150 MG TAB PO SCH ×2 (07:52→21:55)
[2017-12-27] MEDS: HALOPERIDOL 5 MG TAB PO SCH ×4 (07:54→21:56)
[2017-12-27] MEDS: ENOXAPARIN 40 MG/0.4 ML SYR SC SCH (07:55)
[2017-12-27] MEDS: NICOTINE 21 MG/24 HR TDSY TD SCH (07:57)
[2017-12-27] MEDS: BOOST VANILLA PO SCH ×3 (07:57→21:55)
[2017-12-27] MEDS: FIDAXOMICIN TAB 200 MG TAB PO SCH ×2 (08:54→21:55)
[2017-12-27] MEDS: COLESTIPOL HCL 1 GM TAB PO SCH ×2 (10:03→21:55)
[2017-12-27 15:47] VITALS: BP 89/64; PULSE 102; TEMP 36.8; O2SAT 94
[2017-12-27 16:00] VITALS: O2SAT 94
--- NOTE | 2017-12-27 17:02 | Surgery Consultation ---
Consultation Date of Consultation: Dec 27, 2017. Attending Physician: Vasyl Moore M.D. (Deirdre Hernandez PA-C) History of Present Illness Indy is a 47 year-old female with history of Crohn's disease who was admitted to hospital and found to have c. diff colitis. She was recently in the hospital for septicemia and had her right sided aport removed. She currently has refused po vancomycin for her c. difficile treatment and tolerating Dificid. She would like to have another aport inserted given she has multiple imaging studies for her chronic Crohn's disease which require contrast administration. She denies of any history of left chest aport or catheter insertion. (Deirdre Hernandez PA-C) Past Medical/Surgical History Medical Problems: (1) Abdominal pain Status: Acute (2) Chronic pain Status: Acute (3) Exacerbation of Crohn's disease Status: Chronic (4) Fibromyalgia Status: Chronic (5) Hyponatremia Status: Acute (6) Hypovolemia Status: Acute (7) Intractable pain Status: Acute (8) Lactic acidosis Status: Acute (9) Leukocytosis Status: Acute (10) Leukocytosis Status: Acute (11) Pancolitis Status: Acute (12) Sepsis Status: Acute (13) Substernal precordial chest pain Status: Acute (14) Tachycardia Status: Acute (15) UTI (urinary tract infection) Status: Acute (Deirdre Hernandez PA-C) Family History Cancer Diabetes mellitus Heart disease Hypertension (Deirdre Hernandez PA-C) Cancer Diabetes mellitus Heart disease Hypertension (Aditya Benítez M.D.) Social History Smoking Status: Light Tobacco Smoker Smokeless Tobacco Use: No Alcohol Use: none Drug Use: none Marital Status: single Housing Status: assisted living Occupation Status: unemployed (Deirdre Hernandez PA-C) Allergies Coded Allergies: Lorazepam (Verified Allergy, Severe, tongue swelling, 10/19/17) Promethazine (Verified Allergy, Intermediate, restless leg, 12/19/17) Sulfa Antibiotics (Verified Allergy, Intermediate, rash/hives, 10/19/17) Cephalexin (Verified Allergy, Mild, rash, 10/19/17) Penicillins (Verified Allergy, Unknown, Unknown, 2/16/18) Reported by PT Home Medications Scheduled Colestipol Hcl (Colestid), 1 GM PO BID Cyanocobalamin (Cyanocobalamin), 1,000 MCG IM WK Enteral Nutrition Formula (Ensure), 1 CAN PO TID Ergocalciferol (Vitamin D 58786 Unit), 50,000 UNIT PO SUNDAY Ferrous Sulfate (Kp Ferrous Sulfate), 325 MG PO BID Haloperidol (Haldol), 5 MG PO TID Pantoprazole (Protonix), 40 MG PO DAILY Prednisone (Prednisone), 30 MG PO DAILY Tapentadol Hcl (Nucynta), 100 MG PO Q6H [Hydrocortisone 1%], 1 APPLN TD BID Scheduled PRN Clonazepam (Klonopin), 1 MG PO Q8 PRN for Anxiety Diphenoxylate/Atropine (Lomotil), 2 TABS PO Q6H PRN for Diarrhea Haloperidol (Haloperidol), 1 MG PO Q6H PRN for Anxiety/Agitation Ondansetron Hcl (Zofran), 4 MG PO TID PRN for Nausea Ranitidine (Zantac), 150 MG PO BID PRN for Heartburn Zolpidem Tartrate (Zolpidem Tartrate), 5 MG PO HS PRN for Sleep Current Inpatient Medications Current Inpatient Medications Medications (Trade) Dose Ordered Sig/Rashard Route Start Time Stop Time Status Last Admin Dose Admin Enoxaparin Sodium (Lovenox Inj) 40 mg Q24H SC 12/20/17 09:00 01/19/18 08:59 12/23/17 08:53 40 MG Acetaminophen (Tylenol Tab) 650 mg Q4H PRN PO 12/20/17 01:30 01/19/18 01:29 Al Hydrox/Mg Hydrox/Simethicone (Maalox Max Susp) 15 ml Q4H PRN PO 12/20/17 01:30 01/19/18 01:29 Magnesium Hydroxide (Milk Of Magnesia Susp) 30 ml Q12H PRN PO 12/20/17 01:30 01/19/18 01:29 Polyethylene (Miralax Powder Packet) 17 gm DAILY PRN PO 12/20/17 01:30 01/19/18 01:29 Clonazepam (Klonopin Tab) 1 mg Q8 PRN PO 12/20/17 01:30 01/19/18 01:29 12/26/17 18:48 1 MG Colestipol HCl (Colestid Tab) 1 gm BID@1000,2200 PO 12/20/17 10:00 01/19/18 09:59 12/27/17 10:03 1 GM Diphenoxylate HCl/ Atropine (Lomotil Tab) 2 tab Q6H PRN PO 12/20/17 01:30 01/19/18 01:29 12/26/17 08:28 2 TAB Enteral Nutritional Formula (Boost) 1 can TID PO 12/20/17 10:00 01/19/18 09:59 12/27/17 13:36 1 CAN Pantoprazole Sodium (Protonix Tab) 40 mg DAILY PO 12/20/17 09:00 01/19/18 08:59 12/27/17 07:51 40 MG Zolpidem Tartrate (Ambien Tab) 5 mg HS PRN PO 12/20/17 01:30 01/19/18 01:29 12/26/17 21:45 5 MG Tapentadol (Nucynta Tab) 100 mg Q6H PO 12/20/17 06:00 01/19/18 05:59 12/27/17 11:50 100 MG Ondansetron HCl (Zofran Odt) 8 mg Q6H PRN PO 12/20/17 01:45 01/19/18 01:44 12/27/17 06:08 8 MG Ranitidine HCl (zANTac TAB) 150 mg BID PO 12/20/17 03:00 01/19/18 02:59 12/27/17 07:52 150 MG Miscellaneous (Iv Fluids Completed) 1 ea PRN PRN N/A 12/20/17 04:45 12/20/18 04:44 Heparin Sodium (Porcine) (Heparin 10 Unit/ ml 5 ml Flush) 5 ml PRN PRN FLUSH 12/20/17 15:15 01/19/18 15:14 12/26/17 06:43 5 ML Nicotine (Nicoderm Cq 21MG Patch) 1 patch QAM TD 12/20/17 16:45 01/19/18 16:44 12/27/17 07:57 1 PATCH Miscellaneous (Remove Nicoderm Patch) 1 ea HS N/A 12/20/17 21:00 01/19/18 20:59 12/26/17 20:55 1 EA Fidaxomicin (Dificid Tab) 200 mg BID PO 12/22/17 09:00 01/03/18 20:59 12/27/17 08:54 200 MG Haloperidol (Haldol Tab) 5 mg QID PO 12/22/17 13:00 01/19/18 08:59 12/27/17 13:36 5 MG Prednisone (PredniSONE TAB) 20 mg DAILY PO 12/23/17 09:00 01/20/18 08:59 12/27/17 07:52 20 MG Buspirone HCl (BusPAR TAB) 15 mg QAM PO 12/22/17 15:00 01/21/18 14:59 12/27/17 07:52 15 MG Heparin Sodium (Porcine) (Heparin 10 Unit/ ml 5 ml Flush) 5 ml PRN PRN FLUSH 12/27/17 11:00 01/26/18 10:59 (Deirdre Hernandez PA-C) Review of Systems Constitutional: No fever, No chills Respiratory: No cough, No shortness of breath Abdomen: No pain Hematologic / Lymphatic: No abnormal bleeding/bruising Integumentary: No rash (Deirdre Hernandez PA-C) Physical Exam Date Time Temp Pulse Resp B/P (MAP) Pulse Ox O2 Delivery O2 Flow Rate FiO2 12/27/17 16:00 94 Room Air 12/27/17 15:47 36.8 102 18 89/64 (72) 94 Room Air 12/27/17 07:40 36.3 92 18 104/74 (84) 96 Room Air 12/27/17 07:40 Room Air 12/27/17 00:00 95 Room Air 12/26/17 23:04 36.7 94 16 92/65 (74) 95 Room Air 12/26/17 19:30 Room Air General Appearance: WD/WN, no apparent distress Head: normocephalic, atraumatic Eyes: sclerae normal ENT: hearing grossly normal Neck: trachea midline Respiratory/Chest: lungs clear, normal breath sounds, no respiratory distress, no accessory muscle use, + pertinent finding (right sided aport scar present, c/ d/i) Cardiovascular: regular rate, rhythm, no murmur Back: normal inspection Extremities/Musculoskelatal: normal inspection Neurologic/Psych: alert, normal mood/affect, oriented x 3 Skin: normal color, warm/dry, no rash (Deirdre Hernandez ., VANDANAC) Assessment & Plan 47 year-old female with history of Crohn's disease who is currently being treated for c. difficile infection. Was admitted a few weeks ago with septicemia and required right sided aport removal. Requesting for replacement of another aport. Plan: Plan for left sided subclavian aport insertion tomorrow with Dr. Jackelin Benítez discussed procedure with patient and risks. Informed consent will be obtained tomorrow. Continue current medical management Hold Lovenox now NPO after midnight Dr. Benítez has seen and examined patient, agrees with above (Deirdre Hernandez ., KHALIDA-C) I interviewed and examined this patient and I agree with the above note. She needs in a port tunneled central venous access catheter with port. We will place it using left subclavian approach. I explained her the procedure and possible complications. I answered her questions. (Aditya Benítez M.D.)
[2017-12-27] MEDS: CLONAZEPAM 0.5 MG TAB PO PRN (17:06)
[2017-12-27 19:33] VITALS: BP 105/73; PULSE 96
[2017-12-27 22:25] VITALS: BP 112/78; PULSE 92; TEMP 36.7; O2SAT 96
--- NOTE | 2017-12-27 23:11 | Progress Note ---
Subjective Date of Service: Dec 27, 2017. Subjective Pt evaluation today including: conversation w/ patient, physical exam Patient reports 3 episodes of regular sized loose stools. No blood. Patient reports that she is gradually improving. Problem List Medical Problems: (1) Abdominal pain Status: Acute (2) Chronic pain Status: Acute (3) Exacerbation of Crohn's disease Status: Chronic (4) Fibromyalgia Status: Chronic (5) Hyponatremia Status: Acute (6) Hypovolemia Status: Acute (7) Intractable pain Status: Acute (8) Lactic acidosis Status: Acute (9) Leukocytosis Status: Acute (10) Leukocytosis Status: Acute (11) Pancolitis Status: Acute (12) Sepsis Status: Acute (13) Substernal precordial chest pain Status: Acute (14) Tachycardia Status: Acute (15) UTI (urinary tract infection) Status: Acute Review of Systems Constitutional: + problem reported (she states she feels shakey inside and becomes tearful as she states she cannot live like this), No fever, No chills Respiratory: No cough, No shortness of breath Cardiac: No chest pain, No edema Abdomen: + diarrhea, No pain, No nausea, No vomiting Musculoskeletal: No joint pain, No muscle pain Neurologic: No memory loss, No paralysis Psychiatric: + anxiety, No depression symptoms All Other Systems: Reviewed and Negative Medications Current Inpatient Medications Medications (Trade) Dose Ordered Sig/Rashard Route Start Time Stop Time Status Last Admin Dose Admin Enoxaparin Sodium (Lovenox Inj) 40 mg Q24H SC 12/20/17 09:00 01/19/18 08:59 Future Hold 12/23/17 08:53 40 MG Acetaminophen (Tylenol Tab) 650 mg Q4H PRN PO 12/20/17 01:30 01/19/18 01:29 Al Hydrox/Mg Hydrox/Simethicone (Maalox Max Susp) 15 ml Q4H PRN PO 12/20/17 01:30 01/19/18 01:29 Magnesium Hydroxide (Milk Of Magnesia Susp) 30 ml Q12H PRN PO 12/20/17 01:30 01/19/18 01:29 Polyethylene (Miralax Powder Packet) 17 gm DAILY PRN PO 12/20/17 01:30 01/19/18 01:29 Clonazepam (Klonopin Tab) 1 mg Q8 PRN PO 12/20/17 01:30 01/19/18 01:29 12/27/17 17:06 1 MG Colestipol HCl (Colestid Tab) 1 gm BID@1000,2200 PO 12/20/17 10:00 01/19/18 09:59 12/27/17 21:55 1 GM Diphenoxylate HCl/ Atropine (Lomotil Tab) 2 tab Q6H PRN PO 12/20/17 01:30 01/19/18 01:29 12/26/17 08:28 2 TAB Enteral Nutritional Formula (Boost) 1 can TID PO 12/20/17 10:00 01/19/18 09:59 12/27/17 21:55 1 CAN Pantoprazole Sodium (Protonix Tab) 40 mg DAILY PO 12/20/17 09:00 01/19/18 08:59 12/27/17 07:51 40 MG Zolpidem Tartrate (Ambien Tab) 5 mg HS PRN PO 12/20/17 01:30 01/19/18 01:29 12/26/17 21:45 5 MG Tapentadol (Nucynta Tab) 100 mg Q6H PO 12/20/17 06:00 01/19/18 05:59 12/27/17 17:59 100 MG Ondansetron HCl (Zofran Odt) 8 mg Q6H PRN PO 12/20/17 01:45 01/19/18 01:44 12/27/17 06:08 8 MG Ranitidine HCl (zANTac TAB) 150 mg BID PO 12/20/17 03:00 01/19/18 02:59 12/27/17 21:55 150 MG Miscellaneous (Iv Fluids Completed) 1 ea PRN PRN N/A 12/20/17 04:45 12/20/18 04:44 Heparin Sodium (Porcine) (Heparin 10 Unit/ ml 5 ml Flush) 5 ml PRN PRN FLUSH 12/20/17 15:15 01/19/18 15:14 12/26/17 06:43 5 ML Nicotine (Nicoderm Cq 21MG Patch) 1 patch QAM TD 12/20/17 16:45 01/19/18 16:44 12/27/17 07:57 1 PATCH Miscellaneous (Remove Nicoderm Patch) 1 ea HS N/A 12/20/17 21:00 01/19/18 20:59 12/27/17 21:54 1 EA Fidaxomicin (Dificid Tab) 200 mg BID PO 12/22/17 09:00 01/03/18 20:59 12/27/17 21:55 200 MG Haloperidol (Haldol Tab) 5 mg QID PO 12/22/17 13:00 01/19/18 08:59 12/27/17 21:56 5 MG Prednisone (PredniSONE TAB) 20 mg DAILY PO 12/23/17 09:00 01/20/18 08:59 12/27/17 07:52 20 MG Buspirone HCl (BusPAR TAB) 15 mg QAM PO 12/22/17 15:00 01/21/18 14:59 12/27/17 07:52 15 MG Heparin Sodium (Porcine) (Heparin 10 Unit/ ml 5 ml Flush) 5 ml PRN PRN FLUSH 12/27/17 11:00 01/26/18 10:59 Objective Vital Signs Date Time Temp Pulse Resp B/P (MAP) Pulse Ox O2 Delivery O2 Flow Rate FiO2 12/27/17 22:25 36.7 92 16 112/78 (89) 96 Room Air 12/27/17 19:33 96 105/73 (84) 12/27/17 16:00 94 Room Air 12/27/17 15:47 36.8 102 18 89/64 (72) 94 Room Air 12/27/17 07:40 36.3 92 18 104/74 (84) 96 Room Air 12/27/17 07:40 Room Air 12/27/17 00:00 95 Room Air Physical Exam Comments: General Appearance: WD/WN, + no distress Eyes: normal inspection, sclerae normal Respiratory/Chest: chest non-tender, lungs clear, normal breath sounds Cardiovascular: regular rate, rhythm, no murmur Abdomen: normal bowel sounds, non tender, soft Extremities: no pedal edema, no calf tenderness Neurologic/Psychiatric: alert, oriented x 3 Assessment and Plan 47 F with c/o subjective shakiness and found to have C diff diarrhea present on admission C Diff, pt refused po vancomycin as states she cannot take syrup and in the past did not tolerate flagyl, is tolerating Dificid and diarrhea remains controlled. As per nursing staff it appears better controlled. Today though patient also reports improvement. Appears to be recovering. However will need to complete 10 days of treatment. Plan will be to discharge on Sunday. She is not somatically focused on c/o internal shakiness. Shakiness appears to have resolved. Likely due to increased haldol and adding buspar on 12/22 will monitor. Over weekend had increased vaginal stool, (resolved) despite this she has no issue with leukocytosis or worsened abdominal exam, I will ask GI medicine to see pt to determine if we need to have additional diagnostic work up as they have helped with this in the past Patient has appointment with colorectal surgery on JANUARY 01. Will try to have patient f/u with them next week. Her vaginal stool has improved, and patient is no longer complaining of this at the moment. Sinus tachycardia/dehydration/progressive weakness--resolved Crohn's disease--no exacerbation.on Remicade, stools are reasonable not frequent or overtly loose Continue colestipol, ensure, pt states she cannot tolerate oral ferrous sulfate she requests that if iron is low to use iv iron, and continue pantoprazole. stress dose steroids for 24 hours now return to po prednisone 12/21, since c/o shakiness will reduce prednisone to 20 on 12/22 Continue Zantac 150 mg p.o. twice daily, Zofran 4 mg IV every 6 hours as needed. Will need to refer to surgery for a port placement Chronic pain syndrome--controlled Nucynta pain has not been her issue this stay Anxiety/agitation--Psychiatry consult pt limits who she sees prefers to see Brent , Haldol 5 mg p.o. 4 times daily, clonazepam 1 mg p.o. every 8 hours as needed, and zolpidem tartrate 5 mg p.o. at bedtime as needed. This appears better controlled. Consulted Surgery for A Port placement.will be done either tomorrow or Sunday. Will dc PICC line once a port is functional
[2017-12-27] MEDS: ZOLPIDEM TARTRATE 5 MG TAB PO PRN (23:30)
[2017-12-28] VITALS: O2SAT 95
[2017-12-28] MEDS: TAPENTADOL HCL 50 MG TAB PO SCH ×4 (06:02→23:35)
[2017-12-28 07:28] LABS: HEMATOCRIT 35.5 % (37-47); HEMOGLOBIN 11.7 g/dL (12.0-16.0); MEAN CELL VOLUME 86.6 fL (80-100); MEAN CORPUSCULAR HEMOGLOBIN 28.5 pg (25-34); MEAN PLATELET VOLUME 8.8 fL (7.4-10.4); PLATELET COUNT 307 K/uL (130-400); RED CELL DISTRIBUTION WIDTH CV 21.2 % (11.5-14.5); RED CELL DISTRIBUTION WIDTH SD 67.8 fL (36.4-46.3); WHITE BLOOD COUNT 8.97 K/uL (4.8-10.8)
[2017-12-28 07:48] VITALS: BP 103/72; PULSE 87; TEMP 36.6; O2SAT 95
[2017-12-28 08:00] VITALS: O2SAT 95
[2017-12-28 08:04] LABS: CALCIUM 8.6 mg/dl (8.5-10.1); CREATININE 1.01 mg/dl (0.60-1.20)
[2017-12-28] MEDS: BOOST VANILLA PO SCH ×3 (08:23→20:49)
[2017-12-28] MEDS: HALOPERIDOL 5 MG TAB PO SCH ×4 (08:24→20:51)
[2017-12-28] MEDS: FIDAXOMICIN TAB 200 MG TAB PO SCH ×2 (09:00→20:50)
[2017-12-28] MEDS ORDERED: LIDOCAINE HCL 2% 2 ML VIAL (20MG/ML) ONE (09:17)
[2017-12-28] MEDS ORDERED: PROPOFOL IV EMULSION 10 MG/ML 20 ML VIAL IV ONE (09:17)
[2017-12-28] MEDS ORDERED: LIDOCAINE HCL 1% 20 ML VIAL ONE (09:18)
[2017-12-28] MEDS ORDERED: MIDAZOLAM HCL 1 MG/ML 2ML VIAL ONE (09:27)
[2017-12-28] MEDS ORDERED: FENTANYL CITRATE INJ 50 MCG/1 ML 2 ML VIAL ONE (09:27)
--- NOTE | 2017-12-28 09:59 | History & Physical Bridge Note ---
H&P Re-Evaluation Bridge Note: I have examined the patient, reviewed the History & Physical and in the interval since the performance of the History & Physical I have noted the following changes of clinical significance: No changes noted
[2017-12-28] MEDS: COLESTIPOL HCL 1 GM TAB PO SCH ×2 (10:00→22:04)
--- NOTE | 2017-12-28 10:54 | [facility] Post Operative Brief Note ---
Immediate Operative Summary Operative Date Dec 28, 2017. Pre-Operative Diagnosis needed for [facility] central venous access Post-Operative Diagnosis needed for [facility] central venous access Procedure(s) Performed A-Port Insertion Left Subclavian Vein Surgeon Dr. Aditya Benítez [employer] Surgeon(s) None Estimated Blood Loss 5ML Findings Consistent with Post-Op Diagnosis Specimens none per surgeon Drains None Anesthesia Type Local Complication(s) none Disposition Disposition: Recovery Room / PACU
--- NOTE | 2017-12-28 11:24 | DIAGNOSTIC IMAGING REPORT ---
CHEST ONE VIEW PORTABLE HISTORY: S/P placement of Aport COMPARISON: Chest 12/19/2017. FINDINGS: Interval placement left subclavian Port-A-Cath. The tip terminates at the SVC. No pneumothorax. No pleural effusions. The heart is normal in size. No focal lung consolidations. IMPRESSION: Left subclavian Port-A-Cath terminates at the SVC. No pneumothorax. Electronically signed by: Jared Carlton M.D. 12/28/2017 11:23 AM Dictated Date/Time: 12/28/2017 11:22 AM
--- NOTE | 2017-12-28 11:52 | OPERATIVE REPORT ---
DATE OF OPERATION: 12/28/2017 PREOPERATIVE DIAGNOSIS: Need for long-term central venous access. POSTOPERATIVE DIAGNOSIS: Same. PROCEDURE: Placement of A-port tunneled central venous access catheter with port using left subclavian approach. SURGEON: Aditya Benítez MD FINDINGS: The catheter tip was placed at the junction of the right atrium and superior vena cava. There was good blood return and it was easily flushed. TECHNIQUE: The patient was given intravenous sedation positioned and the area was prepped and draped in the usual sterile fashion. The skin and subcutaneous tissue in the left infraclavicular area were anesthetized with 1% Xylocaine without epinephrine. The left subclavian vein was entered on the first attempt and the wire passed with ease. The tip of the wire was confirmed in the right atrium by fluoroscopy. A small incision was made at the exit site of the wire and a pocket was created in the subcutaneous tissue inferior to that area to assure soft turn in the catheter. The site for the port was chosen and the skin and subcutaneous tissue superior to that area were anesthetized with 1% Xylocaine without epinephrine. Skin incision was made and was carried down through the subcutaneous tissue in prepectoral fashion and hemostasis was obtained using electrocautery. A prepectoral pocket was created inferior to the incision and the port fit nicely. The introducer sheath device was passed over the wire under fluoroscopic guidance. The introducer and wire were removed and the catheter was passed through the sheath under fluoroscopic guidance and the tip of the catheter was seen to enter the right atrium. The sheath was peeled. The tunneling device was then used to tunnel the catheter from the infraclavicular incision to the port incision. Fluoroscopy was then used to size the catheter, placing the tip near the junction of the right atrium and superior vena cava. The catheter was cut and attached to the port with ease. The port was secured to the prepectoral fascia with 2-0 Prolene interrupted sutures. The port was accessed and there was good blood return and it was easily flushed first with saline and then heparin. The port incision was closed with a running 2-0 Vicryl in the deep subcutaneous tissue, running 3-0 Vicryl in the superficial subcutaneous tissue and running 4-0 Monocryl in a subcuticular fashion for the skin. The infraclavicular incision was closed with an interrupted 4-0 Monocryl suture. The skin was cleansed, dried and a dressing placed. The estimated blood loss was 5 mL. Sponge, needle and instrument counts were correct prior to closure. The patient tolerated the surgical procedure without complication and was transferred to recovery. I attest to the content of the Intraoperative Record and any orders documented therein. Any exception s are noted below.
--- NOTE | 2017-12-28 12:00 | Anesthesiology Progress Note ---
Anesthesia Post Op Note Date & Time Dec 28, 2017 at 12:00 Vital Signs Pain Intensity: 0 Vital Signs Past 12 Hours Date Time Temp Pulse Resp B/P (MAP) Pulse Ox O2 Delivery O2 Flow Rate FiO2 12/28/17 11:45 87 12 96/71 97 Nasal Cannula 2 12/28/17 11:30 85 12 100/74 96 Nasal Cannula 2 12/28/17 11:15 36.7 93 20 94/73 96 Nasal Cannula 2 12/28/17 11:05 84 13 98/76 98 Oxymask 10 12/28/17 10:58 36.7 83 12 100/75 99 Oxymask 10 12/28/17 08:00 95 Room Air 12/28/17 07:48 36.6 87 17 103/72 (82) 95 Room Air Notes Mental Status: alert / awake / arousable, participated in evaluation Pt Amnestic to Procedure: Yes Nausea / Vomiting: adequately controlled Pain: adequately controlled Airway Patency, RR, SpO2: stable & adequate BP & HR: stable & adequate Hydration State: stable & adequate Anesthetic Complications: no major complications apparent
[2017-12-28 12:18] VITALS: BP 103/72; PULSE 88; TEMP 36.8; O2SAT 92
[2017-12-28] MEDS: PANTOprazole SOD 40 MG TAB PO SCH (12:24)
[2017-12-28] MEDS: RANITIDINE HCL 150 MG TAB PO SCH ×2 (12:24→20:50)
[2017-12-28] MEDS: NICOTINE 21 MG/24 HR TDSY TD SCH (12:24)
[2017-12-28] MEDS: BusPIRone 15 MG TAB PO SCH (12:25)
[2017-12-28] MEDS ORDERED: ATROPINE SULFATE 0.1 MG/ML 5ML SYR IV PRN (12:30)
[2017-12-28] MEDS ORDERED: EpHEDrine SULFATE INJ 50 MG/ML AMP IV PRN (12:30)
--- NOTE | 2017-12-28 14:48 | GASTROENTEROLOGY PROGRESS NOTE ---
DATE: 12/27/2017 Chart reviewed. The patient examined. The patient is overall doing about the same; is ambulating. Appetite is good. Stools remain varied between pasty and loose with some vaginal output. There is no blood reported. There are no fevers reported and the patient has not had vomiting. She is due for her Remicade infusion next week. This will be her third induction dose. She is also completing a course of Dificid for C. diff infection and believe this will end on the weekend. She is also scheduled for a port placement perhaps tomorrow or the next few days. Medications were reviewed as well as her laboratories for which the last set was 12/26/2017 and a white count of 10.1, hemoglobin 11.7. Serum chemistries on the showed a BUN and creatinine of 21 and 0.8, potassium 4.2, magnesium is now normal at 2.0. PHYSICAL EXAMINATION: VITAL SIGNS: Today are blood pressure 89/64, respirations 18, heart rate 102, temperature 36.8, pulse ox 94% on room air. GENERAL: The patient is awake, alert and oriented x3. HEENT: Sclerae are anicteric, conjunctivae moist. Hull facies continues (the patient on prednisone). HEART: Normal S1, S2. LUNGS: Clear to auscultation. ABDOMEN: Soft, flat, nontender, nondistended. Good bowel sounds. EXTREMITIES: Without edema. RECTAL: Deferred. IMPRESSION AND PLAN: Completion of Clostridium difficile therapy hopefully this weekend with port placement over the next several days. The patient has her third induction dose of Remicade this upcoming week. 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 Prior to her first maintenance dose 8 weeks after next week's dose, we will assess for antibodies and level for Infliximab. Would continue to ambulate. Oral intake is tolerated. All questions answered. MTDD
[2017-12-28 16:00] VITALS: BP 99/69; PULSE 92; TEMP 36.8; O2SAT 95; O2SAT 96
[2017-12-28] MEDS: CLONAZEPAM 0.5 MG TAB PO PRN (17:45)
[2017-12-28] MEDS: DIPHENOXYLATE/ATROPINE 2.5/0.025MG TAB PO PRN (20:20)
--- NOTE | 2017-12-28 22:07 | Progress Note ---
Subjective Date of Service: Dec 28, 2017. Subjective Pt evaluation today including: conversation w/ patient, physical exam Patient was concerned over Nucynta. Patient states she saw her PCP who did not feel comfortable prescribing this. She is also concerned over insurance covering this. She is also requesting one month supple of the Nucynta. She states stools have decreased. Problem List Medical Problems: (1) Abdominal pain Status: Acute (2) Chronic pain Status: Acute (3) Exacerbation of Crohn's disease Status: Chronic (4) Fibromyalgia Status: Chronic (5) Hyponatremia Status: Acute (6) Hypovolemia Status: Acute (7) Intractable pain Status: Acute (8) Lactic acidosis Status: Acute (9) Leukocytosis Status: Acute (10) Leukocytosis Status: Acute (11) Pancolitis Status: Acute (12) Sepsis Status: Acute (13) Substernal precordial chest pain Status: Acute (14) Tachycardia Status: Acute (15) UTI (urinary tract infection) Status: Acute Review of Systems Constitutional: + problem reported (she states she feels shakey inside and becomes tearful as she states she cannot live like this), No fever, No chills Respiratory: No cough, No shortness of breath Cardiac: No chest pain, No edema Abdomen: + diarrhea, No pain, No nausea, No vomiting Musculoskeletal: No joint pain, No muscle pain Neurologic: No memory loss, No paralysis Psychiatric: + anxiety, No depression symptoms All Other Systems: Reviewed and Negative Medications Current Inpatient Medications Medications (Trade) Dose Ordered Sig/Rashard Route Start Time Stop Time Status Last Admin Dose Admin Enoxaparin Sodium (Lovenox Inj) 40 mg Q24H SC 12/20/17 09:00 01/19/18 08:59 Future Hold 12/23/17 08:53 40 MG Acetaminophen (Tylenol Tab) 650 mg Q4H PRN PO 12/20/17 01:30 01/19/18 01:29 Al Hydrox/Mg Hydrox/Simethicone (Maalox Max Susp) 15 ml Q4H PRN PO 12/20/17 01:30 01/19/18 01:29 Magnesium Hydroxide (Milk Of Magnesia Susp) 30 ml Q12H PRN PO 12/20/17 01:30 01/19/18 01:29 Polyethylene (Miralax Powder Packet) 17 gm DAILY PRN PO 12/20/17 01:30 01/19/18 01:29 Clonazepam (Klonopin Tab) 1 mg Q8 PRN PO 12/20/17 01:30 01/19/18 01:29 12/28/17 17:45 1 MG Colestipol HCl (Colestid Tab) 1 gm BID@1000,2200 PO 12/20/17 10:00 01/19/18 09:59 12/28/17 22:04 1 GM Diphenoxylate HCl/ Atropine (Lomotil Tab) 2 tab Q6H PRN PO 12/20/17 01:30 01/19/18 01:29 12/28/17 20:20 2 TAB Enteral Nutritional Formula (Boost) 1 can TID PO 12/20/17 10:00 01/19/18 09:59 12/28/17 20:49 1 CAN Pantoprazole Sodium (Protonix Tab) 40 mg DAILY PO 12/20/17 09:00 01/19/18 08:59 12/28/17 12:24 40 MG Zolpidem Tartrate (Ambien Tab) 5 mg HS PRN PO 12/20/17 01:30 01/19/18 01:29 12/27/17 23:30 5 MG Tapentadol (Nucynta Tab) 100 mg Q6H PO 12/20/17 06:00 01/19/18 05:59 12/28/17 17:44 100 MG Ondansetron HCl (Zofran Odt) 8 mg Q6H PRN PO 12/20/17 01:45 01/19/18 01:44 12/27/17 06:08 8 MG Ranitidine HCl (zANTac TAB) 150 mg BID PO 12/20/17 03:00 01/19/18 02:59 12/28/17 20:50 150 MG Miscellaneous (Iv Fluids Completed) 1 ea PRN PRN N/A 12/20/17 04:45 12/20/18 04:44 Heparin Sodium (Porcine) (Heparin 10 Unit/ ml 5 ml Flush) 5 ml PRN PRN FLUSH 12/20/17 15:15 01/19/18 15:14 12/28/17 12:38 5 ML Nicotine (Nicoderm Cq 21MG Patch) 1 patch QAM TD 4/19/18 16:45 01/19/18 16:44 12/28/17 12:24 1 PATCH Miscellaneous (Remove Nicoderm Patch) 1 ea HS N/A 12/20/17 21:00 01/19/18 20:59 12/28/17 20:53 1 EA Fidaxomicin (Dificid Tab) 200 mg BID PO 12/22/17 09:00 01/03/18 20:59 12/28/17 20:50 200 MG Haloperidol (Haldol Tab) 5 mg QID PO 12/22/17 13:00 01/19/18 08:59 12/28/17 20:51 5 MG Buspirone HCl (BusPAR TAB) 15 mg QAM PO 12/22/17 15:00 01/21/18 14:59 12/28/17 12:25 15 MG Heparin Sodium (Porcine) (Heparin 10 Unit/ ml 5 ml Flush) 5 ml PRN PRN FLUSH 12/27/17 11:00 01/26/18 10:59 Oxycodone/ Acetaminophen (Percocet 5-325mg Tab) 1 tab Q4H PRN PO 12/28/17 11:00 01/11/18 10:59 Prednisone (PredniSONE TAB) 15 mg DAILY PO 12/29/17 09:00 01/20/18 08:59 Objective Vital Signs Date Time Temp Pulse Resp B/P (MAP) Pulse Ox O2 Delivery O2 Flow Rate FiO2 12/28/17 16:00 95 Room Air 12/28/17 16:00 36.8 92 20 99/69 (79) 96 Room Air 12/28/17 12:18 36.8 88 17 103/72 (82) 92 Nasal Cannula 2.0 12/28/17 11:45 87 12 96/71 97 Nasal Cannula 2 12/28/17 11:30 85 12 100/74 96 Nasal Cannula 2 12/28/17 11:15 36.7 93 20 94/73 96 Nasal Cannula 2 12/28/17 11:05 84 13 98/76 98 Oxymask 10 12/28/17 10:58 36.7 83 12 100/75 99 Oxymask 10 12/28/17 08:00 95 Room Air 12/28/17 07:48 36.6 87 17 103/72 (82) 95 Room Air 12/28/17 00:00 95 Room Air 12/27/17 22:25 36.7 92 16 112/78 (89) 96 Room Air Physical Exam Comments: General Appearance: WD/WN, + no distress Eyes: normal inspection, sclerae normal Respiratory/Chest: chest non-tender, lungs clear, normal breath sounds Cardiovascular: regular rate, rhythm, no murmur Abdomen: normal bowel sounds, non tender, soft Extremities: no pedal edema, no calf tenderness Neurologic/Psychiatric: alert, oriented x 3 Laboratory Results Last 24 Hours Test 12/28/17 07:13 White Blood Count 8.97 K/uL Red Blood Count 4.10 M/uL Hemoglobin 11.7 g/dL Hematocrit 35.5 % Mean Corpuscular Volume 86.6 fL Mean Corpuscular Hemoglobin 28.5 pg Mean Corpuscular Hemoglobin Concent 33.0 g/dl RDW Standard Deviation 67.8 fL RDW Coefficient of Variation 21.2 % Platelet Count 307 K/uL Mean Platelet Volume 8.8 fL Sodium Level 135 mmol/L Potassium Level 4.0 mmol/L Chloride Level 102 mmol/L Carbon Dioxide Level 28 mmol/L Anion Gap 5.0 mmol/L Blood Urea Nitrogen 23 mg/dl Creatinine 1.01 mg/dl Est Creatinine Clear Calc Drug Dose 53.3 ml/min Estimated GFR () 75.7 Estimated GFR (Non- 65.3 BUN/Creatinine Ratio 23.1 Random Glucose 72 mg/dl Calcium Level 8.6 mg/dl Magnesium Level 1.9 mg/dl Assessment and Plan 47 F with c/o subjective shakiness and found to have C diff diarrhea present on admission C Diff, pt refused po vancomycin as states she cannot take syrup and in the past did not tolerate flagyl, is tolerating Dificid and diarrhea remains controlled. As per nursing staff it appears better controlled. Today though patient also reports improvement. Appears to be recovering. However will need to complete 10 days of treatment. Plan will be to discharge on Sunday. She is not somatically focused on c/o internal shakiness. Shakiness appears to have resolved. Likely due to increased haldol and adding buspar on 12/22 will monitor. Over weekend had increased vaginal stool, (resolved) despite this she has no issue with leukocytosis or worsened abdominal exam, I will ask GI medicine to see pt to determine if we need to have additional diagnostic work up as they have helped with this in the past Patient has appointment with colorectal surgery on JANUARY 01. Will try to have patient f/u with them next week. Her vaginal stool has improved, and patient is no longer complaining of this at the moment. Sinus tachycardia/dehydration/progressive weakness--resolved Crohn's disease--no exacerbation.on Remicade, stools are reasonable not frequent or overtly loose Continue colestipol, ensure, pt states she cannot tolerate oral ferrous sulfate she requests that if iron is low to use iv iron, and continue pantoprazole. stress dose steroids for 24 hours now return to po prednisone 12/21, since c/o shakiness will reduce prednisone to 20 on 12/22 Continue Zantac 150 mg p.o. twice daily, Zofran 4 mg IV every 6 hours as needed. Will need to refer to surgery for a port placement Chronic pain syndrome--controlled Nucynta pain has not been her issue this stay. Patient is concerned she may not have refill for this. I stated I will investigate this over course of weekend. Anxiety/agitation--Psychiatry consult pt limits who she sees prefers to see Brent , Haldol 5 mg p.o. 4 times daily, clonazepam 1 mg p.o. every 8 hours as needed, and zolpidem tartrate 5 mg p.o. at bedtime as needed. This appears better controlled. Consulted Surgery for A Port placement. This has been completed. Will dc PICC line once a port is functional. Likely will be done on Sunday
[2017-12-28] MEDS: ZOLPIDEM TARTRATE 5 MG TAB PO PRN (23:34)
[2017-12-29 00:09] VITALS: BP 101/69; PULSE 82; TEMP 36.8; O2SAT 96
[2017-12-29 05:40] LABS: HEMATOCRIT 34.6 % (37-47); HEMOGLOBIN 11.1 g/dL (12.0-16.0); MEAN CELL VOLUME 86.7 fL (80-100); MEAN CORPUSCULAR HEMOGLOBIN 27.8 pg (25-34); MEAN CORPUSCULAR HGB CONC 32.1 g/dl (32-36); MEAN PLATELET VOLUME 8.5 fL (7.4-10.4); PLATELET COUNT 286 K/uL (130-400); RED CELL DISTRIBUTION WIDTH CV 20.9 % (11.5-14.5); RED CELL DISTRIBUTION WIDTH SD 67.3 fL (36.4-46.3); WHITE BLOOD COUNT 10.02 K/uL (4.8-10.8)
[2017-12-29] MEDS: TAPENTADOL HCL 50 MG TAB PO SCH ×3 (06:28→17:28)
[2017-12-29 06:34] LABS: CALCIUM 8.4 mg/dl (8.5-10.1); CREATININE 0.7 mg/dl (0.60-1.20); POTASSIUM 4.1 mmol/L (3.5-5.1)
[2017-12-29] MEDS: ONDANSETRON 8MG OD TAB PO PRN (06:46)
[2017-12-29 08:17] VITALS: BP 117/83; PULSE 75; TEMP 37; O2SAT 95
[2017-12-29] MEDS: BOOST VANILLA PO SCH ×3 (08:27→21:18)
[2017-12-29] MEDS: HALOPERIDOL 5 MG TAB PO SCH ×4 (08:28→22:11)
[2017-12-29] MEDS: FIDAXOMICIN TAB 200 MG TAB PO SCH ×2 (08:28→21:19)
[2017-12-29] MEDS: PANTOprazole SOD 40 MG TAB PO SCH (08:29)
[2017-12-29] MEDS: BusPIRone 15 MG TAB PO SCH (08:29)
[2017-12-29] MEDS: RANITIDINE HCL 150 MG TAB PO SCH ×2 (08:29→21:22)
[2017-12-29] MEDS: NICOTINE 21 MG/24 HR TDSY TD SCH (08:30)
[2017-12-29] MEDS: DIPHENOXYLATE/ATROPINE 2.5/0.025MG TAB PO PRN ×2 (08:37→21:26)
[2017-12-29] MEDS: COLESTIPOL HCL 1 GM TAB PO SCH ×2 (10:00→22:11)
--- NOTE | 2017-12-29 11:49 | Progress Note ---
Subjective Date of Service: Dec 29, 2017. Subjective Pt evaluation today including: conversation w/ patient 47 yo female seems more anxious today. She is worried about her pain medicine. She again reiterates that her PCP will not filll it. And she hopes to have a pain management referral as an outpatient. Patient reports also that her tongue is swollen. But she notes she is having difficutly talking. However, as per nursing staff, patient is talking very fast, having no issues, no drooling on exam. Patient tolerated breakfast with no problem. Problem List Medical Problems: (1) Abdominal pain Status: Acute (2) Chronic pain Status: Acute (3) Exacerbation of Crohn's disease Status: Chronic (4) Fibromyalgia Status: Chronic (5) Hyponatremia Status: Acute (6) Hypovolemia Status: Acute (7) Intractable pain Status: Acute (8) Lactic acidosis Status: Acute (9) Leukocytosis Status: Acute (10) Leukocytosis Status: Acute (11) Pancolitis Status: Acute (12) Sepsis Status: Acute (13) Substernal precordial chest pain Status: Acute (14) Tachycardia Status: Acute (15) UTI (urinary tract infection) Status: Acute Review of Systems Constitutional: + problem reported (she states she feels shakey inside and becomes tearful as she states she cannot live like this), No fever, No chills Respiratory: No cough, No shortness of breath Cardiac: No chest pain, No edema Abdomen: + diarrhea, No pain, No nausea, No vomiting Musculoskeletal: No joint pain, No muscle pain Neurologic: No memory loss, No paralysis Psychiatric: + anxiety, No depression symptoms All Other Systems: Reviewed and Negative Medications Current Inpatient Medications Medications (Trade) Dose Ordered Sig/Rashard Route Start Time Stop Time Status Last Admin Dose Admin Enoxaparin Sodium (Lovenox Inj) 40 mg Q24H SC 12/20/17 09:00 01/19/18 08:59 Future Hold 12/23/17 08:53 40 MG Acetaminophen (Tylenol Tab) 650 mg Q4H PRN PO 12/20/17 01:30 01/19/18 01:29 Al Hydrox/Mg Hydrox/Simethicone (Maalox Max Susp) 15 ml Q4H PRN PO 12/20/17 01:30 01/19/18 01:29 Magnesium Hydroxide (Milk Of Magnesia Susp) 30 ml Q12H PRN PO 12/20/17 01:30 01/19/18 01:29 Polyethylene (Miralax Powder Packet) 17 gm DAILY PRN PO 12/20/17 01:30 01/19/18 01:29 Clonazepam (Klonopin Tab) 1 mg Q8 PRN PO 12/20/17 01:30 01/19/18 01:29 12/28/17 17:45 1 MG Colestipol HCl (Colestid Tab) 1 gm BID@1000,2200 PO 12/20/17 10:00 01/19/18 09:59 12/29/17 10:00 1 GM Diphenoxylate HCl/ Atropine (Lomotil Tab) 2 tab Q6H PRN PO 12/20/17 01:30 01/19/18 01:29 12/29/17 08:37 2 TAB Enteral Nutritional Formula (Boost) 1 can TID PO 12/20/17 10:00 01/19/18 09:59 12/29/17 08:27 1 CAN Pantoprazole Sodium (Protonix Tab) 40 mg DAILY PO 12/20/17 09:00 01/19/18 08:59 12/29/17 08:29 40 MG Zolpidem Tartrate (Ambien Tab) 5 mg HS PRN PO 12/20/17 01:30 01/19/18 01:29 12/28/17 23:34 5 MG Tapentadol (Nucynta Tab) 100 mg Q6H PO 12/20/17 06:00 01/19/18 05:59 12/29/17 06:28 100 MG Ondansetron HCl (Zofran Odt) 8 mg Q6H PRN PO 12/20/17 01:45 01/19/18 01:44 12/29/17 06:46 8 MG Ranitidine HCl (zANTac TAB) 150 mg BID PO 12/20/17 03:00 01/19/18 02:59 12/29/17 08:29 150 MG Miscellaneous (Iv Fluids Completed) 1 ea PRN PRN N/A 12/20/17 04:45 12/20/18 04:44 Heparin Sodium (Porcine) (Heparin 10 Unit/ ml 5 ml Flush) 5 ml PRN PRN FLUSH 4/19/18 15:15 01/19/18 15:14 12/28/17 12:38 5 ML Nicotine (Nicoderm Cq 21MG Patch) 1 patch QAM TD 12/20/17 16:45 01/19/18 16:44 12/29/17 08:30 1 PATCH Miscellaneous (Remove Nicoderm Patch) 1 ea HS N/A 12/20/17 21:00 01/19/18 20:59 12/28/17 20:53 1 EA Fidaxomicin (Dificid Tab) 200 mg BID PO 12/22/17 09:00 01/03/18 20:59 12/29/17 08:28 200 MG Haloperidol (Haldol Tab) 5 mg QID PO 12/22/17 13:00 01/19/18 08:59 12/29/17 08:28 5 MG Buspirone HCl (BusPAR TAB) 15 mg QAM PO 12/22/17 15:00 01/21/18 14:59 12/29/17 08:29 15 MG Heparin Sodium (Porcine) (Heparin 10 Unit/ ml 5 ml Flush) 5 ml PRN PRN FLUSH 12/27/17 11:00 01/26/18 10:59 Oxycodone/ Acetaminophen (Percocet 5-325mg Tab) 1 tab Q4H PRN PO 12/28/17 11:00 01/11/18 10:59 Prednisone (PredniSONE TAB) 15 mg DAILY PO 12/29/17 09:00 01/20/18 08:59 12/29/17 08:29 15 MG Objective Vital Signs Date Time Temp Pulse Resp B/P (MAP) Pulse Ox O2 Delivery O2 Flow Rate FiO2 12/29/17 08:17 37.0 75 20 117/83 (94) 95 12/29/17 00:09 36.8 82 18 101/69 (80) 96 Room Air 12/29/17 00:00 Room Air 12/28/17 20:00 Room Air 12/28/17 16:00 95 Room Air 12/28/17 16:00 36.8 92 20 99/69 (79) 96 Room Air 12/28/17 12:18 36.8 88 17 103/72 (82) 92 Nasal Cannula 2.0 12/28/17 11:45 87 12 96/71 97 Nasal Cannula 2 Physical Exam Comments: General Appearance: WD/WN, + no distress, talking well, no stuttering, no difficulty communicating her words, no slurred speach. Eyes: normal inspection, sclerae normal Respiratory/Chest: chest non-tender, lungs clear, normal breath sounds Cardiovascular: regular rate, rhythm, no murmur Abdomen: normal bowel sounds, non tender, soft Extremities: no pedal edema, no calf tenderness Neurologic/Psychiatric: alert, oriented x 3 Laboratory Results Last 24 Hours Test 12/29/17 05:14 12/29/17 05:15 Sodium Level 135 mmol/L Potassium Level 4.1 mmol/L Chloride Level 102 mmol/L Carbon Dioxide Level 28 mmol/L Anion Gap 5.0 mmol/L Blood Urea Nitrogen 20 mg/dl Creatinine 0.70 mg/dl Est Creatinine Clear Calc Drug Dose 76.9 ml/min Estimated GFR () 117.9 Estimated GFR (Non- 101.7 BUN/Creatinine Ratio 29.2 Random Glucose 79 mg/dl Calcium Level 8.4 mg/dl Magnesium Level 2.2 mg/dl Iron Level 36 mcg/dl Total Iron Binding Capacity 243 mcg/dl Ferritin 52.0 ng/ml White Blood Count 10.02 K/uL Red Blood Count 3.99 M/uL Hemoglobin 11.1 g/dL Hematocrit 34.6 % Mean Corpuscular Volume 86.7 fL Mean Corpuscular Hemoglobin 27.8 pg Mean Corpuscular Hemoglobin Concent 32.1 g/dl RDW Standard Deviation 67.3 fL RDW Coefficient of Variation 20.9 % Platelet Count 286 K/uL Mean Platelet Volume 8.5 fL Assessment and Plan 47 F with c/o subjective shakiness and found to have C diff diarrhea present on admission C Diff, pt refused po vancomycin as states she cannot take syrup and in the past did not tolerate flagyl, is tolerating Dificid and diarrhea remains controlled. As per nursing staff it appears better controlled. Today though patient also reports improvement. Appears to be recovering. However will need to complete 10 days of treatment. Plan will be to discharge on Sunday. She is not somatically focused on c/o internal shakiness. Shakiness appears to have resolved. Likely due to increased haldol and adding buspar on 12/22 will monitor. Over last weekend had increased vaginal stool, (resolved) despite this she has no issue with leukocytosis or worsened abdominal exam, I will ask GI medicine to see pt to determine if we need to have additional diagnostic work up as they have helped with this in the past Patient has appointment with colorectal surgery on JANUARY 01. Will try to have patient f/u with them next week. Her vaginal stool has improved, and patient is no longer complaining of this at the moment. Sinus tachycardia/dehydration/progressive weakness--resolved Crohn's disease--no exacerbation.on Remicade, stools are reasonable not frequent or overtly loose Continue colestipol, ensure, pt states she cannot tolerate oral ferrous sulfate she requests that if iron is low to use iv iron, and continue pantoprazole. stress dose steroids for 24 hours now return to po prednisone 12/21, since c/o shakiness will reduce prednisone to 20 on 12/22 Continue Zantac 150 mg p.o. twice daily, Zofran 4 mg IV every 6 hours as needed. obtained a port yesterday Chronic pain syndrome--controlled Nucynta pain has not been her issue this stay. Patient is concerned she may not have refill for this. I stated I will investigate this over course of weekend. D/W social work case manager. It appears it needs prior auth. will discuss this with patient as unsure if she will have this. Patient states she takes it for chrons pain. I explained narcotics arent a good option for GI symptoms nor fibromyalgia. Anxiety/agitation--Psychiatry consult pt limits who she sees prefers to see Brent , Haldol 5 mg p.o. 4 times daily, clonazepam 1 mg p.o. every 8 hours as needed, and zolpidem tartrate 5 mg p.o. at bedtime as needed. This appears better controlled. Consulted Surgery for A Port placement. This has been completed. need to remove picc line Complaint of enlarged tongue No objective findings. will monitor her for now.
--- NOTE | 2017-12-29 14:04 | Surgery Progress Note ---
Surgery Progress Note Date of Service Dec 29, 2017. Subjective Post OP Day: 1 (s/p port placement, left chest wall. ) + feeling well Patient resting comfortably. Denies pain or discomfort at incision site. Objective Vital Signs: Date Time Temp Pulse Resp B/P (MAP) Pulse Ox O2 Delivery O2 Flow Rate FiO2 12/29/17 08:17 37.0 75 20 117/83 (94) 95 12/29/17 08:00 Room Air 12/29/17 00:09 36.8 82 18 101/69 (80) 96 Room Air 12/29/17 00:00 Room Air 12/28/17 20:00 Room Air 12/28/17 16:00 95 Room Air 12/28/17 16:00 36.8 92 20 99/69 (79) 96 Room Air Incision(s): clean, dry, intact, no erythema, no drainage (Dressing removed. ) Laboratory Results: Results Past 24 Hours Test 12/29/17 05:14 12/29/17 05:15 Range/Units Sodium Level 135 136-145 mmol/L Potassium Level 4.1 3.5-5.1 mmol/L Chloride Level 102 98-107 mmol/L Carbon Dioxide Level 28 21-32 mmol/L Anion Gap 5.0 3-11 mmol/L Blood Urea Nitrogen 20 7-18 mg/dl Creatinine 0.70 0.60-1.20 mg/dl Est Creatinine Clear Calc Drug Dose 76.9 ml/min Estimated GFR () 117.9 Estimated GFR (Non- 101.7 BUN/Creatinine Ratio 29.2 10-20 Random Glucose 79 70-99 mg/dl Calcium Level 8.4 8.5-10.1 mg/dl Magnesium Level 2.2 1.8-2.4 mg/dl Iron Level 36 35-150 mcg/dl Total Iron Binding Capacity 243 250-450 mcg/dl Ferritin 52.0 8.0-388.0 ng/ml White Blood Count 10.02 4.8-10.8 K/uL Red Blood Count 3.99 4.2-5.4 M/uL Hemoglobin 11.1 12.0-16.0 g/dL Hematocrit 34.6 37-47 % Mean Corpuscular Volume 86.7 80-100 fL Mean Corpuscular Hemoglobin 27.8 25-34 pg Mean Corpuscular Hemoglobin Concent 32.1 32-36 g/dl RDW Standard Deviation 67.3 36.4-46.3 fL RDW Coefficient of Variation 20.9 11.5-14.5 % Platelet Count 286 130-400 K/uL Mean Platelet Volume 8.5 7.4-10.4 fL Assessment & Plan POD #1 s/p port placement, left chest wall with Dr. Benítez. Dressing removed- incision examined- healing nicely, clean, dry, intact, no signs of infection. Patient did not want new dressing placed. General Surgery will sign off at this time.
[2017-12-29] MEDS: CLONAZEPAM 0.5 MG TAB PO PRN (15:39)
[2017-12-29 16:26] VITALS: BP 112/77; PULSE 93; TEMP 36.6; O2SAT 96
[2017-12-29] MEDS: ZOLPIDEM TARTRATE 5 MG TAB PO PRN (22:18)
[2017-12-30] MEDS: TAPENTADOL HCL 50 MG TAB PO SCH ×3 (00:16→12:49)
[2017-12-30 00:36] VITALS: BP 118/78; PULSE 79; TEMP 36.6; O2SAT 95
[2017-12-30 06:07] LABS: CALCIUM 8.4 mg/dl (8.5-10.1); CREATININE 0.71 mg/dl (0.60-1.20)
[2017-12-30 07:28] VITALS: BP 120/80; PULSE 69; TEMP 36.6; O2SAT 97
[2017-12-30] MEDS ORDERED: NURSING VERBAL MED ORDER ONE ×2 (08:15→09:15)
[2017-12-30 08:24] LABS: HEMATOCRIT 35.1 % (37-47); HEMOGLOBIN 11.3 g/dL (12.0-16.0); MEAN CELL VOLUME 87.1 fL (80-100); MEAN CORPUSCULAR HGB CONC 32.2 g/dl (32-36); MEAN PLATELET VOLUME 8.5 fL (7.4-10.4); PLATELET COUNT 303 K/uL (130-400); RED CELL DISTRIBUTION WIDTH CV 20.6 % (11.5-14.5); RED CELL DISTRIBUTION WIDTH SD 67.2 fL (36.4-46.3); WHITE BLOOD COUNT 7.87 K/uL (4.8-10.8)
[2017-12-30] MEDS ORDERED: ALTEPLASE, RECOMBINANT 1 MG/ML 2 ML VIAL IV ONE ×2 (08:30→09:30)
[2017-12-30] MEDS: HALOPERIDOL 5 MG TAB PO SCH ×4 (09:15→21:15)
[2017-12-30] MEDS: FIDAXOMICIN TAB 200 MG TAB PO SCH ×2 (09:15→21:14)
[2017-12-30] MEDS: DIPHENOXYLATE/ATROPINE 2.5/0.025MG TAB PO PRN ×2 (09:15→21:21)
[2017-12-30] MEDS: BusPIRone 15 MG TAB PO SCH (09:16)
[2017-12-30] MEDS: PANTOprazole SOD 40 MG TAB PO SCH (09:17)
[2017-12-30] MEDS: NICOTINE 21 MG/24 HR TDSY TD SCH (09:18)
[2017-12-30] MEDS: RANITIDINE HCL 150 MG TAB PO SCH ×2 (09:18→21:17)
[2017-12-30] MEDS: BOOST VANILLA PO SCH ×3 (09:20→21:18)
--- NOTE | 2017-12-30 10:32 | Psychiatric Progress Notes ---
Psychiatric Progress Note Date of Service Dec 30, 2017. Notes case reviewed with liaison, known to me from previous admissions. Patient is taking 20 mg total daily dose of Haldol scheduled and did report some sense of tongue thickness. Given hx of altered mental status would prefer to avoid Cogentin 0.5 mg coadmin with Haldol as anticholinergic. If persistent concern for patient in that effects swallow or other signs of dystonia would recommend 0.5 mg BID Cogentin and monitor for anticholinergic side effects.
[2017-12-30] MEDS: COLESTIPOL HCL 1 GM TAB PO SCH ×2 (10:51→22:14)
[2017-12-30] MEDS: ONDANSETRON 8MG OD TAB PO PRN (14:37)
[2017-12-30 14:54] VITALS: BP 99/66; PULSE 97; TEMP 36.7; O2SAT 94
--- NOTE | 2017-12-30 16:24 | Progress Note ---
Subjective Date of Service: Dec 30, 2017. Subjective Pt evaluation today including: conversation w/ patient Patient reports only a sore throat. Patient denies any dysphagia. Problem List Medical Problems: (1) Abdominal pain Status: Acute (2) Chronic pain Status: Acute (3) Exacerbation of Crohn's disease Status: Chronic (4) Fibromyalgia Status: Chronic (5) Hyponatremia Status: Acute (6) Hypovolemia Status: Acute (7) Intractable pain Status: Acute (8) Lactic acidosis Status: Acute (9) Leukocytosis Status: Acute (10) Leukocytosis Status: Acute (11) Pancolitis Status: Acute (12) Sepsis Status: Acute (13) Substernal precordial chest pain Status: Acute (14) Tachycardia Status: Acute (15) UTI (urinary tract infection) Status: Acute Review of Systems Constitutional: + problem reported (she states she feels shakey inside and becomes tearful as she states she cannot live like this), No fever, No chills Respiratory: No cough, No shortness of breath Cardiac: No chest pain, No edema Abdomen: + diarrhea, No pain, No nausea, No vomiting Musculoskeletal: No joint pain, No muscle pain Neurologic: No memory loss, No paralysis Psychiatric: + anxiety, No depression symptoms Medications Current Inpatient Medications Medications (Trade) Dose Ordered Sig/Rashard Route Start Time Stop Time Status Last Admin Dose Admin Enoxaparin Sodium (Lovenox Inj) 40 mg Q24H SC 12/20/17 09:00 01/19/18 08:59 Future Hold 12/23/17 08:53 40 MG Acetaminophen (Tylenol Tab) 650 mg Q4H PRN PO 12/20/17 01:30 01/19/18 01:29 Al Hydrox/Mg Hydrox/Simethicone (Maalox Max Susp) 15 ml Q4H PRN PO 12/20/17 01:30 01/19/18 01:29 Magnesium Hydroxide (Milk Of Magnesia Susp) 30 ml Q12H PRN PO 12/20/17 01:30 01/19/18 01:29 Polyethylene (Miralax Powder Packet) 17 gm DAILY PRN PO 12/20/17 01:30 01/19/18 01:29 Clonazepam (Klonopin Tab) 1 mg Q8 PRN PO 12/20/17 01:30 01/19/18 01:29 12/30/17 16:58 1 MG Colestipol HCl (Colestid Tab) 1 gm BID@1000,2200 PO 12/20/17 10:00 01/19/18 09:59 12/30/17 22:14 1 GM Diphenoxylate HCl/ Atropine (Lomotil Tab) 2 tab Q6H PRN PO 12/20/17 01:30 01/19/18 01:29 12/31/17 06:10 2 TAB Enteral Nutritional Formula (Boost) 1 can TID PO 12/20/17 10:00 01/19/18 09:59 12/30/17 21:18 1 CAN Pantoprazole Sodium (Protonix Tab) 40 mg DAILY PO 12/20/17 09:00 01/19/18 08:59 12/30/17 09:17 40 MG Zolpidem Tartrate (Ambien Tab) 5 mg HS PRN PO 12/20/17 01:30 01/19/18 01:29 12/30/17 22:12 5 MG Tapentadol (Nucynta Tab) 100 mg Q6H PO 12/20/17 06:00 01/19/18 05:59 Future Hold 12/30/17 12:49 100 MG Ondansetron HCl (Zofran Odt) 8 mg Q6H PRN PO 12/20/17 01:45 01/19/18 01:44 12/31/17 06:10 8 MG Ranitidine HCl (zANTac TAB) 150 mg BID PO 12/20/17 03:00 01/19/18 02:59 12/30/17 21:17 150 MG Miscellaneous (Iv Fluids Completed) 1 ea PRN PRN N/A 12/20/17 04:45 12/20/18 04:44 Heparin Sodium (Porcine) (Heparin 10 Unit/ ml 5 ml Flush) 5 ml PRN PRN FLUSH 12/20/17 15:15 01/19/18 15:14 12/30/17 13:02 5 ML Nicotine (Nicoderm Cq 21MG Patch) 1 patch QAM TD 12/20/17 16:45 01/19/18 16:44 12/30/17 09:18 1 PATCH Miscellaneous (Remove Nicoderm Patch) 1 ea HS N/A 12/20/17 21:00 01/19/18 20:59 12/30/17 21:22 1 EA Fidaxomicin (Dificid Tab) 200 mg BID PO 12/22/17 09:00 01/03/18 20:59 12/30/17 21:14 200 MG Haloperidol (Haldol Tab) 5 mg QID PO 12/22/17 13:00 01/19/18 08:59 12/30/17 21:15 5 MG Buspirone HCl (BusPAR TAB) 15 mg QAM PO 12/22/17 15:00 01/21/18 14:59 12/30/17 09:16 15 MG Heparin Sodium (Porcine) (Heparin 10 Unit/ ml 5 ml Flush) 5 ml PRN PRN FLUSH 12/27/17 11:00 01/26/18 10:59 Oxycodone/ Acetaminophen (Percocet 5-325mg Tab) 1 tab Q4H PRN PO 12/28/17 11:00 01/11/18 10:59 12/31/17 06:09 1 TAB Prednisone (PredniSONE TAB) 15 mg DAILY PO 12/29/17 09:00 01/20/18 08:59 12/30/17 09:15 15 MG Duloxetine HCl (Cymbalta Cap) 30 mg QPM PO 12/30/17 18:15 01/29/18 18:14 12/30/17 19:39 30 MG Lidocaine HCl/ Diphenhydramine HCl/Al Hydroxide/ Mg Hydroxide/ Glycerin/Barcode Q6H MT 12/30/17 19:00 01/29/18 18:59 12/30/17 18:52 5 ML Objective Vital Signs Date Time Temp Pulse Resp B/P (MAP) Pulse Ox O2 Delivery O2 Flow Rate FiO2 12/30/17 14:54 36.7 97 20 99/66 (77) 94 12/30/17 08:00 Room Air 12/30/17 07:28 36.6 69 18 120/80 (93) 97 12/30/17 00:36 36.6 79 20 118/78 (91) 95 Room Air 12/30/17 00:00 Room Air 12/29/17 20:00 Room Air 12/29/17 16:26 36.6 93 20 112/77 (89) 96 Room Air Physical Exam Comments: General Appearance: WD/WN, + no distress Eyes: normal inspection, sclerae normal Respiratory/Chest: chest non-tender, lungs clear, normal breath sounds Cardiovascular: regular rate, rhythm, no murmur Abdomen: normal bowel sounds, non tender, soft Extremities: no pedal edema, no calf tenderness Neurologic/Psychiatric: alert, oriented x 3 Laboratory Results Last 24 Hours Test 12/30/17 05:09 12/30/17 07:59 Sodium Level 136 mmol/L Potassium Level 4.0 mmol/L Chloride Level 104 mmol/L Carbon Dioxide Level 28 mmol/L Anion Gap 4.0 mmol/L Blood Urea Nitrogen 19 mg/dl Creatinine 0.71 mg/dl Est Creatinine Clear Calc Drug Dose 75.8 ml/min Estimated GFR () 115.9 Estimated GFR (Non- 100.0 BUN/Creatinine Ratio 26.2 Random Glucose 69 mg/dl Calcium Level 8.4 mg/dl White Blood Count 7.87 K/uL Red Blood Count 4.03 M/uL Hemoglobin 11.3 g/dL Hematocrit 35.1 % Mean Corpuscular Volume 87.1 fL Mean Corpuscular Hemoglobin 28.0 pg Mean Corpuscular Hemoglobin Concent 32.2 g/dl RDW Standard Deviation 67.2 fL RDW Coefficient of Variation 20.6 % Platelet Count 303 K/uL Mean Platelet Volume 8.5 fL Assessment and Plan 47 F with c/o subjective shakiness and found to have C diff diarrhea present on admission C Diff, pt refused po vancomycin as states she cannot take syrup and in the past did not tolerate flagyl, is tolerating Dificid and diarrhea remains controlled. As per nursing staff it appears better controlled. Today though patient also reports improvement. Appears to be recovering. However will need to complete 10 days of treatment. Plan will be to discharge on Sunday. She is not somatically focused on c/o internal shakiness. Shakiness appears to have resolved. Likely due to increased haldol and adding buspar on 12/22 will monitor. Over last weekend had increased vaginal stool, (resolved) despite this she has no issue with leukocytosis or worsened abdominal exam, I will ask GI medicine to see pt to determine if we need to have additional diagnostic work up as they have helped with this in the past Patient has appointment with colorectal surgery on JANUARY 01. Will try to have patient f/u with them next week. Her vaginal stool has improved, and patient is no longer complaining of this at the moment. Sinus tachycardia/dehydration/progressive weakness--resolved Crohn's disease--no exacerbation.on Remicade, stools are reasonable not frequent or overtly loose Continue colestipol, ensure, pt states she cannot tolerate oral ferrous sulfate she requests that if iron is low to use iv iron, and continue pantoprazole. stress dose steroids for 24 hours now return to po prednisone 12/21, since c/o shakiness will reduce prednisone to 20 on 12/22 Continue Zantac 150 mg p.o. twice daily, Zofran 4 mg IV every 6 hours as needed. obtained a port yesterday Chronic pain syndrome--controlled Nucynta pain has not been her issue this stay. Patient is concerned she may not have refill for this. I stated I will investigate this over course of weekend. D/W sample case porter. It appears it needs prior auth. will discuss this with patient as unsure if she will have this. Patient states she takes it for chrons pain. I explained narcotics arent a good option for GI symptoms nor fibromyalgia. added cymbalta today. dw psych and patient who is agreeable to use this for pain. I explained that this will need to be used chronically also stopped nucynta and will have patient on oxycodone. Anxiety/agitation--Psychiatry consult pt limits who she sees prefers to see Brent , Haldol 5 mg p.o. 4 times daily, clonazepam 1 mg p.o. every 8 hours as needed, and zolpidem tartrate 5 mg p.o. at bedtime as needed. This appears better controlled. Consulted Surgery for A Port placement. This has been completed. need to remove picc line Complaint of enlarged tongue No objective findings. will monitor her for now. no worsening of symtpoms today Sore throat placed on magic swizzle
[2017-12-30] MEDS ORDERED: MAGIC SWIZZLE PO SCH (16:30)
[2017-12-30 16:55] VITALS: O2SAT 94
[2017-12-30] MEDS: CLONAZEPAM 0.5 MG TAB PO PRN (16:58)
[2017-12-30] MEDS ORDERED: DULOXETINE (CYMBALTA) 30 MG CAP PO SCH (18:15)
[2017-12-30] MEDS: LIDOCAINE HCL 2% VISCOUS SOLN 60 ML, DiphenhydrAMINE HCL SYRUP 150 MG, ALUMINUM/MAGNESI... MT SCH ×4 (18:52)
[2017-12-30 20:45] VITALS: BP 143/74; PULSE 80
[2017-12-30] MEDS: OXYCODONE/ACETAMINOPHEN 5-325 TAB PO PRN (21:21)
[2017-12-30] MEDS: ZOLPIDEM TARTRATE 5 MG TAB PO PRN (22:12)
[2017-12-30 23:53] VITALS: BP 106/72; PULSE 84; TEMP 36.7; O2SAT 96
[2017-12-31] MEDS: LIDOCAINE HCL 2% VISCOUS SOLN 60 ML, DiphenhydrAMINE HCL SYRUP 150 MG, ALUMINUM/MAGNESI... MT SCH ×16 (01:00→18:30)
[2017-12-31] MEDS: OXYCODONE/ACETAMINOPHEN 5-325 TAB PO PRN ×3 (06:09→17:44)
[2017-12-31] MEDS: ONDANSETRON 8MG OD TAB PO PRN ×2 (06:10→12:49)
[2017-12-31] MEDS: DIPHENOXYLATE/ATROPINE 2.5/0.025MG TAB PO PRN (06:10)
[2017-12-31 07:00] VITALS: BP 128/84; PULSE 83; TEMP 36.9; O2SAT 96
--- NOTE | 2017-12-31 08:03 | Anesthesiology Progress Note ---
Anesthesia Post Op Note Date & Time Dec 31, 2017 at 08:02 Vital Signs Vital Signs Past 12 Hours Date Time Temp Pulse Resp B/P (MAP) Pulse Ox O2 Delivery O2 Flow Rate FiO2 12/31/17 07:00 36.9 83 18 128/84 (99) 96 Room Air 12/31/17 00:00 Room Air 12/30/17 23:53 36.7 84 18 106/72 (83) 96 Room Air 12/30/17 20:45 80 143/74 (97) Notes Mental Status: alert / awake / arousable, participated in evaluation Pt Amnestic to Procedure: Yes Nausea / Vomiting: adequately controlled Pain: adequately controlled Airway Patency, RR, SpO2: stable & adequate BP & HR: stable & adequate Hydration State: stable & adequate Anesthetic Complications: no major complications apparent
[2017-12-31] MEDS: FIDAXOMICIN TAB 200 MG TAB PO SCH ×2 (08:41→21:29)
[2017-12-31] MEDS: BOOST VANILLA PO SCH ×3 (08:41→20:55)
[2017-12-31] MEDS: BusPIRone 15 MG TAB PO SCH (08:44)
[2017-12-31] MEDS: PANTOprazole SOD 40 MG TAB PO SCH (08:44)
[2017-12-31] MEDS: RANITIDINE HCL 150 MG TAB PO SCH ×2 (08:45→20:57)
[2017-12-31] MEDS: NICOTINE 21 MG/24 HR TDSY TD SCH (08:45)
[2017-12-31] MEDS: HALOPERIDOL 5 MG TAB PO SCH ×4 (08:45→20:56)
[2017-12-31] MEDS: COLESTIPOL HCL 1 GM TAB PO SCH ×2 (10:35→22:45)
[2017-12-31 15:11] VITALS: BP 116/81; PULSE 102; TEMP 36.6; O2SAT 94
--- NOTE | 2017-12-31 17:29 | GASTROENTEROLOGY PROGRESS NOTE ---
DATE: 12/31/2017 SUBJECTIVE: Chart reviewed, patient examined. The patient doing about the same. Her dose of prednisone has been reduced to 15 mg daily and is scheduled for her third induction dose of Remicade on Sunday, January 04. Afterwards, will plan to begin a maintenance dosing schedule in 8 weeks with antibody and levels obtained prior to this. The patient is otherwise unchanged. She still has stools that fluctuate between loose and watery. There is no blood described. Occasional vaginal stool discharge is noted. Appetite is good. Her medications were reviewed including Cymbalta, prednisone, BuSpar, Nicoderm patch, colestipol 1 g b.i.d., pantoprazole 40 mg daily, ranitidine, Zofran, and she completes her Dificid on January 03. REVIEW OF SYSTEMS: Otherwise noncontributory based on 13-point exam. CURRENT LABORATORY STUDIES: Yesterday, white count 7.8, hemoglobin 11.3, MCV 87, RDW is elevated at 20.6 although declining. Her BUN and creatinine were 19 and 0.7, potassium 4.0, magnesium 2 days ago was 2.2. PHYSICAL EXAMINATION: GENERAL: The patient is awake, alert, oriented x3, ambulating. HEENT: Sclerae are anicteric. Conjunctivae moist. Oral mucosa moist. HEART: Normal S1 and S2. ABDOMEN: Soft, flat, nontender, nondistended, without rebound or guarding although there is slight tympany noted. EXTREMITIES: Without edema. RECTAL: Deferred. IMPRESSION AND PLAN: The patient for third induction dose of Remicade on Sunday. We will plan on 8 weeks for beginning maintenance therapy; however, given that she has been on this medication before although many years ago, it may be worthwhile to perform levels in approximately 4 weeks after her next dose to gauge whether she is mounting antibodies or has a meaningful level, and dosing could then be adjusted from that point. The patient encouraged to ambulate and continue oral intake. All questions answered.
[2017-12-31] MEDS: DULOXETINE (CYMBALTA) 30 MG CAP PO SCH (20:56)
[2017-12-31 22:31] VITALS: BP 114/79; PULSE 82; TEMP 36.2; O2SAT 95
--- NOTE | 2017-12-31 23:33 | Progress Note ---
Subjective Date of Service: Dec 31, 2017. Subjective Pt evaluation today including: conversation w/ patient, physical exam, lab review, conversation w/ outside solar sales consultant, review of inpatient medication list Pain: denies pain PO Intake: adequate Voiding: no voiding problems patient feeling well, says her stools are loose but back to baseline with her Crohn's discussed going home on 01/01 and she agreed she was concerned about pain medications, assured her that she would have new scripts discussed importance of follow up with colorectal surgery, she was planning on going reviewed labs, stable Problem List Medical Problems: (1) Abdominal pain Status: Acute (2) Chronic pain Status: Acute (3) Exacerbation of Crohn's disease Status: Chronic (4) Fibromyalgia Status: Chronic (5) Hyponatremia Status: Acute (6) Hypovolemia Status: Acute (7) Intractable pain Status: Acute (8) Lactic acidosis Status: Acute (9) Leukocytosis Status: Acute (10) Leukocytosis Status: Acute (11) Pancolitis Status: Acute (12) Sepsis Status: Acute (13) Substernal precordial chest pain Status: Acute (14) Tachycardia Status: Acute (15) UTI (urinary tract infection) Status: Acute Review of Systems Abdomen: + diarrhea All Other Systems: Reviewed and Negative Medications Current Inpatient Medications Medications (Trade) Dose Ordered Sig/Rashard Route Start Time Stop Time Status Last Admin Dose Admin Enoxaparin Sodium (Lovenox Inj) 40 mg Q24H SC 12/20/17 09:00 01/19/18 08:59 Future Hold 12/23/17 08:53 40 MG Acetaminophen (Tylenol Tab) 650 mg Q4H PRN PO 12/20/17 01:30 01/19/18 01:29 Al Hydrox/Mg Hydrox/Simethicone (Maalox Max Susp) 15 ml Q4H PRN PO 12/20/17 01:30 01/19/18 01:29 Magnesium Hydroxide (Milk Of Magnesia Susp) 30 ml Q12H PRN PO 12/20/17 01:30 01/19/18 01:29 Polyethylene (Miralax Powder Packet) 17 gm DAILY PRN PO 12/20/17 01:30 01/19/18 01:29 Clonazepam (Klonopin Tab) 1 mg Q8 PRN PO 12/20/17 01:30 01/19/18 01:29 12/30/17 16:58 1 MG Colestipol HCl (Colestid Tab) 1 gm BID@1000,2200 PO 12/20/17 10:00 01/19/18 09:59 12/31/17 22:45 1 GM Diphenoxylate HCl/ Atropine (Lomotil Tab) 2 tab Q6H PRN PO 12/20/17 01:30 01/19/18 01:29 12/31/17 06:10 2 TAB Enteral Nutritional Formula (Boost) 1 can TID PO 12/20/17 10:00 01/19/18 09:59 12/31/17 20:55 1 CAN Pantoprazole Sodium (Protonix Tab) 40 mg DAILY PO 12/20/17 09:00 01/19/18 08:59 12/31/17 08:44 40 MG Zolpidem Tartrate (Ambien Tab) 5 mg HS PRN PO 12/20/17 01:30 01/19/18 01:29 12/30/17 22:12 5 MG Tapentadol (Nucynta Tab) 100 mg Q6H PO 12/20/17 06:00 01/19/18 05:59 Future Hold 12/30/17 12:49 100 MG Ondansetron HCl (Zofran Odt) 8 mg Q6H PRN PO 12/20/17 01:45 01/19/18 01:44 12/31/17 12:49 8 MG Ranitidine HCl (zANTac TAB) 150 mg BID PO 12/20/17 03:00 01/19/18 02:59 12/31/17 20:57 150 MG Miscellaneous (Iv Fluids Completed) 1 ea PRN PRN N/A 12/20/17 04:45 12/20/18 04:44 Heparin Sodium (Porcine) (Heparin 10 Unit/ ml 5 ml Flush) 5 ml PRN PRN FLUSH 12/20/17 15:15 01/19/18 15:14 12/30/17 13:02 5 ML Nicotine (Nicoderm Cq 21MG Patch) 1 patch QAM TD 12/20/17 16:45 01/19/18 16:44 12/31/17 08:45 1 PATCH Miscellaneous (Remove Nicoderm Patch) 1 ea HS N/A 12/20/17 21:00 01/19/18 20:59 12/31/17 20:57 1 EA Fidaxomicin (Dificid Tab) 200 mg BID PO 12/22/17 09:00 01/03/18 20:59 12/31/17 21:29 200 MG Haloperidol (Haldol Tab) 5 mg QID PO 12/22/17 13:00 01/19/18 08:59 12/31/17 20:56 5 MG Buspirone HCl (BusPAR TAB) 15 mg QAM PO 12/22/17 15:00 01/21/18 14:59 12/31/17 08:44 15 MG Heparin Sodium (Porcine) (Heparin 10 Unit/ ml 5 ml Flush) 5 ml PRN PRN FLUSH 12/27/17 11:00 01/26/18 10:59 Oxycodone/ Acetaminophen (Percocet 5-325mg Tab) 1 tab Q4H PRN PO 12/28/17 11:00 01/11/18 10:59 12/31/17 17:44 1 TAB Prednisone (PredniSONE TAB) 15 mg DAILY PO 12/29/17 09:00 01/20/18 08:59 12/31/17 08:44 15 MG Lidocaine HCl/ Diphenhydramine HCl/Al Hydroxide/ Mg Hydroxide/ Glycerin/Barcode Q6H MT 12/30/17 19:00 01/29/18 18:59 12/31/17 18:30 5 ML Duloxetine HCl (Cymbalta Cap) 60 mg QPM PO 12/31/17 21:00 01/29/18 18:14 12/31/17 20:56 60 MG Objective Vital Signs Date Time Temp Pulse Resp B/P (MAP) Pulse Ox O2 Delivery O2 Flow Rate FiO2 12/31/17 22:31 36.2 82 16 114/79 (91) 95 Room Air 12/31/17 15:11 36.6 102 17 116/81 (93) 94 Room Air 12/31/17 15:10 Room Air 12/31/17 08:00 Room Air 12/31/17 07:00 36.9 83 18 128/84 (99) 96 Room Air 12/31/17 00:00 Room Air 12/30/17 23:53 36.7 84 18 106/72 (83) 96 Room Air Physical Exam General Appearance: WD/WN, no apparent distress Eyes: normal inspection, EOMI, sclerae normal ENT: normal ENT inspection, hearing grossly normal, pharynx normal Neck: supple, no adenopathy, no JVD, trachea midline Respiratory/Chest: chest non-tender, lungs clear, normal breath sounds, no respiratory distress, no accessory muscle use Cardiovascular: regular rate, rhythm, no edema, no gallop, no JVD, no murmur Abdomen: normal bowel sounds, non tender, soft, no organomegaly Neurologic/Psychiatric: slunk skinner II-XII nml as tested, no motor/sensory deficits, alert, normal mood/affect, oriented x 3 Skin: normal color, warm/dry, no rash Lymphatic: no adenopathy Assessment and Plan 47 F with c/o subjective shakiness and found to have C diff diarrhea present on admission C Diff, pt refused po vancomycin as states she cannot take syrup and in the past did not tolerate flagyl, is tolerating Dificid and diarrhea remains controlled. completed 10 days of Dificid as of 12/31 in the evening stools back to baseline with Crohn's per patient no fever, WBC normal Crohn's disease with colovaginal fistula minimal vaginal output continue Remicade, A port placed continue Prednisone at 15mg daily follow up closely with [facility] and colorectal surgery continue Colestipol, Zantac, Zofran Sinus tachycardia/dehydration/progressive weakness--resolved Chronic pain syndrome-- previously on Nucynta but cannot afford started on Cymbalta this admission, 30mg was helping a little, increased to 60mg, will see if she has more relief started on Percocet, pain reasonably controlled Anxiety/agitation--Psychiatry consult pt limits who she sees prefers to see Brent , Haldol 5 mg p.o. 4 times daily, clonazepam 1 mg p.o. every 8 hours as needed, and zolpidem tartrate 5 mg p.o. at bedtime as needed. This appears better controlled. prescriptions provided Consulted Surgery for A Port placement. This has been completed. need to remove picc line prior to discharge Sore throat placed on magic swizzle
[2018-01-01 01:00] VITALS: O2SAT 95
[2018-01-01] MEDS: LIDOCAINE HCL 2% VISCOUS SOLN 60 ML, DiphenhydrAMINE HCL SYRUP 150 MG, ALUMINUM/MAGNESI... MT SCH ×16 (01:01→19:00)
[2018-01-01] MEDS: ZOLPIDEM TARTRATE 5 MG TAB PO PRN ×2 (01:01→21:16)
[2018-01-01 06:00] LABS: HEMATOCRIT 35.7 % (37-47); HEMOGLOBIN 11.6 g/dL (12.0-16.0); MEAN CELL VOLUME 86.2 fL (80-100); MEAN CORPUSCULAR HGB CONC 32.5 g/dl (32-36); MEAN PLATELET VOLUME 8.3 fL (7.4-10.4); PLATELET COUNT 305 K/uL (130-400); RED CELL DISTRIBUTION WIDTH CV 20.1 % (11.5-14.5); RED CELL DISTRIBUTION WIDTH SD 64.7 fL (36.4-46.3); WHITE BLOOD COUNT 9.18 K/uL (4.8-10.8)
[2018-01-01 06:38] LABS: CALCIUM 8.2 mg/dl (8.5-10.1); CREATININE 0.76 mg/dl (0.60-1.20); POTASSIUM 3.9 mmol/L (3.5-5.1)
[2018-01-01] MEDS: OXYCODONE/ACETAMINOPHEN 5-325 TAB PO PRN (06:47)
[2018-01-01 07:07] VITALS: BP 148/96; PULSE 100; TEMP 36.9; O2SAT 97
[2018-01-01] MEDS: BOOST VANILLA PO SCH ×3 (07:37→21:00)
[2018-01-01] MEDS: BusPIRone 15 MG TAB PO SCH (07:37)
[2018-01-01] MEDS: PANTOprazole SOD 40 MG TAB PO SCH (07:38)
[2018-01-01] MEDS: CLONAZEPAM 0.5 MG TAB PO PRN (07:38)
[2018-01-01] MEDS: NICOTINE 21 MG/24 HR TDSY TD SCH (07:38)
[2018-01-01] MEDS: RANITIDINE HCL 150 MG TAB PO SCH ×2 (07:38→21:08)
[2018-01-01] MEDS: DIPHENOXYLATE/ATROPINE 2.5/0.025MG TAB PO PRN (07:38)
[2018-01-01] MEDS: HALOPERIDOL 5 MG TAB PO SCH ×3 (07:38→21:08)
[2018-01-01] MEDS: FIDAXOMICIN TAB 200 MG TAB PO SCH ×2 (08:01→21:08)
[2018-01-01] MEDS ORDERED: BSP15 PO (08:11)
[2018-01-01] MEDS ORDERED: PRD10 PO (08:11)
[2018-01-01] MEDS ORDERED: CYM30 PO (08:11)
[2018-01-01] MEDS ORDERED: OXYC-57 PO (08:11)
[2018-01-01] MEDS ORDERED: HLD5 PO (08:11)
[2018-01-01] MEDS: COLESTIPOL HCL 1 GM TAB PO SCH ×2 (10:14→22:12)
[2018-01-01 15:48] VITALS: BP 115/78; PULSE 98; TEMP 36.8; O2SAT 97
[2018-01-01] MEDS: ONDANSETRON 8MG OD TAB PO PRN (17:49)
--- NOTE | 2018-01-01 21:02 | Progress Note ---
Subjective Date of Service: January 01, 2018. Subjective Pt evaluation today including: conversation w/ patient, physical exam, review of inpatient medication list Pain: abdominal pain PO Intake: adequate Voiding: no voiding problems patient complains of shaking inside, concerned about side effects from Haldol and Buspar she reports her stools are looser than yesterday, more frequent, more abdominal pain, lower concerned she needs the Nucynta, knows she cannot afford it says that the Oxycodone does not help enough, however, she says her pain is only 4-5 out of 10 no vomiting mood stable, but feels funny on Haldol worried about going home discussed cutting back on Haldol to TID and stopping Buspar since that was just added Problem List Medical Problems: (1) Abdominal pain Status: Acute (2) Chronic pain Status: Acute (3) Exacerbation of Crohn's disease Status: Chronic (4) Fibromyalgia Status: Chronic (5) Hyponatremia Status: Acute (6) Hypovolemia Status: Acute (7) Intractable pain Status: Acute (8) Lactic acidosis Status: Acute (9) Leukocytosis Status: Acute (10) Leukocytosis Status: Acute (11) Pancolitis Status: Acute (12) Sepsis Status: Acute (13) Substernal precordial chest pain Status: Acute (14) Tachycardia Status: Acute (15) UTI (urinary tract infection) Status: Acute Review of Systems Constitutional: + weakness, + fatigue Psychiatric: + anxiety, + problem reported (reports "shaking" inside) All Other Systems: Reviewed and Negative Medications Current Inpatient Medications Medications (Trade) Dose Ordered Sig/Rashard Route Start Time Stop Time Status Last Admin Dose Admin Enoxaparin Sodium (Lovenox Inj) 40 mg Q24H SC 12/20/17 09:00 01/19/18 08:59 Future Hold 12/23/17 08:53 40 MG Acetaminophen (Tylenol Tab) 650 mg Q4H PRN PO 12/20/17 01:30 01/19/18 01:29 Al Hydrox/Mg Hydrox/Simethicone (Maalox Max Susp) 15 ml Q4H PRN PO 12/20/17 01:30 01/19/18 01:29 Magnesium Hydroxide (Milk Of Magnesia Susp) 30 ml Q12H PRN PO 12/20/17 01:30 01/19/18 01:29 Polyethylene (Miralax Powder Packet) 17 gm DAILY PRN PO 12/20/17 01:30 01/19/18 01:29 Clonazepam (Klonopin Tab) 1 mg Q8 PRN PO 12/20/17 01:30 01/19/18 01:29 01/01/18 07:38 1 MG Colestipol HCl (Colestid Tab) 1 gm BID@1000,2200 PO 12/20/17 10:00 01/19/18 09:59 01/01/18 10:14 1 GM Diphenoxylate HCl/ Atropine (Lomotil Tab) 2 tab Q6H PRN PO 12/20/17 01:30 01/19/18 01:29 01/01/18 07:38 2 TAB Enteral Nutritional Formula (Boost) 1 can TID PO 12/20/17 10:00 01/19/18 09:59 01/01/18 12:41 1 CAN Pantoprazole Sodium (Protonix Tab) 40 mg DAILY PO 12/20/17 09:00 01/19/18 08:59 01/01/18 07:38 40 MG Zolpidem Tartrate (Ambien Tab) 5 mg HS PRN PO 12/20/17 01:30 01/19/18 01:29 01/01/18 01:01 5 MG Tapentadol (Nucynta Tab) 100 mg Q6H PO 12/20/17 06:00 01/19/18 05:59 Future Hold 12/30/17 12:49 100 MG Ondansetron HCl (Zofran Odt) 8 mg Q6H PRN PO 12/20/17 01:45 01/19/18 01:44 01/01/18 17:49 8 MG Ranitidine HCl (zANTac TAB) 150 mg BID PO 12/20/17 03:00 01/19/18 02:59 01/01/18 07:38 150 MG Miscellaneous (Iv Fluids Completed) 1 ea PRN PRN N/A 12/20/17 04:45 12/20/18 04:44 Heparin Sodium (Porcine) (Heparin 10 Unit/ ml 5 ml Flush) 5 ml PRN PRN FLUSH 12/20/17 15:15 01/19/18 15:14 01/01/18 19:16 5 ML Nicotine (Nicoderm Cq 21MG Patch) 1 patch QAM TD 12/20/17 16:45 01/19/18 16:44 01/01/18 07:38 1 PATCH Miscellaneous (Remove Nicoderm Patch) 1 ea HS N/A 12/20/17 21:00 01/19/18 20:59 12/31/17 20:57 1 EA Fidaxomicin (Dificid Tab) 200 mg BID PO 12/22/17 09:00 01/03/18 20:59 01/01/18 08:01 200 MG Heparin Sodium (Porcine) (Heparin 10 Unit/ ml 5 ml Flush) 5 ml PRN PRN FLUSH 12/27/17 11:00 01/26/18 10:59 Prednisone (PredniSONE TAB) 15 mg DAILY PO 12/29/17 09:00 01/20/18 08:59 01/01/18 07:38 15 MG Lidocaine HCl/ Diphenhydramine HCl/Al Hydroxide/ Mg Hydroxide/ Glycerin/Barcode Q6H MT 12/30/17 19:00 01/29/18 18:59 01/01/18 01:01 5 ML Duloxetine HCl (Cymbalta Cap) 60 mg QPM PO 12/31/17 21:00 01/29/18 18:14 12/31/17 20:56 60 MG Haloperidol (Haldol Tab) 5 mg TID PO 01/01/18 14:00 01/19/18 08:59 01/01/18 14:21 5 MG Oxycodone HCl (Roxicodone Immediate Rel Tab) 10 mg Q6 PRN PO 01/01/18 10:00 01/15/18 09:59 Objective Vital Signs Date Time Temp Pulse Resp B/P (MAP) Pulse Ox O2 Delivery O2 Flow Rate FiO2 01/01/18 16:00 Room Air 01/01/18 15:48 36.8 98 18 115/78 (90) 97 Room Air 01/01/18 08:00 Room Air 01/01/18 07:07 36.9 100 16 148/96 (113) 97 Room Air 01/01/18 01:00 95 Room Air 12/31/17 22:31 36.2 82 16 114/79 (91) 95 Room Air Physical Exam General Appearance: WD/WN, no apparent distress Eyes: normal inspection, EOMI, sclerae normal ENT: normal ENT inspection, hearing grossly normal, pharynx normal, + pertinent finding (poor dentition) Neck: supple, no adenopathy, no JVD, trachea midline Respiratory/Chest: chest non-tender, lungs clear, normal breath sounds, no respiratory distress, no accessory muscle use Cardiovascular: regular rate, rhythm, no edema, no gallop, no JVD, no murmur Abdomen: normal bowel sounds, soft, no organomegaly, + tenderness (lower abdomen) Extremities: normal range of motion, non-tender, normal inspection, no pedal edema, no calf tenderness, pelvis stable Neurologic/Psychiatric: 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-XII nml as tested, no motor/sensory deficits, alert, normal mood/affect, oriented x 3 Skin: normal color, warm/dry, no rash Laboratory Results Last 24 Hours Test 01/01/18 05:44 White Blood Count 9.18 K/uL Red Blood Count 4.14 M/uL Hemoglobin 11.6 g/dL Hematocrit 35.7 % Mean Corpuscular Volume 86.2 fL Mean Corpuscular Hemoglobin 28.0 pg Mean Corpuscular Hemoglobin Concent 32.5 g/dl RDW Standard Deviation 64.7 fL RDW Coefficient of Variation 20.1 % Platelet Count 305 K/uL Mean Platelet Volume 8.3 fL Sodium Level 135 mmol/L Potassium Level 3.9 mmol/L Chloride Level 101 mmol/L Carbon Dioxide Level 28 mmol/L Anion Gap 6.0 mmol/L Blood Urea Nitrogen 14 mg/dl Creatinine 0.76 mg/dl Est Creatinine Clear Calc Drug Dose 70.8 ml/min Estimated GFR () 106.8 Estimated GFR (Non- 92.1 BUN/Creatinine Ratio 18.3 Random Glucose 71 mg/dl Calcium Level 8.2 mg/dl Assessment and Plan 47 F with c/o subjective shakiness and found to have C diff diarrhea present on admission C Diff, pt refused po vancomycin as states she cannot take syrup and in the past did not tolerate flagyl, tolerated Dificid completed 10 days of Dificid as of 12/31 in the evening however, this morning, reports stools are more loose, more frequent explained that we will continue the Dificid for now on Colestid no fever, WBC normal Crohn's disease with colovaginal fistula minimal vaginal output continue Remicade, A port placed continue Prednisone at 15mg daily follow up closely with [facility] GI and colorectal surgery continue Colestipol, Zantac, Zofran Sinus tachycardia/dehydration/progressive weakness--resolved Chronic pain syndrome-- previously on Nucynta but cannot afford started on Cymbalta this admission, 30mg was helping a little, increased to 60mg, continue to monitor for improvement increase Percocet dose today, trying for more adequate pain control Anxiety/agitation--Psychiatry consult pt limits who she sees prefers to see Brent , Haldol 5 mg p.o. 4 times daily, clonazepam 1 mg p.o. every 8 hours as needed, and zolpidem tartrate 5 mg p.o. at bedtime as needed. will decrease Haldol to TID due to shaking sensation will discontinue Buspar Consulted Surgery for A Port placement. This has been completed. need to remove picc line prior to discharge Sore throat placed on magic swizzle Hold on discharge today, see if symptoms improve with medication changes
[2018-01-01] MEDS: DULOXETINE (CYMBALTA) 30 MG CAP PO SCH (21:07)
[2018-01-02 00:19] VITALS: O2SAT 95
[2018-01-02] MEDS: LIDOCAINE HCL 2% VISCOUS SOLN 60 ML, DiphenhydrAMINE HCL SYRUP 150 MG, ALUMINUM/MAGNESI... MT SCH ×16 (00:55→15:27)
[2018-01-02 01:09] VITALS: BP 152/94; PULSE 95; TEMP 36.6; O2SAT 95
[2018-01-02] MEDS: OXYCODONE HCL IR 5 MG TAB (IMMEDIATE RELEASE) PO PRN (06:18)
[2018-01-02 07:20] VITALS: BP 146/100; PULSE 101; TEMP 36.9; O2SAT 94
[2018-01-02] MEDS: BOOST VANILLA PO SCH ×3 (08:27→20:28)
[2018-01-02] MEDS: FIDAXOMICIN TAB 200 MG TAB PO SCH ×2 (08:28→20:28)
[2018-01-02] MEDS: CLONAZEPAM 0.5 MG TAB PO PRN (08:29)
[2018-01-02] MEDS: HALOPERIDOL 5 MG TAB PO SCH ×3 (08:29→20:28)
[2018-01-02] MEDS: NICOTINE 21 MG/24 HR TDSY TD SCH (08:29)
[2018-01-02] MEDS: DIPHENOXYLATE/ATROPINE 2.5/0.025MG TAB PO PRN ×2 (08:29→17:51)
[2018-01-02] MEDS: PANTOprazole SOD 40 MG TAB PO SCH (08:29)
[2018-01-02] MEDS: RANITIDINE HCL 150 MG TAB PO SCH ×2 (08:29→20:32)
[2018-01-02] MEDS: COLESTIPOL HCL 1 GM TAB PO SCH ×2 (10:26→21:40)
[2018-01-02 16:17] VITALS: BP 103/72; PULSE 104; TEMP 36.6; O2SAT 94
[2018-01-02] MEDS: DULOXETINE (CYMBALTA) 30 MG CAP PO SCH (20:32)
--- NOTE | 2018-01-02 21:59 | Progress Note ---
Subjective Date of Service: January 02, 2018. Subjective Pt evaluation today including: conversation w/ patient, physical exam, review of inpatient medication list Pain: lower abdominal pain PO Intake: adequate Voiding: no voiding problems still with diarrhea, no obvious stool coming out of vagina, no rectal bleeding rescheduled appointment with colorectal surgery on 02/04 still with shaking inside discussed medications and side effects next dose of Remicade due on Sunday, discussed that we would discharge her tomorrow she agreed with plan Problem List Medical Problems: (1) Abdominal pain Status: Acute (2) Chronic pain Status: Acute (3) Exacerbation of Crohn's disease Status: Chronic (4) Fibromyalgia Status: Chronic (5) Hyponatremia Status: Acute (6) Hypovolemia Status: Acute (7) Intractable pain Status: Acute (8) Lactic acidosis Status: Acute (9) Leukocytosis Status: Acute (10) Leukocytosis Status: Acute (11) Pancolitis Status: Acute (12) Sepsis Status: Acute (13) Substernal precordial chest pain Status: Acute (14) Tachycardia Status: Acute (15) UTI (urinary tract infection) Status: Acute Review of Systems Constitutional: + weakness, + fatigue Abdomen: + pain, + diarrhea Neurologic: + weakness Psychiatric: + anxiety All Other Systems: Reviewed and Negative Medications Current Inpatient Medications Medications (Trade) Dose Ordered Sig/Rashard Route Start Time Stop Time Status Last Admin Dose Admin Enoxaparin Sodium (Lovenox Inj) 40 mg Q24H SC 12/20/17 09:00 01/19/18 08:59 Future Hold 12/23/17 08:53 40 MG Acetaminophen (Tylenol Tab) 650 mg Q4H PRN PO 12/20/17 01:30 01/19/18 01:29 Al Hydrox/Mg Hydrox/Simethicone (Maalox Max Susp) 15 ml Q4H PRN PO 12/20/17 01:30 01/19/18 01:29 Magnesium Hydroxide (Milk Of Magnesia Susp) 30 ml Q12H PRN PO 12/20/17 01:30 01/19/18 01:29 Polyethylene (Miralax Powder Packet) 17 gm DAILY PRN PO 12/20/17 01:30 01/19/18 01:29 Clonazepam (Klonopin Tab) 1 mg Q8 PRN PO 12/20/17 01:30 01/19/18 01:29 01/02/18 08:29 1 MG Colestipol HCl (Colestid Tab) 1 gm BID@1000,2200 PO 12/20/17 10:00 01/19/18 09:59 01/02/18 21:40 1 GM Diphenoxylate HCl/ Atropine (Lomotil Tab) 2 tab Q6H PRN PO 12/20/17 01:30 01/19/18 01:29 01/02/18 17:51 2 TAB Enteral Nutritional Formula (Boost) 1 can TID PO 12/20/17 10:00 01/19/18 09:59 01/02/18 13:02 1 CAN Pantoprazole Sodium (Protonix Tab) 40 mg DAILY PO 12/20/17 09:00 01/19/18 08:59 01/02/18 08:29 40 MG Zolpidem Tartrate (Ambien Tab) 5 mg HS PRN PO 12/20/17 01:30 01/19/18 01:29 01/01/18 21:16 5 MG Tapentadol (Nucynta Tab) 100 mg Q6H PO 12/20/17 06:00 01/19/18 05:59 Future Hold 12/30/17 12:49 100 MG Ondansetron HCl (Zofran Odt) 8 mg Q6H PRN PO 12/20/17 01:45 01/19/18 01:44 01/01/18 17:49 8 MG Ranitidine HCl (zANTac TAB) 150 mg BID PO 12/20/17 03:00 01/19/18 02:59 01/02/18 20:32 150 MG Miscellaneous (Iv Fluids Completed) 1 ea PRN PRN N/A 12/20/17 04:45 12/20/18 04:44 Heparin Sodium (Porcine) (Heparin 10 Unit/ ml 5 ml Flush) 5 ml PRN PRN FLUSH 12/20/17 15:15 01/19/18 15:14 01/02/18 08:34 10 ML Nicotine (Nicoderm Cq 21MG Patch) 1 patch QAM TD 12/20/17 16:45 01/19/18 16:44 01/02/18 08:29 1 PATCH Miscellaneous (Remove Nicoderm Patch) 1 ea HS N/A 12/20/17 21:00 01/19/18 20:59 01/02/18 20:33 1 EA Fidaxomicin (Dificid Tab) 200 mg BID PO 12/22/17 09:00 01/03/18 20:59 01/02/18 20:28 200 MG Heparin Sodium (Porcine) (Heparin 10 Unit/ ml 5 ml Flush) 5 ml PRN PRN FLUSH 12/27/17 11:00 01/26/18 10:59 Prednisone (PredniSONE TAB) 15 mg DAILY PO 12/29/17 09:00 01/20/18 08:59 01/02/18 08:29 15 MG Lidocaine HCl/ Diphenhydramine HCl/Al Hydroxide/ Mg Hydroxide/ Glycerin/Barcode Q6H MT 12/30/17 19:00 01/29/18 18:59 01/01/18 01:01 5 ML Duloxetine HCl (Cymbalta Cap) 60 mg QPM PO 12/31/17 21:00 01/29/18 18:14 01/02/18 20:32 60 MG Haloperidol (Haldol Tab) 5 mg TID PO 01/01/18 14:00 01/19/18 08:59 01/02/18 20:28 5 MG Oxycodone HCl (Roxicodone Immediate Rel Tab) 10 mg Q6 PRN PO 01/01/18 10:00 01/15/18 09:59 01/02/18 06:18 10 MG Objective Vital Signs Date Time Temp Pulse Resp B/P (MAP) Pulse Ox O2 Delivery O2 Flow Rate FiO2 01/02/18 16:17 36.6 104 18 103/72 (82) 94 Room Air 01/02/18 16:00 Room Air 01/02/18 08:00 Room Air 01/02/18 07:20 36.9 101 20 146/100 (115) 94 01/02/18 01:09 36.6 95 18 152/94 (113) 95 Room Air 01/02/18 00:19 95 Room Air Physical Exam General Appearance: WD/WN, no apparent distress Eyes: normal inspection, EOMI, sclerae normal ENT: normal ENT inspection, hearing grossly normal, pharynx normal Neck: supple, no adenopathy, no JVD, trachea midline Respiratory/Chest: chest non-tender, lungs clear, normal breath sounds, no respiratory distress, no accessory muscle use Cardiovascular: regular rate, rhythm, no edema, no gallop, no JVD, no murmur Abdomen: normal bowel sounds, non tender, soft, no organomegaly Extremities: normal range of motion, non-tender, normal inspection, no pedal edema, no calf tenderness 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/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: 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, no motor/sensory deficits, alert, oriented x 3, + pertinent finding (anxious) Skin: normal color, warm/dry, no rash Assessment and Plan 47 F with c/o subjective shakiness and found to have C diff diarrhea present on admission C Diff, pt refused po vancomycin as states she cannot take syrup and in the past did not tolerate flagyl, tolerated Dificid completed 10 days of Dificid as of 12/31 in the evening however, stools more loose on 01/01, continuing treatment explained that we will continue the Dificid for now on Colestid no fever, WBC normal Crohn's disease with colovaginal fistula minimal vaginal output continue Remicade, A port placed, next dose of Remicade on 01/04 continue Prednisone at 15mg daily follow up closely with [facility] GI and colorectal surgery (02/04) continue Colestipol, Zantac, Zofran Sinus tachycardia/dehydration/progressive weakness--resolved Chronic pain syndrome-- previously on Nucynta but cannot afford started on Cymbalta this admission, 30mg was helping a little, increased to 60mg, continue to monitor for improvement increase Percocet dose today, trying for more adequate pain control, will give low dose on discharge Anxiety/agitation--Psychiatry consult pt limits who she sees prefers to see Brent , Haldol 5 mg p.o. 4 times daily, clonazepam 1 mg p.o. every 8 hours as needed, and zolpidem tartrate 5 mg p.o. at bedtime as needed. will decrease Haldol to TID due to shaking sensation will discontinue Buspar Consulted Surgery for A Port placement. This has been completed. need to remove picc line prior to discharge Sore throat placed on magic swizzle plan for discharge tomorrow
[2018-01-03 00:18] VITALS: BP 129/86; PULSE 94; TEMP 36.5; O2SAT 95
[2018-01-03] MEDS: LIDOCAINE HCL 2% VISCOUS SOLN 60 ML, DiphenhydrAMINE HCL SYRUP 150 MG, ALUMINUM/MAGNESI... MT SCH ×16 (00:45→15:54)
[2018-01-03 06:07] LABS: BASO % 0.1 %; BASO ABS # 0.01 K/uL (0-0.2); EOS % 1.1 %; EOS ABS # 0.11 K/uL (0-0.5); HEMATOCRIT 36.7 % (37-47); HEMOGLOBIN 12.1 g/dL (12.0-16.0); IG# 0.07 K/uL (0.00-0.02); LYMPH % 17.9 %; MEAN PLATELET VOLUME 8.3 fL (7.4-10.4); MONO % 7.3 %; MONO ABS # 0.73 K/uL (0.11-0.59); NEUT % 72.9 %; NEUT ABS # 7.31 K/uL (1.4-6.5); PLATELET COUNT 325 K/uL (130-400); RED CELL DISTRIBUTION WIDTH CV 19.4 % (11.5-14.5); WHITE BLOOD COUNT 10.03 K/uL (4.8-10.8)
[2018-01-03] MEDS: OXYCODONE HCL IR 5 MG TAB (IMMEDIATE RELEASE) PO PRN (06:23)
[2018-01-03 06:28] LABS: CALCIUM 8.5 mg/dl (8.5-10.1); CREATININE 0.71 mg/dl (0.60-1.20); POTASSIUM 3.7 mmol/L (3.5-5.1)
[2018-01-03 07:27] VITALS: BP 121/87; PULSE 90; TEMP 36.8; O2SAT 95
[2018-01-03] MEDS: BOOST VANILLA PO SCH ×3 (08:36→20:57)
[2018-01-03] MEDS: FIDAXOMICIN TAB 200 MG TAB PO SCH (08:36)
[2018-01-03] MEDS: HALOPERIDOL 5 MG TAB PO SCH ×2 (08:37→13:31)
[2018-01-03] MEDS: ONDANSETRON 8MG OD TAB PO PRN ×2 (08:38→15:53)
[2018-01-03] MEDS: NICOTINE 21 MG/24 HR TDSY TD SCH (08:38)
[2018-01-03] MEDS: PANTOprazole SOD 40 MG TAB PO SCH (08:38)
[2018-01-03] MEDS: RANITIDINE HCL 150 MG TAB PO SCH ×2 (08:38→20:55)
[2018-01-03] MEDS: COLESTIPOL HCL 1 GM TAB PO SCH ×2 (10:14→22:03)
[2018-01-03] MEDS ORDERED: OXYCODONE HCL IR 5 MG TAB (IMMEDIATE RELEASE) PO PRN (10:30)
[2018-01-03 15:34] VITALS: BP 118/83; PULSE 105; TEMP 36.6; O2SAT 95
--- NOTE | 2018-01-03 16:38 | Progress Note ---
Subjective Date of Service: January 03, 2018. Subjective Pt evaluation today including: conversation w/ patient, physical exam, review of inpatient medication list Pain: mild abdominal pain PO Intake: poor Voiding: no voiding problems patient reports only one BM this morning, liquid less abdominal pain, however, she was c/o pain in hips bilaterally patient's primary focus are her psychiatric medications, says she feels depressed, down, cannot respond, feels like she is shaking inside attributes everything to Haldol and Cymbalta and Regla discussed that the Regla was new this admission and that's why I discontinued it discussed that she needs the Haldol, that it helps her maintain clarity and ensures she gets proper treatment for her Crohn's disease discussed that I had reviewed records from previous admission, that she could not make medical decisions, she did not have insight due to her psychosis she was tried on Risperdal, Cogentin, both stopped due to side effects had good response to Haldol and it was titrated upward to 5mg TID on discharge she was angry, told me that I had no idea what she was like previously, that I did not understand her disease I asked her if she would be willing to talk with psychiatry, she refused RN called in afternoon, said that patient refused to take Haldol at 1400 she was also refusing her Cymbalta, said that it caused her body to have a bad odor, she had showered twice revisited patient in the afternoon, stressed importance of taking Haldol, discussed that we could titrate back on dose she flat out refuses to take it, states that she does not need it, that it causes too many side effects of feeling "despondent" again, urged her to take it at least twice a day and I would discuss with psychiatry about alternatives she stated that I did not understand her, that everyone else here in the hospital understands her but I do not she was upset because I am the only one who does not understand her disease Problem List Medical Problems: (1) Abdominal pain Status: Acute (2) Chronic pain Status: Acute (3) Exacerbation of Crohn's disease Status: Chronic (4) Fibromyalgia Status: Chronic (5) Hyponatremia Status: Acute (6) Hypovolemia Status: Acute (7) Intractable pain Status: Acute (8) Lactic acidosis Status: Acute (9) Leukocytosis Status: Acute (10) Leukocytosis Status: Acute (11) Pancolitis Status: Acute (12) Sepsis Status: Acute (13) Substernal precordial chest pain Status: Acute (14) Tachycardia Status: Acute (15) UTI (urinary tract infection) Status: Acute Review of Systems Constitutional: + weakness, + fatigue Abdomen: + pain, + diarrhea Musculoskeletal: + joint pain Psychiatric: + depression symptoms, + anxiety, + insomnia All Other Systems: Reviewed and Negative Medications Current Inpatient Medications Medications (Trade) Dose Ordered Sig/Rashard Route Start Time Stop Time Status Last Admin Dose Admin Enoxaparin Sodium (Lovenox Inj) 40 mg Q24H SC 12/20/17 09:00 01/19/18 08:59 Future Hold 12/23/17 08:53 40 MG Acetaminophen (Tylenol Tab) 650 mg Q4H PRN PO 12/20/17 01:30 01/19/18 01:29 Al Hydrox/Mg Hydrox/Simethicone (Maalox Max Susp) 15 ml Q4H PRN PO 12/20/17 01:30 01/19/18 01:29 Magnesium Hydroxide (Milk Of Magnesia Susp) 30 ml Q12H PRN PO 12/20/17 01:30 01/19/18 01:29 Polyethylene (Miralax Powder Packet) 17 gm DAILY PRN PO 12/20/17 01:30 01/19/18 01:29 Clonazepam (Klonopin Tab) 1 mg Q8 PRN PO 12/20/17 01:30 01/19/18 01:29 01/02/18 08:29 1 MG Colestipol HCl (Colestid Tab) 1 gm BID@1000,2200 PO 12/20/17 10:00 01/19/18 09:59 01/03/18 10:14 1 GM Diphenoxylate HCl/ Atropine (Lomotil Tab) 2 tab Q6H PRN PO 12/20/17 01:30 01/19/18 01:29 01/02/18 17:51 2 TAB Enteral Nutritional Formula (Boost) 1 can TID PO 12/20/17 10:00 01/19/18 09:59 01/03/18 08:36 1 CAN Pantoprazole Sodium (Protonix Tab) 40 mg DAILY PO 12/20/17 09:00 01/19/18 08:59 01/03/18 08:38 40 MG Zolpidem Tartrate (Ambien Tab) 5 mg HS PRN PO 12/20/17 01:30 01/19/18 01:29 01/01/18 21:16 5 MG Tapentadol (Nucynta Tab) 100 mg Q6H PO 12/20/17 06:00 01/19/18 05:59 Future Hold 12/30/17 12:49 100 MG Ondansetron HCl (Zofran Odt) 8 mg Q6H PRN PO 12/20/17 01:45 01/19/18 01:44 01/03/18 15:53 8 MG Ranitidine HCl (zANTac TAB) 150 mg BID PO 12/20/17 03:00 01/19/18 02:59 01/03/18 08:38 150 MG Miscellaneous (Iv Fluids Completed) 1 ea PRN PRN N/A 12/20/17 04:45 12/20/18 04:44 Heparin Sodium (Porcine) (Heparin 10 Unit/ ml 5 ml Flush) 5 ml PRN PRN FLUSH 12/20/17 15:15 01/19/18 15:14 01/03/18 13:30 5 ML Nicotine (Nicoderm Cq 21MG Patch) 1 patch QAM TD 12/20/17 16:45 01/19/18 16:44 01/03/18 08:38 1 PATCH Miscellaneous (Remove Nicoderm Patch) 1 ea HS N/A 12/20/17 21:00 01/19/18 20:59 01/02/18 20:33 1 EA Fidaxomicin (Dificid Tab) 200 mg BID PO 12/22/17 09:00 01/03/18 20:59 01/03/18 08:36 200 MG Heparin Sodium (Porcine) (Heparin 10 Unit/ ml 5 ml Flush) 5 ml PRN PRN FLUSH 12/27/17 11:00 01/26/18 10:59 Prednisone (PredniSONE TAB) 15 mg DAILY PO 12/29/17 09:00 01/20/18 08:59 01/03/18 08:38 15 MG Lidocaine HCl/ Diphenhydramine HCl/Al Hydroxide/ Mg Hydroxide/ Glycerin/Barcode Q6H MT 12/30/17 19:00 01/29/18 18:59 01/01/18 01:01 5 ML Haloperidol (Haldol Tab) 5 mg TID PO 01/01/18 14:00 01/19/18 08:59 01/02/18 20:28 5 MG Oxycodone HCl (Roxicodone Immediate Rel Tab) 5 mg Q6 PRN PO 01/03/18 10:30 01/15/18 09:59 Duloxetine HCl (Cymbalta Cap) 30 mg QPM PO 01/03/18 21:00 01/29/18 18:14 Objective Vital Signs Date Time Temp Pulse Resp B/P (MAP) Pulse Ox O2 Delivery O2 Flow Rate FiO2 01/03/18 15:34 36.6 105 18 118/83 (95) 95 Room Air 01/03/18 08:00 Room Air 01/03/18 07:27 36.8 90 16 121/87 (98) 95 Room Air 01/03/18 00:18 36.5 94 18 129/86 (100) 95 Room Air 01/03/18 00:12 Room Air Physical Exam General Appearance: WD/WN, no apparent distress Eyes: normal inspection, EOMI, sclerae normal ENT: normal ENT inspection, hearing grossly normal, pharynx normal Neck: supple, no adenopathy, no JVD, trachea midline Respiratory/Chest: chest non-tender, lungs clear, normal breath sounds, no respiratory distress, no accessory muscle use Cardiovascular: regular rate, rhythm, no edema, no gallop, no JVD, no murmur Abdomen: normal bowel sounds, non tender, soft, no organomegaly Extremities: normal range of motion, non-tender, normal inspection, no pedal edema, no calf tenderness, pelvis stable 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, no motor/sensory deficits, alert, oriented x 3, + pertinent finding (slightly anxious, speech clear, good eye contact, flat affect, accusatory statements, paranoid abut taking medications) Skin: normal color, warm/dry, no rash Laboratory Results Last 24 Hours Test 01/03/18 05:55 White Blood Count 10.03 K/uL Red Blood Count 4.32 M/uL Hemoglobin 12.1 g/dL Hematocrit 36.7 % Mean Corpuscular Volume 85.0 fL Mean Corpuscular Hemoglobin 28.0 pg Mean Corpuscular Hemoglobin Concent 33.0 g/dl Platelet Count 325 K/uL Mean Platelet Volume 8.3 fL Neutrophils (%) (Auto) 72.9 % Lymphocytes (%) (Auto) 17.9 % Monocytes (%) (Auto) 7.3 % Eosinophils (%) (Auto) 1.1 % Basophils (%) (Auto) 0.1 % Neutrophils # (Auto) 7.31 K/uL Lymphocytes # (Auto) 1.80 K/uL Monocytes # (Auto) 0.73 K/uL Eosinophils # (Auto) 0.11 K/uL Basophils # (Auto) 0.01 K/uL RDW Standard Deviation 61.0 fL RDW Coefficient of Variation 19.4 % Immature Granulocyte % (Auto) 0.7 % Immature Granulocyte # (Auto) 0.07 K/uL Sodium Level 131 mmol/L Potassium Level 3.7 mmol/L Chloride Level 99 mmol/L Carbon Dioxide Level 26 mmol/L Anion Gap 6.0 mmol/L Blood Urea Nitrogen 11 mg/dl Creatinine 0.71 mg/dl Est Creatinine Clear Calc Drug Dose 75.8 ml/min Estimated GFR () 115.9 Estimated GFR (Non- 100.0 BUN/Creatinine Ratio 15.6 Random Glucose 75 mg/dl Calcium Level 8.5 mg/dl Magnesium Level 2.0 mg/dl Assessment and Plan 47 F with c/o subjective shakiness and found to have C diff diarrhea present on admission C Diff, pt refused po vancomycin as states she cannot take syrup and in the past did not tolerate flagyl, tolerated Dificid completed 10 days of Dificid as of 12/31 in the evening however, stools more loose on 01/01, continuing treatment explained that we will continue the Dificid for now on Colestid no fever, WBC normal less frequent stools per patient today, still loose, never really has solid stool with Crohn's disease Crohn's disease with colovaginal fistula minimal vaginal output continue Remicade, A port placed, next dose of Remicade on 01/04, will need to give in the hospital continue Prednisone at 15mg daily follow up closely with [facility] GI and colorectal surgery (02/04) continue Colestipol, Zantac, Zofran Sinus tachycardia/dehydration/progressive weakness--resolved Chronic pain syndrome-- previously on Nucynta but cannot afford started on Cymbalta this admission, she c/o not sleeping well, will decrease to 30mg and taper off decrease Oxycodone to 5mg, need to wean off, h/o drug seeking behavior Anxiety/agitation with non-specific psychosis, suspected borderline personality disorder Patient refuses to speak with psychiatry, she does not think she needs psychiatric care, does not think they can help her Haldol ordered 5mg TID, she is refusing to take, says that she will continue to refuse despite my counseling on importance of compliance continue Klonopin PRN Buspar was started earlier in admission for anxiety, stopped due to tremors Consulted Surgery for A Port placement. This has been completed. need to remove picc line prior to discharge Sore throat placed on magic swizzle cannot discharge at this time, mentally not stable, concerned she will not take her medications, she does not seem to grasp importance of these medications will give Remicade tomorrow since she is still admitted will discuss with psychiatry tomorrow
[2018-01-03] MEDS ORDERED: DULOXETINE (CYMBALTA) 30 MG CAP PO SCH (21:00)
[2018-01-03 23:50] VITALS: BP 128/88; PULSE 79; TEMP 36.6; O2SAT 95
[2018-01-04] MEDS: LIDOCAINE HCL 2% VISCOUS SOLN 60 ML, DiphenhydrAMINE HCL SYRUP 150 MG, ALUMINUM/MAGNESI... MT SCH ×12 (00:19→13:00)
[2018-01-04] MEDS: ZOLPIDEM TARTRATE 5 MG TAB PO PRN (00:19)
[2018-01-04 07:25] VITALS: BP 126/88; PULSE 98; TEMP 36.8; O2SAT 96
[2018-01-04] MEDS: ONDANSETRON 8MG OD TAB PO PRN (08:28)
[2018-01-04] MEDS: PANTOprazole SOD 40 MG TAB PO SCH (08:29)
[2018-01-04] MEDS: BOOST VANILLA PO SCH ×3 (08:29→13:03)
[2018-01-04] MEDS: NICOTINE 21 MG/24 HR TDSY TD SCH (08:30)
[2018-01-04] MEDS: RANITIDINE HCL 150 MG TAB PO SCH (08:30)
[2018-01-04] MEDS: COLESTIPOL HCL 1 GM TAB PO SCH (10:46)
[2018-01-04] MEDS ORDERED: INFLIXIMAB 100 MG/10 ML VIAL IV SCH (11:45)
[2018-01-04] MEDS ORDERED: INFLIXIMAB IV ONE (12:30)
[2018-01-04] MEDS ORDERED: 1.2 MICRON FILTER 1 EA IV ONE (12:30)
[2018-01-04] MEDS ORDERED: SODIUM CHLORIDE 0.9% IV ONE (12:30)
[2018-01-04 13:53] VITALS: BP 121/85; PULSE 107; TEMP 37; O2SAT 95
--- NOTE | 2018-01-04 14:20 | Psychiatric Progress Notes ---
Psychiatric Progress Note Date of Service January 04, 2018. Notes Pt seen today on psychiatric consult service along with psychiatric nurse liaison. Assessment requested as patient has been refusing to speak with staff and has been declining medications, most notably her Haldol 5mg TID. Primary medical team feels patient has begun to decompensate. Pt lying in bed for the duration of encounter. She appears superficially cooperative and pleasant; however, upon discussing benefits/side effects of Haldol, the patient becomes defensive, telling this provider that she never had benefits from the medication and that it made her "unhappy." With patient's previous hospitalization, pt was inquiring about additional dosing as she felt it was helpful. These comments were discussed with the patient who continued to deny its effectiveness. This provider attempted to review alternative agents with the patient who was unwilling to consider by saying, "no more, no more" repeatedly. The patient does appear to be decompensating; however, will not allow our service to make other recommendations. At this encounter she does not meet criteria for forced medications.
--- NOTE | 2018-01-04 15:46 | Psychiatric Progress Notes ---
Psychiatric Progress Note Date of Service January 04, 2018. 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 Case reviewed with Charo Rosas PA-C, liaison nurse and Dr. Varghese. Patient finished Remicade infusion and desires to leave the hospital. Dr. Varghese confirms that she is medically cleared. The plan is for patient to return home with home health and she is agreeable to and wants this. She has refused several doses of PO Haldol but there is no evidence of psychosis or SI. Term decompensating used by other staff is referring to increase in irritability. She has not threatened others or become physically aggressive in any way. Reviewed that there is no indication for inpatient involuntary psychiatric commitment. Even if was requiring a 302 she would not meet criteria for forced psych meds at this time. Hopefully she is just engaging in control issues with staff near end of the stay seeking controlled substances and will resume on return home, otherwise she is very likely to decompensate. This has been thoroughly reviewed with the patient, ie she is aware that stopping Haldol is against medical advice.
[2018-01-04] MEDS ORDERED: TRAM-10 PO (15:52)
[2018-01-04] MEDS ORDERED: HALO5TAB PO (15:52)
[2018-01-04 15:57] VITALS: BP 121/85; PULSE 107; TEMP 37; O2SAT 95
--- NOTE | 2018-01-04 16:03 | Discharge Instructions ---
Discharge Instructions Date of Service January 04, 2018. Admission Reason for Admission: C difficile colitis Discharge Discharge Diagnosis / Problem: C difficiline colitis, Crohn's disease Discharge Goals Goal(s): Improve function, Improve disease control, Therapeutic intervention ( Remicaide on 03/01/18) Activity Recommendations Activity Limitations: resume your previous activity . Instructions / Follow-Up Instructions / Follow-Up Medications: - CYMBALTA: 60mg daily to help with pain associated with fibromyalgia, can also help with anxiety disorder - ULTRAM: use as needed for abdominal pain - HALDOL: recommend that you take 5mg twice a day, this is decreased dose from three times a day again, psychiatry recommends that you take this medication - PREDNISONE: dose decreased to 15mg daily C difficile colitis: treated with 14 days with Dificid. Significant improvement in diarrhea. No further treatment indicated. Follow up with gastroenterology Crohn's disease: continue to follow treatment plan with [facility], Prednisone 15mg daily received Remicade here in hospital today next dose is due 03/01/18 at [facility] Anxiety disorder/fibromyalgia started on Cymbalta 60mg daily for anxiety and pain relief it is my recommendation and the recommendation from psychiatry that you take your Haldol, dose decreased to 5mg twice a day to try to alleviate side effects FOLLOW UP - Dr. Vann as previously scheduled - [facility] as previously scheduled, you need to see them on 03/01/18 for Remicade infusion - Colorectal surgery on 02/04 to discuss any possible surgical options for colovaginal fistula Current Hospital Diet Patient's current hospital diet: Regular Diet Discharge Diet Recommended Diet: Regular Diet Procedures Procedures Performed: A-Port Insertion Left Subclavian Vein Pending Studies Studies pending at discharge: no Laboratory Results Lipid Panel Test 11/13/17 05:36 Range/Units Triglycerides Level 234 H 0-150 mg/dl Medical Emergencies . Who to Call and When: Medical Emergencies: If at any time you feel your situation is an emergency, please call 911 immediately. . Non-Emergent Contact Non-Emergency issues call your: Primary Care Provider, Alum Mixer Call Non-Emergent contact if: you have any medication questions . . "Provider Documentation" section prepared by Rey Varghese. . [place] Drug Monitoring Program Search Results: no issues identified
[2018-01-04] MEDS ORDERED: HALOPERIDOL LACTATE 5 MG/ML 1 ML VIAL IM SCH (21:00)
--- NOTE | 2018-01-05 16:31 | Discharge Summary ---
Discharge Summary Date of Service January 04, 2018. Discharge Summary Admission Date: Dec 21, 2017 at 14:41 Discharge Date: January 04, 2018 Discharge Disposition: Home with services Principal Diagnosis: C difficile colitis Problems/Secondary Diagnoses: Crohn's disease Anxiety disorder Psychosis, not otherwise specified Fibromyalgia Immunizations: Have You Had Influenza Vaccine: Unknown History of Tetanus Vaccine?: Unknown History of Pneumococcal: Unknown History of Hepatitis B Vaccine: Unknown Procedures: A port placement Consultations: Gastroenterology Infectious disease Psychiatry General surgery Medication Reconciliation New Medications: Haloperidol (Haldol) 5 Mg Tab 1 TAB PO BID for 30 Days, #60 TAB 1 Refill Tramadol (Ultram) 50 Mg Tab 50 MG PO Q8H PRN for Pain, #30 TAB Duloxetine HCl (Duloxetine HCl) 30 Mg Cap 60 MG PO QPM, #60 CAP 3 Refills Prednisone (Prednisone) 10 Mg Tab 15 MG PO DAILY, #60 TAB 0 Refills Continued Medications: Clonazepam (Klonopin) 1 Mg Tab 1 MG PO Q8 PRN for Anxiety, TAB Colestipol Hcl (Colestid) 1 Gm Tab 1 GM PO BID, TAB Diphenoxylate/Atropine (Lomotil) Tab 2 TABS PO Q6H PRN for Diarrhea, TAB Enteral Nutrition Formula (Ensure) Liq 1 CAN PO TID Ergocalciferol (Vitamin D 79348 Unit) 50,000 Unit Cap 26692 UNIT PO SUNDAY, CAP Ferrous Sulfate (Kp Ferrous Sulfate) 325 Mg Tab 325 MG PO BID Ondansetron Hcl (Zofran) 4 Mg Tab 4 MG PO TID PRN for Nausea, TAB Pantoprazole (Protonix) 40 Mg Tab 40 MG PO DAILY Ranitidine (Zantac) 150 Mg Tab 150 MG PO BID PRN for Heartburn, TAB Zolpidem Tartrate (Zolpidem Tartrate) 5 Mg Tab 5 MG PO HS PRN for Sleep, TAB [Hydrocortisone 1%] () 1 APPLN TD BID 1% OINT Discontinued Medications: Cyanocobalamin (Cyanocobalamin) 1,000 Mcg/Ml Inj 1000 MCG IM WK Haloperidol (Haloperidol) 2 Mg Tab 1 MG PO Q6H PRN for Anxiety/Agitation Haloperidol (Haldol) 5 Mg Tab 5 MG PO TID, TAB Prednisone (Prednisone) 10 Mg Tab 30 MG PO DAILY Tapentadol Hcl (Nucynta) 100 Mg Tab 100 MG PO Q6H Discharge Exam Patient received Remicade infusion. Afterwards we had a long talk about taking Haldol as it is necessary for her overall health. She said she would not take Haldol, it made her depressed, despondent, felt like she was shaking inside. Psychiatry came to see the patient, she dismissed them quickly and did not really talk with them. The patient was insisting that she could go home after the Remicade. We discussed that medically she was stable for discharge as her diarrhea had significantly subsided, she was eating and drinking, minimal abdominal pain. I expressed my concerns that she was not going to take her Haldol as prescribed and I was worried that it would affect her ability to take care of herself. I asked if I had permission to call her daughter and she said that I did not have permission and that she did not want me to call her. I discussed the case with psychiatry because I was wondering if there was enough to sign a 302 to make her stay in the hospital and take her psychiatric medications. The patient was not hallucinating, was not delusional, was not aggressive. She simply refused to take her Haldol. She said that she knew the importance of taking her Prednisone, getting Remicade infusion and following up with gastroenterology and colorectal surgery. In fact, she had scheduled an appointment to follow up with colorectal surgery on 02/04. Dr. Braun recommended against a 302 petition because the patient was compliant with her medical treatment, she just did not want to take her psychiatric medication. Since she was stable medically for discharge she could be discharged, it would not be considered against medical advice. Prior to discharge, spoke with patient at length about taking Haldol, I would prescribe a less frequent dose in an effort to promote her compliance and decrease side effects. She said she would not take it but I could prescribe it if I wanted to. She said that she would get a taxi to take her home. Review of Systems: Constitutional: No fever, No chills, No sweats, No weight loss, No weakness , No fatigue, No problem reported Eyes: No worsening of vision, No eye pain, No redness, No discharge, No diplopia, No problem reported ENT: No hearing loss, No unusual epistaxis, No nasal symptoms, No sore throat, No tinnitus, No dental problems, No trouble swallowing, No problem reported Respiratory: No cough, No sputum, No wheezing, No shortness of breath, No dyspnea on exertion, No dyspnea at rest, No hemoptysis, No problem reported Cardiovascular: No chest pain, No orthopnea, No PND, No edema, No claudication, No palpitations, No problem reported Abdomen: + pain (occasional lower abdominal pain), + diarrhea, No nausea, No vomiting, No constipation, No GI bleeding Musculoskeletal: + muscle pain (diffuse, fibromyalgia pain), No joint pain, No swelling, No calf pain, No problem reported Genitourinary - Female: + problem reported (occasional stool out of vaginal from fistula), No dysuria, No urinary frequency, No urinary urgency, No urinary incontinence, No urinary retention, No hematuria Neurologic: No memory loss, No paralysis, No weakness, No numbness/tingling , No vertigo, No balance problems, No problem reported Psychiatric: + anxiety, + insomnia, No depression symptoms, No anhedonism, No substance abuse, No problem reported Endocrine: No fatigue, No excessive thirst, No excessive urination, No problem reported Hematologic / Lymphatic: No abnormal bleeding/bruising, No clotting problems , No swollen lymph nodes, No night sweats, No problem reported Integumentary: No rash, No itch, No new/changing skin lesions, No color change, No bleeding, No problem reported Physical Exam: General Appearance: WD/WN, no apparent distress Eyes: normal inspection, EOMI, sclerae normal ENT: normal ENT inspection, hearing grossly normal, pharynx normal Neck: supple, no adenopathy, no JVD, trachea midline Respiratory/Chest: chest non-tender, lungs clear, normal breath sounds, no respiratory distress, no accessory muscle use Cardiovascular: regular rate, rhythm, no edema, no gallop, no JVD, no murmur , normal peripheral pulses Abdomen / GI: normal bowel sounds, soft, no organomegaly, + tenderness ( minimal pain in lower abdomen) Extremities: normal inspection, no calf tenderness, normal capillary refill , no pedal edema, normal range of motion, pelvis stable Neurologic/Psychiatric: cuprous chloride helper II-XII nml as tested, no motor/sensory deficits , alert, normal reflexes, oriented x 3, + pertinent finding (anxious to leave, slightly angry when at first she would not be discharged, ) Skin: normal color, warm/dry, no rash Lymphatic: no adenopathy Hospital Course 47 F with c/o subjective shakiness and found to have C diff diarrhea present on admission. Recent history of Crohn's disease with rectovaginal fistula, on Remicade infusions as outpatient, also with recent history of sepsis, infected A port and psychosis. C Diff colitis, pt refused po vancomycin as states she cannot take syrup and in the past did not tolerate flagyl, tolerated Dificid completed 14 days of Dificid as of 01/04 stools became less frequent, less abdominal pain, no bleeding continue Colestid no fever, WBC normal Crohn's disease with colovaginal fistula minimal vaginal output continue Remicade, A port placed, received a dose of Remicade on 01/04 next dose due on 03/01 continue Prednisone at 15mg daily follow up closely with [facility] and colorectal surgery (02/04) continue Colestid, Zantac, Zofran Sinus tachycardia/dehydration/progressive weakness--resolved Chronic pain syndrome-- previously on Nucynta but cannot afford started on Cymbalta this admission, tolerating well, continue at 60mg daily Oxycodone changed to Ultram to avoid using strong narcotics Anxiety/agitation with non-specific psychosis, suspected borderline personality disorder Patient refuses to speak with psychiatry, she does not think she needs psychiatric care, does not think they can help her Haldol ordered 5mg TID, she refused to take for 2 days prior to discharge, says that she will continue to refuse despite my counseling on importance of compliance continue Klonopin PRN Buspar was started earlier in admission for anxiety, stopped due to tremors recommended that she follow up with Psychiatry as outpatient provided with script for Haldol 5mg BID to try to promote some compliance and decrease perceived side effects Consulted Surgery for A Port placement. This has been completed. PICC removed on the day of discharge d/c to home, medically stable for discharge see discussion above about mental health and psychiatry recommendations difficult situation but patient is refusing her psychiatric medications and we cannot keep her in the hospital because there is nothing to support a 302 commitment Total Time Spent: Greater than 30 minutes This includes examination of the patient, discharge planning, medication reconciliation, and communication with other providers. Discharge Instructions Please refer to the electronic Patient Visit Report (Discharge Instructions) for additional information. Follow-Up Dr. Vann in one week [facility] gastroenterology [facility] colorectal surgery Additional Copies To Damari Vann M.D.; Sixto Garcia M.D.
== END 2018-01-04 16:30 | disposition home health service (06) | DRG 309 ==
LOC: C.EDC 18:48 → C.2T 12-20 01:18 → ENRESERV 12-20 01:26 → C.MS2W 12-20 12:11 → ENRESERV 12-20 12:53 → OBSVTOIN 12-21 14:41
PROVIDERS: ADMIT Hospitalist; ATTEND Internal Medicine
PROC: 05H633Z Insertion of Infusion Device into Left Subclavian Vein, Percutaneous Approach (ICD-10-PCS; principal; 2017-12-28 14:10)
DX: R00.0 Tachycardia, unspecified (principal); K50.90 Crohn's disease, unspecified, without complications; N82.4 Other female intestinal-genital tract fistulae; A04.72 Enterocolitis due to Clostridium difficile, not specified as recurrent; M79.7 Fibromyalgia; F17.200 Nicotine dependence, unspecified, uncomplicated; E86.0 Dehydration; G89.4 Chronic pain syndrome; F41.9 Anxiety disorder, unspecified; J02.9 Acute pharyngitis, unspecified; Z90.49 Acquired absence of other specified parts of digestive tract; Z87.440 Personal history of urinary (tract) infections; Z88.2 Allergy status to sulfonamides; Z88.0 Allergy status to penicillin; Z87.01 Personal history of pneumonia (recurrent); Z83.3 Family history of diabetes mellitus; Z80.9 Family history of malignant neoplasm, unspecified; Z82.49 Family history of ischemic heart disease and other diseases of the circulatory system